=== PATIENT | female | born 1990 | race Caucasian/White ===

== ENCOUNTER 2017-08-28 18:18 | Inpatient (IN) | payer SELFPAY ==
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
[2017-08-28 18:47] LABS: % IMMATURE GRANULYOCYTES 0.3 % (0.0-1.1); ABSOLUTE IMMATURE GRANULOCYTES 0.03 10^3/uL (0.00-0.10); ADD DIFF? NO; ADD MORPH? NO; ADD SCAN? NO; ATYPICAL LYMPHOCYTE FLAG 0 (0-99); FRAGMENT RBC FLAG 0 (0-99); HEMATOCRIT 35.2 % (38.0-47.0); HEMOGLOBIN 11.1 g/dL (12.6-16.3); LEFT SHIFT FLG 0 (0-99); LIPEMIA HEMOLYSIS FLAG 80 (0-99); MEAN CELL HEMOGLOBIN 27.3 pg (27.9-34.1); MEAN CELL HEMOGLOBIN CONCENTR. 31.5 g/dL (32.4-36.7); MEAN CELL VOLUME 86.7 fL (81.5-99.8); MEAN PLATELET VOLUME 10.2 fL (8.7-11.7); PLATELET CLUMPS FLAG 0 (0-99); PLATELET COUNT 361 10^3/uL (150-400); RED BLOOD CELL COUNT 4.06 10^6/uL (4.18-5.33); RED CELL DISTRIBUTION WIDTH 15.9 % (11.5-15.2)
[2017-08-28 19:00] LABS: ANION GAP 13 mEq/L (8-16); CALCIUM 9.4 mg/dL (8.5-10.4); CARBON DIOXIDE 23 mEq/l (22-31); CHLORIDE 104 mEq/L (97-110); CREATININE 0.6 mg/dL (0.6-1.0); ETHANOL SERUM < 10 mg/dL (0-10); GLOMERULAR FILTRATION RATE > 60; GLUCOSE 92 mg/dL (70-100); POTASSIUM 4.4 mEq/L (3.5-5.2); SODIUM 140 mEq/L (134-144)
[2017-08-28] MEDS ORDERED: risperiDONE 2 MG TAB PO ONE (21:45)
[2017-08-28] MEDS ORDERED: BENZTROPINE MESYLATE 1 MG TAB PO ONE (21:45)
[2017-08-28] MEDS ORDERED: VALPROIC ACID 250 MG CAP PO SCH (21:46)
[2017-08-29] MEDS ORDERED: LORazepam 0.5 MG TAB PO PRN (01:20)
[2017-08-29] MEDS ORDERED: ACETAMINOPHEN 325 MG TAB PO PRN (01:20)
[2017-08-29] MEDS ORDERED: MAGNESIUM HYDROXIDE 30 ML UDCUP PO PRN (01:20)
[2017-08-29] MEDS ORDERED: OLANZapine 5 MG TAB PO PRN (01:20)
[2017-08-29] MEDS ORDERED: NICOTINE POLACRILEX 2 MG GUM B PRN (01:20)
[2017-08-29] MEDS ORDERED: MAG HYDROX/AL HYDROX/SIMETH 30 ML UDCUP PO PRN (01:20)
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
[2017-08-29 12:34] LABS: ALANINE AMINOTRANSFERASE 26 IU/L (9-52)
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
[2017-08-29] MEDS: FOLIC ACID 1 MG TAB PO SCH (14:20)
[2017-08-29] MEDS: CYANO/VITAMIN B12 100 MCG TAB PO SCH (14:20)
[2017-08-29] MEDS: FERROUS SULFATE 325 MG TAB PO SCH (14:21)
[2017-08-29] MEDS: MULTIVITAMINS W-MINERALS 1 EACH TAB PO SCH (15:02)
[2017-08-29] MEDS: CALCIUM CARBONATE 500 MG CHEWABLE TAB PO SCH (17:32)
[2017-08-29] MEDS: BENZTROPINE MESYLATE 1 MG TAB PO SCH (20:26)
[2017-08-29] MEDS: VALPROIC ACID 250 MG/5 ML UDCUP PO SCH (20:26)
[2017-08-29] MEDS: RISPERIDONE 1 MG ODT TAB SL SCH (20:26)
[2017-08-29] MEDS ORDERED: RISPERIDONE 2 MG ODT TAB SL SCH (21:00)
[2017-08-30 07:14] LABS: % SATURATION 7 % (20-55); TOTAL IRON BINDING CAPACITY 508 ug/dL (260-490)
[2017-08-30] MEDS ORDERED: CHOLECALCIFEROL VIT D3 1,000 UNITS TAB PO SCH (09:00)
[2017-08-30] MEDS: MULTIVITAMINS W-MINERALS 1 EACH TAB PO SCH (09:11)
[2017-08-30] MEDS: CHOLECALCIFEROL VIT D3 1,000 UNITS TAB PO SCH (09:12)
[2017-08-30] MEDS: FERROUS SULFATE 325 MG TAB PO SCH (09:12)
[2017-08-30] MEDS: CALCIUM CARBONATE 500 MG CHEWABLE TAB PO SCH ×3 (09:13→17:57)
[2017-08-30] MEDS: CYANO/VITAMIN B12 100 MCG TAB PO SCH (09:13)
[2017-08-30] MEDS: FOLIC ACID 1 MG TAB PO SCH (09:13)
--- NOTE | 2017-08-30 10:48 | SOAPPROG ---
SOAP Progress Note Assessment/Plan: Assessment: Schizoaffective Disorder bipolar type PTSD History of gastric bypass Iron deficiency anemia Patient admitted on -1 hold for grave disability related to psychotic disorganization, paranoia, and barricading herself in a hotel room after several weeks of psychiatric medication non-compliance. Patient now on short term certification Patient is compliant with medications but had paranoia and hallucinations overnight and no insight. Plan: Continue Risperdal 3mg QHS Continue Cogentin 1mg QHS Continue Depakote 750mg QHS, check level in 3-4 days; discussed risk of severe defects Continue folic acid, iron, B12 Monitor behavior, paranoia, AH 08/30/17 10:53 Subjective: "I'm OK" Patient is a poor historian. Reports she 'saw and heard something that freaked me out' last night and left her room and refused to go back into her room. Denies feeling irritable or agitated. Reports she is unwilling to take oral contraceptive pills or DepoProvera injection while taking Depakote, but reports she is not sexually active and will not be sexually active without using control. Agrees to discuss this further with an PACKAGE SEALER MACHINE or PCP after discharge. Denies severe anxiety. No physical complaints except feeling tired daily. Objective: Vital Signs Temp Pulse Resp BP Pulse Ox 36.4 C 99 16 105/51 L 97 08/30/17 06:00 08/30/17 06:00 08/30/17 06:00 08/30/17 06:00 08/30/17 06:00 Alert WF, pale, guarded attitude. Mild slowing. Mood 'OK' Affect restricted. Thoughts - briefly organized but poverty of detail/content. Denies SI or HI. Probable AH, VH, and paranoid delusions overnight. Limited/poor insight. Impaired judgment. Staff report patient was awake in middle of the night, appearing disorganized, making paranoid statements that something was outside her window, refused to re- enter room, eventually slept in a different room. Patient has been eating mieals but avoiding groups and isolating. Patient has been observed to be internally preoccupied, mumbling to herself and laughing to herself at times. - Time Spent With Patient Time Spent With Patient: 15 minutes - Pending Discharge Pending Discharge Within 24 Hours: No Pending Discharge Within 48 Hours: No ICD10 Worksheet Patient Problems: Problems Problem Status Onset Anemia Acute Depression Acute Grave disability Acute H/O bariatric surgery Acute Posttraumatic stress disorder Acute Schizoaffective disorder Acute
[2017-08-30] MEDS: RISPERIDONE 1 MG ODT TAB SL SCH (20:37)
[2017-08-30] MEDS: VALPROIC ACID 250 MG/5 ML UDCUP PO SCH (20:37)
[2017-08-30] MEDS: BENZTROPINE MESYLATE 1 MG TAB PO SCH (20:37)
[2017-08-31] MEDS: CHOLECALCIFEROL VIT D3 1,000 UNITS TAB PO SCH (08:58)
[2017-08-31] MEDS: MULTIVITAMINS W-MINERALS 1 EACH TAB PO SCH (08:58)
[2017-08-31] MEDS: CALCIUM CARBONATE 500 MG CHEWABLE TAB PO SCH ×3 (08:59→16:48)
[2017-08-31] MEDS: FOLIC ACID 1 MG TAB PO SCH (08:59)
[2017-08-31] MEDS: FERROUS SULFATE 325 MG TAB PO SCH (08:59)
[2017-08-31] MEDS: CYANO/VITAMIN B12 100 MCG TAB PO SCH (08:59)
--- NOTE | 2017-08-31 11:13 | SOAPPROG ---
SOAP Progress Note Assessment/Plan: Assessment: Schizoaffective Disorder bipolar type PTSD History of gastric bypass Iron deficiency anemia Patient admitted on M-1 hold for grave disability related to psychotic disorganization, paranoia, and barricading herself in a hotel room after several weeks of psychiatric medication non-compliance. Patient now on short term certification. Patient is compliant with medications and appears less distressed but continues to have social anxiety on the unit with poor insight and illogical thinking. Plan: Continue Risperdal 3mg QHS Continue Cogentin 1mg QHS Continue Depakote 750mg QHS, check level 09/02 Continue folic acid, iron, B12 Monitor behavior, paranoia, AH, behavior 08/31/17 11:13 Subjective: "I'm alright" Patient denies any somatic complaints. Denies feeling excessively sedated or tired or slowed. Reports sleeping well. Denies anxiety but then reports she doesn't want to see or speak to her mother and doesn't want to be around other patients or attend groups. Denies feeling agitated or irritable or depressed. Unable to explain events that led to current hospitalization but later reports having fear of being harmed and AH and VH in her home. Reports not wanting to discharge home but doesn't have a plan regarding obtaining food or halfway if discharged. Agrees to continue medication in unit and after discharge. Objective: Vital Signs Temp Pulse Resp BP Pulse Ox 36.4 C 90 16 123/58 H 96 08/31/17 06:00 08/31/17 06:00 08/31/17 06:00 08/31/17 06:00 08/31/17 06:00 Alert WF, pale. Guarded attitude. Appears less anxious and less preoccupied than previous. Speech RRR few words. Mood 'alright' Thoughts briefly organized with a poverty of detail, but illogical and irrational at times. Denies paranoia or AH. Limited insight and impaired judgment. Staff report patient 9 hours, denies SI on unit, avoiding groups, eats only small amount of food when alone. - Time Spent With Patient Time Spent With Patient: 15 minutes - Pending Discharge Pending Discharge Within 24 Hours: No Pending Discharge Within 48 Hours: No ICD10 Worksheet Patient Problems: Problems Problem Status Onset Anemia Acute Depression Acute Grave disability Acute H/O bariatric surgery Acute Posttraumatic stress disorder Acute Schizoaffective disorder Acute
[2017-08-31] MEDS: RISPERIDONE 1 MG ODT TAB SL SCH (20:47)
[2017-08-31] MEDS: VALPROIC ACID 250 MG/5 ML UDCUP PO SCH (20:48)
[2017-08-31] MEDS: BENZTROPINE MESYLATE 1 MG TAB PO SCH (20:48)
[2017-09-01] MEDS: CYANO/VITAMIN B12 100 MCG TAB PO SCH (08:12)
[2017-09-01] MEDS: CHOLECALCIFEROL VIT D3 1,000 UNITS TAB PO SCH (08:12)
[2017-09-01] MEDS: MULTIVITAMINS W-MINERALS 1 EACH TAB PO SCH (08:12)
[2017-09-01] MEDS: FERROUS SULFATE 325 MG TAB PO SCH (08:12)
[2017-09-01] MEDS: CALCIUM CARBONATE 500 MG CHEWABLE TAB PO SCH ×3 (08:12→18:52)
[2017-09-01] MEDS: FOLIC ACID 1 MG TAB PO SCH (08:13)
--- NOTE | 2017-09-01 12:48 | SOAPPROG ---
SOAP Progress Note Assessment/Plan: Assessment: Per Dr. Christianson's note: chizoaffective Disorder bipolar type PTSD History of gastric bypass Iron deficiency anemia Patient admitted on M-1 hold for grave disability related to psychotic disorganization, paranoia, and barricading herself in a hotel room after several weeks of psychiatric medication non-compliance. Patient now on short term certification. Patient is compliant with medications and appears less distressed but continues to have social anxiety on the unit with poor insight and illogical thinking. Plan: Continue Risperdal 3mg QHS Continue Cogentin 1mg QHS Continue Depakote 750mg QHS, check level 09/02 Continue folic acid, iron, B12 Monitor behavior, paranoia, AH, behavior Plan: 09/01/17 12:44 1. CCM - patient is slowly improving 2. Patient continues to be compliant with medications. 3. Patient isolates in her room and has minimal contact with peers/staff. 4. VPA on 09/02 Subjective: Met with patient, reviewed chart and d/w staff. Patient was lying in bed, but got up to talk to MD. Staff report patient c/o stomach cramps last night and insisted that staff send her to ED. She waited for several hours, but eventually felt better and was able to sleep well for 8 hrs. Patient told staff she had a "parasite" in her stomach from eating "some bad rice" several weeks ago. This AM, patient told MD she was feeling "much better" b/c "I've had stomach issues for past few days, but now they're gone and my stomach feels much better." Patient presents less paranoid today. She took her meds without any problem. Objective: Vital Signs Temp Pulse Resp BP Pulse Ox 36.1 C 94 14 107/55 L 97 09/01/17 06:00 09/01/17 06:00 09/01/17 06:00 09/01/17 06:00 09/01/17 06:00 MSE: Guarded, but pleasant Affect: Euthymic Mood: "Much better" TP: Illogical TC: Paranoid delusions (stomach "parasites"), improved somewhat today Insight/Judgment: Impaired - Time Spent With Patient Time Spent With Patient: 15" - Pending Discharge Pending Discharge Within 24 Hours: No Pending Discharge Within 48 Hours: No ICD10 Worksheet Patient Problems: Problems Problem Status Onset Anemia Acute Depression Acute Grave disability Acute H/O bariatric surgery Acute Posttraumatic stress disorder Acute Schizoaffective disorder Acute
[2017-09-01] MEDS: RISPERIDONE 1 MG ODT TAB SL SCH (20:57)
[2017-09-01] MEDS: BENZTROPINE MESYLATE 1 MG TAB PO SCH (20:57)
[2017-09-01] MEDS: VALPROIC ACID 250 MG/5 ML UDCUP PO SCH (20:58)
[2017-09-02] MEDS: MULTIVITAMINS W-MINERALS 1 EACH TAB PO SCH (09:32)
[2017-09-02] MEDS: FERROUS SULFATE 325 MG TAB PO SCH (09:32)
[2017-09-02] MEDS: CHOLECALCIFEROL VIT D3 1,000 UNITS TAB PO SCH (09:32)
[2017-09-02] MEDS: CALCIUM CARBONATE 500 MG CHEWABLE TAB PO SCH ×3 (09:32→19:13)
[2017-09-02] MEDS: FOLIC ACID 1 MG TAB PO SCH (09:33)
[2017-09-02] MEDS: CYANO/VITAMIN B12 100 MCG TAB PO SCH (09:33)
[2017-09-02 11:46] LABS: ALANINE AMINOTRANSFERASE 30 IU/L (9-52)
--- NOTE | 2017-09-02 12:08 | SOAPPROG ---
SOAP Progress Note Assessment/Plan: Assessment: Per Dr. Christianson's note: chizoaffective Disorder bipolar type PTSD History of gastric bypass Iron deficiency anemia Patient admitted on M-1 hold for grave disability related to psychotic disorganization, paranoia, and barricading herself in a hotel room after several weeks of psychiatric medication non-compliance. Patient now on short term certification. Patient is compliant with medications and appears less distressed but continues to have social anxiety on the unit with poor insight and illogical thinking. Plan: Continue Risperdal 3mg QHS Continue Cogentin 1mg QHS Continue Depakote 750mg QHS, check level 09/02 Continue folic acid, iron, B12 Monitor behavior, paranoia, AH, behavior Plan: 09/01/17 12:44 1. CCM - patient is slowly improving 2. Patient continues to be compliant with medications. 3. Patient isolates in her room and has minimal contact with peers/staff. 4. VPA on 09/0209/02/17 12:05 1. Patient requested PO Depakote instead of liquid d/t taste. MD made the change , but advised staff to monitor for compliance. 2. So far, patient has demonstrated compliance with all meds. 3. VPA level is still pending. She received HS dose last night, so blood was drawn late this morning to ensure trough level. 4. CCM - patient shows signs of improvement since starting back on meds Subjective: Met with patient, reviewed chart and d/w staff. Patient was sitting in day room not doing anything in particular. She has been more present in milieu today, but not participating in any group activities or interacting with peers. She is pleasant and cooperative and answers questions briefly but appropriately. She still refuses to sign [facility] for [facility] and says she will "find her own" psych MD after discharge. Objective: Vital Signs Temp Pulse Resp BP Pulse Ox 36.4 C 100 14 119/55 L 97 09/02/17 06:00 09/02/17 06:00 09/02/17 06:00 09/02/17 06:00 09/02/17 06:00 Affect: Flat Mood: "OK" TP: Goal-directed for purposes of brief conversations TC: Delusions, less paranoid Insight/Judgment: Poor - Time Spent With Patient Time Spent With Patient: 15" - Pending Discharge Pending Discharge Within 24 Hours: No Pending Discharge Within 48 Hours: No ICD10 Worksheet Patient Problems: Problems Problem Status Onset Anemia Acute Depression Acute Grave disability Acute H/O bariatric surgery Acute Posttraumatic stress disorder Acute Schizoaffective disorder Acute
[2017-09-02] MEDS ORDERED: VALPROIC ACID 250 MG CAP PO SCH (21:00)
[2017-09-02] MEDS: RISPERIDONE 1 MG ODT TAB SL SCH (21:10)
[2017-09-02] MEDS: BENZTROPINE MESYLATE 1 MG TAB PO SCH (21:11)
[2017-09-03] MEDS ORDERED: RISPERIDONE 1 MG ODT TAB SL SCH (07:42)
[2017-09-03] MEDS ORDERED: VALPROIC ACID 250 MG CAP PO SCH ×2 (07:42→21:00)
--- NOTE | 2017-09-03 07:46 | SOAPPROG ---
SOAP Progress Note Assessment/Plan: Assessment: Schizoaffective Disorder bipolar type PTSD History of gastric bypass Iron deficiency anemia Patient admitted on M-1 hold for grave disability related to psychotic disorganization, paranoia, and barricading herself in a hotel room after several weeks of psychiatric medication non-compliance. Patient now on short term certification. Patient is compliant with medications but appears dysphoric and paranoid and illogical. Plan: Increase Risperdal 4mg QHS Continue Cogentin 1mg QHS Increase Depakote 1000mg QHS Continue folic acid, iron, B12 Monitor behavior, paranoia, AH, behavior Requested nursing staff contact legal department to clarify if patients mother can get daily updates from nursing (mother has medical power of senior trial attorney, document in chart, discussed this on phone with mother). 09/03/17 07:46 Subjective: "Alright" Patient denies mood swings or severe depression or irritability. Denies any physical complaints. Reports she is unwilling to meet with mother to discuss discharge planning or return to mother's home, reports she is scared to go there , unable to explain why. Unable to explain how she would obtain housing if not discharged to live with mother. Denies paranoia or AH. Reports sleeping well. Objective: Vital Signs Temp Pulse Resp BP Pulse Ox 36.5 C 76 14 100/52 L 90 L 09/03/17 06:00 09/03/17 06:00 09/03/17 06:00 09/03/17 06:00 09/03/17 06:00 Alert WF, pale, dysphoric, tearful. Speech RRR. Mood 'alright.' THoughts illogical with poverty of detail/content. Denies SI or HI. Denies AH. Paranoid ideas about mother and mothers home. Limited insight. Judgment questionable. Valp 55. ALT WNL. Staff report patient illogical over weekend, calling police asking for assistance in obtaining housing. Patient isolating to room and not attending groups. - Time Spent With Patient Time Spent With Patient: 20min - Pending Discharge Pending Discharge Within 24 Hours: No Pending Discharge Within 48 Hours: No ICD10 Worksheet Patient Problems: Problems Problem Status Onset Anemia Acute Depression Acute Grave disability Acute H/O bariatric surgery Acute Posttraumatic stress disorder Acute Schizoaffective disorder Acute
[2017-09-03] MEDS: FOLIC ACID 1 MG TAB PO SCH (08:14)
[2017-09-03] MEDS: MULTIVITAMINS W-MINERALS 1 EACH TAB PO SCH (08:14)
[2017-09-03] MEDS: CYANO/VITAMIN B12 100 MCG TAB PO SCH (08:14)
[2017-09-03] MEDS: CALCIUM CARBONATE 500 MG CHEWABLE TAB PO SCH ×3 (08:14→19:01)
[2017-09-03] MEDS: CHOLECALCIFEROL VIT D3 1,000 UNITS TAB PO SCH (08:14)
[2017-09-03] MEDS: FERROUS SULFATE 325 MG TAB PO SCH (08:14)
[2017-09-03] MEDS: BENZTROPINE MESYLATE 1 MG TAB PO SCH (21:48)
[2017-09-03] MEDS: RISPERIDONE 2 MG ODT TAB SL SCH (21:48)
[2017-09-03] MEDS: DIVALPROEX NA 500 MG TAB PO SCH (21:49)
[2017-09-04] MEDS: CHOLECALCIFEROL VIT D3 1,000 UNITS TAB PO SCH (08:39)
[2017-09-04] MEDS: FOLIC ACID 1 MG TAB PO SCH (08:39)
[2017-09-04] MEDS: CYANO/VITAMIN B12 100 MCG TAB PO SCH (08:39)
[2017-09-04] MEDS: CALCIUM CARBONATE 500 MG CHEWABLE TAB PO SCH ×3 (08:39→21:25)
[2017-09-04] MEDS: FERROUS SULFATE 325 MG TAB PO SCH (08:39)
[2017-09-04] MEDS: MULTIVITAMINS W-MINERALS 1 EACH TAB PO SCH (08:39)
--- NOTE | 2017-09-04 11:05 | SOAPPROG ---
SOAP Progress Note Assessment/Plan: Assessment: Schizoaffective Disorder bipolar type PTSD History of gastric bypass Iron deficiency anemia Patient admitted on -1 hold for grave disability related to psychotic disorganization, paranoia, and barricading herself in a hotel room after several weeks of psychiatric medication non-compliance. Patient now on short term certification. Patient is compliant with medications and appears more euthymic and appropriate. Patient has poor insight and is illogical regarding discharge planning. Plan: Continue Risperdal 4mg QHS Continue Cogentin 1mg QHS Continue Depakote 1000mg QHS Continue folic acid, iron, B12 Discussed plan to monitor patients behavior and symptoms in groups if willing to attend, and need for safe discharge plan with either mother, aunt, or uncle prior to discharge. 09/04/17 11:05 Subjective: 'I'm OK, better, tired' Patient reports sleeping well but feeling tired this AM. Reports prior to admission she was scared of noises coming from her mothers room so she called the police to investigate. Reports mother was ' acting weird and stressed.' Patient denies verbal or physical abuse from mother. Reports wanting to discharge to live 'somewhere else.' Unable to explain how she would pay for housing jail. Reports she wants to live with aunt and uncle in [place] or with friends in [place]. Denies stiffness or tremors from medication. Reports willingness to get outpatient MH treatment after discharge. Objective: Vital Signs Temp Pulse Resp BP Pulse Ox 36.9 C 78 12 101/52 L 97 09/04/17 06:00 09/04/17 06:00 09/04/17 06:00 09/04/17 06:00 09/04/17 06:00 Alert pale WF. Cooperative, fair/improved eye contact. Speech RRR. Mood 'I'm OK, better, tired' Affect odd, anxious. Thoughts illogical at times but more talkative and less guarded than previous. Denies SI or HI. Describes paranoid fears and AH prior to admit. Memory fair. Insight poor. Judgment impaired. Staff report patient slept 8 hours. Isolative to room. Illogical with poor insight. - Time Spent With Patient Time Spent With Patient: 20 minutes - Pending Discharge Pending Discharge Within 24 Hours: No Pending Discharge Within 48 Hours: No ICD10 Worksheet Patient Problems: Problems Problem Status Onset Anemia Acute Depression Acute Grave disability Acute H/O bariatric surgery Acute Posttraumatic stress disorder Acute Schizoaffective disorder Acute
[2017-09-04] MEDS: RISPERIDONE 2 MG ODT TAB SL SCH (21:25)
[2017-09-04] MEDS: BENZTROPINE MESYLATE 1 MG TAB PO SCH (21:25)
[2017-09-04] MEDS: DIVALPROEX NA 500 MG TAB PO SCH (21:25)
[2017-09-05] MEDS: CHOLECALCIFEROL VIT D3 1,000 UNITS TAB PO SCH (10:09)
[2017-09-05] MEDS: MULTIVITAMINS W-MINERALS 1 EACH TAB PO SCH (10:10)
[2017-09-05] MEDS: FOLIC ACID 1 MG TAB PO SCH (10:10)
[2017-09-05] MEDS: CYANO/VITAMIN B12 100 MCG TAB PO SCH (10:10)
[2017-09-05] MEDS: FERROUS SULFATE 325 MG TAB PO SCH (10:11)
[2017-09-05] MEDS: CALCIUM CARBONATE 500 MG CHEWABLE TAB PO SCH ×3 (10:11→17:51)
--- NOTE | 2017-09-05 12:32 | SOAPPROG ---
SOAP Progress Note Assessment/Plan: Assessment: Schizoaffective Disorder bipolar type History of PTSD History of gastric bypass Iron deficiency anemia Patient admitted on M-1 hold for grave disability related to psychotic disorganization, paranoia, AH, and barricading herself in a hotel room after several weeks of psychiatric medication non-compliance after she and mother moved to [place] from [place]. Patient now on short term certification. Patient is compliant with medications and appears more euthymic and appropriate. Patient has poor insight and is illogical regarding discharge planning. Has continued paranoia regarding mother and her home. Plan: Increase Risperdal 2mg QAM and 4mg QHS Continue Cogentin 1mg QHS Continue Depakote 1000mg QHS Check Depakote level, AST, ALT, and CBC in AM Continue folic acid, iron, B12 Discussed plan to monitor patients behavior and symptoms in groups if willing to attend, and need for safe discharge plan with either mother, aunt, or uncle prior to discharge. 09/05/17 12:32 Subjective: "Pretty good, alright" Patient reports she wants to discharge to 'my own place' after discharge but unable to explain how she would obtain funding for housing. Reports prior to admit 'I got real freaked out, I heard someone talking in my mom's room but she wasn't on the phone, maybe voices or noises from a computer, I called the police and then my mom was acting strange.' Reports she doesn't believe episode was related to mental illness. Unable to explain how she would get transportation or food if not discharged with family. Denies stiffness or tremors. Denies AH or paranoia on unit but unable to explain why she isolates with meals and doesn't attend group. Reports sleeping well and stable mood. Objective: Vital Signs Temp Pulse Resp BP Pulse Ox 36.8 C 85 16 112/49 L 96 09/05/17 06:00 09/05/17 06:00 09/05/17 06:00 09/05/17 06:00 09/05/17 06:00 Staff report pateint slept 8.5 hours, isolating to room, not attending groups, not attending meals with other patients but eating 50% of meals alone in room. Alert pale WF. Ambulatory without tremors or slowing. Speech RRR, rapid at times. Mood 'pretty good'. Affect preoccupied. Thoughts briefly organized, tangential at times, illogical at times. Denies SI or HI or AH currently. Described paranoid ideas of reference, disorganized thinking, and AH prior to admit. Illogical and grandiose regarding discharge planning. No insight. Impaired judgment. - Time Spent With Patient Time Spent With Patient: 20 minutes - Pending Discharge Pending Discharge Within 24 Hours: No Pending Discharge Within 48 Hours: No ICD10 Worksheet Patient Problems: Problems Problem Status Onset Anemia Acute Depression Acute Grave disability Acute H/O bariatric surgery Acute Posttraumatic stress disorder Acute Schizoaffective disorder Acute
[2017-09-05] MEDS: BENZTROPINE MESYLATE 1 MG TAB PO SCH (17:51)
[2017-09-05] MEDS: DIVALPROEX NA 500 MG TAB PO SCH (17:51)
[2017-09-05] MEDS: RISPERIDONE 2 MG ODT TAB SL SCH (17:52)
--- NOTE | 2017-09-06 08:46 | SOAPPROG ---
SOAP Progress Note Assessment/Plan: Assessment: Schizoaffective Disorder bipolar type History of PTSD History of gastric bypass Iron deficiency anemia Patient admitted on -1 hold for grave disability related to psychotic disorganization, paranoia, AH, and barricading herself in a hotel room after several weeks of psychiatric medication non-compliance after she and mother moved to [place] from [place]. Patient now on short term certification. Patient is compliant with medications and appears more euthymic and appropriate. Patient has poor insight and is illogical regarding discharge planning with continued paranoia regarding mother and her home. Plan: Risperdal 2mg QAM and 4mg QHS, increased 09/05 Cogentin 1mg QHS Depakote 1000mg QHS Depakote level, AST, ALT, and CBC pending Continue folic acid, iron, B12 Monitor behavior on unit and paranoia symptoms Reviewed need for safe discharge plan with either mother, aunt, or uncle ( patient will need assistance with medication compliance and obtaining follow up care due to poor insight and thought disorder). 09/06/17 08:48 Subjective: "I'm OK" Patient reports sleeping well. Denies stiffness or sedation from medication, denies tremors. Reports she doesn't want to discharge home with mother and feels 'scared and freaked out' about mother's home and scared to meet with her mother. Denies mood swings or agitation or irritability. Reports plan to meet with a notary regarding having a bank document notarized. Reports hoping to live with aunt or uncle after discharge but hasn't called them yet. Unable to explain how she would obtain food or prison if discharged. Objective: Vital Signs Temp Pulse Resp BP Pulse Ox 36.5 C 79 14 96/48 L 96 09/06/17 06:00 09/06/17 06:00 09/06/17 06:00 09/06/17 06:00 09/06/17 06:00 Alert WF, pale. Fair eye contact. Speech RRR. Mood 'OK.' Affect odd, preoccupied. Thoughts organized but limited detail. Continued paranoia regarding returning home with mother. Denies SI or HI. Poor insight, judgment impaired by paranoia. Staff report patient isolating to room, limited PO intake, but able to sit in milieu at times and eat small amounts of food and fluid. Slept well overnight. Calm and cooperative with PO medications. AST, ALT, Depakote level, CBC pending - Time Spent With Patient Time Spent With Patient: 15 minutes - Pending Discharge Pending Discharge Within 24 Hours: No Pending Discharge Within 48 Hours: No ICD10 Worksheet Patient Problems: Problems Problem Status Onset Anemia Acute Depression Acute Grave disability Acute H/O bariatric surgery Acute Posttraumatic stress disorder Acute Schizoaffective disorder Acute
[2017-09-06] MEDS: FERROUS SULFATE 325 MG TAB PO SCH (10:50)
[2017-09-06] MEDS: CHOLECALCIFEROL VIT D3 1,000 UNITS TAB PO SCH (10:52)
[2017-09-06] MEDS: FOLIC ACID 1 MG TAB PO SCH (10:52)
[2017-09-06] MEDS: RISPERIDONE 2 MG ODT TAB SL SCH ×2 (10:52→17:52)
[2017-09-06] MEDS: CYANO/VITAMIN B12 100 MCG TAB PO SCH (10:52)
[2017-09-06] MEDS: CALCIUM CARBONATE 500 MG CHEWABLE TAB PO SCH ×3 (10:52→17:52)
[2017-09-06] MEDS: MULTIVITAMINS W-MINERALS 1 EACH TAB PO SCH (10:53)
[2017-09-06] MEDS: DIVALPROEX NA 500 MG TAB PO SCH (17:51)
[2017-09-06] MEDS: BENZTROPINE MESYLATE 1 MG TAB PO SCH (17:52)
[2017-09-07 07:49] LABS: HEMATOCRIT 35.4 % (38.0-47.0); HEMOGLOBIN 11.3 g/dL (12.6-16.3); MEAN CELL HEMOGLOBIN CONCENTR. 31.9 g/dL (32.4-36.7); MEAN CELL VOLUME 87.6 fL (81.5-99.8); RED BLOOD CELL COUNT 4.04 10^6/uL (4.18-5.33); RED CELL DISTRIBUTION WIDTH 16.7 % (11.5-15.2)
[2017-09-07 08:13] LABS: ALANINE AMINOTRANSFERASE 26 IU/L (9-52); ASPARTATE AMINOTRANSFERASE 19 IU/L (14-46)
[2017-09-07 08:18] LABS: ASPARTATE AMINOTRANSFERASE 18 IU/L (14-46)
[2017-09-07] MEDS: MULTIVITAMINS W-MINERALS 1 EACH TAB PO SCH (08:51)
[2017-09-07] MEDS: CHOLECALCIFEROL VIT D3 1,000 UNITS TAB PO SCH (08:51)
[2017-09-07] MEDS: RISPERIDONE 2 MG ODT TAB SL SCH ×3 (08:51→21:54)
[2017-09-07] MEDS: CYANO/VITAMIN B12 100 MCG TAB PO SCH (08:52)
[2017-09-07] MEDS: FOLIC ACID 1 MG TAB PO SCH (08:52)
[2017-09-07] MEDS: CALCIUM CARBONATE 500 MG CHEWABLE TAB PO SCH ×3 (08:52→18:51)
--- NOTE | 2017-09-07 08:55 | SOAPPROG ---
SOAP Progress Note Assessment/Plan: Assessment: Schizoaffective Disorder bipolar type History of PTSD History of gastric bypass Iron deficiency anemia Patient admitted on M-1 hold for grave disability related to psychotic disorganization, paranoia, AH, and barricading herself in a hotel room after several weeks of psychiatric medication non-compliance after she and mother moved to [place] from [place]. Patient now on short term certification. Patient is compliant with medications and appears more euthymic and less distressed than previous, but continues to appear illogical when discussing discharge planning and has paranoia toward mother and mother's home. Patient appears to have residual negative symptoms of schizophrenia, has history of 8 prior psychiatric hospitalizations. Plan: Increase Risperdal Mtab 4mg BID Continue Cogentin 1mg QHS Continue Depakote 1000mg QHS Depakote level pending Continue folic acid, B12 Increase Iron 325mg BID with juice Monitor behavior on unit and paranoia symptoms Reviewed need for safe discharge plan with either mother, aunt, or uncle for supervision of medication compliance, assistance with IADLS and MH follow up 09/07/17 08:55 Subjective: "I'm OK" Patient denies stiffness, tremors, or sedation from medication. Reports sleeping well. Denies feeling agitated, irritable, or depressed. Reports anxiety regarding discharging home with mother. Reports feeling unsafe returning to mothers home, reports 'something bad was happening, I was freaked out, I don't feel safe there.' Reports wanting to discharge to live with aunt or uncle or cousins but hasn't called them yet. Later reports wanting to move back to [facility] area but unable to explain how she would obtain housing or food or support herself. Agrees to apply for Social Security Disability after discharge. Agrees to continue medication after discharge but agrees that someone needs to monitor this as she often forgets to take her medication. Objective: Vital Signs Temp Pulse Resp BP Pulse Ox 36.4 C 67 16 102/54 L 95 09/07/17 02:29 09/07/17 02:29 09/07/17 02:29 09/07/17 02:29 09/07/17 02:29 Laboratory Results 09/07/17 06:10 Alert pale WF. Speech RRR, rapid at times. Mood 'OK' Affect preoccupied, anxious at times, odd smiling at times. Thoughts tangential with vague detail. Denies SI or HI. Denies AH or paranoia on unit but describes these symptoms prior to admission. Illogical when discussing discharge planning. Insight poor judgment impaired LFT WNL. Hgb 11. Depakote level pending. Staff reports patient isolative, only eating small snacks alone, not tolerating groups, sitting alone in milieu at times, cooperative with medication, slept overnight. - Time Spent With Patient Time Spent With Patient: 30 minutes - Pending Discharge Pending Discharge Within 24 Hours: No Pending Discharge Within 48 Hours: No ICD10 Worksheet Patient Problems: Problems Problem Status Onset Anemia Acute Depression Acute Grave disability Acute H/O bariatric surgery Acute Posttraumatic stress disorder Acute Schizoaffective disorder Acute
[2017-09-07] MEDS: FERROUS SULFATE 325 MG TAB PO SCH ×2 (10:00→21:54)
[2017-09-07] MEDS: DIVALPROEX NA 500 MG TAB PO SCH (21:54)
[2017-09-07] MEDS: BENZTROPINE MESYLATE 1 MG TAB PO SCH (21:55)
[2017-09-08] MEDS: FOLIC ACID 1 MG TAB PO SCH (09:07)
[2017-09-08] MEDS: CYANO/VITAMIN B12 100 MCG TAB PO SCH (09:07)
[2017-09-08] MEDS: CALCIUM CARBONATE 500 MG CHEWABLE TAB PO SCH ×3 (09:07→16:59)
[2017-09-08] MEDS: RISPERIDONE 2 MG ODT TAB SL SCH ×2 (09:08→21:16)
[2017-09-08] MEDS: CHOLECALCIFEROL VIT D3 1,000 UNITS TAB PO SCH (09:08)
[2017-09-08] MEDS: MULTIVITAMINS W-MINERALS 1 EACH TAB PO SCH (09:08)
[2017-09-08] MEDS: FERROUS SULFATE 325 MG TAB PO SCH ×2 (09:09→21:16)
--- NOTE | 2017-09-08 14:11 | SOAPPROG ---
SOAP Progress Note Assessment/Plan: Assessment: Per Dr. Christianson's note: Assessment: Schizoaffective Disorder bipolar type History of PTSD History of gastric bypass Iron deficiency anemia Patient admitted on M-1 hold for grave disability related to psychotic disorganization, paranoia, AH, and barricading herself in a hotel room after several weeks of psychiatric medication non-compliance after she and mother moved to [place] from [place]. Patient now on short term certification. Patient is compliant with medications and appears more euthymic and less distressed than previous, but continues to appear illogical when discussing discharge planning and has paranoia toward mother and mother's home. Patient appears to have residual negative symptoms of schizophrenia, has history of 8 prior psychiatric hospitalizations. Plan: Increase Risperdal Mtab 4mg BID Continue Cogentin 1mg QHS Continue Depakote 1000mg QHS Depakote level pending Continue folic acid, B12 Increase Iron 325mg BID with juice Monitor behavior on unit and paranoia symptoms Reviewed need for safe discharge plan with either mother, aunt, or uncle for supervision of medication compliance, assistance with IADLS and MH follow up 09/08/17 14:08 1. Patient still refuses to contact her MOC and declines a family meeting. 2. CCM - slow improvement 3. VPA level was 65.1 on 09/07/17 Subjective: Met with patient, reviewed chart and d/w staff. She is lying in bed fully dressed, but sits up to talk to MD. She says she is trying to send notes to her MOC through staff, but they told her that she is supposed to talk to her MOC directly. Patient has tried calling her AOC to get her to talk to her MOC, but supposedly AOC is "out of town" for next week. Patient says the reason she doesn 't talk to her MOC is b/c "I know her and I know it would upset me to talk to her." Patient denies any SI/HI. Objective: Vital Signs Temp Pulse Resp BP Pulse Ox 36.5 C 77 14 102/98 H 97 09/08/17 06:00 09/08/17 06:00 09/08/17 06:00 09/08/17 06:00 09/08/17 06:00 Laboratory Results 09/07/17 06:10 MSE: Affect: Flat Mood: "OK" TP: Illogical TC: Denies any SI/HI, denies AH/ VH Insight/Judgment: Poor - Time Spent With Patient Time Spent With Patient: 20" - Pending Discharge Pending Discharge Within 24 Hours: No Pending Discharge Within 48 Hours: No ICD10 Worksheet Patient Problems: Problems Problem Status Onset Anemia Acute Depression Acute Grave disability Acute H/O bariatric surgery Acute Posttraumatic stress disorder Acute Schizoaffective disorder Acute
[2017-09-08] MEDS: DIVALPROEX NA 500 MG TAB PO SCH (21:16)
[2017-09-08] MEDS: BENZTROPINE MESYLATE 1 MG TAB PO SCH (21:16)
[2017-09-09] MEDS: CYANO/VITAMIN B12 100 MCG TAB PO SCH (08:55)
[2017-09-09] MEDS: CALCIUM CARBONATE 500 MG CHEWABLE TAB PO SCH ×3 (08:55→16:58)
[2017-09-09] MEDS: CHOLECALCIFEROL VIT D3 1,000 UNITS TAB PO SCH (08:55)
[2017-09-09] MEDS: FOLIC ACID 1 MG TAB PO SCH (08:56)
[2017-09-09] MEDS: RISPERIDONE 2 MG ODT TAB SL SCH ×2 (08:56→20:17)
[2017-09-09] MEDS: MULTIVITAMINS W-MINERALS 1 EACH TAB PO SCH (08:56)
[2017-09-09] MEDS: FERROUS SULFATE 325 MG TAB PO SCH ×2 (08:56→20:17)
--- NOTE | 2017-09-09 13:14 | SOAPPROG ---
SOAP Progress Note Assessment/Plan: Assessment: Per Dr. Christianson's note: Assessment: Schizoaffective Disorder bipolar type History of PTSD History of gastric bypass Iron deficiency anemia Patient admitted on M-1 hold for grave disability related to psychotic disorganization, paranoia, AH, and barricading herself in a hotel room after several weeks of psychiatric medication non-compliance after she and mother moved to [place] from [place]. Patient now on short term certification. Patient is compliant with medications and appears more euthymic and less distressed than previous, but continues to appear illogical when discussing discharge planning and has paranoia toward mother and mother's home. Patient appears to have residual negative symptoms of schizophrenia, has history of 8 prior psychiatric hospitalizations. Plan: Increase Risperdal Mtab 4mg BID Continue Cogentin 1mg QHS Continue Depakote 1000mg QHS Depakote level pending Continue folic acid, B12 Increase Iron 325mg BID with juice Monitor behavior on unit and paranoia symptoms Reviewed need for safe discharge plan with either mother, aunt, or uncle for supervision of medication compliance, assistance with IADLS and MH follow up 09/08/17 14:08 1. Patient still refuses to contact her MO and declines a family meeting. 2. CCM - slow improvement 3. VPA level was 65.1 on 09/07/17 09/09/17 13:11 1. Patient texted MOC this AM to drop off her shampoo. 2. Patient still refuses to speak to [facility] directly. 3. No change to meds at this time. Subjective: Met with patient, reviewed chart and d/w staff. Patient was texting her MOC this AM. She has been trying to get staff to call her MOC for her. This AM, her MOC texted back that she would drop off shampoo patient was requesting. [facility] also tried calling patient on her cell phone while she was texting, but patient refused to talk to her. Patient says her jail goal is to move back to [facility] and live in [facility]. Patient was out of bed and attended group therapy for first time this MD observed. She did not participate, only listened to the music. Otherwise, no complaints. Objective: Vital Signs Temp Pulse Resp BP Pulse Ox 36.9 C 77 16 103/53 L 97 09/09/17 06:00 09/09/17 06:00 09/09/17 06:00 09/09/17 06:00 09/09/17 06:00 Laboratory Results 09/07/17 06:10 MSE: Affect: More range of affect Mood: "I'm OK" TP: Linear, but illogical at times when talking about discharge TC: Denies any SI/HI, no AH/VH, no paranoia Insight/Judgment: Poor - Time Spent With Patient Time Spent With Patient: 20" - Pending Discharge Pending Discharge Within 24 Hours: No Pending Discharge Within 48 Hours: No ICD10 Worksheet Patient Problems: Problems Problem Status Onset Anemia Acute Depression Acute Grave disability Acute H/O bariatric surgery Acute Posttraumatic stress disorder Acute Schizoaffective disorder Acute
[2017-09-09] MEDS: BENZTROPINE MESYLATE 1 MG TAB PO SCH (20:17)
[2017-09-09] MEDS: DIVALPROEX NA 500 MG TAB PO SCH (20:17)
[2017-09-10] MEDS: MULTIVITAMINS W-MINERALS 1 EACH TAB PO SCH (09:00)
[2017-09-10] MEDS: FOLIC ACID 1 MG TAB PO SCH (09:00)
[2017-09-10] MEDS: CHOLECALCIFEROL VIT D3 1,000 UNITS TAB PO SCH (09:00)
[2017-09-10] MEDS: RISPERIDONE 2 MG ODT TAB SL SCH ×2 (09:01→21:28)
[2017-09-10] MEDS: FERROUS SULFATE 325 MG TAB PO SCH ×2 (09:01→21:28)
--- NOTE | 2017-09-10 09:14 | SOAPPROG ---
SOAP Progress Note Assessment/Plan: Assessment: Schizoaffective Disorder bipolar type History of PTSD History of gastric bypass Iron deficiency anemia Patient admitted on M-1 hold for grave disability related to psychotic disorganization, paranoia, AH, and barricading herself in a hotel room after several weeks of psychiatric medication non-compliance after she and mother moved to [place] from [place]. Patient now on short term certification. Patient is compliant with medications and appears more euthymic and less distressed than previous, but continues to appear illogical when discussing discharge planning and has paranoia toward mother and mother's home. Patient appears to have residual negative symptoms of schizophrenia (apathy, poor planning, illogical at times), has history of 8 prior psychiatric hospitalizations. Plan: Continue Risperdal Mtab 4mg BID Continue Cogentin 1mg QHS Continue Depakote 1000mg QHS Continue folic acid, B12, iron Monitor behavior on unit and paranoia symptoms Reviewed need for safe discharge plan with either mother, aunt, or uncle for supervision of medication compliance, assistance with IADLS and MH follow up; patient will need pillbox monitoring after discharge if discharged to a intermediate along with a pillowcase cutter to assist in applying for SS disability. Speech/OT evaluation to clarify executive function, memory 09/10/17 09:15 Subjective: "OK, alright, slept well" Patient reports feeling calm. Denies mood swings or severe sadness or hopelessness over weekend. Reports fair appetite. Reports anxiety about meeting with mother or returning to her home, says 'something bad happened' but unable to explain specific fears about meeting with mother or returning home. Reports she wants to live with aunt and uncle but they are out of town for another week. Denies paranoia or AH on unit but admits to isolating to room. Denies stiffness, slowing, or sedation from medications. Denies dizziness or falls. Objective: Vital Signs Temp Pulse Resp BP Pulse Ox 36.4 C 80 16 97/52 L 96 09/10/17 06:00 09/10/17 06:00 09/10/17 06:00 09/10/17 06:00 09/10/17 06:00 Laboratory Results 09/07/17 06:10 Staff report patient isolative, quiet, but able to attend goals group and eat meals in main room with other patients; has been avoiding other groups and only sat through 2 of ART group on 09/07. Patient has been compliant with medications and sleeping well at night. Patient texted mother request for shampoo and face cream, with staff supervisions, but refused to meet with mother. Alert pale WF, overweight, ambulatory. Speech RRR. Mood "OK, alright" Affect odd. Thoughts briefly organized but illogical/grandiose when describing discharge planning. Denies SI or HI. Denies AH. Continued paranoia regarding mothers home. Insight limited/poor. Judgment questionable. - Time Spent With Patient Time Spent With Patient: 20 minutes - Pending Discharge Pending Discharge Within 24 Hours: No Pending Discharge Within 48 Hours: Yes Pending Discharge Date: 09/12/17 Pending Discharge Time: 11:00 ICD10 Worksheet Patient Problems: Problems Problem Status Onset Anemia Acute Depression Acute Grave disability Acute H/O bariatric surgery Acute Posttraumatic stress disorder Acute Schizoaffective disorder Acute
[2017-09-10] MEDS: CYANO/VITAMIN B12 100 MCG TAB PO SCH (09:22)
[2017-09-10] MEDS: CALCIUM CARBONATE 500 MG CHEWABLE TAB PO SCH ×3 (09:22→20:28)
[2017-09-10] MEDS: DIVALPROEX NA 500 MG TAB PO SCH (21:28)
[2017-09-10] MEDS: BENZTROPINE MESYLATE 1 MG TAB PO SCH (21:28)
--- NOTE | 2017-09-11 08:26 | SOAPPROG ---
SOAP Progress Note Assessment/Plan: Assessment: Schizoaffective Disorder bipolar type History of PTSD History of gastric bypass Iron deficiency anemia Patient admitted on M-1 hold for grave disability related to psychotic disorganization, paranoia, AH, and barricading herself in a hotel room after several weeks of psychiatric medication non-compliance after she and mother moved to [place] from [place]. Patient now on short term certification. Patient is compliant with medications and appears more euthymic and less distressed than previous, but continues to appear illogical when discussing discharge planning and has continued paranoia toward mother and mother's home. Patient appears to have residual negative symptoms of schizophrenia (apathy, poor planning, illogical at times), has history of 8 prior psychiatric hospitalizations. Plan: Increase Risperdal Mtab 4mg AM and 6mg QHS Continue Cogentin 1mg QHS Continue Depakote 1000mg QHS Continue folic acid, B12, iron Monitor behavior on unit and paranoia symptoms Reviewed with patient signs/symptoms of Schizophrenia, need for safe discharge plan with either mother, aunt, or uncle for supervision of medication compliance , assistance with IADLS and MH follow up; patient will need a case filler to assist in applying for SS disability. Speech/OT evaluation to clarify executive function, memory scheduled today 09/11/17 08:26 Subjective: "I'm OK" Patient reports sleeping well. Denies tremors or stiffness or slowing. Denies mood swings or agitation. Reports anxiety regarding her mother, refuses to talk to mother, unable to explain why. Reports she will not return to [facility] apartment due to hearing 'weird strange noises from her room' and feeling scared 'something really bad is happening there.' Reports wanting to live with aunt and uncle but they are in [place] on vacation currently. Unable to explain how she would obtain food or detention after discharge if not discharging with mother. Objective: Vital Signs Temp Pulse Resp BP Pulse Ox 36.5 C 68 12 91/53 L 96 09/11/17 06:00 09/11/17 06:00 09/11/17 06:00 09/11/17 06:00 09/11/17 06:00 Laboratory Results 09/07/17 06:10 Alert WF, pale, no tremors or slowing. Speech RRR. Mood 'OK' Affect restricted , preoccupied. Thoughts briefly organized but illogical at times. Denies SI or HI or AH. Paranoia regarding mother and fearful of speaking to her or returning to her home. Limited/poor insight, impaired judgment. Staff report patient calm and isolative, slept overnight, was able to attend one art group yesterday. Only eating small amounts of food alone in room. - Time Spent With Patient Time Spent With Patient: 15 minutes - Pending Discharge Pending Discharge Within 24 Hours: No Pending Discharge Within 48 Hours: No ICD10 Worksheet Patient Problems: Problems Problem Status Onset Anemia Acute Depression Acute Grave disability Acute H/O bariatric surgery Acute Posttraumatic stress disorder Acute Schizoaffective disorder Acute
[2017-09-11] MEDS: RISPERIDONE 2 MG ODT TAB SL SCH ×2 (08:40→20:07)
[2017-09-11] MEDS: CHOLECALCIFEROL VIT D3 1,000 UNITS TAB PO SCH (08:41)
[2017-09-11] MEDS: FOLIC ACID 1 MG TAB PO SCH (08:41)
[2017-09-11] MEDS: FERROUS SULFATE 325 MG TAB PO SCH ×2 (08:42→20:07)
[2017-09-11] MEDS: CALCIUM CARBONATE 500 MG CHEWABLE TAB PO SCH ×3 (08:42→17:24)
[2017-09-11] MEDS: MULTIVITAMINS W-MINERALS 1 EACH TAB PO SCH (08:42)
[2017-09-11] MEDS: CYANO/VITAMIN B12 100 MCG TAB PO SCH (08:42)
[2017-09-11] MEDS: BENZTROPINE MESYLATE 1 MG TAB PO SCH (20:07)
[2017-09-11] MEDS: DIVALPROEX NA 500 MG TAB PO SCH (20:07)
[2017-09-12] MEDS: CYANO/VITAMIN B12 100 MCG TAB PO SCH (09:46)
[2017-09-12] MEDS: FERROUS SULFATE 325 MG TAB PO SCH ×2 (09:46→20:46)
[2017-09-12] MEDS: FOLIC ACID 1 MG TAB PO SCH (09:47)
[2017-09-12] MEDS: CHOLECALCIFEROL VIT D3 1,000 UNITS TAB PO SCH (09:47)
[2017-09-12] MEDS: RISPERIDONE 2 MG ODT TAB SL SCH ×2 (09:47→20:46)
[2017-09-12] MEDS: MULTIVITAMINS W-MINERALS 1 EACH TAB PO SCH (09:47)
[2017-09-12] MEDS: CALCIUM CARBONATE 500 MG CHEWABLE TAB PO SCH ×3 (09:47→17:09)
--- NOTE | 2017-09-12 10:59 | SOAPPROG ---
SOAP Progress Note Assessment/Plan: Assessment: Schizoaffective Disorder bipolar type History of PTSD History of gastric bypass Iron deficiency anemia Patient admitted on M-1 hold for grave disability related to psychotic disorganization, paranoia, AH, and barricading herself in a hotel room after several weeks of psychiatric medication non-compliance after she and mother moved to [place] from [place]. Patient now on short term certification. Patient is compliant with medications and appears more euthymic and less distressed than previous, but continues to appear illogical when discussing discharge planning and has continued paranoia toward mother and mother's home. Patient appears to have residual negative symptoms of schizophrenia (apathy, poor planning, illogical at times), has history of 8 prior psychiatric hospitalizations. Plan: Continue Risperdal Mtab 4mg AM and 6mg QHS, increased 09/11/17 Continue Cogentin 1mg QHS Continue Depakote 1000mg QHS Continue folic acid, B12, iron Monitor behavior on unit and paranoia symptoms Reviewed with patient signs/symptoms of Schizophrenia, need for safe discharge plan with either mother, aunt, or uncle for supervision of medication compliance , assistance with IADLS and MH follow up; patient will need a family independence case manager to assist in applying for SS disability. Patients mother given information on 09/11 regarding [facility] 09/12/17 10:58 Subjective: "OK, pretty good" Patient reports sleeping well. Reports stable mood. Reports wanting to live with aunt and uncle after discharge but they reportedly will not allow her to live with them and are out of town currently. Reports she will not return to mothers home due to hearing weird noises coming from mother room, fear that ' something really bad and weird was happening.' Denies paranoia or AH on unit. Denies feeling stiff or slowed by medication. Denies violent or suicidal thoughts. Unable to explain how she would obtain food or [facility] if not discharged home with mother. Objective: Vital Signs Temp Pulse Resp BP Pulse Ox 36.3 C 80 14 107/51 L 96 09/12/17 06:00 09/12/17 06:00 09/12/17 06:00 09/12/17 06:00 09/12/17 06:00 Laboratory Results 09/07/17 06:10 ALert WF, pale, cooperative. Fair eye contact. No tremors or rigidity. Speech RRR. Mood "OK, pretty good" Affect restricted. Thoughts organized but poverty of detail and content; illogical and paranoia when discussing coordinating discharge with mother or discharging home. Denies SI or HI or AH or paranoia on unit. Insight limited/poor judgment impaired. Staff report patient cooperative with medication, slept 8 hours and ate 50% meals, isolative to room, able to attend some groups. Speech/OT evaluation 09/11 showed CLQT/cognitive test WNL - Time Spent With Patient Time Spent With Patient: 15 minutes - Pending Discharge Pending Discharge Within 24 Hours: No Pending Discharge Within 48 Hours: No ICD10 Worksheet Patient Problems: Problems Problem Status Onset Anemia Acute Depression Acute Grave disability Acute H/O bariatric surgery Acute Posttraumatic stress disorder Acute Schizoaffective disorder Acute
[2017-09-12] MEDS: BENZTROPINE MESYLATE 1 MG TAB PO SCH (20:46)
[2017-09-12] MEDS: DIVALPROEX NA 500 MG TAB PO SCH (20:46)
[2017-09-13] MEDS: CALCIUM CARBONATE 500 MG CHEWABLE TAB PO SCH ×3 (08:44→17:18)
[2017-09-13] MEDS: CHOLECALCIFEROL VIT D3 1,000 UNITS TAB PO SCH (08:44)
[2017-09-13] MEDS: FERROUS SULFATE 325 MG TAB PO SCH ×2 (08:45→20:43)
[2017-09-13] MEDS: CYANO/VITAMIN B12 100 MCG TAB PO SCH (08:45)
[2017-09-13] MEDS: FOLIC ACID 1 MG TAB PO SCH (08:45)
[2017-09-13] MEDS: MULTIVITAMINS W-MINERALS 1 EACH TAB PO SCH (08:45)
[2017-09-13] MEDS: RISPERIDONE 2 MG ODT TAB SL SCH ×2 (08:45→20:43)
--- NOTE | 2017-09-13 10:30 | SOAPPROG ---
SOAP Progress Note Assessment/Plan: Assessment: Schizoaffective Disorder bipolar type History of PTSD History of gastric bypass Iron deficiency anemia Patient admitted on M-1 hold for grave disability related to psychotic disorganization, paranoia, AH, and barricading herself in a hotel room after several weeks of psychiatric medication non-compliance after she and mother moved to [place] from [place]. Patient now on short term certification. Patient is compliant with medications and appears more euthymic and less distressed than previous, but continues to appear illogical when discussing discharge planning and has continued paranoia toward mother and mother's home. Patient appears to have residual negative symptoms of schizophrenia (apathy, poor planning, illogical at times), has history of 8 prior psychiatric hospitalizations. Plan: Continue Risperdal 4mg AM and 6mg QHS, increased 09/11/17. Patient may have poor absorption due to gastric bypass or may be ultrarapid metabolizer. Continue Cogentin 1mg QHS Continue Depakote 1000mg QHS Continue folic acid, B12, iron Monitor behavior on unit and paranoia symptoms regarding discharge planning Reviewed services at [facility] residential [facility] 09/13/17 10:30 Subjective: "I'm OK" Patient reports sleeping well. Denies feeling stiff or having tremors. Reports not wanting to discharge with mother or to residential program, wants to discharge with aunt and uncle who are currently out of the country. Unable to explain how she would obtain food or nursing home if discharged homeless. Denies paranoia or AH on unit, but reports she will not return to mother's home due to hearing strange noises and fearing that something strange was occurring with her mother. Reports she is scared to talk to mother on the phone. Denies violent or suicidal thoughts. Objective: Vital Signs Temp Pulse Resp BP Pulse Ox 36.5 C 88 14 108/54 L 98 09/13/17 06:00 09/13/17 06:00 09/13/17 06:00 09/13/17 06:00 09/13/17 06:00 Laboratory Results 09/07/17 06:10 Alert pale WF, calm and cooperative. Speech RRR soft voice. No tremors or cogwheeling or weakness. Mood 'OK, pretty good' Affect euthymic but preoccupied at times. Denies SI or HI or AH but describes paranoia regarding discharging home with mother. Insight poor judgment impaired. Staff report patient slept 8 hours, ate 75% of meals, able to attend groups, quiet/undertalkative, illogical when discussing discharge planning. - Time Spent With Patient Time Spent With Patient: 15 minutes - Pending Discharge Pending Discharge Within 24 Hours: No Pending Discharge Within 48 Hours: No ICD10 Worksheet Patient Problems: Problems Problem Status Onset Anemia Acute Depression Acute Grave disability Acute H/O bariatric surgery Acute Posttraumatic stress disorder Acute Schizoaffective disorder Acute
[2017-09-13] MEDS: BENZTROPINE MESYLATE 1 MG TAB PO SCH (20:43)
[2017-09-13] MEDS: DIVALPROEX NA 500 MG TAB PO SCH (20:43)
[2017-09-14] MEDS: CALCIUM CARBONATE 500 MG CHEWABLE TAB PO SCH ×3 (08:51→16:51)
[2017-09-14] MEDS: CYANO/VITAMIN B12 100 MCG TAB PO SCH (08:52)
[2017-09-14] MEDS: RISPERIDONE 2 MG ODT TAB SL SCH (08:52)
[2017-09-14] MEDS: CHOLECALCIFEROL VIT D3 1,000 UNITS TAB PO SCH (08:52)
[2017-09-14] MEDS: MULTIVITAMINS W-MINERALS 1 EACH TAB PO SCH (08:52)
[2017-09-14] MEDS: FERROUS SULFATE 325 MG TAB PO SCH ×2 (08:52→21:07)
[2017-09-14] MEDS: FOLIC ACID 1 MG TAB PO SCH (08:52)
[2017-09-14] MEDS ORDERED: CYANO/VITAMIN B12 1000 MCG/ML VIAL IM SCH ×2 (11:45→12:00)
--- NOTE | 2017-09-14 11:51 | SOAPPROG ---
SOAP Progress Note Assessment/Plan: Assessment: Schizoaffective Disorder bipolar type History of PTSD History of gastric bypass Iron deficiency anemia, borderline low B12 level Patient admitted on M-1 hold for grave disability related to psychotic disorganization, paranoia, AH, and barricading herself in a hotel room after several weeks of psychiatric medication non-compliance after she and mother moved to [place] from [place]. Patient now on short term certification. Patient is compliant with medications and appears more euthymic and less distressed than previous, with remission of AH, but continues to appear illogical when discussing discharge planning and has continued paranoia toward mother and mother's home. Patient appears to have residual negative symptoms of schizophrenia (apathy, poor planning, illogical at times), has history of 8 prior psychiatric hospitalizations. Mild EPS today (hypophonia, slowing) Plan: Reduce/change Risperdal tablet 4mg BID Continue Cogentin 1mg QHS Continue Depakote 1000mg QHS Continue folic acid, B12, iron IM B12 monthly Monitor behavior on unit and paranoia symptoms regarding discharge planning Reviewed services at [facility] residential program; [facility] staff will meet with patient Sunday09/17/17 09/14/17 11:55 Subjective: "OK, alright" Reports anxiety yesterday when calling mother, wanted to leave a message but mother answered and patient hung up the phone. Reports feeling tired and slowed at times but denies stiffness or tremors or excessive sedation. Denies violent or suicidal thoughts. Reports fear of 'something is wrong, something bad is happening' with mother and mother's home. Reports she is unwilling to discharge there but is will to meet with [facility] to discuss their program but otherwise wants to discharge to live with uncle, but uncle hasn't returned from [place] yet. Reports gastric bypass 5 years ago, has taken sublingual B12 since. Agreeable to monthly B12 injections as level was low. Objective: Vital Signs Temp Pulse Resp BP Pulse Ox 36.6 C 73 14 104/51 L 97 09/14/17 06:00 09/14/17 06:00 09/14/17 06:00 09/14/17 06:00 09/14/17 06:00 Laboratory Results 09/07/17 06:10 Alert pale WF, cooperative. Speech soft RRR. Mild slowing. Mood "OK, alright " Affect restricted. Thoughts organized with poverty of content. Continued paranoia toward mother and mother's home. Denies SI or HI. Denies AH on unit. Denies paranoia toward staff or patients on unit. Limited/poor insight. Judgment impaired, unable to explain how she would obtain senior care or housing if discharged but agreeable to discuss discharge with [facility] and with uncle. Staff reports patient slept 5 hours. Able to eat meals with other patients, attends 1/2 of groups, isolative and quiet. Called mother and was willing to leave a voicemail but mother answered and patient hung up. - Time Spent With Patient Time Spent With Patient: 15 minutes - Pending Discharge Pending Discharge Within 24 Hours: No Pending Discharge Within 48 Hours: No ICD10 Worksheet Patient Problems: Problems Problem Status Onset Anemia Acute Depression Acute Grave disability Acute H/O bariatric surgery Acute Posttraumatic stress disorder Acute Schizoaffective disorder Acute
[2017-09-14] MEDS: risperiDONE 2 MG TAB PO SCH (21:06)
[2017-09-14] MEDS: DIVALPROEX NA 500 MG TAB PO SCH (21:06)
[2017-09-14] MEDS: BENZTROPINE MESYLATE 1 MG TAB PO SCH (21:06)
[2017-09-15] MEDS: CHOLECALCIFEROL VIT D3 1,000 UNITS TAB PO SCH (08:30)
[2017-09-15] MEDS: CYANO/VITAMIN B12 100 MCG TAB PO SCH (08:30)
[2017-09-15] MEDS: FERROUS SULFATE 325 MG TAB PO SCH ×2 (08:30→21:12)
[2017-09-15] MEDS: risperiDONE 2 MG TAB PO SCH ×2 (08:31→21:12)
[2017-09-15] MEDS: MULTIVITAMINS W-MINERALS 1 EACH TAB PO SCH (08:31)
[2017-09-15] MEDS: CALCIUM CARBONATE 500 MG CHEWABLE TAB PO SCH ×3 (08:31→21:11)
[2017-09-15] MEDS: FOLIC ACID 1 MG TAB PO SCH (08:31)
--- NOTE | 2017-09-15 14:21 | SOAPPROG ---
SOAP Progress Note Assessment/Plan: Assessment: Per Dr. Christianson's note: Schizoaffective Disorder bipolar type History of PTSD History of gastric bypass Iron deficiency anemia, borderline low B12 level Patient admitted on M-1 hold for grave disability related to psychotic disorganization, paranoia, AH, and barricading herself in a hotel room after several weeks of psychiatric medication non-compliance after she and mother moved to [place] from [place]. Patient now on short term certification. Patient is compliant with medications and appears more euthymic and less distressed than previous, with remission of AH, but continues to appear illogical when discussing discharge planning and has continued paranoia toward mother and mother's home. Patient appears to have residual negative symptoms of schizophrenia (apathy, poor planning, illogical at times), has history of 8 prior psychiatric hospitalizations. Mild EPS today (hypophonia, slowing) Plan: Reduce/change Risperdal tablet 4mg BID Continue Cogentin 1mg QHS Continue Depakote 1000mg QHS Continue folic acid, B12, iron IM B12 monthly Monitor behavior on unit and paranoia symptoms regarding discharge planning Reviewed services at [facility] residential program; [facility] staff will meet with patient Sunday09/17/17 09/15/17 14:17 1. [facility] to evaluate on 09/17/17 2. Patient says she would prefer to live with [facility] b/c she'll have "more freedom " 3. CCM - improving, no complaints or SE's Subjective: Met with patient, reviewed chart and d/w staff. Patient has much brighter affect than last time MD saw her. She is attending groups and participating in milieu activities. MD observed patient watching [place] movie on TV, smiling and laughing. She ate 80% of breakfast, and appears less paranoid in general. She said she is considering going to stay with her [facility] after discharge. MD asked why she changed her mind about living with [facility]. She says she doesn't want to go to [facility] b/c at her [facility] she'll be able to "leave when I want and sleep over at friends' houses." She says she wants to be able to "do my own thing." Objective: Vital Signs Temp Pulse Resp BP Pulse Ox 36.4 C 93 14 102/57 L 98 09/15/17 06:00 09/15/17 06:00 09/15/17 06:00 09/15/17 06:00 09/15/17 06:00 Laboratory Results 09/07/17 06:10 MSE: Affect: Brighter, more range of emotion Mood: "Getting better" TP: More logical and coherent, more spontaneous and fluent speech TC: Denies any SI/HI, no AH/VH reported, no paranoia Insight/Judgment: Improved - Time Spent With Patient Time Spent With Patient: 20" - Pending Discharge Pending Discharge Within 24 Hours: No Pending Discharge Within 48 Hours: No ICD10 Worksheet Patient Problems: Problems Problem Status Onset Anemia Acute Depression Acute Grave disability Acute H/O bariatric surgery Acute Posttraumatic stress disorder Acute Schizoaffective disorder Acute
[2017-09-15] MEDS: DIVALPROEX NA 500 MG TAB PO SCH (21:12)
[2017-09-15] MEDS: BENZTROPINE MESYLATE 1 MG TAB PO SCH (21:13)
[2017-09-16] MEDS: CALCIUM CARBONATE 500 MG CHEWABLE TAB PO SCH ×3 (08:34→18:15)
[2017-09-16] MEDS: risperiDONE 2 MG TAB PO SCH ×2 (08:34→20:11)
[2017-09-16] MEDS: MULTIVITAMINS W-MINERALS 1 EACH TAB PO SCH (08:34)
[2017-09-16] MEDS: FERROUS SULFATE 325 MG TAB PO SCH ×2 (08:34→20:11)
[2017-09-16] MEDS: FOLIC ACID 1 MG TAB PO SCH (08:34)
[2017-09-16] MEDS: CHOLECALCIFEROL VIT D3 1,000 UNITS TAB PO SCH (08:34)
[2017-09-16] MEDS: CYANO/VITAMIN B12 100 MCG TAB PO SCH (08:34)
--- NOTE | 2017-09-16 13:59 | SOAPPROG ---
SOAP Progress Note Assessment/Plan: Assessment: Per Dr. Christianson's note: Schizoaffective Disorder bipolar type History of PTSD History of gastric bypass Iron deficiency anemia, borderline low B12 level Patient admitted on M-1 hold for grave disability related to psychotic disorganization, paranoia, AH, and barricading herself in a hotel room after several weeks of psychiatric medication non-compliance after she and mother moved to [place] from [place]. Patient now on short term certification. Patient is compliant with medications and appears more euthymic and less distressed than previous, with remission of AH, but continues to appear illogical when discussing discharge planning and has continued paranoia toward mother and mother's home. Patient appears to have residual negative symptoms of schizophrenia (apathy, poor planning, illogical at times), has history of 8 prior psychiatric hospitalizations. Mild EPS today (hypophonia, slowing) Plan: Reduce/change Risperdal tablet 4mg BID Continue Cogentin 1mg QHS Continue Depakote 1000mg QHS Continue folic acid, B12, iron IM B12 monthly Monitor behavior on unit and paranoia symptoms regarding discharge planning Reviewed services at [facility] residential program; [facility] staff will meet with patient Sunday09/17/17 09/15/17 14:17 1. [facility] to evaluate on 09/17/17 2. Patient says she would prefer to live with [facility] b/c she'll have "more freedom " 3. CCM - improving, no complaints or SE's 09/16/17 13:44 1. CCM - patient appears close to baseline, stable 2. Patient willing to consider staying with [facility] Subjective: Met with patient, reviewed chart and d/w staff. She continues to present with brighter affect, more talkative and socially engaged with peers and staff. Patient slept 7.5 hrs and ate 25% of breakfast, but ate some snacks and almost 100% of lunch. Objective: Vital Signs Temp Pulse Resp BP Pulse Ox 36.3 C 67 14 89/52 L 97 09/16/17 06:00 09/16/17 06:00 09/16/17 06:00 09/16/17 06:00 09/16/17 06:00 Laboratory Results 09/07/17 06:10 MSE: Affect: More range of emotion Mood: "Good" TP: More logical and goal- directed, speech is more spontaneous TC: Denies SI/HI, no AH/VH, less paranoid Insight/Judgment: Improved - Time Spent With Patient Time Spent With Patient: 20" - Pending Discharge Pending Discharge Within 24 Hours: No Pending Discharge Within 48 Hours: No ICD10 Worksheet Patient Problems: Problems Problem Status Onset Anemia Acute Depression Acute Grave disability Acute H/O bariatric surgery Acute Posttraumatic stress disorder Acute Schizoaffective disorder Acute
[2017-09-16] MEDS: DIVALPROEX NA 500 MG TAB PO SCH (20:11)
[2017-09-16] MEDS: BENZTROPINE MESYLATE 1 MG TAB PO SCH (20:11)
--- NOTE | 2017-09-17 07:59 | SOAPPROG ---
SOAP Progress Note Assessment/Plan: Assessment: Schizoaffective Disorder bipolar type History of PTSD History of gastric bypass Iron deficiency anemia, borderline low B12 level Patient admitted on M-1 hold for grave disability related to psychotic disorganization, paranoia, AH, and barricading herself in a hotel room after several weeks of psychiatric medication non-compliance [place] Patient now on short term certification. Patient is compliant with medications and appears more euthymic and less distressed than previous, with remission of AH, but continues to appear illogical when discussing discharge planning and has continued paranoia toward mother and mother's home. Patient appears to have residual negative symptoms of schizophrenia (apathy, poor planning, illogical at times), has history of 8 prior psychiatric hospitalizations. Today patient appears calm and appropriate and less paranoid and more logical/ appropriate regarding discharge planning with mother. Plan: Continue Risperdal tablet 4mg BID Continue Cogentin 1mg QHS Continue Depakote 1000mg QHS Continue folic acid, B12, iron IM B12 monthly Family meeting with mother to review discharge 09/17/17 08:00 Subjective: "I'm alright" Patient reports overall feeling well. Reports she is now willing to return to live with mother. Reports she spoke to mother briefly on phone and would prefer to return to live with her than go to [facility]. Denies feeling irritable, agitated, or paranoia. Denies SI or HI or AH. No physical complaints. Reports sleeping well and tolerating medication. Objective: Vital Signs Temp Pulse Resp BP Pulse Ox 36.5 C 66 14 92/48 L 98 09/17/17 06:00 09/17/17 06:00 09/17/17 06:00 09/17/17 06:00 09/17/17 06:00 Laboratory Results 09/07/17 06:10 Alert pale WF, cooperative, calm, no tremors or rigidity. Speech RRR, mood ' alright' affect restricted. Denies paranoia or AH. Denies SI or HI. Limited/ poor insight but improved/appropriate judgment. Staff report patient calm, isolative over weekend, slept overnight, eating 50-75 % of meals. - Time Spent With Patient Time Spent With Patient: 20 minutes - Pending Discharge Pending Discharge Within 24 Hours: Yes Pending Discharge Date: 09/18/17 Pending Discharge Time: 11:00 ICD10 Worksheet Patient Problems: Problems Problem Status Onset Anemia Acute Depression Acute Grave disability Acute H/O bariatric surgery Acute Posttraumatic stress disorder Acute Schizoaffective disorder Acute
[2017-09-17] MEDS: FOLIC ACID 1 MG TAB PO SCH (08:39)
[2017-09-17] MEDS: FERROUS SULFATE 325 MG TAB PO SCH ×2 (08:39→20:15)
[2017-09-17] MEDS: CHOLECALCIFEROL VIT D3 1,000 UNITS TAB PO SCH (08:39)
[2017-09-17] MEDS: CALCIUM CARBONATE 500 MG CHEWABLE TAB PO SCH ×3 (08:39→17:22)
[2017-09-17] MEDS: CYANO/VITAMIN B12 100 MCG TAB PO SCH (08:39)
[2017-09-17] MEDS: MULTIVITAMINS W-MINERALS 1 EACH TAB PO SCH (08:39)
[2017-09-17] MEDS: risperiDONE 2 MG TAB PO SCH ×2 (08:39→20:14)
[2017-09-17] MEDS: DIVALPROEX NA 500 MG TAB PO SCH (20:15)
[2017-09-17] MEDS: BENZTROPINE MESYLATE 1 MG TAB PO SCH (20:15)
[2017-09-18 06:20] VITALS: BP 95/48; PULSE 74; RESP 12; TEMP 97.5; O2SAT 97
[2017-09-18] MEDS: CYANO/VITAMIN B12 100 MCG TAB PO SCH (08:12)
[2017-09-18] MEDS: CALCIUM CARBONATE 500 MG CHEWABLE TAB PO SCH (08:12)
[2017-09-18] MEDS: FOLIC ACID 1 MG TAB PO SCH (08:12)
[2017-09-18] MEDS: CHOLECALCIFEROL VIT D3 1,000 UNITS TAB PO SCH (08:12)
[2017-09-18] MEDS: FERROUS SULFATE 325 MG TAB PO SCH (08:12)
[2017-09-18] MEDS: risperiDONE 2 MG TAB PO SCH (08:12)
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
== END 2017-09-18 08:50 | disposition home or self-care (01) | DRG 885 ==
LOC: BBEH 08-29 01:05
PROVIDERS: ADMIT Psychiatry & Neurology Behavioral Neurology & Neuropsychiatry; ATTEND Psychiatry & Neurology Behavioral Neurology & Neuropsychiatry
DX: F25.0 Schizoaffective disorder, bipolar type (principal); F43.10 Post-traumatic stress disorder, unspecified; F32.9 Major depressive disorder, single episode, unspecified; Z91.14 Patient's other noncompliance with medication regimen; D50.9 Iron deficiency anemia, unspecified; E53.8 Deficiency of other specified B group vitamins; Z98.84 Bariatric surgery status
CPT/HCPCS: 80305; 82607-90; 92523-GN; G0480

== ENCOUNTER 2017-12-17 23:35 | Emergency (ER) | payer MEDICAID ==
[2017-12-17 23:43] VITALS: RESP 16
--- NOTE | 2017-12-18 00:08 | CPEKG ---
Heart Rate: 67 RR Interval: 896 P-R Interval: 156 QRSD Interval: 68 QT Interval: 384 QTC Interval: 406 P Lowell: 30 QRS Lowell: 16 T Wave Lowell: 7 EKG Severity - NORMAL ECG - EKG Impression: SINUS RHYTHM Electronically Signed By: Bertha Lynch 18-Dec-2017 07:17:58
[2017-12-18 00:43] VITALS: O2SAT 95
[2017-12-18] MEDS ORDERED: MAG HYDROX/AL HYDROX/SIMETH 30 ML UDCUP PO ONE (01:37)
--- NOTE | 2017-12-18 01:37 | EDPHY ---
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 It lasted for about 1 hr yesterday and again 1 hr today. It is in her central chest and feels like a pressure sensation, it does not radiate, it is mild in severity. It is not associated with meals. She has not had any cough or fever. She does not have any nausea, vomiting, diaphoresis. She has no recent travel, does not take OCPs , does not have any leg swelling. She has not had this pain ever before. She does report increased stress due to work.. REVIEW OF SYSTEMS Constitutional: No fever, no chills. Eyes: No discharge. ENT: No sore throat. Cardiovascular: Positive for chest pain, no palpitations. Respiratory: No cough, no shortness of breath. Gastrointestinal: No abdominal pain, no vomiting. Genitourinary: No hematuria. Musculoskeletal: No back pain. Skin: No rashes. Neurological: No headache. PMHx: Depression and schizophrenia Soc Hx: Here with her mother PHYSICAL General Appearance: Alert, no distress Eyes: Pupils equal and round no pallor or injection ENT, Mouth: Mucous membranes moist Respiratory: There are no retractions, lungs are clear to auscultation Cardiovascular: Regular rate and rhythm Gastrointestinal: Abdomen is soft and non-tender, no masses, bowel sounds normal Neurological: A&O, moves all extremities Skin: Warm and dry, no rashes Musculoskeletal: Neck is supple non tender Extremities: symmetrical, full range of motion Psychiatric: Patient is oriented X 3, there is no agitation Source: Patient Exam Limitations: No limitations - Personal History LMP (Females 10-55): 15-21 Days Ago Current Tetanus Diphtheria and Acellular Pertussis (TDAP): Yes - Medical/Surgical History Hx Asthma: No Hx Chronic Respiratory Disease: No Hx Diabetes: No Hx Cardiac Disease: No Hx Renal Disease: No Hx Cirrhosis: No Hx Alcoholism: No Hx HIV/AIDS: No Hx Splenectomy or Spleen Trauma: No Other PMH: Depression, schizophrenia - Social History Smoking Status: Never smoked Constitutional: Initial Vital Signs Temperature (C) 36.7 C 12/17/17 23:40 Heart Rate 80 03/12/18 23:40 Respiratory Rate 16 12/17/17 23:40 Blood Pressure 105/67 12/17/17 23:40 O2 Sat (%) 96 12/17/17 23:40 O2 Delivery Mode Room Air Allergies/Adverse Reactions: neomycin Allergy (Verified 12/17/17 23:37) Home Medications: Medication Instructions Recorded Benztropine Mesylate [Cogentin] 1 mg PO HS #30 tab 09/18/17 Calcium Carbonate [Tums 500MG (*)] 500 mg PO TIDMEAL tab.chew 09/18/17 Cholecalciferol Vit D3 [Vitamin D3 3,000 units PO DAILY tab 09/18/17 (*)] Cyanocobalamin [Vitamin B12 (*)] 100 mcg PO DAILY tab 09/18/17 Cyanocobalamin [Vitamin B12 1,000 mcg IM .QMONTH #1 vial 09/18/17 1000MCG/ML (*)] Divalproex [Depakote] 1,000 mg PO HS 30 Days tab 09/18/17 Ferrous Sulfate [Ferrous Sulf 325 325 mg PO BID tab 09/18/17 MG (*)] Folic Acid [Folic Acid 1 MG (*)] 1 mg PO DAILY tab 09/18/17 Multivitamins W-Minerals [Thera M 1 each PO DAILY tab 09/18/17 Plus Tablet (*)] risperiDONE [Risperdal] 4 mg PO BID #60 tab 09/18/17 Cogentin 12/17/17 Medical Decision Making - Diagnostics EKG Interpretation: EKG: Complete interpretation has been separately recorded in the [employer] archive. Summary impression: Normal sinus rhythm Imaging Results: Chest x-ray two view shows no infiltrate, no cardiomegaly, interpreted by me, radiology interpretation is pending. Differential Diagnosis: This is a 27-year-old female with psychiatric disease who presents with 2 days of intermittent chest pain which is described as a pressure like sensation, today associated with shortness of breath, the symptoms have now mostly resolved. On exam, she is well-appearing with normal vital signs. Chest x-ray and EKG are unremarkable. Differential diagnoses considered include ACS, pericarditis, pleurisy, GERD, anxiety. I have discussed this with her. I feel she most likely is suffering from anxiety versus pleurisy. We have discussed treatment modalities and need for follow-up if symptoms continue. She feels well enough to go home and will be discharged. - Data Points Medications Given: Discontinued Medications Al Hydroxide/Mg Hydroxide (Maalox Susp) 30 ml PO EDNOW ONE Stop: 12/18/17 01:38 Last Admin: 12/18/17 01:49 Dose: 30 ml Departure - Departure Disposition: Home, Routine, Self-Care Clinical Impression: Chest pain Qualifiers: Chest pain type: unspecified Qualified Code(s): R07.9 - Chest pain, unspecified Condition: Good Instructions: Chest Pain (ED), Gastroesophageal Reflux Disease (ED), Anxiety ( ED) Additional Instructions: The cause of your pain is not entirely clear. It could be related to something called GERD which causes pain in the chest because of acid buildup in the esophagus. Because of this you can try antacids to see if this helps her pain. I recommend you try Tums or famotidine. If the pain continues, you should return to the emergency department or follow up with your regular primary care doctor. Referrals: [facility],. [Clinic] - As per Instructions
[2017-12-18 02:02] VITALS: BP 121/74; PULSE 68; TEMP 97.9
== END 2017-12-18 01:52 | disposition home or self-care (01) ==
DX: R07.9 Chest pain, unspecified (principal)

== ENCOUNTER 2017-12-30 22:42 | Emergency (ER) | payer MEDICAID ==
--- NOTE | 2017-12-30 23:23 | CPEKG ---
Heart Rate: 79 RR Interval: 759 P-R Interval: 148 QRSD Interval: 70 QT Interval: 360 QTC Interval: 413 P Finlayson: 72 QRS [place]ayson: 13 T Wave [place]: 13 EKG Severity - NORMAL ECG - EKG Impression: SINUS RHYTHM EKG Impression: DIFFUSE ST ELEVATION SUGGESTS POSSIBLE PERICARDITIS/MYOCARDITIS EKG Impression: SIMILAR FINDINGS ALTHOUGH SUBTLE ON EKG DATED 12/18/2017 Electronically Signed By: Madan Espinoza 01-Jan-2018 16:15:00
--- NOTE | 2017-12-30 23:30 | EDPHY ---
H & P Stated Complaint: Anxiety, CP, Concussion, Psych eval, doesnt feel safe. Time Seen by Provider: 12/30/17 22:45 HPI/ROS: HPI CHIEF COMPLAINT: "I do not feel safe" HISTORY OF PRESENT ILLNESS: Patient 27-year-old female she presents emergency room with multiple complaints. She states she has chest pains in the center of her chest does not radiate it is achy in sensation. It is worse when you press on her anterior chest wall. It does not radiate. It has been present today. Additionally she comes emergency room by private vehicle with her mom who is a psychiatrist, she complains of being very paranoid that somebody is going to hurt her and she does not feel safe. She does have schizophrenia she has been compliant with her medications. She just recently moved from [place]. Her mom is at bedside. She is voluntary. She does not want a kill herself or hurt anybody else. She was recent hospitalized psychiatrically and was recommended to go to transitional housing after she was discharged from inpatient psych however she refused she has been staying at a local hotel by herself. She has been isolated. She is unemployed. She denies drug use. Patient is voluntary. Past Medical History: Schizophrenia Past Surgical History: No recent surgery Social History: Denies daily use of drugs alcohol tobacco products. Family History: Noncontributory ROS REVIEW OF SYSTEMS: A comprehensive 10 point review of systems is otherwise negative aside from elements mentioned in the history of present illness. Exam Constitutional appears well nontoxic triage nursing summary reviewed, vital signs reviewed, awake/alert. Eyes normal conjunctivae and sclera, EOMI, PERRLA. HENT normal inspection, atraumatic, moist mucus membranes, no epistaxis, neck supple/ no meningismus, no raccoon eyes. Respiratory clear to auscultation bilaterally, normal breath sounds, no respiratory distress, no wheezing. Cardiovascular rate normal, regular rhythm, no murmur, no edema, distal pulses normal. Gastrointestinal soft, non-tender, no rebound, no guarding, normal bowel sounds, no distension, no pulsatile mass. Genitourinary no CVA tenderness. Musculoskeletal no midline vertebral tenderness, full range of motion, no calf swelling, no tenderness of extremities, no meningismus, good pulses, neurovascularly intact. Skin pink, warm, & dry, no rash, skin atraumatic. Neurologic awake, alert and oriented x 3, AAOx3, moves all 4 extremities equally, motor intact, sensory intact, CN II-XII intact, normal cerebellar, normal vision, normal speech. Psychiatric flat affect, depressed, paranoid anxious Heme/Lymph/Immune no lymphadenopathy. Differential Diagnosis: Includes but is not limited to in a particular order paranoia, schizophrenia, mood disorder, depression, anxiety, noncardiac chest pain, musculoskeletal chest pain, PE, pneumonia, pneumothorax, acute coronary syndrome Medical Decision Making: Plan for this patient 1 mg p.o. Ativan, evaluate chest pain evaluation, drug screen, basic blood work, medical clearance for mental health evaluation. She is voluntary. She will not be placed on M1 hold. Re-evaluation: EKG interpretation by me on record in [employer] system. Impression time of EKG 2315, sinus rhythm rate of [address] elevation or ST depression or significant T-wave abnormalities unremarkable EKG. ED x-ray chest one view unremarkable. Image interpreted by myself. 1231: Patient resting comfortably feeling better after 1 mg Ativan. Patient is medically cleared. Patient need mental health evaluation. 0434: Patient resting comfortably no acute distress. Mom at bedside would like to take her home. She did have a mental health evaluation does not meet inpatient psychiatric hospitalization criteria. Discussed at length with mom about follow-up care. They are agreeable for discharge. They will work on a outpatient transition unit for her. The patient mom would like to do this. Return precautions discussed understand return emergency room if she has further thoughts of wanting to hurt herself or anybody else. Or any questions or concerns. Follow up with resources she was given. Source: Patient - Personal History LMP (Females 10-55): Over 28 Days Ago Current Tetanus/Diphtheria Vaccine: Unsure Current Tetanus Diphtheria and Acellular Pertussis (TDAP): Unsure - Medical/Surgical History Hx Asthma: No Hx Chronic Respiratory Disease: No Hx Diabetes: No Hx Cardiac Disease: No Hx Renal Disease: No Hx Cirrhosis: No Hx Alcoholism: No Hx HIV/AIDS: No Hx Splenectomy or Spleen Trauma: No Other PMH: Depression, schizophrenia. - Social History Smoking Status: Never smoked Constitutional: Initial Vital Signs Temperature (C) 36.6 C 12/30/17 22:45 Heart Rate 84 12/30/17 22:45 Respiratory Rate 16 12/30/17 22:45 Blood Pressure 112/75 12/30/17 22:45 O2 Sat (%) 95 12/30/17 22:45 O2 Delivery Mode Room Air Allergies/Adverse Reactions: neomycin Allergy (Verified 12/17/17 23:37) Home Medications: Medication Instructions Recorded Benztropine Mesylate [Cogentin] 1 mg PO HS #30 tab 09/18/17 Cholecalciferol Vit D3 [Vitamin D3 3,000 units PO DAILY tab 09/18/17 (*)] Cyanocobalamin [Vitamin B12 (*)] 100 mcg PO DAILY tab 09/18/17 Cyanocobalamin [Vitamin B12 1,000 mcg IM .QMONTH #1 vial 09/18/17 1000MCG/ML (*)] Divalproex [Depakote] 1,000 mg PO HS 30 Days tab 09/18/17 Ferrous Sulfate [Ferrous Sulf 325 325 mg PO BID tab 09/18/17 MG (*)] Folic Acid [Folic Acid 1 MG (*)] 1 mg PO DAILY tab 09/18/17 Multivitamins W-Minerals [Thera M 1 each PO DAILY tab 09/18/17 Plus Tablet (*)] risperiDONE [Risperdal] 4 mg PO BID #60 tab 09/18/17 Cogentin 12/17/17 Medical Decision Making - Diagnostics Imaging Results: Imaging Impressions Chest X-Ray 12/30/17 23:44 Impression: There is no acute intrathoracic abnormality, or substantial change from 12/18/2017. - Data Points Laboratory Results: Laboratory Results 12/30/17 23:35 12/30/17 23:35 12/30/17 12/30/17 12/30/17 23:59 23:35 23:35 WBC RBC Hgb Hct MCV MCH MCHC RDW Plt Count MPV Neut % (Auto) Lymph % (Auto) [place] % (Auto) Eos % (Auto) Baso % (Auto) Nucleat RBC Rel Count Absolute Neuts (auto) Absolute Lymphs (auto) Absolute Monos (auto) Absolute Eos (auto) Absolute Basos (auto) Absolute Nucleated RBC Immature Gran % Immature Gran # D-Dimer < 0.27 ug/mLFEU ug/mLFEU (0.00-0.50) Sodium Potassium Chloride Carbon Dioxide Anion Gap BUN Creatinine Estimated GFR Glucose Calcium Troponin I Cancelled Beta HCG, Qual Urine Opiates Screen NEGATIVE (NEGATIVE) Urine Barbiturates NEGATIVE (NEGATIVE) Ur Phencyclidine Scrn NEGATIVE (NEGATIVE) Ur Amphetamine Screen NEGATIVE (NEGATIVE) U Benzodiazepines Scrn NEGATIVE (NEGATIVE) Urine Cocaine Screen NEGATIVE (NEGATIVE) U Marijuana (THC) Screen NEGATIVE (NEGATIVE) Ethyl Alcohol 12/30/17 12/30/17 12/30/17 23:35 23:35 23:35 WBC 10.68 10^3/uL H 10^3/uL (3.80-9.50) RBC 4.30 10^6/uL 10^6/uL (4.18-5.33) Hgb 13.5 g/dL g/dL (12.6-16.3) Hct 39.8 % % (38.0-47.0) MCV 92.6 fL fL (81.5-99.8) MCH 31.4 pg pg (27.9-34.1) MCHC 33.9 g/dL g/dL (32.4-36.7) RDW 13.3 % % (11.5-15.2) Plt Count 283 10^3/uL 10^3/uL (150-400) MPV 10.5 fL fL (8.7-11.7) Neut % (Auto) 45.4 % % (39.3-74.2) Lymph % (Auto) 42.0 % % (15.0-45.0) [place] % (Auto) 8.1 % % (4.5-13.0) Eos % (Auto) 3.6 % % (0.6-7.6) Baso % (Auto) 0.5 % % (0.3-1.7) Nucleat RBC Rel Count 0.0 % % (0.0-0.2) Absolute Neuts (auto) 4.85 10^3/uL 10^3/uL (1.70-6.50) Absolute Lymphs (auto) 4.49 10^3/uL H 10^3/uL (1.00-3.00) Absolute Monos (auto) 0.87 10^3/uL H 10^3/uL (0.30-0.80) Absolute Eos (auto) 0.38 10^3/uL 10^3/uL (0.03-0.40) Absolute Basos (auto) 0.05 10^3/uL 10^3/uL (0.02-0.10) Absolute Nucleated RBC 0.00 10^3/uL 10^3/uL (0-0.01) Immature Gran % 0.4 % % (0.0-1.1) Immature Gran # 0.04 10^3/uL 10^3/uL (0.00-0.10) D-Dimer Sodium 139 mEq/L mEq/L (135-145) Potassium 4.1 mEq/L mEq/L (3.5-5.2) Chloride 101 mEq/L mEq/L (97-110) Carbon Dioxide 27 mEq/l mEq/l (22-31) Anion Gap 11 mEq/L mEq/L (8-16) BUN 17 mg/dL mg/dL (7-23) Creatinine 0.7 mg/dL mg/dL (0.6-1.0) Estimated GFR > 60 Glucose 81 mg/dL mg/dL (70-100) Calcium 9.3 mg/dL mg/dL (8.5-10.4) Troponin I < 0.012 ng/mL ng/mL (0.000-0.034) Beta HCG, Qual NEGATIVE Urine Opiates Screen Urine Barbiturates Ur Phencyclidine Scrn Ur Amphetamine Screen U Benzodiazepines Scrn Urine Cocaine Screen U Marijuana (THC) Screen Ethyl Alcohol < 10 mg/dL mg/dL (0-10) Medications Given: Discontinued Medications Lorazepam (Ativan) 1 mg PO ONCE ONE Stop: 12/30/17 23:47 Last Admin: 12/31/17 00:04 Dose: 1 mg Departure - Departure Disposition: Home, Routine, Self-Care Clinical Impression: Anxiety Depression Qualifiers: Depression Type: major depressive disorder Major depression recurrence: recurrent Active/Remission status: currently active Major depression episode severity: moderate Qualified Code(s): F33.1 - Major depressive disorder, recurrent, moderate Instructions: Depression (ED) Additional Instructions: 1. Please return to the emergency room if develops any worsening symptoms 2. If you have thoughts of harm herself or anybody else return immediately to emergency room. Referrals: NONE *PRIMARY CARE P,. [Primary Care Provider] - As per Instructions
[2017-12-30] MEDS ORDERED: LORazepam 1 MG TAB PO ONE (23:46)
[2017-12-30 23:47] LABS: PLATELET COUNT 283 10^3/uL (150-400)
[2017-12-31 04:13] VITALS: BP 97/68
== END 2017-12-31 04:44 | disposition home or self-care (01) ==
DX: F33.1 Major depressive disorder, recurrent, moderate (principal); F41.9 Anxiety disorder, unspecified
CPT/HCPCS: 80305; G0480

== ENCOUNTER 2018-01-01 02:28 | Emergency (ER) | payer MEDICAID ==
[2018-01-01] MEDS ORDERED: IBUPROFEN 800 MG TAB PO ONE (02:35)
--- NOTE | 2018-01-01 02:42 | EDPHY ---
H & P Source: Patient, EMS - Medical/Surgical History Hx Asthma: No Hx Chronic Respiratory Disease: No Hx Diabetes: No Hx Cardiac Disease: No Hx Renal Disease: No Hx Cirrhosis: No Hx Alcoholism: No Hx HIV/AIDS: No Hx Splenectomy or Spleen Trauma: No Other PMH: Depression, schizophrenia. - Social History Smoking Status: Never smoked Time Seen by Provider: 01/01/18 02:42 HPI/ROS: HPI CHIEF COMPLAINT: "I do not feel safe" HISTORY OF PRESENT ILLNESS: Patient 27-year-old female, she presents emergency room by EMS for not feeling safe. According to EMS police were called to her house where she has been staying with her mother her mother is a psychiatrist, and actively practices in [place], she according EMS and police was screaming and crying in the house stating that she does not feel safe. Additionally she reports back pain. She presents emergency room Com however she has a flat affect, and does not make eye contact with any AA. She complains of midline low back pain. Of note I did see her yesterday in the emergency room for similar complaints. She had a mental health evaluation at that time it was deemed appropriate for discharge with mom at home and they were going to work on transitional housing. Patient seems paranoid. Seems gravely disable depressed. Past Medical History: Schizophrenia Past Surgical History: No recent surgery Social History: Denies drugs alcohol tobacco Family History: Noncontributory ROS REVIEW OF SYSTEMS: A comprehensive 10 point review of systems is otherwise negative aside from elements mentioned in the history of present illness. Exam Constitutional flat affect, depressed, triage nursing summary reviewed, vital signs reviewed, awake/alert. Eyes normal conjunctivae and sclera, EOMI, PERRLA. HENT normal inspection, atraumatic, moist mucus membranes, no epistaxis, neck supple/ no meningismus, no raccoon eyes. Respiratory clear to auscultation bilaterally, normal breath sounds, no respiratory distress, no wheezing. Cardiovascular rate normal, regular rhythm, no murmur, no edema, distal pulses normal. Gastrointestinal soft, non-tender, no rebound, no guarding, normal bowel sounds, no distension, no pulsatile mass. Genitourinary no CVA tenderness. Musculoskeletal lumbar spine no midline vertebral tenderness, full range of motion, no calf swelling, no tenderness of extremities, no meningismus, good pulses, neurovascularly intact. Skin pink, warm, & dry, no rash, skin atraumatic. Neurologic awake, alert and oriented x 3, AAOx3, moves all 4 extremities equally, motor intact, sensory intact, CN II-XII intact, normal cerebellar, normal vision, normal speech. Psychiatric flat affect, depressed, poor eye contact Heme/Lymph/Immune no lymphadenopathy. Differential Diagnosis: Includes but not limited to in a particular order: Ischemia, paranoia, gravely disable, depression, mood disorder, substance abuse , musculoskeletal back pain. Medical Decision Making: Plan for this patient x-ray of the lumbar spine, blood draw for medical clearance. Patient be placed on M1 hold by myself for appears to be gravely disable, depressed, flat affect and paranoia. She will need another mental evaluation. Re-evaluation: 0246: Time them hold 2:33 a.m.. X-ray of lumbar spine negative for acute traumatic injury bony abnormality. Compression fracture. Interpreted by myself. Patient on M1 hold. Medically cleared needs mental health evaluation. (Saleem Hensley) Constitutional: Initial Vital Signs Temperature (C) 36.5 C 01/01/18 02:25 Heart Rate 85 01/01/18 02:25 Respiratory Rate 20 01/01/18 02:25 Blood Pressure 111/64 01/01/18 02:25 O2 Sat (%) 95 01/01/18 02:25 O2 Delivery Mode Room Air Allergies/Adverse Reactions: neomycin Allergy (Verified 01/01/18 02:38) Home Medications: Medication Instructions Recorded Benztropine Mesylate [Cogentin] 1 mg PO HS #30 tab 09/18/17 Cholecalciferol Vit D3 [Vitamin D3 3,000 units PO DAILY tab 09/18/17 (*)] Cyanocobalamin [Vitamin B12 (*)] 100 mcg PO DAILY tab 09/18/17 Cyanocobalamin [Vitamin B12 1,000 mcg IM .QMONTH #1 vial 09/18/17 1000MCG/ML (*)] Divalproex [Depakote] 1,000 mg PO HS 30 Days tab 09/18/17 Ferrous Sulfate [Ferrous Sulf 325 325 mg PO BID tab 09/18/17 MG (*)] Folic Acid [Folic Acid 1 MG (*)] 1 mg PO DAILY tab 09/18/17 Multivitamins W-Minerals [Thera M 1 each PO DAILY tab 09/18/17 Plus Tablet (*)] risperiDONE [Risperdal] 4 mg PO BID #60 tab 09/18/17 Cogentin 12/17/17 Medical Decision Making - Diagnostics Imaging Results: Imaging Impressions Lumbar Spine X-Ray 01/01/18 02:36 Impression: 1. Normal lumbar spine. 2. Constipation. ED Course/Re-evaluation: 0636: No acute events 0700: Signed over to Dr. Keane 7am shift-change. Pending eval. (Saleem Hensley) Patient was signed over to me by Dr. Hensley at 7:00 a.m.. Mental health evaluation was undergoing at this time. After mental health evaluation it is felt that the patient is appropriate for outpatient management and to keep her appointment for admission to transitional housing which is at 9: 30 a.m. This morning. I re-evaluated the patient at 8:15 a.m.. The patient and her mom are in agreement with this treatment plan. She is not suicidal or homicidal at this point. The mental health hold is lifted by me so the patient can be discharged to keep the transitional housing appointment this morning (Gamaliel Keane) - Data Points Laboratory Results: Laboratory Results 01/01/18 02:45 01/01/18 02:45 01/01/18 01/01/18 01/01/18 03:20 02:45 02:45 WBC RBC Hgb Hct MCV MCH MCHC RDW Plt Count MPV Neut % (Auto) Lymph % (Auto) [place] % (Auto) Eos % (Auto) Baso % (Auto) Nucleat RBC Rel Count Absolute Neuts (auto) Absolute Lymphs (auto) Absolute Monos (auto) Absolute Eos (auto) Absolute Basos (auto) Absolute Nucleated RBC Immature Gran % Immature Gran # Sodium 143 mEq/L mEq/L (135-145) Potassium 5.2 mEq/L mEq/L (3.5-5.2) Chloride 106 mEq/L mEq/L (97-110) Carbon Dioxide 23 mEq/l mEq/l (22-31) Anion Gap 14 mEq/L mEq/L (8-16) BUN 14 mg/dL mg/dL (7-23) Creatinine 0.7 mg/dL mg/dL (0.6-1.0) Estimated GFR > 60 Glucose 91 mg/dL mg/dL (70-100) Calcium 9.9 mg/dL mg/dL (8.5-10.4) Beta HCG, Qual NEGATIVE Specimen Hemolysis 183 Urine Opiates Screen NEGATIVE (NEGATIVE) Urine Barbiturates NEGATIVE (NEGATIVE) Ur Phencyclidine Scrn NEGATIVE (NEGATIVE) Ur Amphetamine Screen NEGATIVE (NEGATIVE) U Benzodiazepines Scrn NEGATIVE (NEGATIVE) Urine Cocaine Screen NEGATIVE (NEGATIVE) U Marijuana (THC) Screen NEGATIVE (NEGATIVE) Ethyl Alcohol < 10 mg/dL mg/dL (0-10) 01/01/18 02:45 WBC 9.92 10^3/uL H 10^3/uL (3.80-9.50) RBC 4.45 10^6/uL 10^6/uL (4.18-5.33) Hgb 13.8 g/dL g/dL (12.6-16.3) Hct 41.5 % % (38.0-47.0) MCV 93.3 fL fL (81.5-99.8) MCH 31.0 pg pg (27.9-34.1) MCHC 33.3 g/dL g/dL (32.4-36.7) RDW 13.4 % % (11.5-15.2) Plt Count 315 10^3/uL 10^3/uL (150-400) MPV 10.6 fL fL (8.7-11.7) Neut % (Auto) 57.8 % % (39.3-74.2) Lymph % (Auto) 30.0 % % (15.0-45.0) [place] % (Auto) 10.0 % % (4.5-13.0) Eos % (Auto) 1.4 % % (0.6-7.6) Baso % (Auto) 0.5 % % (0.3-1.7) Nucleat RBC Rel Count 0.0 % % (0.0-0.2) Absolute Neuts (auto) 5.73 10^3/uL 10^3/uL (1.70-6.50) Absolute Lymphs (auto) 2.98 10^3/uL 10^3/uL (1.00-3.00) Absolute Monos (auto) 0.99 10^3/uL H 10^3/uL (0.30-0.80) Absolute Eos (auto) 0.14 10^3/uL 10^3/uL (0.03-0.40) Absolute Basos (auto) 0.05 10^3/uL 10^3/uL (0.02-0.10) Absolute Nucleated RBC 0.00 10^3/uL 10^3/uL (0-0.01) Immature Gran % 0.3 % % (0.0-1.1) Immature Gran # 0.03 10^3/uL 10^3/uL (0.00-0.10) Sodium Potassium Chloride Carbon Dioxide Anion Gap BUN Creatinine Estimated GFR Glucose Calcium Beta HCG, Qual Specimen Hemolysis Urine Opiates Screen Urine Barbiturates Ur Phencyclidine Scrn Ur Amphetamine Screen U Benzodiazepines Scrn Urine Cocaine Screen U Marijuana (THC) Screen Ethyl Alcohol Medications Given: Discontinued Medications Ibuprofen (Motrin) 800 mg PO EDNOW ONE Stop: 01/01/18 02:36 Last Admin: 01/01/18 02:43 Dose: 800 mg Departure - Departure Disposition: Home, Routine, Self-Care Clinical Impression: Schizophrenia Qualifiers: Schizophrenia type: other Qualified Code(s): F20.89 - Other schizophrenia Condition: Fair Instructions: Suicide Prevention for Adults (ED) Additional Instructions: Continue your regular medications as prescribed. Return for worsening symptoms including thoughts of harming herself or others. Mental health follow-up as has been recommended by mental health wildlife ecology professor. Referrals: NONE *PRIMARY CARE P,. [Primary Care Provider] - As per Instructions
[2018-01-01 02:56] LABS: PLATELET COUNT 315 10^3/uL (150-400)
[2018-01-01 07:33] VITALS: BP 99/63
== END 2018-01-01 08:50 | disposition home or self-care (01) ==
LOC: EDUNIT#
DX: F20.89 Other schizophrenia (principal)
CPT/HCPCS: 80305; G0480

== ENCOUNTER 2018-07-16 03:25 | Emergency (ER) | payer MEDICAID ==
[2018-07-16 03:35] VITALS: BP 101/73
--- NOTE | 2018-07-16 03:58 | EDPHY ---
H & P Stated Complaint: abd pain and chest pains sharp intermittent Time Seen by Provider: 07/16/18 03:37 HPI/ROS: HPI The patient presents with chest pain and abdominal pain which began a few hours ago after she awoke from sleep because she heard a loud noise. She was lying in bed several minutes later trying to fall asleep and was unable to. She then developed sharp, intermittent, migratory pain throughout her chest and abdomen. This is not associated with any shortness of breath, nausea, vomiting, dizziness, diaphoresis, cough, fever. She has never had this before. She was in the emergency department several times in December for chest pain and back pain , however she feels this pain is different. Her mother who is a psychiatrist thinks this could be related to anxiety as the patient has been more anxious lately. REVIEW OF SYSTEMS 10 systems were reviewed and negative with the exception of the elements mentioned in the history of present illness. PMHx: Depression, schizophrenia Soc Hx: Here with her mother, lives with her PHYSICAL General Appearance: Alert, no distress Eyes: Pupils equal and round no pallor or injection ENT, Mouth: Mucous membranes moist Respiratory: There are no retractions, lungs are clear to auscultation Cardiovascular: Regular rate and rhythm Gastrointestinal: Abdomen is soft and non-tender, no masses, bowel sounds normal Neurological: A&O, moves all extremities Skin: Warm and dry, no rashes Musculoskeletal: Neck is supple non tender Extremities: symmetrical, full range of motion Psychiatric: Patient is oriented X 3, there is no agitation Source: Patient Exam Limitations: No limitations - Personal History LMP (Females 10-55): 22-28 Days Ago Current Tetanus/Diphtheria Vaccine: Unsure Current Tetanus Diphtheria and Acellular Pertussis (TDAP): Unsure - Medical/Surgical History Hx Asthma: No Hx Chronic Respiratory Disease: No Hx Diabetes: No Hx Cardiac Disease: No Hx Renal Disease: No Hx Cirrhosis: No Hx Alcoholism: No Hx HIV/AIDS: No Hx Splenectomy or Spleen Trauma: No Other PMH: Depression, schizophrenia. - Social History Smoking Status: Never smoked Constitutional: Initial Vital Signs Temperature (C) 36.4 C 07/16/18 03:30 Heart Rate 82 07/16/18 03:30 Respiratory Rate 18 07/16/18 03:30 Blood Pressure 101/73 07/16/18 03:30 O2 Sat (%) 93 07/16/18 03:30 O2 Delivery Mode Room Air Allergies/Adverse Reactions: neomycin Allergy (Verified 01/01/18 02:38) Home Medications: Medication Instructions Recorded Benztropine Mesylate [Cogentin] 1 mg PO HS #30 tab 09/18/17 Cholecalciferol Vit D3 [Vitamin D3 3,000 units PO DAILY tab 09/18/17 (*)] Cyanocobalamin [Vitamin B12 (*)] 100 mcg PO DAILY tab 09/18/17 Cyanocobalamin [Vitamin B12 1,000 mcg IM .QMONTH #1 vial 09/18/17 1000MCG/ML (*)] Divalproex [Depakote] 1,000 mg PO HS 30 Days tab 09/18/17 Ferrous Sulfate [Ferrous Sulf 325 325 mg PO BID tab 09/18/17 MG (*)] Folic Acid [Folic Acid 1 MG (*)] 1 mg PO DAILY tab 09/18/17 Multivitamins W-Minerals [Thera M 1 each PO DAILY tab 09/18/17 Plus Tablet (*)] risperiDONE [Risperdal] 4 mg PO BID #60 tab 09/18/17 Cogentin 12/17/17 Medical Decision Making - Diagnostics EKG Interpretation: EKG: Complete interpretation has been separately recorded in the [employer] archive. Summary impression: Normal sinus rhythm Differential Diagnosis: This is a 28-year-old female with history of depression and schizophrenia who presents with her mother for chest pain that occurred after she had a woken from sleep. It is also in her abdomen. It is migratory, sharp and intermittent in nature. On exam, she is very well-appearing, has normal vital signs. Suspect anxiety, would also consider arrhythmia or ACS obtained and unremarkable. Patient's symptoms improved while in the emergency department. She will be discharged home with her mother. Departure - Departure Disposition: Home, Routine, Self-Care Clinical Impression: Abdominal pain Qualifiers: Abdominal location: generalized Qualified Code(s): R10.84 - Generalized abdominal pain Chest pain Qualifiers: Chest pain type: chest pain on breathing Qualified Code(s): R07.1 - Chest pain on breathing; R07.81 - Pleurodynia Condition: Good Instructions: Chest Pain (ED), Anxiety (ED) Referrals: Yanely Thakkar PA [Primary Care Provider] - As per Instructions
--- NOTE | 2018-07-16 05:24 | CPEKG ---
Test Reason : OPEN Blood Pressure : / mmHG Vent. Rate : 066 BPM Atrial Rate : 066 BPM P-R Int : 138 ms QRS Dur : 067 ms QT Int : 388 ms P-R-T Axes : 039 023 015 degrees QTc Int : 407 ms Sinus rhythm Confirmed by Bertha Lynch ([id number]) on 07/16/2018 5:23:47 AM Referred By: Confirmed By:Bertha Lynch
== END 2018-07-16 04:14 | disposition home or self-care (01) ==
DX: R10.84 Generalized abdominal pain (principal); R07.1 Chest pain on breathing; R07.81 Pleurodynia

== ENCOUNTER 2018-09-12 21:50 | Emergency (ER) | payer MEDICAID, OTHER ==
[2018-09-12] MEDS ORDERED: ONDANSETRON 4 MG/2 ML VIAL IVP ONE (22:02)
[2018-09-12] MEDS ORDERED: NS 1,000 ML IV ONE (22:02)
--- NOTE | 2018-09-12 22:19 | EDPHY ---
H & P Stated Complaint: n/v/dx2 days, mid abd pain, concerned for food poisoning Time Seen by Provider: 09/12/18 22:16 HPI/ROS: HPI CHIEF COMPLAINT: Nausea vomiting diarrhea. HISTORY OF PRESENT ILLNESS: This is a very pleasant 28-year-old female, who I am very familiar with she has a history of schizophrenia, she presents emergency room nausea vomiting and diarrhea. Patient reports abdominal cramping. She thinks that she may have had food poisoning. Started vomiting hour ago. Diarrhea multiple times today. Nonbloody. No mucus. Watery. Brown. Denies fever. Denies chest pain or shortness of breath. Past Medical History: Denies significant medical history except for history of schizophrenia Past Surgical History: No recent surgery Social History: Lives locally independent in our department. Mom is a psychiatrist. Family History: Noncontributory ROS REVIEW OF SYSTEMS: 10 Systems were reviewed and negative with the exception of the elements mentioned in the history of present illness. Exam Constitutional nontoxic, triage nursing summary reviewed, vital signs reviewed , awake/alert. Eyes normal conjunctivae and sclera, EOMI, PERRLA. HENT normal inspection, atraumatic, moist mucus membranes, no epistaxis, neck supple/ no meningismus, no raccoon eyes. Respiratory clear to auscultation bilaterally, normal breath sounds, no respiratory distress, no wheezing. Cardiovascular rate normal, regular rhythm, no murmur, no edema, distal pulses normal. Gastrointestinal soft, non-tender, no rebound, no guarding, normal bowel sounds, no distension, no pulsatile mass. Genitourinary no CVA tenderness. Musculoskeletal no midline vertebral tenderness, full range of motion, no calf swelling, no tenderness of extremities, no meningismus, good pulses, neurovascularly intact. Skin pink, warm, & dry, no rash, skin atraumatic. Neurologic awake, alert and oriented x 3, AAOx3, moves all 4 extremities equally, motor intact, sensory intact, CN II-XII intact, normal cerebellar, normal vision, normal speech. Psychiatric rather flat affect. Denies depression or SI or HI. Heme/Lymph/Immune no lymphadenopathy. Differential Diagnosis: Differential diagnosis includes but is not limited to and in no particular order: Bowel obstruction, appendicitis, gallbladder disease, diverticulitis, colitis, enteritis, perforated viscus, gastritis, GERD , esophagitis, urinary tract infection, pyelonephritis, kidney stones Medical Decision Making: Plan for this patient IV establishment IV fluid bolus IV Zofran, basic blood work, urinalysis, lipase, and re-evaluate. Re-evaluation: 0137: Patient re-evaluated this time resting comfortably. No acute distress. She states she feels much better after IV fluids nausea medicine. She has had no vomiting here. Abdomen remained soft nontender. The patient's blood work has been reviewed as well as urinalysis unremarkable I offered to speak with her mom who is a psychiatrist who I have met before however she has declined me talking to her. She denies wanting to hurt herself or anybody else denies SI or HI. Denies feeling depressed or self-harm. She is comfortable going home. Vital signs are stable. I did not perform a CT scan abdomen pelvis with IV contrast for nausea vomiting. Her abdomen is soft nontender. She has not had any vomiting here. Vital signs stable. Blood work reviewed. 0240: Patient feeling much better. 2nd L fluid and IV Phenergan. Requesting be discharged home. Return precautions discussed return emergency room if worsening abdominal pain, fever, vomiting. She is comfortable this plan. Source: Patient - Personal History Current Tetanus Diphtheria and Acellular Pertussis (TDAP): No - Medical/Surgical History Hx Asthma: No Hx Chronic Respiratory Disease: No Hx Diabetes: No Hx Cardiac Disease: No Hx Renal Disease: No Hx Cirrhosis: No Hx Alcoholism: No Hx HIV/AIDS: No Hx Splenectomy or Spleen Trauma: No Other PMH: Depression, schizophrenia, gastric bypass, cholesectomy - Social History Smoking Status: Never smoked Constitutional: Initial Vital Signs Temperature (C) 36.7 C 09/12/18 21:53 Heart Rate 87 09/12/18 21:53 Respiratory Rate 17 09/12/18 21:53 Blood Pressure 100/78 09/12/18 21:53 O2 Sat (%) 97 09/12/18 21:53 O2 Delivery Mode Room Air Allergies/Adverse Reactions: neomycin Allergy (Verified 09/12/18 21:52) Home Medications: Medication Instructions Recorded Benztropine Mesylate [Cogentin] 1 mg PO HS #30 tab 09/18/17 Cholecalciferol Vit D3 [Vitamin D3 3,000 units PO DAILY tab 09/18/17 (*)] Cyanocobalamin [Vitamin B12 (*)] 100 mcg PO DAILY tab 09/18/17 Cyanocobalamin [Vitamin B12 1,000 mcg IM .QMONTH #1 vial 09/18/17 1000MCG/ML (*)] Divalproex [Depakote] 1,000 mg PO HS 30 Days tab 09/18/17 Ferrous Sulfate [Ferrous Sulf 325 325 mg PO BID tab 09/18/17 MG (*)] Folic Acid [Folic Acid 1 MG (*)] 1 mg PO DAILY tab 09/18/17 Multivitamins W-Minerals [Thera M 1 each PO DAILY tab 09/18/17 Plus Tablet (*)] risperiDONE [Risperdal] 4 mg PO BID #60 tab 09/18/17 Cogentin 12/17/17 Medical Decision Making - Data Points Laboratory Results: Laboratory Results 09/12/18 22:14 09/12/18 22:14 09/13/18 09/12/18 09/12/18 00:00 22:14 22:14 WBC RBC Hgb Hct MCV MCH MCHC RDW Plt Count MPV Neut % (Auto) Lymph % (Auto) [place] % (Auto) Eos % (Auto) Baso % (Auto) Nucleat RBC Rel Count Absolute Neuts (auto) Absolute Lymphs (auto) Absolute Monos (auto) Absolute Eos (auto) Absolute Basos (auto) Absolute Nucleated RBC Immature Gran % Immature Gran # Sodium 138 mEq/L mEq/L (135-145) Potassium 4.2 mEq/L mEq/L (3.5-5.2) Chloride 106 mEq/L mEq/L (97-110) Carbon Dioxide 26 mEq/l mEq/l (22-31) Anion Gap 6 mEq/L mEq/L (6-14) BUN 17 mg/dL mg/dL (7-23) Creatinine 0.7 mg/dL mg/dL (0.6-1.0) Estimated GFR > 60 Glucose 87 mg/dL mg/dL (70-100) Calcium 9.0 mg/dL mg/dL (8.5-10.4) Total Bilirubin 0.1 mg/dL mg/dL (0.1-1.4) Conjugated Bilirubin 0.1 mg/dL mg/dL (0.0-0.5) Unconjugated Bilirubin 0.0 mg/dL mg/dL (0.0-1.1) AST 16 IU/L IU/L (14-46) ALT 16 IU/L IU/L (9-52) Alkaline Phosphatase 64 IU/L IU/L (38-126) Total Protein 7.1 g/dL g/dL (6.3-8.2) Albumin 3.9 g/dL g/dL (3.5-5.0) Lipase 60 IU/L IU/L (23-300) Beta HCG, Qual NEGATIVE Urine Color YELLOW Urine Appearance HAZY Urine pH 5.0 (5.0-7.5) Ur Specific [place] 1.033 H (1.002-1.030) Urine Protein NEGATIVE (NEGATIVE) Urine Ketones TRACE H (NEGATIVE) Urine Blood NEGATIVE (NEGATIVE) Urine Nitrate NEGATIVE (NEGATIVE) Urine Bilirubin NEGATIVE (NEGATIVE) Urine Urobilinogen 2.0 EU H EU (0.2-1.0) Ur Leukocyte Esterase NEGATIVE (NEGATIVE) Urine Glucose NEGATIVE (NEGATIVE) 09/12/18 22:14 WBC 9.55 10^3/uL H 10^3/uL (3.80-9.50) RBC 3.90 10^6/uL L 10^6/uL (4.18-5.33) Hgb 12.6 g/dL g/dL (12.6-16.3) Hct 38.5 % % (38.0-47.0) MCV 98.7 fL fL (81.5-99.8) MCH 32.3 pg pg (27.9-34.1) MCHC 32.7 g/dL g/dL (32.4-36.7) RDW 12.4 % % (11.5-15.2) Plt Count 277 10^3/uL 10^3/uL (150-400) MPV 10.8 fL fL (8.7-11.7) Neut % (Auto) 55.6 % % (39.3-74.2) Lymph % (Auto) 29.3 % % (15.0-45.0) [place] % (Auto) 11.9 % % (4.5-13.0) Eos % (Auto) 2.7 % % (0.6-7.6) Baso % (Auto) 0.3 % % (0.3-1.7) Nucleat RBC Rel Count 0.0 % % (0.0-0.2) Absolute Neuts (auto) 5.30 10^3/uL 10^3/uL (1.70-6.50) Absolute Lymphs (auto) 2.80 10^3/uL 10^3/uL (1.00-3.00) Absolute Monos (auto) 1.14 10^3/uL H 10^3/uL (0.30-0.80) Absolute Eos (auto) 0.26 10^3/uL 10^3/uL (0.03-0.40) Absolute Basos (auto) 0.03 10^3/uL 10^3/uL (0.02-0.10) Absolute Nucleated RBC 0.00 10^3/uL 10^3/uL (0-0.01) Immature Gran % 0.2 % % (0.0-1.1) Immature Gran # 0.02 10^3/uL 10^3/uL (0.00-0.10) Sodium Potassium Chloride Carbon Dioxide Anion Gap BUN Creatinine Estimated GFR Glucose Calcium Total Bilirubin Conjugated Bilirubin Unconjugated Bilirubin AST ALT Alkaline Phosphatase Total Protein Albumin Lipase Beta HCG, Qual Urine Color Urine Appearance Urine pH Ur Specific [place] Urine Protein Urine Ketones Urine Blood Urine Nitrate Urine Bilirubin Urine Urobilinogen Ur Leukocyte Esterase Urine Glucose Medications Given: Discontinued Medications Sodium Chloride (Ns) 1,000 mls @ 0 mls/hr IV EDNOW ONE; Wide Open PRN Reason: Protocol Stop: 09/12/18 22:03 Last Admin: 09/12/18 22:20 Dose: 1,000 mls Sodium Chloride (Ns) 1,000 mls @ 0 mls/hr IV ONCE ONE PRN Reason: Wide Open Stop: 09/13/18 01:37 Last Admin: 09/13/18 01:39 Dose: 1,000 mls Ondansetron HCl (Zofran) 4 mg IVP EDNOW ONE Stop: 09/12/18 22:03 Last Admin: 09/12/18 22:21 Dose: 4 mg Promethazine HCl (Phenergan) 6.25 mg IVP ONCE ONE Stop: 09/13/18 01:37 Last Admin: 09/13/18 01:39 Dose: 6.25 mg Departure - Departure Disposition: Home, Routine, Self-Care Clinical Impression: Nausea and vomiting Condition: Good Instructions: Acute Nausea and Vomiting (ED) Additional Instructions: 1. [place] diet over the next 24-48 hours 2. Return to the emergency room if there is worsening abdominal pain, fever, vomiting. Referrals: Yanely Thakkar PA [Primary Care Provider] - As per Instructions
[2018-09-12 22:43] LABS: PLATELET COUNT 277 10^3/uL (150-400)
[2018-09-13] MEDS ORDERED: NS 1,000 ML IV ONE (01:36)
[2018-09-13] MEDS ORDERED: PROMETHAZINE HCL 25 MG/ML INJ IVP ONE (01:36)
[2018-09-13] MEDS ORDERED: PROMETHAZINE HCL 25 MG/ML INJ ONE (01:37)
[2018-09-13 02:33] VITALS: BP 105/72
== END 2018-09-13 02:41 | disposition home or self-care (01) ==
DX: R11.2 Nausea with vomiting, unspecified (principal); R19.7 Diarrhea, unspecified; E86.9 Volume depletion, unspecified
CPT/HCPCS: 96374; J2405; J2550

== ENCOUNTER 2018-09-13 03:45 | Emergency (ER) | payer MEDICAID ==
--- NOTE | 2018-09-13 03:51 | EDPHY ---
H & P Stated Complaint: abd pain, same as earlier, 1 episode 'diarrhea' Time Seen by Provider: 09/13/18 03:51 HPI/ROS: HPI CHIEF COMPLAINT: Diarrhea. Seen here earlier in emergency room. HISTORY OF PRESENT ILLNESS: Very pleasant 28-year-old female, previously seen by myself in the emergency room earlier this evening with nausea vomiting and diarrhea. She felt much better after IV fluids and Phenergan. She received 2 L of fluid here in emergency room. Abdomen remained soft she did not have any vomiting. She felt comfortable going home. She returns to the emergency room as she states she had 1 episode of diarrhea. She reports nonbloody. No significant abdominal pain at this time. Not vomiting. Past Medical History: Schizophrenia. Past Surgical History: No recent surgery Social History: Denies drugs alcohol tobacco. Family History: Noncontributory ROS REVIEW OF SYSTEMS: 10 Systems were reviewed and negative with the exception of the elements mentioned in the history of present illness. Exam Constitutional triage nursing summary reviewed, vital signs reviewed, awake/ alert. Eyes normal conjunctivae and sclera, EOMI, PERRLA. HENT normal inspection, atraumatic, moist mucus membranes, no epistaxis, neck supple/ no meningismus, no raccoon eyes. Respiratory clear to auscultation bilaterally, normal breath sounds, no respiratory distress, no wheezing. Cardiovascular rate normal, regular rhythm, no murmur, no edema, distal pulses normal. Gastrointestinal soft, non-tender, no rebound, no guarding, normal bowel sounds, no distension, no pulsatile mass. Genitourinary no CVA tenderness. Musculoskeletal no midline vertebral tenderness, full range of motion, no calf swelling, no tenderness of extremities, no meningismus, good pulses, neurovascularly intact. Skin pink, warm, & dry, no rash, skin atraumatic. Neurologic awake, alert and oriented x 3, AAOx3, moves all 4 extremities equally, motor intact, sensory intact, CN II-XII intact, normal cerebellar, normal vision, normal speech. Psychiatric normal mood/affect. Heme/Lymph/Immune no lymphadenopathy. Differential Diagnosis: Includes but is not limited to in a particular order acute diarrheal illness, electrolyte disturbance, dehydration, viral syndrome, anxiety Medical Decision Making: Plan for this patient I [facility], will give her a tab of Zofran and re-evaluate. Denies abdominal pain in abdomen remained soft. Re-evaluation: Patient re-evaluated this time. Patient is feeling much better. She slept here for multiple hours. She p.o. Challenge well. No diarrhea no vomiting. Abdomen remained soft nontender. She is feeling much better. She denies any abdominal pain chest pain shortness of breath nausea vomiting or diarrhea at this time. She would like to go home. Return precautions discussed. Source: Patient - Personal History LMP (Females 10-55): Irregular Current Tetanus Diphtheria and Acellular Pertussis (TDAP): Yes - Medical/Surgical History Hx Asthma: No Hx Chronic Respiratory Disease: No Hx Diabetes: No Hx Cardiac Disease: No Hx Renal Disease: No Hx Cirrhosis: No Hx Alcoholism: No Hx HIV/AIDS: No Hx Splenectomy or Spleen Trauma: No Other PMH: Depression, schizophrenia, gastric bypass, cholesectomy - Social History Smoking Status: Never smoked Constitutional: Initial Vital Signs Temperature (C) 36.5 C 09/13/18 03:47 Heart Rate 100 09/13/18 03:47 Respiratory Rate 18 09/13/18 03:47 Blood Pressure 122/71 H 09/13/18 03:47 O2 Sat (%) 97 09/13/18 03:47 O2 Delivery Mode Room Air Allergies/Adverse Reactions: neomycin Allergy (Verified 09/13/18 03:47) Home Medications: Medication Instructions Recorded Benztropine Mesylate [Cogentin] 1 mg PO HS #30 tab 09/18/17 Cholecalciferol Vit D3 [Vitamin D3 3,000 units PO DAILY tab 09/18/17 (*)] Cyanocobalamin [Vitamin B12 (*)] 100 mcg PO DAILY tab 09/18/17 Cyanocobalamin [Vitamin B12 1,000 mcg IM .QMONTH #1 vial 09/18/17 1000MCG/ML (*)] Divalproex [Depakote] 1,000 mg PO HS 30 Days tab 09/18/17 Ferrous Sulfate [Ferrous Sulf 325 325 mg PO BID tab 09/18/17 MG (*)] Folic Acid [Folic Acid 1 MG (*)] 1 mg PO DAILY tab 09/18/17 Multivitamins W-Minerals [Thera M 1 each PO DAILY tab 09/18/17 Plus Tablet (*)] risperiDONE [Risperdal] 4 mg PO BID #60 tab 09/18/17 Cogentin 03/12/18 Medical Decision Making - Data Points Medications Given: Discontinued Medications Ondansetron HCl (Zofran Odt) 4 mg PO EDNOW ONE Stop: 09/13/18 04:03 Last Admin: 09/13/18 04:07 Dose: 4 mg Departure - Departure Disposition: Home, Routine, Self-Care Clinical Impression: Diarrhea Qualifiers: Diarrhea type: unspecified type Qualified Code(s): R19.7 - Diarrhea, unspecified Condition: Good Instructions: Acute Diarrhea (ED) Referrals: NONE *PRIMARY CARE P,. [Primary Care Provider] - As per Instructions
[2018-09-13] MEDS ORDERED: ONDANSETRON DISINTEGRATING 4 MG TAB PO ONE (04:02)
[2018-09-13 06:53] VITALS: BP 110/60
== END 2018-09-13 06:52 | disposition home or self-care (01) ==
DX: R19.7 Diarrhea, unspecified (principal)

== ENCOUNTER 2018-09-13 22:28 | Emergency (ER) | payer MEDICAID ==
[2018-09-13] MEDS ORDERED: NS 1,000 ML IV ONE ×2 (22:34→22:35)
[2018-09-13] MEDS ORDERED: LORazepam 2 MG/ML INJ IVP ONE (22:35)
--- NOTE | 2018-09-13 22:38 | EDPHY ---
H & P Stated Complaint: nausea and mid abd pain Time Seen by Provider: 09/13/18 22:35 HPI/ROS: HPI CHIEF COMPLAINT: Nausea and diarrhea. HISTORY OF PRESENT ILLNESS: Very pleasant 28-year-old female, who I am very familiar with, I have seen multiple times, previously saw her 2 times yesterday evening. She was here for the same complaint nausea vomiting and diarrhea. Her workup was rather unremarkable here yesterday. However she presents back to the emergency room this evening with complaint of nausea, and diarrhea. Again nonbloody. No fever. Denies significant abdominal pain. She states that she had called 911 and get an ambulance here as her mom refused to take her to the hospital. Of note this is the 3rd time for similar complaints. She appears well nontoxic. Yesterday she had no vomiting or diarrhea during her prolonged observation in the emergency room. She does have a history of schizophrenia. However she denies to me feeling suicidal homicidal denies to me feeling paranoid or want hurt herself or anybody else. Denies feeling psychotic. She states me that her nausea vomiting diarrhea or not psychiatric related. Past Medical History: Schizophrenia. Past Surgical History: No recent surgery Social History: Denies drugs alcohol tobacco. Family History: Noncontributory. ROS REVIEW OF SYSTEMS: 10 Systems were reviewed and negative with the exception of the elements mentioned in the history of present illness. Exam Constitutional nontoxic, triage nursing summary reviewed, vital signs reviewed , awake/alert. Vital signs stable. Eyes normal conjunctivae and sclera, EOMI, PERRLA. HENT normal inspection, atraumatic, moist mucus membranes, no epistaxis, neck supple/ no meningismus, no raccoon eyes. Respiratory clear to auscultation bilaterally, normal breath sounds, no respiratory distress, no wheezing. Cardiovascular rate normal, regular rhythm, no murmur, no edema, distal pulses normal. Gastrointestinal cannot elicit any tenderness on exam, soft, non-tender, no rebound, no guarding, normal bowel sounds, no distension, no pulsatile mass. Genitourinary no CVA tenderness. Musculoskeletal no midline vertebral tenderness, full range of motion, no calf swelling, no tenderness of extremities, no meningismus, good pulses, neurovascularly intact. Skin pink, warm, & dry, no rash, skin atraumatic. Neurologic awake, alert and oriented x 3, AAOx3, moves all 4 extremities equally, motor intact, sensory intact, CN II-XII intact, normal cerebellar, normal vision, normal speech. Psychiatric normal mood/affect. Heme/Lymph/Immune no lymphadenopathy. Differential Diagnosis: Includes but is not limited to in a particular order dehydration, electrolyte disturbance, acute GI illness, viral syndrome, anxiety Medical Decision Making: Plan for this patient IV establishment IV fluid bolus , IV Ativan for nausea, check basic electrolytes, gentle IV fluids. And observe. Will obtain KUB. Her abdomen is benign. Soft nontender on exam. Will monitor for vomiting and diarrhea. Monitor her abdominal exam. Re-evaluation: 1231AM: Patient re-evaluated this time is resting comfortably. She is feeling better after IV fluids and IV Ativan. She does tell me she still has some mild nausea I have ordered her IV Phenergan 6.25 mg and will re-evaluate. Blood work is reviewed. KUB reviewed. KUB shows no abnormal bowel gas pattern. Blood work reviewed. No high white count. Electrolytes are stable. 0121: Patient re-evaluated this time resting comfortably no acute distress. She is in fact sleeping at this time. Abdomen remained soft nontender. She has not any vomiting here. No diarrhea. Vital signs stable. Afebrile. Blood work reviewed. Return precautions discussed with the patient. Return if worsening abdominal pain, fever, vomiting. During any of these emergency room visits over the past 2 days have not seen her vomit or have any diarrhea. Source: Patient - Personal History Current Tetanus/Diphtheria Vaccine: Unsure Current Tetanus Diphtheria and Acellular Pertussis (TDAP): Unsure - Medical/Surgical History Hx Asthma: No Hx Chronic Respiratory Disease: No Hx Diabetes: No Hx Cardiac Disease: No Hx Renal Disease: No Hx Cirrhosis: No Hx Alcoholism: No Hx HIV/AIDS: No Hx Splenectomy or Spleen Trauma: No Other PMH: Depression, schizophrenia, gastric bypass, cholesectomy - Social History Smoking Status: Never smoked Constitutional: Initial Vital Signs Temperature (C) 36.5 C 09/13/18 22:32 Heart Rate 71 09/13/18 22:32 Respiratory Rate 16 09/13/18 22:32 Blood Pressure 92/42 L 09/13/18 22:32 O2 Sat (%) 95 09/13/18 22:32 O2 Delivery Mode Room Air Allergies/Adverse Reactions: neomycin Allergy (Verified 09/13/18 22:34) Home Medications: Medication Instructions Recorded Benztropine Mesylate [Cogentin] 1 mg PO HS #30 tab 09/18/17 Cholecalciferol Vit D3 [Vitamin D3 3,000 units PO DAILY tab 09/18/17 (*)] Cyanocobalamin [Vitamin B12 (*)] 100 mcg PO DAILY tab 09/18/17 Cyanocobalamin [Vitamin B12 1,000 mcg IM .QMONTH #1 vial 09/18/17 1000MCG/ML (*)] Divalproex [Depakote] 1,000 mg PO HS 30 Days tab 09/18/17 Ferrous Sulfate [Ferrous Sulf 325 325 mg PO BID tab 09/18/17 MG (*)] Folic Acid [Folic Acid 1 MG (*)] 1 mg PO DAILY tab 09/18/17 Multivitamins W-Minerals [Thera M 1 each PO DAILY tab 09/18/17 Plus Tablet (*)] risperiDONE [Risperdal] 4 mg PO BID #60 tab 09/18/17 Cogentin 12/17/17 Medical Decision Making - Diagnostics Imaging Results: Imaging Impressions Abdomen X-Ray 09/13/18 22:34 Impression: 1. Constipation. 2. Prior cholecystectomy. - Data Points Laboratory Results: Laboratory Results 09/13/18 23:00 09/13/18 23:00 09/13/18 09/13/18 09/13/18 23:00 23:00 23:00 WBC 9.17 10^3/uL 10^3/uL (3.80-9.50) RBC 3.71 10^6/uL L 10^6/uL (4.18-5.33) Hgb 12.1 g/dL L g/dL (12.6-16.3) Hct 36.7 % L % (38.0-47.0) MCV 98.9 fL fL (81.5-99.8) MCH 32.6 pg pg (27.9-34.1) MCHC 33.0 g/dL g/dL (32.4-36.7) RDW 12.5 % % (11.5-15.2) Plt Count 252 10^3/uL 10^3/uL (150-400) MPV 10.8 fL fL (8.7-11.7) Neut % (Auto) 36.2 % L % (39.3-74.2) Lymph % (Auto) 51.6 % H % (15.0-45.0) [place] % (Auto) 9.2 % % (4.5-13.0) Eos % (Auto) 2.4 % % (0.6-7.6) Baso % (Auto) 0.3 % % (0.3-1.7) Nucleat RBC Rel Count 0.0 % % (0.0-0.2) Absolute Neuts (auto) 3.32 10^3/uL 10^3/uL (1.70-6.50) Absolute Lymphs (auto) 4.73 10^3/uL H 10^3/uL (1.00-3.00) Absolute Monos (auto) 0.84 10^3/uL H 10^3/uL (0.30-0.80) Absolute Eos (auto) 0.22 10^3/uL 10^3/uL (0.03-0.40) Absolute Basos (auto) 0.03 10^3/uL 10^3/uL (0.02-0.10) Absolute Nucleated RBC 0.00 10^3/uL 10^3/uL (0-0.01) Immature Gran % 0.3 % % (0.0-1.1) Immature Gran # 0.03 10^3/uL 10^3/uL (0.00-0.10) Sodium 139 mEq/L mEq/L (135-145) Potassium 4.0 mEq/L mEq/L (3.5-5.2) Chloride 107 mEq/L mEq/L (97-110) Carbon Dioxide 26 mEq/l mEq/l (22-31) Anion Gap 6 mEq/L mEq/L (6-14) BUN 8 mg/dL mg/dL (7-23) Creatinine 0.6 mg/dL mg/dL (0.6-1.0) Estimated GFR > 60 Glucose 82 mg/dL mg/dL (70-100) Calcium 9.1 mg/dL mg/dL (8.5-10.4) Total Bilirubin 0.3 mg/dL mg/dL (0.1-1.4) Conjugated Bilirubin 0.2 mg/dL mg/dL (0.0-0.5) Unconjugated Bilirubin 0.1 mg/dL mg/dL (0.0-1.1) AST 16 IU/L IU/L (14-46) ALT 21 IU/L IU/L (9-52) Alkaline Phosphatase 60 IU/L IU/L (38-126) Total Protein 6.9 g/dL g/dL (6.3-8.2) Albumin 3.8 g/dL g/dL (3.5-5.0) Lipase 38 IU/L IU/L (23-300) Beta HCG, Qual NEGATIVE Medications Given: Discontinued Medications Sodium Chloride (Ns) 1,000 mls @ 0 mls/hr IV EDNOW ONE; Wide Open PRN Reason: Protocol Stop: 09/13/18 22:35 Last Admin: 09/13/18 23:03 Dose: 1,000 mls Sodium Chloride (Ns) 1,000 mls @ 0 mls/hr IV ONCE ONE PRN Reason: Wide Open Stop: 09/13/18 22:36 Last Admin: 09/13/18 23:03 Dose: 1,000 mls Lorazepam (Ativan Injection) 1 mg IVP EDNOW ONE Stop: 09/13/18 22:36 Last Admin: 09/13/18 23:04 Dose: 1 mg Promethazine HCl (Phenergan) 6.25 mg IVP ONCE ONE Stop: 09/14/18 00:33 Last Admin: 09/14/18 00:34 Dose: 6.25 mg Departure - Departure Disposition: Home, Routine, Self-Care Clinical Impression: Nausea Diarrhea Qualifiers: Diarrhea type: unspecified type Qualified Code(s): R19.7 - Diarrhea, unspecified Condition: Good Instructions: Acute Nausea and Vomiting (ED) Additional Instructions: 1. [place] diet over the next 24-48 hours 2. Again no spicy fatty greasy food 3. Return if worse. Referrals: Patient,NotPresent [Primary Care Provider] - As per Instructions
[2018-09-13 23:19] LABS: PLATELET COUNT 252 10^3/uL (150-400)
[2018-09-14 00:28] VITALS: BP 116/65
[2018-09-14] MEDS ORDERED: PROMETHAZINE HCL 25 MG/ML INJ IVP ONE (00:32)
[2018-09-14] MEDS ORDERED: PROMETHAZINE HCL 25 MG/ML INJ ONE (00:32)
== END 2018-09-14 01:32 | disposition home or self-care (01) ==
LOC: EDUNIT# → EDBD
DX: R11.0 Nausea (principal); R19.7 Diarrhea, unspecified; E86.9 Volume depletion, unspecified
CPT/HCPCS: 96374; J2060; J2550

== ENCOUNTER 2018-09-14 22:35 | Emergency (ER) | payer MEDICAID ==
[2018-09-14] MEDS ORDERED: ONDANSETRON DISINTEGRATING 4 MG TAB PO ONE (22:40)
--- NOTE | 2018-09-14 22:41 | EDPHY ---
H & P Time Seen by Provider: 09/14/18 22:41 HPI/ROS: HPI CHIEF COMPLAINT: Vomiting, diarrhea HISTORY OF PRESENT ILLNESS: This is a 28-year-old female who I have seen for the past 2 nights. I have seen her total 4 times for nausea vomiting diarrhea. Each time she does not have any vomiting or diarrhea here in her emergency room. She is observed for multiple hours. She typically ask for nausea medicine. She again arrives by EMS for nausea vomiting diarrhea. States he had 2 episodes of diarrhea nonbloody earlier today. As well as 1 episode of vomiting. She denies any abdominal pain chest pain or shortness of breath, denies fever. Patient reports to me that a she staying at a local hotel as she does not feel safe staying at her own apartment. This is a common thing for her. She often does state a hotel when she feels upset and anxious. She typically arrives emergency room with her mom who is psychiatrist . However for the past multiple visit she has not been here. I did ask the patient if I could talk to her mom about her current status and complaints and recurrent ER visits however she declined me to talk to her mom. When I have asked her about her mental illness including psychosis, feeling depressed, anxious, SI or HI she denies all of this. She states that she believes she can handle this and she does not feel that this is her psychiatric illness. She arrives to emergency room, cooperative. We discussed which would like to be done in the emergency room today. She agrees on no IV. She does not want IV started she would like oral nausea medicine and re-evaluation. Additionally did offer her psychiatric evaluation given this is her 4th ER visit. Past Medical History: schizophrenia. Past Surgical History: Denies Social History: Denies drugs, etoh, tobacco. Family History: Denies ROS REVIEW OF SYSTEMS: 10 Systems were reviewed and negative with the exception of the elements mentioned in the history of present illness. Exam Constitutional triage nursing summary reviewed, vital signs reviewed, awake/ alert. Eyes normal conjunctivae and sclera, EOMI, PERRLA. HENT normal inspection, atraumatic, moist mucus membranes, no epistaxis, neck supple/ no meningismus, no raccoon eyes. Respiratory clear to auscultation bilaterally, normal breath sounds, no respiratory distress, no wheezing. Cardiovascular rate normal, regular rhythm, no murmur, no edema, distal pulses normal. Gastrointestinal soft, non-tender, no rebound, no guarding, normal bowel sounds, no distension, no pulsatile mass. Genitourinary no CVA tenderness. Musculoskeletal no midline vertebral tenderness, full range of motion, no calf swelling, no tenderness of extremities, no meningismus, good pulses, neurovascularly intact. Skin pink, warm, & dry, no rash, skin atraumatic. Neurologic awake, alert and oriented x 3, AAOx3, moves all 4 extremities equally, motor intact, sensory intact, CN II-XII intact, normal cerebellar, normal vision, normal speech. Psychiatric normal mood/affect. Heme/Lymph/Immune no lymphadenopathy. Differential Diagnosis: Includes but is not limited to in a particular order acute anxiety, dehydration electrolyte disturbance, paranoia Medical Decision Making: Number this patient patient declined IV fluids, declined IV establishment. Oral Zofran will be given and will re-evaluate him. Re-evaluation: 0507: Patient re-evaluated this time she has been sleeping resting comfortably she has not had any vomiting here or diarrhea. She does states she feels better after Zofran. Her abdomen remained soft nontender. She p.o. Challenge well Ambulated well. She is comfortable being discharged Return precautions discussed. I do recommend she follows up with GI. Source: Patient, EMS - Medical/Surgical History Hx Asthma: No Hx Chronic Respiratory Disease: No Hx Diabetes: No Hx Cardiac Disease: No Hx Renal Disease: No Hx Cirrhosis: No Hx Alcoholism: No Hx HIV/AIDS: No Hx Splenectomy or Spleen Trauma: No Other PMH: Depression, schizophrenia, gastric bypass, cholesectomy - Social History Smoking Status: Never smoked Constitutional: Initial Vital Signs Temperature (C) 36.7 C 09/14/18 22:43 Heart Rate 74 09/14/18 22:43 Respiratory Rate 20 09/14/18 22:43 Blood Pressure 109/77 09/14/18 22:43 O2 Sat (%) 97 09/14/18 22:43 Allergies/Adverse Reactions: neomycin Allergy (Verified 09/14/18 22:43) Home Medications: Medication Instructions Recorded Benztropine Mesylate [Cogentin] 1 mg PO HS #30 tab 09/18/17 Cholecalciferol Vit D3 [Vitamin D3 3,000 units PO DAILY tab 09/18/17 (*)] Cyanocobalamin [Vitamin B12 (*)] 100 mcg PO DAILY tab 09/18/17 Cyanocobalamin [Vitamin B12 1,000 mcg IM .QMONTH #1 vial 09/18/17 1000MCG/ML (*)] Divalproex [Depakote] 1,000 mg PO HS 30 Days tab 09/18/17 Ferrous Sulfate [Ferrous Sulf 325 325 mg PO BID tab 09/18/17 MG (*)] Folic Acid [Folic Acid 1 MG (*)] 1 mg PO DAILY tab 09/18/17 Multivitamins W-Minerals [Thera M 1 each PO DAILY tab 09/18/17 Plus Tablet (*)] risperiDONE [Risperdal] 4 mg PO BID #60 tab 09/18/17 Cogentin 12/17/17 Medical Decision Making - Data Points Medications Given: Discontinued Medications Ondansetron HCl (Zofran Odt) 4 mg PO EDNOW ONE Stop: 09/14/18 22:41 Last Admin: 09/14/18 22:47 Dose: 4 mg Departure - Departure Disposition: Home, Routine, Self-Care Clinical Impression: Nausea and vomiting Qualifiers: Vomiting type: unspecified Vomiting Intractability: non-intractable Qualified Code(s): R11.2 - Nausea with vomiting, unspecified Condition: Good Instructions: Acute Nausea and Vomiting (ED) Additional Instructions: 1. [place] diet over the next 24-48 hours. 2. No spicy fatty greasy food. 3. Please follow up with GI Referrals: NONE *PRIMARY CARE P,. [Primary Care Provider] - As per Instructions Mir Merchant MD [Medical Doctor] - As per Instructions
[2018-09-15 05:51] VITALS: BP 128/82
== END 2018-09-15 05:52 | disposition home or self-care (01) ==
LOC: EDUNIT#
DX: R11.2 Nausea with vomiting, unspecified (principal); R19.7 Diarrhea, unspecified

== ENCOUNTER 2018-09-15 21:50 | Inpatient (IN) | payer MEDICAID, OTHER ==
--- NOTE | 2018-09-15 22:24 | EDPHY ---
H & P Stated Complaint: epigastric pain Time Seen by Provider: 09/15/18 22:02 HPI/ROS: Chief Complaint: Vomiting, diarrhea, feels unsafe HPI: 28-year-old woman is presenting for the 4th night in a row complaining of nausea vomiting. Patient states she is vomiting about once a day and having 2 loose stools a day. She has been seen and evaluated emergency department for the last 4 nights. Evaluation of time are unremarkable. She does have a history of schizophrenia and is compliant with her medications. She denies being suicidal or homicidal. She is not hallucinating. She does state that she is actually feeling unsafe and is requesting a mental health evaluation. She is melisa for safety. I reviewed her medical records for the last 3 nights. She is having some abdominal pain. No blood in her vomit. No dark tarry stools or blood in her stools. ROS: 10 systems were reviewed and were negative except those elements noted in the HPI. PMH: Schizophrenia Social History: No smoking Family History: non-contributory Physical Exam: Gen: Awake, Alert, No Distress HEENT: Nose: no rhinorrhea Eyes: PERRLA, EOMI Mouth: Moist mucosa Neck: Supple, no JVD Chest: nontender, lungs clear to auscultation Heart: S1, S2 normal, no murmur Abd: Soft, non-tender, no guarding Back: no CVA tenderness, no midline tenderness Ext: no edema, non-tender Skin: no rash Neuro: CN II-XII intact, Sensation grossly intact, Strength 5/5 in bilateral upper and lower extremities - Personal History Current Tetanus/Diphtheria Vaccine: Yes - Medical/Surgical History Hx Asthma: No Hx Chronic Respiratory Disease: No Hx Diabetes: No Hx Cardiac Disease: No Hx Renal Disease: No Hx Cirrhosis: No Hx Alcoholism: No Hx HIV/AIDS: No Hx Splenectomy or Spleen Trauma: No Other PMH: Depression, schizophrenia, gastric bypass, cholesectomy - Social History Smoking Status: Never smoked Constitutional: Initial Vital Signs Temperature (C) 36.8 C 09/15/18 21:52 Heart Rate 81 09/15/18 21:52 Respiratory Rate 16 09/15/18 21:52 Blood Pressure 139/82 H 09/15/18 21:52 O2 Sat (%) 94 09/15/18 21:52 O2 Delivery Mode Room Air Allergies/Adverse Reactions: neomycin Allergy (Verified 09/15/18 21:54) Home Medications: Medication Instructions Recorded Benztropine Mesylate [Cogentin] 1 mg PO HS #30 tab 09/18/17 Cholecalciferol Vit D3 [Vitamin D3 3,000 units PO DAILY tab 09/18/17 (*)] Cyanocobalamin [Vitamin B12 (*)] 100 mcg PO DAILY tab 09/18/17 Cyanocobalamin [Vitamin B12 1,000 mcg IM .QMONTH #1 vial 09/18/17 1000MCG/ML (*)] Divalproex [Depakote] 1,000 mg PO HS 30 Days tab 09/18/17 Ferrous Sulfate [Ferrous Sulf 325 325 mg PO BID tab 09/18/17 MG (*)] Folic Acid [Folic Acid 1 MG (*)] 1 mg PO DAILY tab 09/18/17 Multivitamins W-Minerals [Thera M 1 each PO DAILY tab 09/18/17 Plus Tablet (*)] risperiDONE [Risperdal] 4 mg PO BID #60 tab 09/18/17 Cogentin 12/17/17 Medical Decision Making ED Course/Re-evaluation: 28-year-old female presenting with nausea, vomiting and diarrhea. History schizophrenia. Patient states that she feels unsafe at home. She denies being suicidal or homicidal. She is not hallucinating. She does appear to be gravely disabled. This is her 4th visit in 4 days. She is requesting mental health evaluation. I have explained to her that she can likely not have an evaluation until morning. She understands this and is requesting to be kept in the emergency department for evaluation. Medical clearance labs have been sent. Patient is not currently vomiting. Physical exam is unremarkable. - Data Points Laboratory Results: Laboratory Results 09/15/18 22:27 09/15/18 22:27 09/15/18 09/15/18 09/15/18 22:55 22:27 22:27 WBC RBC Hgb Hct MCV MCH MCHC RDW Plt Count MPV Neut % (Auto) Lymph % (Auto) [place] % (Auto) Eos % (Auto) Baso % (Auto) Nucleat RBC Rel Count Absolute Neuts (auto) Absolute Lymphs (auto) Absolute Monos (auto) Absolute Eos (auto) Absolute Basos (auto) Absolute Nucleated RBC Immature Gran % Immature Gran # Sodium 140 mEq/L mEq/L (135-145) Potassium 4.0 mEq/L mEq/L (3.5-5.2) Chloride 104 mEq/L mEq/L (97-110) Carbon Dioxide 25 mEq/l mEq/l (22-31) Anion Gap 11 mEq/L mEq/L (6-14) BUN 8 mg/dL mg/dL (7-23) Creatinine 0.7 mg/dL mg/dL (0.6-1.0) Estimated GFR > 60 Glucose 84 mg/dL mg/dL (70-100) Calcium 9.1 mg/dL mg/dL (8.5-10.4) Beta HCG, Qual NEGATIVE Urine Opiates Screen Pending Urine Barbiturates Pending Ur Phencyclidine Scrn Pending Ur Amphetamine Screen Pending U Benzodiazepines Scrn Pending Urine Cocaine Screen Pending U Marijuana (THC) Screen Pending Ethyl Alcohol < 10 mg/dL mg/dL (0-10) 09/15/18 22:27 WBC 9.85 10^3/uL H 10^3/uL (3.80-9.50) RBC 3.75 10^6/uL L 10^6/uL (4.18-5.33) Hgb 12.1 g/dL L g/dL (12.6-16.3) Hct 37.4 % L % (38.0-47.0) MCV 99.7 fL fL (81.5-99.8) MCH 32.3 pg pg (27.9-34.1) MCHC 32.4 g/dL g/dL (32.4-36.7) RDW 12.2 % % (11.5-15.2) Plt Count 250 10^3/uL 10^3/uL (150-400) MPV 11.1 fL fL (8.7-11.7) Neut % (Auto) 45.8 % % (39.3-74.2) Lymph % (Auto) 42.6 % % (15.0-45.0) [place] % (Auto) 9.0 % % (4.5-13.0) Eos % (Auto) 2.0 % % (0.6-7.6) Baso % (Auto) 0.4 % % (0.3-1.7) Nucleat RBC Rel Count 0.0 % % (0.0-0.2) Absolute Neuts (auto) 4.50 10^3/uL 10^3/uL (1.70-6.50) Absolute Lymphs (auto) 4.20 10^3/uL H 10^3/uL (1.00-3.00) Absolute Monos (auto) 0.89 10^3/uL H 10^3/uL (0.30-0.80) Absolute Eos (auto) 0.20 10^3/uL 10^3/uL (0.03-0.40) Absolute Basos (auto) 0.04 10^3/uL 10^3/uL (0.02-0.10) Absolute Nucleated RBC 0.00 10^3/uL 10^3/uL (0-0.01) Immature Gran % 0.2 % % (0.0-1.1) Immature Gran # 0.02 10^3/uL 10^3/uL (0.00-0.10) Sodium Potassium Chloride Carbon Dioxide Anion Gap BUN Creatinine Estimated GFR Glucose Calcium Beta HCG, Qual Urine Opiates Screen Urine Barbiturates Ur Phencyclidine Scrn Ur Amphetamine Screen U Benzodiazepines Scrn Urine Cocaine Screen U Marijuana (THC) Screen Ethyl Alcohol Departure - Departure Referrals: NONE *PRIMARY CARE P,. [Primary Care Provider] - As per Instructions
[2018-09-15 22:35] LABS: PLATELET COUNT 250 10^3/uL (150-400)
--- NOTE | 2018-09-15 23:34 | ASMTLCPROG ---
Notes Note: Notes: The patient requested a MH evaluation. This creative services writer contacted the patient to begin the assessment; the patient refused citing discomfort. The patient reported she needed to speak with another automatic chief. This creative services writer explained that she was the only staff available. The patient refused reporting that she needed to sleep prior to speaking with someone about whether she needs to remain in the hospital. The patient requested the lights be left on. Date Signed: 09/15/2018 11:33 PM Electronically Signed By:Tess Quinteros
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
--- NOTE | 2018-09-16 12:06 | ASMTTCLDSP ---
TLC Discharge Disposition Disposition: Answers: Admit Disposition Notes: Notes: Admit 3[facility]. Discharge Concerns/Recommendations: Notes: In consultation with [facility] ED physician, Eulalio Dinero MD and on-call psychiatrist, Garrett Martin MD, both concurred that pt appears to meet 27-65 criteria requiring psychiatric hospitalization as pt appears to be gravely disabled due to a mental illness condition. Pt was given the 3N prohibited belongings list while in the ED. Was patient given the Answers: Yes Inpatient Behavioral Health Prohibited Belongings List while in the ED? For inpatient Garrett Martin MD admission, the following psychiatrist agreed to accept patient for admission to Behavioral Health ([facility]): Type of Hold: Answers: M1/72-hour Hold Hold initiated by: Answers: ED Physician Date Signed: 09/16/2018 12:06 PM Electronically Signed By:Shaka Bellamy
[2018-09-16] MEDS ORDERED: MAGNESIUM HYDROXIDE 30 ML UDCUP PO PRN ×2 (12:42→15:06)
[2018-09-16] MEDS ORDERED: POLYETHYLENE GLYCOL 3350 17 GM PKT PO PRN ×2 (12:42→15:06)
[2018-09-16] MEDS ORDERED: LACTULOSE 20 GM/30 ML UDCUP PO PRN ×2 (12:42→15:06)
[2018-09-16] MEDS ORDERED: BISACODYL 10 MG SUPP PR PRN ×2 (12:42→15:06)
--- NOTE | 2018-09-16 14:57 | GCON ---
DATE OF CONSULTATION: 09/16/2018 REFERRING PHYSICIAN: Hollis Reese MD REASON FOR CONSULTATION: I was asked by Dr. Reese to see the patient in regard to her medical issues . HISTORY OF PRESENT ILLNESS: This is a 28-year-old female with a history of schizophrenia. She will be admitted to [facility] as she is meeting criteria. She apparently has been staying in a ho tel because she feels unsafe returning back to her apartment. The last 4 days in a row, she has pres ented to the ED with a chief complaint of nausea, vomiting, mild abdominal pain, as well as diarrhea. She has been treated symptomatically for this. Abdominal x-rays reviewed and show some constipatio n. Her labs have been unremarkable. She had been sent home. At one point, she had received some IV fluids. She tells me that no one else is sick around her. She vomits once or twice a day. She has had 1-2 episodes of nonbloody diarrhea per day as well. She has some mild abdominal pain. She has never had anything like this before. She has had a gastric bypass in 2011 but has been fine since . PAST MEDICAL/SURGICAL HISTORY: 1. Schizophrenia. 2. Gastric bypass. 3. Cholecystectomy. MEDICATIONS: Please see medication reconciliation. ALLERGIES: Neomycin. FAMILY HISTORY: She denies. SOCIAL HISTORY: She does not drink. She does not smoke. REVIEW OF SYSTEMS: A 10-point review of systems is conducted and is negative, except per HPI. PHYSICAL EXAM: VITAL SIGNS: Blood pressure is 125/75, heart rate 58, respiration rate 16, saturatin g 95% on room air. Temperature is 36.7. GENERAL: The patient is a pleasant female who is resting c omfortably, in no acute distress. HEENT: Normocephalic, atraumatic. CARDIOVASCULAR: Regular rate and rhythm. No murmurs, rubs, or gallops. PULMONARY: Lungs clear to auscultation bilaterally. ABD OMEN: Normal bowel sounds, normal appearance. She is soft. She has mild tenderness in the right mi d quadrant. There is no guarding or rebound. This is a non-peritoneal exam. SKIN: Exam shows no r chicho. : No Talavera. NEUROLOGIC: Exam shows her to be alert and oriented x3. She is moving all ext remities. PSYCHIATRIC: Exam shows her to have a slightly flat affect. LABS: These have been reviewed. Her tox screen is negative. Alcohol level is negative. Basic meta bolic panel is normal. Her white count is 9.8. Her hemoglobin is 12. DATA: 1. I personally viewed and interpreted her abdominal x-ray, as above. 2. I reviewed her chest x-ray from August of this year. This was negative. IMPRESSION AND PLAN: 1. Abdominal issues, including nausea, vomiting and diarrhea: There are no red flag symptoms for an y severe intraabdominal pathology. Suspect this may be due to constipation, or may be somewhat psych osomatic in nature. I have written for her to have a bowel regimen given the constipation seen on he r abdominal x-ray. If this does not resolve in 1-2 days, please re-consult Hospital Medicine for add itional assistance. 2. Schizophrenia: This will be managed by Psychiatry. She is being admitted to inpatient [facility]. 3. Leukocytosis: This is mild and is somewhat chronic in nature. This approximately at her baselin e. I do not think that this indicates any significant intraabdominal pathology. 4. Anemia: This is also mild and at her baseline. I would not work this up further as an inpatient . She may follow up with her PCP for this. Thank you for involving Hospital Medicine in the care of the patient. Please re-consult if her abdom inal issues do not resolve with symptomatic care and treatment of her constipation. /[id number]/MODL
[2018-09-16] MEDS ORDERED: LORazepam 0.5 MG TAB PO PRN (15:07)
[2018-09-16] MEDS ORDERED: MAG HYDROX/AL HYDROX/SIMETH 30 ML UDCUP PO PRN (15:07)
[2018-09-16] MEDS ORDERED: NICOTINE POLACRILEX 2 MG GUM B PRN (15:07)
[2018-09-16] MEDS ORDERED: RISPERIDONE 1 MG ODT TAB SL PRN (15:17)
[2018-09-16] MEDS: DIVALPROEX ER 500 MG TAB PO SCH (20:22)
[2018-09-16] MEDS: BENZTROPINE MESYLATE 1 MG TAB PO SCH (20:22)
[2018-09-16] MEDS: SENNOSIDES/DOCUSATE SODIUM TAB PO SCH (20:22)
[2018-09-16] MEDS: LORazepam 1 MG TAB PO SCH (20:22)
[2018-09-16] MEDS ORDERED: SENNOSIDES/DOCUSATE SODIUM TAB PO SCH (21:00)
--- NOTE | 2018-09-17 07:05 | ASMTBHMTP ---
Master Treatment Plan Master Treatment Plan Answers: Impaired Reality for: Date: 09/16/2018 Diagnosis on Admission: Schizoaffective Disorder, BiPolar Type 295.70 (F25.0) Expected length of stay: 3-5 days Reason for admission: Notes: Per Report: Pt is a 28 year old, unemployed/disabled, female with a history of schizoaffective disorder-bipolar type and PTSD, initially self-presented to [facility] initially on a voluntary basis, with chief complaint of abdominal pain. She currently has her own apartment in [place], however, for the past week has been staying at a hotel because she is afraid and feels unsafe in returning back to her apartment. Pt has been presenting to the ED for the past 4 days in a row with abdominal pain complaints and believes she may have had food poisoning. Pt was placed on M1 hold the following morning which noted: Pts psychiatrist, Taryn Alegria MD at [facility] reported pt has been in & out of emergency rooms for past 5 days, she has history of schizoaffective disorder-bipolar type & PTSD, is unable to care for self and is gravely disabled. Pt has not been attending outpatient appointments reliably. Pt has been staying in a hotel for the past week because she does not feel safe at her apartment. Dr. Alegria also added that she would like for pt to be admitted to [facility], be placed on a short-term certification and court-ordered medications. Dr. Alegria stated that pt has a baseline delusion regarding a business pt can start in [facility] and could fly out there the next day. Dr. Alegria also stated that pt has the highest capacity of psychotic denial of any pt she has ever seen. Pt initially declined evaluation last evening, requesting a different general supervisor. She slept throughout the night. The following morning, this general supervisor introduced self and purpose for meeting with her. She again stated she wanted to have a different general supervisor, but agreed to participate with this general supervisor. Pt has been afraid in her apartment and has been complaining of hearing noises there. MOC stated that its gotten to the point where the pt has been calling mom at work telling her she is scared because there are noises, people are coming to get her and to please come home from work. MOC stated she is not sure if these are hallucinations but possibly paranoia or delusions and moc stated, Im not sure if they are delusions because I have heard certain noises throughout the house too of but what concerns me is that she refuses to go to her room, calls me at work, asks me to come home, tells me shes scared. Pt is denying any suicidal/homicidal ideation. Patient's stated presenting problems: Notes: "I am here because I need to get better." Patient's goals for treatment: Notes: "to feel better about my anxiety- and overall." Patient's strengths: Notes: "none" Identify supports outside of hospital: Notes: "my family in [place], [place] & [place] [facility] Discharge criteria: Notes: Psychotic symptoms will be reduced or eliminated with return to baseline functioning in affect, thinking and behavior prior to discharge.* Initial disposition plan/considerations: Notes: "Go back to my apartment and apply for jobs." Master Treatment Plan Required Signatures Psychiatrist signature: Answers: Psychiatrist: RN on-shift signature: Answers: RN: Patient signature: Answers: Patient: Date Signed: 09/17/2018 07:05 AM Electronically Signed By:Galileo Hensley
[2018-09-17] MEDS: SENNOSIDES/DOCUSATE SODIUM TAB PO SCH ×2 (08:43→19:49)
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
[2018-09-17] MEDS: BENZTROPINE MESYLATE 1 MG TAB PO SCH ×2 (14:53→19:50)
[2018-09-17] MEDS: LORazepam 1 MG TAB PO SCH (19:49)
[2018-09-17] MEDS: DIVALPROEX ER 500 MG TAB PO SCH (19:49)
[2018-09-17] MEDS: VALPROIC ACID 250 MG/5 ML UDCUP PO SCH (20:28)
[2018-09-18] MEDS: BENZTROPINE MESYLATE 1 MG TAB PO SCH ×2 (08:35→20:09)
[2018-09-18] MEDS: VALPROIC ACID 250 MG/5 ML UDCUP PO SCH ×2 (08:36→20:09)
--- NOTE | 2018-09-18 08:50 | SOAPPROG ---
SOAP Progress Note Assessment/Plan: Assessment: Schizoaffective Disorder, Bipolar Type. No improvement noted. (see subjective/ objective note). Patient is not safe to discharge at this time as patient continues to exhibit signs of psychosis, and express psychosis symptoms. Patient requires continued inpatient care because of current psychosis, and requires inpatient level of care to stabilize in order to no longer be gravely disabled due to mental illness. Patient is unable to communicate her basic needs and continues to require prompting and direction from staff for ADLs. Patient exhibits inability to provide for herself, neglecting self-care, withdrawn from social interactions, currently shows inability to maintain any appropriate aspect of personal responsibility as an adult; notably inability to test reality and fear of returning to her apartment for independent living. Patient could benefit from continued inpatient hospitalization for crisis stabilization, safety, and medication evaluation. Plan: 1. Psychotropic medications: After reviewing options, risks, and benefits patient agrees to continue current medications. No medication changes at this time as more time is needed to determine ongoing tolerability and efficacy. Plan is to continue to observe patient for response and side effects from medications, and ongoing monitoring and evaluation. 2. Review with patient informed consent and recommendations for psychotropic medication treatment listed below 3. Labs: no additional labs at this time 4. Therapy: continue milieu and group therapy 5. Further investigation including gathering information from patients relatives and review of past case records to inform treatment plan. 6. Safety/Wellness plan and follow-up outpatient appointments to be established prior to discharge. Next steps are for patient to meet with adult care manager to plan a safe discharge plan and establish outpatient services for ongoing treatment. 7. Confer with inpatient treatment team regarding treatment plan. 8. Psychosocial stressors addressed through rn case manager hospice 9. Legal status: M1 10. Consider discharge next week if patient is in stable condition, safe, and has a safe discharge plan. PSYCHOTROPIC MEDICATION TREATMENT INFORMED CONSENT and RECOMMENDATIONS: Review nature of condition, diagnosis, and prognosis. Review nature and purpose of psychotropic medication treatment. Review type of psychotropic medications being ordered. Review risk and benefits of psychotropic medication treatment. Review probable length of time patient will need to take medications. Review risk and benefits of not undergoing psychotropic medication treatment. Review alternative treatments to psychotropic medications. Review psychotropic medications contraindications, drug-drug interactions, side effects, and importance of reporting any side effects to a psychiatric provider or nurse during inpatient hospitalization, and upon discharge to patients psychiatric outpatient provider, primary care provider, or other health career coach. Review importance of asking a nurse, psychiatric provider, or primary care provider any questions or problems concerning the psychotropic medications. Verify patient understands the information that has been provided, and understands, accepts, and agrees to psychotropic medications. Review patients safety plan and importance of patient to report to staff while hospitalized if patient is ever a danger to self/others, or unable to care for self, and upon discharge, the importance for patient to contact [facility] or [facility], or go to the nearest emergency room, if patient is ever a danger to self/others, or unable to care for self. Recommend that upon discharge patient establish medication management treatment with a psychiatric provider, establishes routine therapy appointments, and follow-up with primary care provider. Verify patient understands and agrees to these recommendations. 09/18/18 08:52 Subjective: Following up with patient for evaluation of psychosis and safety. Patient states, "I am here to get my anxiety under control. Was scared to be at my apartment due to strange noises. I am still not sure I want to go back there." Patient reports taking medications as prescribed, and reports no side effects. Patient agrees to continue current medications. Objective: Vital Signs Temp Pulse Resp BP Pulse Ox 36.6 C 89 15 105/56 L 98 09/17/18 06:00 09/18/18 06:00 09/18/18 06:00 09/18/18 06:00 09/18/18 06:00 NURSING REPORT: Consulted with nursing for update on patients progress in treatment. Nurses report patient is engaged in treatment, attends some groups, slept 8 hours, expresses the following psychiatric symptoms: anxious; exhibits the following psychiatric symptoms: withdrawn, flat affect; is eating all meals , requires continued prompting and direction from staff for ADLs, and is unable to communicate her basic needs; is agreeable to medications and taking as prescribed with no report of side effects, with no s/s of EPS/akathisia, and denies SI/HI, denies A/V hallucinations, and reports delusions. MSE: The patient is a well-nourished female looking stated chronological age. Attire is appropriate dress is casual. Grooming status is inappropriate and disheveled. Ambulation is independent. Gait is normal and coordinated. Posture is normal. Eye contact is inappropriate and avoided. Motor activity is appropriate with purposeful, organized, coordinated movements; with no involuntary movements. Attitude is cooperative, guarded at times. Patient appears distracted and does not relate well to this interviewer. Language production is spontaneous. Rate is normal. Latency of response is normal. Articulation is clear. Patient reports mood as okay with flat, incongruent affect. Patients thought process is disorganized, non-linear and illogical, with loose associations, nonsensical. Patient does not report suicidal/ homicidal thoughts, ideas, or plans. Patient denies auditory, visual hallucinations. Patient reports delusions. Patient does not appear to be attending to internal stimuli. Patients attention and concentration are poor. Patient is oriented to person, place, time. Patients insight is poor. Patients judgment is poor. - Time Spent With Patient Time Spent With Patient: 15 minutes, met with patient individually. - Pending Discharge Pending Discharge Within 24 Hours: No Pending Discharge Within 48 Hours: No ICD10 Worksheet Patient Problems: Problems Problem Status Onset Posttraumatic stress disorder Chronic Schizoaffective disorder, bipolar type Chronic Anemia Acute Depression Acute Grave disability Acute H/O bariatric surgery Acute
[2018-09-18] MEDS: SENNOSIDES/DOCUSATE SODIUM TAB PO SCH ×3 (09:14→20:21)
[2018-09-18] MEDS: LORazepam 1 MG TAB PO SCH (20:09)
--- NOTE | 2018-09-19 08:54 | SOAPPROG ---
SOAP Progress Note Assessment/Plan: Assessment: Schizoaffective Disorder, Bipolar Type. No improvement noted. (see subjective/ objective note). Patient is not safe to discharge at this time as patient continues to exhibit signs of psychosis, and express psychosis symptoms. Patient requires continued inpatient care because of current psychosis, and requires inpatient level of care to stabilize in order to no longer be gravely disabled due to mental illness. Patient is unable to communicate her basic needs and continues to require prompting and direction from staff for ADLs. Patient exhibits inability to provide for herself, neglecting self-care, withdrawn from social interactions, currently shows inability to maintain any appropriate aspect of personal responsibility as an adult; notably inability to test reality and fear of returning to her apartment for independent living. Patient could benefit from continued inpatient hospitalization for crisis stabilization, safety, and medication evaluation. Plan: 1. Psychotropic medications: After reviewing options, risks, and benefits patient agrees to continue current medications. No medication changes at this time as more time is needed to determine ongoing tolerability and efficacy. Plan is to continue to observe patient for response and side effects from medications, and ongoing monitoring and evaluation. 2. Review with patient informed consent and recommendations for psychotropic medication treatment listed below 3. Labs: no additional labs at this time 4. Therapy: continue milieu and group therapy 5. Further investigation including gathering information from patients relatives and review of past case records to inform treatment plan. 6. Safety/Wellness plan and follow-up outpatient appointments to be established prior to discharge. Next steps are for patient to meet with acute care physical therapist to plan a safe discharge plan and establish outpatient services for ongoing treatment. 7. Confer with inpatient treatment team regarding treatment plan. 8. Psychosocial stressors addressed through catalytic case operator 9. Legal status: M1 10. Consider discharge next week if patient is in stable condition, safe, and has a safe discharge plan. PSYCHOTROPIC MEDICATION TREATMENT INFORMED CONSENT and RECOMMENDATIONS: Review nature of condition, diagnosis, and prognosis. Review nature and purpose of psychotropic medication treatment. Review type of psychotropic medications being ordered. Review risk and benefits of psychotropic medication treatment. Review probable length of time patient will need to take medications. Review risk and benefits of not undergoing psychotropic medication treatment. Review alternative treatments to psychotropic medications. Review psychotropic medications contraindications, drug-drug interactions, side effects, and importance of reporting any side effects to a psychiatric provider or nurse during inpatient hospitalization, and upon discharge to patients psychiatric outpatient provider, primary care provider, or other health resident care technician. Review importance of asking a nurse, psychiatric provider, or primary care provider any questions or problems concerning the psychotropic medications. Verify patient understands the information that has been provided, and understands, accepts, and agrees to psychotropic medications. Review patients safety plan and importance of patient to report to staff while hospitalized if patient is ever a danger to self/others, or unable to care for self, and upon discharge, the importance for patient to contact [place] [facility] or [facility], or go to the nearest emergency room, if patient is ever a danger to self/others, or unable to care for self. Recommend that upon discharge patient establish medication management treatment with a psychiatric provider, establishes routine therapy appointments, and follow-up with primary care provider. Verify patient understands and agrees to these recommendations. 09/19/18 08:54 Subjective: Following up with patient for evaluation of psychosis, jori, and safety. Patient states, "I am okay here, just not sure about going back to my apartment. Don't want to talk about it now, can we talk about it later?" Patient reports taking medications as prescribed, and reports no side effects. Patient agrees to continue current medications. Objective: Vital Signs Temp Pulse Resp BP Pulse Ox 36.3 C 88 16 106/59 L 96 09/19/18 06:00 09/19/18 06:00 09/19/18 06:00 09/19/18 06:00 09/19/18 06:00 NURSING REPORT: Consulted with nursing for update on patients progress in treatment. Nurses report patient is engaged in treatment, attends some groups, slept 8 hours, expresses the following psychiatric symptoms: anxious, paranoia regarding returning to her apartment; exhibits the following psychiatric symptoms: withdrawn, flat affect; is eating all meals, requires continued prompting and direction from staff for ADLs, and is unable to communicate her basic needs; is agreeable to medications and taking as prescribed with no report of side effects, with no s/s of EPS/akathisia, and denies SI/HI, denies A /V hallucinations, and reports delusions. MSE: The patient is a well-nourished female looking stated chronological age. Attire is appropriate dress is casual. Grooming status is inappropriate and disheveled. Ambulation is independent. Gait is normal and coordinated. Posture is normal. Eye contact is inappropriate and avoided. Motor activity is appropriate with purposeful, organized, coordinated movements; with no involuntary movements. Attitude is cooperative, guarded at times. Patient appears distracted and does not relate well to this interviewer. Language production is spontaneous. Rate is normal. Latency of response is normal. Articulation is clear. Patient reports mood as okay with flat, incongruent affect. Patients thought process is disorganized, non-linear and illogical, with loose associations, nonsensical. Patient does not report suicidal/ homicidal thoughts, ideas, or plans. Patient denies auditory, visual hallucinations. Patient reports delusions. Patient does not appear to be attending to internal stimuli. Patients attention and concentration are poor. Patient is oriented to person, place, time. Patients insight is poor. Patients judgment is poor. - Time Spent With Patient Time Spent With Patient: 15 minutes, met with patient individually. - Pending Discharge Pending Discharge Within 24 Hours: No Pending Discharge Within 48 Hours: No ICD10 Worksheet Patient Problems: Problems Problem Status Onset Posttraumatic stress disorder Chronic Schizoaffective disorder, bipolar type Chronic Anemia Acute Depression Acute Grave disability Acute H/O bariatric surgery Acute
[2018-09-19] MEDS: VALPROIC ACID 250 MG/5 ML UDCUP PO SCH ×2 (09:02→19:56)
[2018-09-19] MEDS: BENZTROPINE MESYLATE 1 MG TAB PO SCH ×2 (09:03→19:55)
[2018-09-19] MEDS: SENNOSIDES/DOCUSATE SODIUM TAB PO SCH ×2 (09:06→19:56)
[2018-09-19] MEDS: LORazepam 1 MG TAB PO SCH (19:56)
--- NOTE | 2018-09-20 08:29 | SOAPPROG ---
SOAP Progress Note Assessment/Plan: Assessment: Schizoaffective Disorder, Bipolar Type. No improvement noted. (see subjective/ objective note). Patient is not safe to discharge at this time as patient continues to exhibit signs of psychosis, and express psychosis symptoms. Patient requires continued inpatient care because of current psychosis, and requires inpatient level of care to stabilize to no longer be gravely disabled due to mental illness. Patient is unable to communicate her basic needs and continues to require prompting and direction from staff for ADLs. Patient exhibits inability to provide for herself, neglecting self-care, withdrawn from social interactions, currently shows inability to maintain any appropriate aspect of personal responsibility as an adult; notably inability to test reality and fear of returning to her apartment for independent living. Support system has inability to manage functional impairment at lower level of care. Patient could benefit from continued inpatient hospitalization for crisis stabilization, safety, and medication evaluation. Plan: 1. Psychotropic medications: After reviewing options, risks, and benefits patient agrees to continue current medications. No medication changes at this time as more time is needed to determine ongoing tolerability and efficacy. Plan is to continue to observe patient for response and side effects from medications, and ongoing monitoring and evaluation. 2. Review with patient informed consent and recommendations for psychotropic medication treatment listed below 3. Labs: no additional labs at this time 4. Therapy: continue milieu and group therapy 5. Further investigation including gathering information from patients relatives and review of past case records to inform treatment plan. 6. Safety/Wellness plan and follow-up outpatient appointments to be established prior to discharge. Next steps are for patient to meet with career guidance technician to plan a safe discharge plan and establish outpatient services for ongoing treatment. 7. Confer with inpatient treatment team regarding treatment plan. 8. Psychosocial stressors addressed through nurse outreach case manager 9. Legal status: voluntary 10. Consider discharge next week if patient is in stable condition, safe, and has a safe discharge plan. PSYCHOTROPIC MEDICATION TREATMENT INFORMED CONSENT and RECOMMENDATIONS: Review nature of condition, diagnosis, and prognosis. Review nature and purpose of psychotropic medication treatment. Review type of psychotropic medications being ordered. Review risk and benefits of psychotropic medication treatment. Review probable length of time patient will need to take medications. Review risk and benefits of not undergoing psychotropic medication treatment. Review alternative treatments to psychotropic medications. Review psychotropic medications contraindications, drug-drug interactions, side effects, and importance of reporting any side effects to a psychiatric provider or nurse during inpatient hospitalization, and upon discharge to patients psychiatric outpatient provider, primary care provider, or other health caregiver services home. Review importance of asking a nurse, psychiatric provider, or primary care provider any questions or problems concerning the psychotropic medications. Verify patient understands the information that has been provided, and understands, accepts, and agrees to psychotropic medications. Review patients safety plan and importance of patient to report to staff while hospitalized if patient is ever a danger to self/others, or unable to care for self, and upon discharge, the importance for patient to contact [facility] or [facility], or go to the nearest emergency room, if patient is ever a danger to self/others, or unable to care for self. Recommend that upon discharge patient establish medication management treatment with a psychiatric provider, establishes routine therapy appointments, and follow-up with primary care provider. Verify patient understands and agrees to these recommendations. 09/20/18 08:32 Subjective: Following up with patient for evaluation of psychosis, jori, and safety. Patient states, "I don't want to eat breakfast, not hungry. Just want to stay here in room." With regard to going back to her apartment after discharge patient states, "I am nervous about going back there for the same reasons I came here, and wasn't staying there before. Weird noises." Patient reports taking medications as prescribed, and reports no side effects. Patient agrees to continue current medications. Objective: Vital Signs Temp Pulse Resp BP Pulse Ox 36.6 C 96 20 97/56 L 97 09/20/18 06:00 09/20/18 06:00 09/20/18 06:00 09/20/18 06:00 09/20/18 06:00 NURSING REPORT: Consulted with nursing for update on patients progress in treatment. Nurses report patient is engaged in treatment, attends some groups, slept 8 hours, expresses the following psychiatric symptoms: anxious, paranoia regarding returning to her apartment; exhibits the following psychiatric symptoms: withdrawn, flat affect; is not eating all meals, withdrawn to room, avoids social interaction; requires continued prompting and direction from staff for ADLs, and is unable to communicate her basic needs; is agreeable to medications and taking as prescribed with no report of side effects, with no s/ s of EPS/akathisia, and denies SI/HI, denies A/V hallucinations, and reports delusions. MSE: The patient is a well-nourished female looking stated chronological age. Attire is appropriate dress is casual. Grooming status is inappropriate and disheveled. Ambulation is independent. Gait is normal and coordinated. Posture is normal. Eye contact is inappropriate and avoided. Motor activity is appropriate with purposeful, organized, coordinated movements; with no involuntary movements. Attitude is cooperative, guarded at times. Patient appears distracted and does not relate well to this interviewer. Language production is spontaneous. Rate is normal. Latency of response is normal. Articulation is clear. Patient reports mood as okay with flat, incongruent affect. Patients thought process is disorganized, non-linear and illogical, with loose associations, nonsensical. Patient does not report suicidal/ homicidal thoughts, ideas, or plans. Patient denies auditory, visual hallucinations. Patient reports delusions; paranoid. Patient does appear to be attending to internal stimuli. Patients attention and concentration are poor. Patient is oriented to person, place, time. Patients insight is poor. Patients judgment is poor. - Time Spent With Patient Time Spent With Patient: 15 minutes, met with patient individually. - Pending Discharge Pending Discharge Within 24 Hours: No Pending Discharge Within 48 Hours: No ICD10 Worksheet Patient Problems: Problems Problem Status Onset Posttraumatic stress disorder Chronic Schizoaffective disorder, bipolar type Chronic Anemia Acute Depression Acute Grave disability Acute H/O bariatric surgery Acute
[2018-09-20] MEDS: VALPROIC ACID 250 MG/5 ML UDCUP PO SCH ×2 (09:26→21:10)
[2018-09-20] MEDS: BENZTROPINE MESYLATE 1 MG TAB PO SCH ×2 (09:26→21:10)
[2018-09-20] MEDS: SENNOSIDES/DOCUSATE SODIUM TAB PO SCH ×2 (10:56→21:19)
--- NOTE | 2018-09-20 11:52 | ASMTCMCOM ---
CM Note CM Note Notes: CC checked in with ct. Ct. was asleep in her room but was able to wake up and engaged in conversation. She reported that she feels very tired because of changes made to her medications.She reported that she is able to eat and has been taking showers. She attends meals and agreed to participate in groups when she feels less tired. Ct. reported that she is not expecting visitors as she prefers not to be in touch with her mother at present. Date Signed: 09/20/2018 11:51 AM Electronically Signed By:Fay Hayden
[2018-09-20] MEDS: LORazepam 1 MG TAB PO SCH (21:10)
[2018-09-21] MEDS: SENNOSIDES/DOCUSATE SODIUM TAB PO SCH ×2 (08:49→21:11)
[2018-09-21] MEDS: BENZTROPINE MESYLATE 1 MG TAB PO SCH ×2 (08:49→21:04)
[2018-09-21] MEDS: VALPROIC ACID 250 MG/5 ML UDCUP PO SCH ×2 (08:49→21:04)
--- NOTE | 2018-09-21 14:14 | ASMTBHDC ---
Notes Note: Notes: Pt. reports feeling "okay" adding she was "catching up on sleep". Pt. reports sleeping "pretty okay". Pt. later stated she was having akathisia from her medications and had been pacing each night. Pt. stated sleepy time tea helped with her akathisia. Pt. stated she is not attending groups. Pt. stated she is willing to stay voluntarily until Sunday. Pt. stated she wants to discharge before [place]. Pt. stated she "don't want to be a part of [place] anymore". Pt. stated she doesn't want to go to groups at [facility] anymore. Pt. stated she is not legally required to attend [facility]. Pt. stated she has been with [facility] since the end of December. Pt. stated she would rather work with [facility] and live in her apartment. Pt. stated she "want to move back to [facility]", adding she has "always wanted to do". Pt. stated "[I] have a lot on money my mom won't let me have access to". Pt. stated "don't know what mom's problem is". Pt. stated she found an apartment in [facility] and has friends there. Pt. stated she wants to get a job in [employer] or [employer] design. Pt. stated she is "not going to sit her and be held hostage". Pt. denied SI, HI, AVH, and paranoia. Pt. stated she does not want her mom on the unit, adding she is taking a little break from her mom. Pt. presents as alert, lacking eye contact, grandiose, delusional, rambling, whispering at times, and cooperative. Staff report pt. sleeping 7 hours and being medication compliant. Date Signed: 09/21/2018 02:13 PM Electronically Signed By:Sapna Miller
--- NOTE | 2018-09-21 15:22 | SOAPPROG ---
SOAP Progress Note Assessment/Plan: Assessment: From Kendell Hong's most recent progress note: Schizoaffective Disorder, Bipolar Type. No improvement noted. (see subjective/ objective note). Patient is not safe to discharge at this time as patient continues to exhibit signs of psychosis, and express psychosis symptoms. Patient requires continued inpatient care because of current psychosis, and requires inpatient level of care to stabilize to no longer be gravely disabled due to mental illness. Patient is unable to communicate her basic needs and continues to require prompting and direction from staff for ADLs. Patient exhibits inability to provide for herself, neglecting self-care, withdrawn from social interactions, currently shows inability to maintain any appropriate aspect of personal responsibility as an adult; notably inability to test reality and fear of returning to her apartment for independent living. Support system has inability to manage functional impairment at lower level of care. Patient could benefit from continued inpatient hospitalization for crisis stabilization, safety, and medication evaluation. Plan: 1. Psychotropic medications: After reviewing options, risks, and benefits patient agrees to continue current medications. No medication changes at this time as more time is needed to determine ongoing tolerability and efficacy. Plan is to continue to observe patient for response and side effects from medications, and ongoing monitoring and evaluation. Plan: 09/21/18 15:17 1. Patient denies paranoid delusions, but isolates in her room all day and is very guarded. 2. Patient eating (> 75%) and sleeping (7 hrs) well. 3. Patient currently voluntary. 4. No changes to treatment plan anticipated this weekend. Subjective: Patient withdrawn to her room most of the day. She did eat > 75% of meals today and says she is enjoying "catching up on sleep." She didn't sleep for several days prior to admit d/t paranoia about "noises" in her apartment. She denies any paranoid delusions, but remains guarded and isolative. Patient states she does not want to continue in treatment with [facility] and would prefer to change providers to [facility]. However, her MOC insists that patient remain in treatment with [facility]. 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 Objective: Vital Signs Temp Pulse Resp BP Pulse Ox 36.3 C 70 14 100/50 L 96 09/21/18 06:00 09/21/18 06:00 09/21/18 06:00 09/21/18 06:00 09/21/18 06:00 MSE: Affect: Constricted Mood: "OK" TP: Goal-directed TC: Denies any SI/HI, denies paranoia Perception: Denies AH/VH Insight/Judgment: Poor - Time Spent With Patient Time Spent With Patient: 15" - Pending Discharge Pending Discharge Within 24 Hours: No Pending Discharge Within 48 Hours: No ICD10 Worksheet Patient Problems: Problems Problem Status Onset Posttraumatic stress disorder Chronic Schizoaffective disorder, bipolar type Chronic Anemia Acute Depression Acute Grave disability Acute H/O bariatric surgery Acute
[2018-09-21] MEDS: LORazepam 1 MG TAB PO SCH (21:02)
[2018-09-22] MEDS: VALPROIC ACID 250 MG/5 ML UDCUP PO SCH ×2 (08:23→20:01)
[2018-09-22] MEDS: SENNOSIDES/DOCUSATE SODIUM TAB PO SCH ×2 (08:23→20:01)
[2018-09-22] MEDS: BENZTROPINE MESYLATE 1 MG TAB PO SCH ×2 (08:23→20:01)
--- NOTE | 2018-09-22 15:05 | SOAPPROG ---
SOAP Progress Note Assessment/Plan: Assessment: From Kendell Hal's most recent progress note: Schizoaffective Disorder, Bipolar Type. No improvement noted. (see subjective/ objective note). Patient is not safe to discharge at this time as patient continues to exhibit signs of psychosis, and express psychosis symptoms. Patient requires continued inpatient care because of current psychosis, and requires inpatient level of care to stabilize to no longer be gravely disabled due to mental illness. Patient is unable to communicate her basic needs and continues to require prompting and direction from staff for ADLs. Patient exhibits inability to provide for herself, neglecting self-care, withdrawn from social interactions, currently shows inability to maintain any appropriate aspect of personal responsibility as an adult; notably inability to test reality and fear of returning to her apartment for independent living. Support system has inability to manage functional impairment at lower level of care. Patient could benefit from continued inpatient hospitalization for crisis stabilization, safety, and medication evaluation. Plan: 1. Psychotropic medications: After reviewing options, risks, and benefits patient agrees to continue current medications. No medication changes at this time as more time is needed to determine ongoing tolerability and efficacy. Plan is to continue to observe patient for response and side effects from medications, and ongoing monitoring and evaluation. Plan: 09/21/18 15:17 1. Patient denies paranoid delusions, but isolates in her room all day and is very guarded. 2. Patient eating (> 75%) and sleeping (7 hrs) well. 3. Patient currently voluntary. 4. No changes to treatment plan anticipated this weekend. 09/22/18 15:01 1. Patient hoarding belongings in her bed, including food and wrappers. 2. Patient not attending groups, not performing ADL's, isolating in her room. 3. Patient c/o "akathisia" that makes her pace in her room at night. However, does not feel restless and is not fidgeting/pacing when MD sees her during day. 4. Patient slept 6.5 hrs last night and ate > 75% of meals. 5. No med changes. Subjective: MD saw patient in her room with CC present. Patient was sitting up in her bed wearing sweat pants and long sleeve shirt. She had cups, wrappers and food containers under her covers in bed with her. She was pleasant, cooperative and AOx4. She denied any AH/VH, paranoid delusions or bizarre thoughts currently. She made appropriate eye contact and was not distracted and did not show any other signs of RIS. She c/o "akathisia" only at night which causes her to pace in her room and keep her roommate awake. She said she drank some "Sleepy Time" tea last nigh and "akathisia" went away. Objective: Vital Signs Temp Pulse Resp BP Pulse Ox 36.3 C 70 14 100/50 L 96 09/21/18 06:00 09/21/18 06:00 09/21/18 06:00 09/21/18 06:00 09/21/18 06:00 MSE: Affect: Calm, pleasant Mood: "OK" TP: Linear TC: Denies any SI/HI Perception: Denies AH/VH Insight/Judgment: Poor - Time Spent With Patient Time Spent With Patient: 15" - Pending Discharge Pending Discharge Within 24 Hours: Yes Pending Discharge Date: 09/23/18 (Possible d/c early this week) Pending Discharge Time: 11:00 ICD10 Worksheet Patient Problems: Problems Problem Status Onset Posttraumatic stress disorder Chronic Schizoaffective disorder, bipolar type Chronic Anemia Acute Depression Acute Grave disability Acute H/O bariatric surgery Acute
[2018-09-22] MEDS: LORazepam 1 MG TAB PO SCH (20:01)
--- NOTE | 2018-09-23 08:13 | SOAPPROG ---
SOAP Progress Note Assessment/Plan: Assessment: Schizoaffective Disorder, Bipolar Type, currently paranoid regarding returning to her apartment. No improvement noted. (see subjective/objective note). Patient is not safe to discharge at this time as patient continues to exhibit signs of psychosis, and express psychosis symptoms. Patient requires continued inpatient care because of current psychosis, and requires inpatient level of care to stabilize to no longer be gravely disabled due to mental illness. Patient is unable to communicate her basic needs and continues to require prompting and direction from staff for ADLs. Patient exhibits inability to provide for herself, neglecting self-care, withdrawn from social interactions, currently shows inability to maintain any appropriate aspect of personal responsibility as an adult; notably inability to test reality and fear of returning to her apartment for independent living. Support system has inability to manage functional impairment at lower level of care. Patient could benefit from continued inpatient hospitalization for crisis stabilization , safety, and medication evaluation. Plan: 1. Psychotropic medications: After reviewing options, risks, and benefits patient agrees to continue current medications. No medication changes at this time as more time is needed to determine ongoing tolerability and efficacy. Plan is to continue to observe patient for response and side effects from medications, and ongoing monitoring and evaluation. Awaiting return call from Dr. Alegria to discuss patient options for medications. CONSTA due 09/24/18. 2. Review with patient informed consent and recommendations for psychotropic medication treatment listed below 3. Labs: no additional labs at this time 4. Therapy: continue milieu and group therapy 5. Further investigation including gathering information from patients relatives and review of past case records to inform treatment plan. 6. Safety/Wellness plan and follow-up outpatient appointments to be established prior to discharge. Next steps are for patient to meet with director of medicare to plan a safe discharge plan and establish outpatient services for ongoing treatment. 7. Confer with inpatient treatment team regarding treatment plan. 8. Psychosocial stressors addressed through foster care case manager 9. Legal status: voluntary 10. Consider discharge next week if patient is in stable condition, safe, and has a safe discharge plan. PSYCHOTROPIC MEDICATION TREATMENT INFORMED CONSENT and RECOMMENDATIONS: Review nature of condition, diagnosis, and prognosis. Review nature and purpose of psychotropic medication treatment. Review type of psychotropic medications being ordered. Review risk and benefits of psychotropic medication treatment. Review probable length of time patient will need to take medications. Review risk and benefits of not undergoing psychotropic medication treatment. Review alternative treatments to psychotropic medications. Review psychotropic medications contraindications, drug-drug interactions, side effects, and importance of reporting any side effects to a psychiatric provider or nurse during inpatient hospitalization, and upon discharge to patients psychiatric outpatient provider, primary care provider, or other health career technical education instructor. Review importance of asking a nurse, psychiatric provider, or primary care provider any questions or problems concerning the psychotropic medications. Verify patient understands the information that has been provided, and understands, accepts, and agrees to psychotropic medications. Review patients safety plan and importance of patient to report to staff while hospitalized if patient is ever a danger to self/others, or unable to care for self, and upon discharge, the importance for patient to contact [facility] or [facility], or go to the nearest emergency room, if patient is ever a danger to self/others, or unable to care for self. Recommend that upon discharge patient establish medication management treatment with a psychiatric provider, establishes routine therapy appointments, and follow-up with primary care provider. Verify patient understands and agrees to these recommendations. 09/23/18 08:11 Subjective: Following up with patient for evaluation of psychosis, jori, and safety. Patient states, "My Risperidone shot is due this week." Patient states she does not want to return to her apartment after discharge "because of all the noises," and states she is not sure where she will live, "maybe I will continue to live in a hotel or something." Patient reports taking medications as prescribed, and reports no side effects. Patient agrees to continue current medications. Objective: Vital Signs Temp Pulse Resp BP Pulse Ox 36.6 C 80 14 103/52 L 96 09/23/18 06:00 09/23/18 06:00 09/23/18 06:00 09/23/18 06:00 09/23/18 06:00 NURSING REPORT: Consulted with nursing for update on patients progress in treatment. Nurses report patient is not engaged in treatment, does not attend groups, slept 8 hours, expresses the following psychiatric symptoms: anxious, paranoia regarding returning to her apartment; exhibits the following psychiatric symptoms: withdrawn, flat affect, isolating, withdrawn to room only comes out when prompted/directed by staff; avoids social interaction; is not eating all meals; requires continued prompting and direction from staff for ADLs , and is unable to communicate her basic needs; is agreeable to medications and taking as prescribed with no report of side effects, with no s/s of EPS/ akathisia, and denies SI/HI, denies A/V hallucinations, and reports delusions. [facility]: left message with Dr. Alegria to return call to review medication options. MSE: The patient is a well-nourished female looking stated chronological age. Attire is appropriate dress is casual. Grooming status is inappropriate and disheveled. Ambulation is independent. Gait is normal and coordinated. Posture is normal. Eye contact is inappropriate and avoided. Motor activity is appropriate with purposeful, organized, coordinated movements; with no involuntary movements. Attitude is cooperative, guarded at times. Patient appears distracted and does not relate well to this interviewer. Language production is spontaneous. Rate is normal. Latency of response is normal. Articulation is clear. Patient reports mood as okay with flat, incongruent affect. Patients thought process is illogical. Patient does not report suicidal/homicidal thoughts, ideas, or plans. Patient denies auditory, visual hallucinations. Patient reports delusions; paranoid. Patient does not appear to be attending to internal stimuli. Patients attention and concentration are poor. Patient is oriented to person, place, time. Patients insight is poor. Patients judgment is poor. - Time Spent With Patient Time Spent With Patient: 15 minutes, met with patient individually. - Pending Discharge Pending Discharge Within 24 Hours: No Pending Discharge Within 48 Hours: No ICD10 Worksheet Patient Problems: Problems Problem Status Onset Posttraumatic stress disorder Chronic Schizoaffective disorder, bipolar type Chronic Anemia Acute Depression Acute Grave disability Acute H/O bariatric surgery Acute
[2018-09-23] MEDS: VALPROIC ACID 250 MG/5 ML UDCUP PO SCH ×2 (08:31→20:32)
[2018-09-23] MEDS: BENZTROPINE MESYLATE 1 MG TAB PO SCH ×2 (08:32→20:32)
[2018-09-23] MEDS: SENNOSIDES/DOCUSATE SODIUM TAB PO SCH ×2 (08:37→20:43)
--- NOTE | 2018-09-23 14:22 | ASMTCMCOM ---
CM Note CM Note Notes: Pt. reports feeling "okay". Pt. stated she was "up most of the night" adding she "slept a lot this morning". Pt. stated she was having some akathisia last night, stating sleepy time tea helped. Pt. reports no issues with her current medications. Pt. stated she has not attended groups yet today. Pt. stated her goal is to call her mom back today. Pt. stated "she [mom] won't let me out". Pt. stated "I know it's helping a lot...." Pt. stated she was recently working out contracts with her mom about spending money and transportation. Pt. stated "I could pack a bag, but I won't", adding "my mom calls it running away, I call it moving". Pt. stated she is willing and able to establish outpatient services in [place]. Pt. stated she will in [place] over the holiday. Pt. stated her mother is her POA. Pt. denied SI, HI, AVH and paranoia. Pt. requested CC to stop her services with [facility] and set her up with [facility] providers. CC met with pt later with MD. Pt. stated she is due to for long acting injectable this week, on Sunday or Sunday. Pt. stated she gets a long acting injectable every two weeks. Pt. stated she did not want her psychiatrist to order PRN risperdal, adding pt. did not take this medication. Pt. presents as alert, calm, guarded, fair eye contact, all belongings in her bed with her, and cooperative. Staff report pt. sleeping 6.5 hours and being medication compliant. Date Signed: 09/22/2018 03:05 PM Electronically Signed By:Sapna Miller
--- NOTE | 2018-09-23 14:22 | ASMTCMCOM ---
CM Note CM Note Notes: CC speaks to client briefly during check in. Client appears disheveled and un-neat. Client suggests she currently has no feelings of anxiety, depression, S/I-H/I or AVH. Additionally, client mentioned receiving roughly 7 hours of sleep last night. Client appears to be staying in her bed with all or her items (belongings), affect is subtle, restricted and mostly guarded at times. Moreover, client has not taken a shower, cleaned herself or clothes since she arrived. Clt. noted her goal for today was to "try and go to a group." CC encouraged this behavior & will speak to client later about after care with [facility], etc.* Date Signed: 09/23/2018 07:57 AM Electronically Signed By:Galileo Hensley
--- NOTE | 2018-09-23 14:23 | ASMTCMCOM ---
CM Note CM Note Notes: CC called Tuan at ; to provide an update with [facility]-therapist regarding medications, court emergency guardianship and general information. Tuan noted, that [facility] will have court on Sunday regarding the guardianship and that she [Tuan] was coming on the unit later today around 3pm, etc. Date Signed: 09/23/2018 11:05 AM Electronically Signed By:Galileo Hensley
[2018-09-23] MEDS: LORazepam 1 MG TAB PO SCH (20:32)
--- NOTE | 2018-09-24 08:24 | SOAPPROG ---
SOAP Progress Note Assessment/Plan: Assessment: Schizoaffective Disorder, Bipolar Type, currently paranoid regarding returning to her apartment. No improvement noted. (see subjective/objective note). Patient is not safe to discharge at this time as patient continues to exhibit signs of psychosis, and express psychosis symptoms. Patient requires continued inpatient care because of current psychosis, and requires inpatient level of care to stabilize to no longer be gravely disabled due to mental illness. Patient is unable to communicate her basic needs and continues to require prompting and direction from staff for ADLs. Patient exhibits inability to provide for herself, neglecting self-care, withdrawn from social interactions, currently shows inability to maintain any appropriate aspect of personal responsibility as an adult; notably inability to test reality and fear of returning to her apartment for independent living. Support system has inability to manage functional impairment at lower level of care. Patient could benefit from continued inpatient hospitalization for crisis stabilization , safety, and medication evaluation. Plan: 1. Psychotropic medications: After reviewing options, risks, and benefits patient agrees to continue current medications, and agrees to Risperidone CONSTA 37.5 mg IM to be administered today. No medication changes at this time as more time is needed to determine ongoing tolerability and efficacy. Plan is to continue to observe patient for response and side effects from medications, and ongoing monitoring and evaluation. 2. Review with patient informed consent and recommendations for psychotropic medication treatment listed below 3. Labs: VPA tomorrow 0600 4. Therapy: continue milieu and group therapy 5. Further investigation including gathering information from patients relatives and review of past case records to inform treatment plan. 6. Safety/Wellness plan and follow-up outpatient appointments to be established prior to discharge. Next steps are for patient to meet with care associate to plan a safe discharge plan and establish outpatient services for ongoing treatment. 7. Confer with inpatient treatment team regarding treatment plan. 8. Psychosocial stressors addressed through case resolution specialist 9. Legal status: voluntary 10. Consider discharge next week if patient is in stable condition, safe, and has a safe discharge plan. PSYCHOTROPIC MEDICATION TREATMENT INFORMED CONSENT and RECOMMENDATIONS: Review nature of condition, diagnosis, and prognosis. Review nature and purpose of psychotropic medication treatment. Review type of psychotropic medications being ordered. Review risk and benefits of psychotropic medication treatment. Review probable length of time patient will need to take medications. Review risk and benefits of not undergoing psychotropic medication treatment. Review alternative treatments to psychotropic medications. Review psychotropic medications contraindications, drug-drug interactions, side effects, and importance of reporting any side effects to a psychiatric provider or nurse during inpatient hospitalization, and upon discharge to patients psychiatric outpatient provider, primary care provider, or other health animal care technician. Review importance of asking a nurse, psychiatric provider, or primary care provider any questions or problems concerning the psychotropic medications. Verify patient understands the information that has been provided, and understands, accepts, and agrees to psychotropic medications. Review patients safety plan and importance of patient to report to staff while hospitalized if patient is ever a danger to self/others, or unable to care for self, and upon discharge, the importance for patient to contact [facility] or [facility], or go to the nearest emergency room, if patient is ever a danger to self/others, or unable to care for self. Recommend that upon discharge patient establish medication management treatment with a psychiatric provider, establishes routine therapy appointments, and follow-up with primary care provider. Verify patient understands and agrees to these recommendations. 09/24/18 08:23 Subjective: Following up with patient for evaluation of psychosis, jori, and safety. Patient states, "I do not want to continue treatment at [facility] after I discharge, I want to go to [facility]. I think my mom trying to get guardianship over me is not needed. I have never needed a guardian to be sure I take my medications and go to appointments." Patient reports taking medications as prescribed, and reports no side effects. Patient agrees to continue current medications, and patient agrees to Risperidone 37.5 mg IM today. Objective: Vital Signs Temp Pulse Resp BP Pulse Ox 36.6 C 75 14 100/56 L 94 09/24/18 06:00 09/24/18 06:00 09/24/18 06:00 09/24/18 06:00 09/24/18 06:00 NURSING REPORT: Consulted with nursing for update on patients progress in treatment. Nurses report patient is not engaged in treatment, does not attend groups, slept 8 hours, expresses the following psychiatric symptoms: anxious, paranoia regarding returning to her apartment; exhibits the following psychiatric symptoms: withdrawn, flat affect, isolating, withdrawn to room only comes out when prompted/directed by staff; avoids social interaction; is not eating all meals; requires continued prompting and direction from staff for ADLs , and is unable to communicate her basic needs; is agreeable to medications and taking as prescribed with no report of side effects, with no s/s of EPS/ akathisia, and denies SI/HI, denies A/V hallucinations, and reports delusions. PHONE CALL WITH MOC: This STRADDLE TRUCK DRIVER spoke to MOC yesterday to provide update on patients treatment plan, goals for hospitalization, and progress in treatment. MOC reported concern that if patient returns to her apartment she will continue to call police due to "noises," and continue to make trips to the ER for non- medical reasons. MOC stated patient should continue with [facility] after discharge, and that patient could benefit from having a life management teacher and/or peer to provide guidance for her during outpatient treatment. MSE: The patient is a well-nourished female looking stated chronological age. Attire is appropriate dress is casual. Grooming status is inappropriate and disheveled. Ambulation is independent. Gait is normal and coordinated. Posture is normal. Eye contact is inappropriate and avoided. Motor activity is appropriate with purposeful, organized, coordinated movements; with no involuntary movements. Attitude is cooperative, guarded at times. Patient appears distracted and does not relate well to this interviewer. Language production is spontaneous. Rate is normal. Latency of response is normal. Articulation is clear. Patient reports mood as okay with flat, incongruent affect. Patients thought process is illogical. Patient does not report suicidal/homicidal thoughts, ideas, or plans. Patient denies auditory, visual hallucinations. Patient reports delusions; paranoid. Patient does not appear to be attending to internal stimuli. Patients attention and concentration are poor. Patient is oriented to person, place, time. Patients insight is poor. Patients judgment is poor. - Time Spent With Patient Time Spent With Patient: 15 minutes, met with patient individually. - Pending Discharge Pending Discharge Within 24 Hours: No Pending Discharge Within 48 Hours: No ICD10 Worksheet Patient Problems: Problems Problem Status Onset Posttraumatic stress disorder Chronic Schizoaffective disorder, bipolar type Chronic Anemia Acute Depression Acute Grave disability Acute H/O bariatric surgery Acute
[2018-09-24] MEDS ORDERED: risperiDONE MICROSPHERES 37.5 MG/2 ML SYR IM ONE (09:00)
[2018-09-24] MEDS: BENZTROPINE MESYLATE 1 MG TAB PO SCH ×2 (09:11→18:20)
[2018-09-24] MEDS: VALPROIC ACID 250 MG/5 ML UDCUP PO SCH ×2 (09:11→18:18)
--- NOTE | 2018-09-24 11:06 | ASMTCMCOM ---
CM Note CM Note Notes: CC and provider contacted [facility]; who noted, that "we are moving forward with the guardianship hearing which is tomorrow and "I hope she will cooperate with it." [facility] was in a meeting and could not discuss anything further at this time.* Date Signed: 09/24/2018 11:06 AM Electronically Signed By:Galileo Hensley
[2018-09-24] MEDS: SENNOSIDES/DOCUSATE SODIUM TAB PO SCH ×2 (12:12→18:29)
[2018-09-24] MEDS: LORazepam 1 MG TAB PO SCH (18:33)
--- NOTE | 2018-09-25 06:22 | SOAPPROG ---
SOAP Progress Note Assessment/Plan: Assessment: Schizoaffective Disorder, Bipolar Type, currently paranoid regarding returning to her apartment. No improvement noted. (see subjective/objective note). Patient is not safe to discharge at this time as patient continues to exhibit signs of psychosis, and express psychosis symptoms. Patient requires continued inpatient care because of current psychosis, and requires inpatient level of care to stabilize to no longer be gravely disabled due to mental illness. Patient is unable to communicate her basic needs and continues to require prompting and direction from staff for ADLs. Patient exhibits inability to provide for herself, neglecting self-care, withdrawn from social interactions, currently shows inability to maintain any appropriate aspect of personal responsibility as an adult; notably inability to test reality and fear of returning to her apartment for independent living. Support system has inability to manage functional impairment at lower level of care. Patient could benefit from continued inpatient hospitalization for crisis stabilization , safety, and medication evaluation. Plan: 1. Psychotropic medications: After reviewing options, risks, and benefits patient agrees to continue current medications. No medication changes at this time as more time is needed to determine ongoing tolerability and efficacy. Plan is to continue to observe patient for response and side effects from medications, and ongoing monitoring and evaluation. 2. Review with patient informed consent and recommendations for psychotropic medication treatment listed below 3. Labs: VPA drawn this AM is pending 4. Therapy: continue milieu and group therapy 5. Further investigation including gathering information from patients relatives and review of past case records to inform treatment plan. 6. Safety/Wellness plan and follow-up outpatient appointments to be established prior to discharge. Next steps are for patient to meet with patient care technician to plan a safe discharge plan and establish outpatient services for ongoing treatment. 7. Confer with inpatient treatment team regarding treatment plan. 8. Psychosocial stressors addressed through mental health case manager 9. Legal status: voluntary 10. Consider discharge next week if patient is in stable condition, safe, and has a safe discharge plan. PSYCHOTROPIC MEDICATION TREATMENT INFORMED CONSENT and RECOMMENDATIONS: Review nature of condition, diagnosis, and prognosis. Review nature and purpose of psychotropic medication treatment. Review type of psychotropic medications being ordered. Review risk and benefits of psychotropic medication treatment. Review probable length of time patient will need to take medications. Review risk and benefits of not undergoing psychotropic medication treatment. Review alternative treatments to psychotropic medications. Review psychotropic medications contraindications, drug-drug interactions, side effects, and importance of reporting any side effects to a psychiatric provider or nurse during inpatient hospitalization, and upon discharge to patients psychiatric outpatient provider, primary care provider, or other health landcare officer. Review importance of asking a nurse, psychiatric provider, or primary care provider any questions or problems concerning the psychotropic medications. Verify patient understands the information that has been provided, and understands, accepts, and agrees to psychotropic medications. Review patients safety plan and importance of patient to report to staff while hospitalized if patient is ever a danger to self/others, or unable to care for self, and upon discharge, the importance for patient to contact [facility] or [facility], or go to the nearest emergency room, if patient is ever a danger to self/others, or unable to care for self. Recommend that upon discharge patient establish medication management treatment with a psychiatric provider, establishes routine therapy appointments, and follow-up with primary care provider. Verify patient understands and agrees to these recommendations. 09/25/18 06:20 Subjective: Following up with patient for evaluation of psychosis, jori, and safety. Patient states, "I want to switch from [facility] to [facility]. I am going to discharge from [facility] and [facility] My mom visited last night, and the court time for guardianship is today at 830." Patient reports taking medications as prescribed , and reports no side effects. Patient agrees to continue current medications. Objective: Vital Signs Temp Pulse Resp BP Pulse Ox 36.6 C 75 14 100/56 L 94 09/24/18 06:00 09/24/18 06:00 09/24/18 06:00 09/24/18 06:00 09/24/18 06:00 NURSING REPORT: Consulted with nursing for update on patients progress in treatment. Nurses report patient is not engaged in treatment, does not attend groups, slept 8 hours, expresses the following psychiatric symptoms: anxious, remains paranoia regarding returning to her apartment; exhibits the following psychiatric symptoms: withdrawn, flat affect, isolating, withdrawn to room only comes out when prompted/directed by staff; avoids social interaction; is not eating all meals; requires continued prompting and direction from staff for ADLs , and is unable to communicate her basic needs; is agreeable to medications and taking as prescribed with no report of side effects, with no s/s of EPS/ akathisia, and denies SI/HI, denies A/V hallucinations, and reports delusions. MSE: The patient is a well-nourished female looking stated chronological age. Attire is appropriate dress is casual. Grooming status is inappropriate and disheveled. Ambulation is independent. Gait is normal and coordinated. Posture is normal. Eye contact is inappropriate and avoided. Motor activity is appropriate with purposeful, organized, coordinated movements; with no involuntary movements. Attitude is cooperative, guarded at times. Patient appears distracted and does not relate well to this interviewer. Language production is spontaneous. Rate is normal. Latency of response is normal. Articulation is clear. Patient reports mood as okay with flat, incongruent affect. Patients thought process is illogical. Patient does not report suicidal/homicidal thoughts, ideas, or plans. Patient denies auditory, visual hallucinations. Patient reports delusions; paranoid. Patient does not appear to be attending to internal stimuli. Patients attention and concentration are poor. Patient is oriented to person, place, time. Patients insight is poor. Patients judgment is poor. - Time Spent With Patient Time Spent With Patient: 15 minutes, met with patient individually. - Pending Discharge Pending Discharge Within 24 Hours: No Pending Discharge Within 48 Hours: No ICD10 Worksheet Patient Problems: Problems Problem Status Onset Posttraumatic stress disorder Chronic Schizoaffective disorder, bipolar type Chronic Anemia Acute Depression Acute Grave disability Acute H/O bariatric surgery Acute
[2018-09-25] MEDS: BENZTROPINE MESYLATE 1 MG TAB PO SCH ×2 (08:32→20:06)
[2018-09-25] MEDS: VALPROIC ACID 250 MG/5 ML UDCUP PO SCH ×2 (08:32→20:06)
[2018-09-25] MEDS: SENNOSIDES/DOCUSATE SODIUM TAB PO SCH ×3 (08:33→22:04)
[2018-09-25] MEDS: LORazepam 1 MG TAB PO SCH (20:06)
--- NOTE | 2018-09-26 08:06 | SOAPPROG ---
SOAP Progress Note Assessment/Plan: Assessment: Schizoaffective Disorder, Bipolar Type. Improvement noted. (see subjective/ objective note). Patient is not safe to discharge at this time as patient continues to exhibit signs of psychosis, and express psychosis symptoms. Patient requires continued inpatient care because of current psychosis, and requires inpatient level of care to stabilize to no longer be gravely disabled due to mental illness. Patient continues to require prompting and direction from staff for ADLs. Patient could benefit from continued inpatient hospitalization for crisis stabilization, safety, and medication evaluation. Plan: 1. Psychotropic medications: After reviewing options, risks, and benefits patient agrees to continue current medications. No medication changes at this time as more time is needed to determine ongoing tolerability and efficacy. Plan is to continue to observe patient for response and side effects from medications, and ongoing monitoring and evaluation. 2. Review with patient informed consent and recommendations for psychotropic medication treatment listed below 3. Labs: no additional labs at this time 4. Therapy: continue milieu and group therapy 5. Further investigation including gathering information from patients relatives and review of past case records to inform treatment plan. 6. Safety/Wellness plan and follow-up outpatient appointments to be established prior to discharge. Next steps are for patient to meet with doggy daycare activities director to plan a safe discharge plan and establish outpatient services for ongoing treatment. 7. Confer with inpatient treatment team regarding treatment plan. 8. Psychosocial stressors addressed through telephonic nurse case manager 9. Legal status: voluntary 10. Consider discharge Sunday if patient is in stable condition, safe, and has a safe discharge plan. PSYCHOTROPIC MEDICATION TREATMENT INFORMED CONSENT and RECOMMENDATIONS: Review nature of condition, diagnosis, and prognosis. Review nature and purpose of psychotropic medication treatment. Review type of psychotropic medications being ordered. Review risk and benefits of psychotropic medication treatment. Review probable length of time patient will need to take medications. Review risk and benefits of not undergoing psychotropic medication treatment. Review alternative treatments to psychotropic medications. Review psychotropic medications contraindications, drug-drug interactions, side effects, and importance of reporting any side effects to a psychiatric provider or nurse during inpatient hospitalization, and upon discharge to patients psychiatric outpatient provider, primary care provider, or other health healthcare consulting manager. Review importance of asking a nurse, psychiatric provider, or primary care provider any questions or problems concerning the psychotropic medications. Verify patient understands the information that has been provided, and understands, accepts, and agrees to psychotropic medications. Review patients safety plan and importance of patient to report to staff while hospitalized if patient is ever a danger to self/others, or unable to care for self, and upon discharge, the importance for patient to contact [facility] or [facility], or go to the nearest emergency room, if patient is ever a danger to self/others, or unable to care for self. Recommend that upon discharge patient establish medication management treatment with a psychiatric provider, establishes routine therapy appointments, and follow-up with primary care provider. Verify patient understands and agrees to these recommendations. 09/26/18 08:07 Subjective: Following up with patient for evaluation of psychosis, jori, and safety. Patient states, "I met with my mom last night. I plan to go back to my apartment and continue treatment at [facility]." Patient reports taking medications as prescribed, and reports no side effects. Patient agrees to continue current medications. Objective: Vital Signs Temp Pulse Resp BP Pulse Ox 36.7 C 79 16 100/48 L 96 09/26/18 06:00 09/26/18 06:00 09/26/18 06:00 09/26/18 06:00 09/26/18 06:00 NURSING REPORT: Consulted with nursing for update on patients progress in treatment. Nurses report patient is not engaged in treatment, does not attend groups unless prompted and directed by staff, slept 8 hours, expresses the following psychiatric symptoms: anxious; exhibits the following psychiatric symptoms: withdrawn, flat affect; is agreeable to medications and taking as prescribed with no report of side effects, with no s/s of EPS/akathisia, and denies SI/HI, denies A/V hallucinations, and reports delusions. MSE: The patient is a well-nourished female looking stated chronological age. Attire is appropriate dress is casual. Grooming status is inappropriate and disheveled. Ambulation is independent. Gait is normal and coordinated. Posture is normal. Eye contact is inappropriate and avoided. Motor activity is appropriate with purposeful, organized, coordinated movements; with no involuntary movements. Attitude is cooperative, guarded at times. Patient appears attentive and relates well to this interviewer. Language production is spontaneous. Rate is normal. Latency of response is normal. Articulation is clear. Patient reports mood as okay with flat, incongruent affect. Patients thought process is linear and logical. Patient does not report suicidal/ homicidal thoughts, ideas, or plans. Patient denies auditory, visual hallucinations. Patient denies delusions. Patient does not appear to be attending to internal stimuli. Patients attention and concentration are poor. Patient is oriented to person, place, time. Patients insight is poor. Patients judgment is poor. - Time Spent With Patient Time Spent With Patient: 15 minutes, met with patient individually. - Pending Discharge Pending Discharge Within 24 Hours: Yes Pending Discharge Within 48 Hours: No Pending Discharge Date: 09/27/18 Pending Discharge Time: 11:00 ICD10 Worksheet Patient Problems: Problems Problem Status Onset Posttraumatic stress disorder Chronic Schizoaffective disorder, bipolar type Chronic Anemia Acute Depression Acute Grave disability Acute H/O bariatric surgery Acute
[2018-09-26] MEDS: BENZTROPINE MESYLATE 1 MG TAB PO SCH ×2 (08:52→20:07)
[2018-09-26] MEDS: VALPROIC ACID 250 MG/5 ML UDCUP PO SCH ×2 (08:52→20:07)
[2018-09-26] MEDS: SENNOSIDES/DOCUSATE SODIUM TAB PO SCH ×2 (08:59→20:06)
[2018-09-26] MEDS: LORazepam 1 MG TAB PO SCH (20:07)
[2018-09-27 06:47] VITALS: BP 101/52
[2018-09-27] MEDS: BENZTROPINE MESYLATE 1 MG TAB PO SCH (08:04)
[2018-09-27] MEDS: VALPROIC ACID 250 MG/5 ML UDCUP PO SCH (08:04)
[2018-09-27] MEDS: SENNOSIDES/DOCUSATE SODIUM TAB PO SCH (08:29)
--- NOTE | 2018-09-27 15:14 | ASMTCMCOM ---
CM Note CM Note Notes: Summary of family meeting ahead of ct. discharge. Participating the the meeting were this CC, CLAM DREDGER Kendell, [facility] therapist Tuan, CASH and ct. Discussed ways of handling anxiety while at home and reaching out to available resources before calling the police or using ER. Ct. reported that she will call [facility] night attendant prior to calling the police. Plan is to have MOC stay with ct. overnight until Sun. at which point she will start working with a residence life director through [employer]. Date Signed: 09/27/2018 02:32 PM Electronically Signed By:Fay Hayden
--- NOTE | 2018-09-27 15:15 | BDS ---
REASON FOR ADMISSION: From the ED note dated 09/15/2018, the patient presented to the emergency room for the 4th night in a row, complaining of nausea and vomiting. The patient has been evaluated in the emergency room each time presented. Evaluations of time are unremarkable. The patient reported feeling unsafe and requested a mental health evaluation. From the [facility] evaluation dated 09/16/2018, the patient reported food poisoning for the past 5 days, reported feeling unsafe in her apartment, reported hearing strange things in her apartment and a need to go to the hospital. The patient has a history of schizoaffective disorder, bipolar type, and PTSD, and is treated by [facility] on an outpatient basis. Psychiatrist in [facility] placed the patient on an M1 hold due to being unable to care for herself and being gravely disabled. Patient has not been attending outpatient appointments reliably, been staying in a hotel for the past week because she did not feel safe in her apartment. Patient was admitted involuntarily on an M1 hold due to being gravely disabled due to a mental illness. The patient was admitted for safety, crisis stabilization, and medication management. ADMITTING DIAGNOSES: 1. Schizoaffective disorder, bipolar type. 2. Posttraumatic stress disorder. ADMISSION PHYSICAL EXAM: The patient was seen for an Internal Medicine consultation, H and P on 09/16/2018, for medical clearance for inpatient psychiatric hospitalization and treatment. The patient was medically cleared for inpatient psychiatric hospitalization and treatment =. For further details , please refer to consultation note dated 09/16/2018. ADMISSION LABS: 1. CBC from 09/15/2018, within normal limits, except white blood cells were elevated at 9.85, red blood cells were low at 3.75, hemoglobin was low at 12.1, and hematocrit was low at 37.4. Absolute lymphocytes were elevated at 4.20, and absolute monocytes were elevated at 0.89. 2. BMP within normal limits. 3. Hemoglobin A1c was 5.3 and within normal limits on 09/16/2018. 4. Liver function from 09/16/2018, within normal limits. 5. Lipid panel within normal limits, except non-HDL cholesterol was low at 79. 6. Beta hCG qualitative test was negative on 09/15/2018. 7. Toxicology screen from 09/15/2018, negative for all substances screened and negative for ethyl alcohol. 8. Valproic acid level from 09/27/2018, 85.5. MAJOR PROCEDURES OR TESTS: None. HOSPITAL COURSE: The most prominent symptoms and behaviors while the patient was here were withdrawn from social interaction. The patient isolated to her room. The patient did not attend to ADLs independently and required prompting and direction from staff. Treatment modalities utilized were milieu and group therapy. Valproic acid oral liquid 500 mg p.o. daily and 1000 mg p.o. q.h.s. were continued for mood symptoms, were tolerated with no report of side effects and with good response. Ativan 1 mg p.o. q.h.s. was continued to target agitation, irritability, and insomnia related to psychosis, was tolerated with no report of side effects and with good response. Risperidone 37.5 mg IM was administered on 09/24/2018, was tolerated with no report of side effects and with good response. The patient has improved considerably since time of admission. The patient reports she has improved since admission, states to be in stable condition, feels safe to discharge, and she contracts for safety. The patient's response to treatment was good. There were no adverse or unexpected results of treatment. The patient was safe throughout her stay and was appropriate with staff and other patients. The patient met with the treatment team prior to discharge to assess readiness to discharge and review discharge plan. The treatment team consensus is the patient is in stable condition, has a safe discharge plan, and is ready for discharge today. CONDITION ON DISCHARGE: Patient is in stable condition and is no longer a danger to self or others, and is not gravely disabled due to mental illness. Patient is no longer in need of inpatient level of care, and can be safely and effectively treated within the community. The patients level of risk at time of discharge is low. MSE: The patient is casually dressed and with good hygiene , and looks stated age. Patient is sitting, posture is upright, and position is relaxed. Patient appears awake, alert, and responds appropriately and reasonably during interview. Patient is engaged, relates well to interviewer, and emotional facial expression is appropriate to situation and changes appropriately with topic. Patient is cooperative, makes comfortable eye contact , and movements are voluntary, deliberate, coordinated, and smooth and even with no inappropriate movements. Patient makes laryngeal sounds effortlessly and shares conversation appropriately; pace of conversation is appropriate, and stream of talking is fluent; articulation is clear and understandable; word choice is effortless and appropriate for education level; completes sentences, occasionally pausing to think; rate and volume are appropriate for interview and setting. Patient reports mood as euthymic. Patients affect is stable with full variable range, congruent with mood, and appropriate to speech and circumstances. Patient has linear and logical thinking, with no loose associations, tangential thought, thought blocking, concrete thinking, or any other signs of formal thought disorder. Patient denies suicidal and homicidal ideation, and denies hallucinations and delusions. Patient appears to be a reliable historian with sound judgement and good insight into current condition. Patient has no apparent dysfunction in recent or remote memory noted , and no evidence of gross cognitive dysfunction noted at any point during the interview. DISCHARGE DIAGNOSES: 1. Schizoaffective disorder, bipolar type. 2. Posttraumatic stress disorder. CURRENT MEDICATIONS: After reviewing options, risks and benefits with the patient, patient agrees to continue: 1. Cogentin 1 mg p.o. q.h.s. 2. Depakote 500 mg p.o. daily and 1000 mg p.o. q.h.s. 3. Ativan 1 mg p.o. q.h.s. The patient reports she has prescriptions for these medications provided by her outpatient psychiatrist at [facility], and this is confirmed with the psychiatrist from [facility] prior to discharge. DISPOSITION: The patient left the hospital independently and voluntarily and plans to return to her apartment. FOLLOWUP: jewelry sales coordinator reports the appropriate outpatient follow-up services have been established and outpatient appointments have been scheduled. The patient received written instructions with times and dates of outpatient follow-up appointments. The following follow-up recommendations were provided to the patient at discharge: Continue psychotropic medications as prescribed and attend appointments as scheduled. Report any side effects to a psychiatric outpatient provider, a primary care provider, or other health laboratory animal care veterinarian. Address any questions or problems concerning the psychotropic medications with a psychiatric outpatient provider, a primary care provider, or other health laboratory animal care veterinarian. Contact [facility] or [facility], or go to the nearest emergency room, if you are ever a danger to yourself/others, or unable to care for yourself. As soon as possible, establish a routine medication management treatment with a psychiatric provider, establish routine therapy appointments, and follow-up with a primary care provider. LEGAL COURSE: The patient was admitted on an M1 hold for involuntary psychiatric hospitalization. Patient discharged today independently and voluntarily. ATTITUDE AT TIME OF DISCHARGE: The patients attitude was positive at time of discharge, and patient reports looking forward to discharging today. The patient reports she feels safe to discharge, is no longer a danger to herself or others, is in stable condition, and contracts for safety. Patient states she will continue medications as prescribed, and establish medication management treatment with an outpatient provider after discharge. Patient reports she understands the information that has been provided to her, and she understands, accepts, and agrees to psychotropic medications. Patient describes internal protective factors as the coping skills she has learned while hospitalized here, and she plans to continue to practice these coping skills after discharge. TREATMENT PLANNING MEETING: Patient met with MOC, assisted sales representative from [facility] (outpatient services), care management assistant, and this [employer]NER prior to discharge to assess readiness to discharge and review discharge plan. LABS AND STUDIES: There were no pending labs or studies at time of discharge. ADVANCE DIRECTIVES: There were no advance directives on file, and patient was full code during this hospitalization. The following psychotropic medication treatment informed consent and recommendations were provided to the patient at time of discharge. Patient reports she understands, accepts, and agrees to the information that has been provided. PSYCHOTROPIC MEDICATION TREATMENT INFORMED CONSENT and RECOMMENDATIONS: Review nature of condition, diagnosis, and prognosis. Review nature and purpose of psychotropic medication treatment. Review type of psychotropic medications being prescribed. Review risk and benefits of psychotropic medication treatment. Review probable length of time will need to take medications. Review risk and benefits of not undergoing psychotropic medication treatment. Review alternative treatments to psychotropic medications. Review psychotropic medications contraindications, side effects, and importance of reporting any side effects to a psychiatric provider, primary care provider, or other health laboratory animal care veterinarian. Review importance of her asking a psychiatric provider or primary care provider any questions or problems concerning the psychotropic medications. Review importance of reporting to a psychiatric provider, primary care provider, or other health laboratory animal care veterinarian if she plans to or becomes . Review safety plan and the importance to contact [facility] or [facility] , or go to the nearest emergency room, if ever a danger to yourself/others, or unable to care for yourself. Recommend upon discharge to establish routine medication management treatment with a psychiatric provider, establish routine therapy appointments, and follow-up with a primary care provider. Verify patient understands, accepts, and agrees to the information that has been provided. /[id number]/MODL MTDD
== END 2018-09-27 14:40 | disposition home or self-care (01) | DRG 885 ==
LOC: EDUNIT# → EEVIPCON 21:50 → BBEH 09-16 14:38 → F1N 09-23 00:20
PROVIDERS: ADMIT Psychiatry & Neurology Psychiatry; ATTEND Psychiatry & Neurology Psychiatry
DX: F25.0 Schizoaffective disorder, bipolar type (principal); F43.10 Post-traumatic stress disorder, unspecified; R11.2 Nausea with vomiting, unspecified; R19.7 Diarrhea, unspecified; D64.9 Anemia, unspecified
CPT/HCPCS: 80305; G0480; J2794

== ENCOUNTER 2018-09-28 00:47 | Emergency (ER) | payer MEDICAID ==
--- NOTE | 2018-09-28 01:47 | EDPHY ---
H & P Stated Complaint: ANXIOUS, DC EARLIER FROM PSYCH Source: Patient, Old records Exam Limitations: No limitations - Personal History LMP (Females 10-55): 15-21 Days Ago Current Tetanus/Diphtheria Vaccine: Unsure - Medical/Surgical History Hx Asthma: No Hx Chronic Respiratory Disease: No Hx Diabetes: No Hx Cardiac Disease: No Hx Renal Disease: No Hx Cirrhosis: No Hx Alcoholism: No Hx HIV/AIDS: No Hx Splenectomy or Spleen Trauma: No Other PMH: Depression, schizophrenia, gastric bypass, cholesectomy, PTSD - Social History Smoking Status: Never smoked Time Seen by Provider: 09/28/18 01:26 HPI/ROS: HPI The patient presents with symptoms of anxiety, requesting readmission to [address] [place] [address]. The patient was discharged from [address] [place] [address] at about 3:00 p.m. Yesterday after an 11 day stay related to anxiety with underlying schizoaffective disorder and PTSD. She return to her apartment with her mother where she had plan to stay for the next 3-4 days. When she got home in the evening she heard large beating on her window causing the wall to a rattle and an up stairs neighbor's dog to bark. This startled her and she began to feel anxious. She did not call the police like she has in the past very frequently. She went to bed and was able to get a few hours sleep, however she awoke to a tapping noise which she heard on her window as and was concerned that someone was breaking in. She talked to her mother about this and decided to come into the emergency department. As she has been taking her medications and she left the hospital and also took an extra dose of Benadryl with Cogentin or Ativan after she 1st heard the noise. As she is requesting readmission to [address] [place] [address] because she does not feel safe in her apartment.. REVIEW OF SYSTEMS 10 systems were reviewed and negative with the exception of the elements mentioned in the history of present illness. PMHx: Schizoaffective disorder, PTSD Soc Hx: Housed in her own apartment independently, mom staying with her currently. PHYSICAL General Appearance: Alert, no distress Eyes: Pupils equal and round no pallor or injection ENT, Mouth: Mucous membranes moist Respiratory: There are no retractions, lungs are clear to auscultation Cardiovascular: Regular rate and rhythm Gastrointestinal: Abdomen is soft and non-tender, no masses, bowel sounds normal Neurological: A&O, moves all extremities Skin: Warm and dry, no rashes Musculoskeletal: Neck is supple non tender Extremities: symmetrical, full range of motion Psychiatric: Patient is oriented X 3, there is no agitation (Bertha Lynch) Constitutional: Initial Vital Signs Temperature (C) 36.3 C 09/28/18 00:51 Heart Rate 91 09/28/18 00:51 Respiratory Rate 18 09/28/18 00:51 Blood Pressure 104/60 09/28/18 00:51 O2 Sat (%) 95 09/28/18 00:51 O2 Delivery Mode Room Air Allergies/Adverse Reactions: neomycin Allergy (Verified 09/28/18 00:50) Other-Enter Comments Home Medications: Medication Instructions Recorded Benztropine Mesylate [Cogentin] 1 mg PO HS #30 tab 09/18/17 Cholecalciferol Vit D3 [Vitamin D3 3,000 units PO DAILY tab 09/18/17 (*)] Cyanocobalamin [Vitamin B12 (*)] 100 mcg PO DAILY tab 09/18/17 Ferrous Sulfate [Ferrous Sulf 325 325 mg PO BID tab 09/18/17 MG (*)] Multivitamins W-Minerals [Thera M 1 each PO DAILY tab 09/18/17 Plus Tablet (*)] Divalproex ER [Depakote ER 500 MG 1,500 mg PO DAILY 09/16/18 (*)] risperiDONE MICROSPHERES 37.5 mg IM .Q2WKS 09/16/18 [Risperdal Consta 37.5 mg (*)] LORazepam [Ativan (*)] 1 mg PO HS tab 09/27/18 Polyethylene Glycol 3350 [Miralax 17 gm PO DAILY PRN pkt 09/27/18 17 gm (*)] Sennosides/Docusate Sodium 1 - 2 tab PO BID tab 09/27/18 [Senokot-S] Medical Decision Making Differential Diagnosis: 28-year-old female with schizoaffective disorder, PTSD presents to the emergency department after discharge from [address] [place] [address] less than 12 hr ago with increasing anxiety, feeling unsafe at home after hearing banging and tapping on the doors and windows of her apartment. She has had similar symptoms in the past and that is what caused her admission on September 16. Plan to observe patient in the emergency department on consult with mental health in the morning. I will not check labs as patient was discharged from [address] [place] [address] just several hours ago. She denies any drug or alcohol use and does not have a history of such. At about 8:00 a.m., the case is signed out to the oncoming provider Dr. Davila. Patient awaits mental health evaluation. (Bertha Lynch) 10:30 a.m. the patient was evaluated by Mental Health. They feel it is safe to discharge her. She and her family agree with this plan and contracts for safety. (Lorne Davila) Departure - Departure Disposition: Home, Routine, Self-Care Clinical Impression: Anxiety, Schizoaffective disorder, bipolar type Condition: Fair Instructions: Schizoaffective Disorder (ED) Referrals: Yanely Thakkar PA [Primary Care Provider] - As per Instructions
[2018-09-28 10:38] VITALS: BP 110/60
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
--- NOTE | 2018-09-28 12:35 | ASMTLCPROG ---
Notes Note: Notes: TLC evaluation completed, awaiting recommendation from on-call psychiatrist. Date Signed: 09/28/2018 09:34 AM Electronically Signed By:Dora Jacques
--- NOTE | 2018-09-28 12:37 | ASMTTCLDSP ---
TLC Discharge Disposition Disposition: Answers: Discharge If Answers: Yes DISCHARGED: Patient/family given suicide hotline info & [facility]A brochure? Disposition Notes: Notes: Pt is not gravely disabled or a danger to herself or others due to a mental illness. Pt does have fears at night when she is in her apartment. Pt is active with [facility] and sees Dr Todd. She has been a resident of [facility] in the past. Clinician contacted [facility] to see if they could accept pt back into their program. There are no admissions to [facility] on the weekend. Clinician offered to try to find placement for pt at [facility]'s respite program, an ACU or a CSU. Pt declined and stated she would return to her apartment. She does have an appt with a wildlife removal specialist, Lien, on Sunday. Copng skills were reviewed. Discharge Concerns/Recommendations: Notes: In consultation with [facility] ED physician,Dr Davila and on-call psychiatrist,Dr Mallory , both concurred that Pt does not appear to meet 27-65 criteria requiring psychiatric hospitalization as Pt does not appear to be an imminent risk of harm to self/others/due to grave disability due to a mental illness condition. Date Signed: 09/28/2018 10:19 AM Electronically Signed By:Dora Jacquse
== END 2018-09-28 10:38 | disposition home or self-care (01) ==
DX: F41.9 Anxiety disorder, unspecified (principal); F25.0 Schizoaffective disorder, bipolar type; F32.9 Major depressive disorder, single episode, unspecified; F43.10 Post-traumatic stress disorder, unspecified; Z98.84 Bariatric surgery status

== ENCOUNTER 2018-09-28 22:27 | Inpatient (IN) | payer MEDICAID, OTHER ==
--- NOTE | 2018-09-28 23:13 | EDPHY ---
H & P Stated Complaint: SI Source: Patient, Family, Old records - Personal History LMP (Females 10-55): 22-28 Days Ago Current Tetanus Diphtheria and Acellular Pertussis (TDAP): Yes - Medical/Surgical History Hx Asthma: No Hx Chronic Respiratory Disease: No Hx Diabetes: No Hx Cardiac Disease: No Hx Renal Disease: No Hx Cirrhosis: No Hx Alcoholism: No Hx HIV/AIDS: No Hx Splenectomy or Spleen Trauma: No Other PMH: Depression, schizophrenia, gastric bypass, cholesectomy, PTSD - Social History Smoking Status: Never smoked Time Seen by Provider: 09/28/18 22:57 HPI/ROS: HPI The patient presents with feeling suicidal which she told her mother just prior to arrival. The patient was admitted to [address] [place] [address] for paranoia and anxiety, she stayed there for about 11 days and was discharged 2 days ago. She came to the ER yesterday because she again heard banging on her windows and doors which frightened her significantly. She was seen by mental health this morning and was cleared to go home. She went home today and had a normal day, but when it was time to go to bed she felt that she heard banging again. Her mother was lying next to her in bed and did not hear any of these noises. She did not take any of her p.r.n. Medications as she was instructed to but was happy with herself because she did not call the police as she often does. She would like to be readmitted to the hospital. She does not have a plan to hurt herself. Her mother has been staying with her who is a psychiatrist. She did not hear the banging. REVIEW OF SYSTEMS 10 systems were reviewed and negative with the exception of the elements mentioned in the history of present illness. PMHx: Schizoaffective disorder, bipolar disorder Soc Hx: lives in an apartment by herself PHYSICAL General Appearance: Alert, no distress Eyes: Pupils equal and round no pallor or injection ENT, Mouth: Mucous membranes moist Respiratory: There are no retractions, lungs are clear to auscultation Cardiovascular: Regular rate and rhythm Gastrointestinal: Abdomen is soft and non-tender, no masses, bowel sounds normal Neurological: A&O, moves all extremities Skin: Warm and dry, no rashes Musculoskeletal: Neck is supple non tender Extremities: symmetrical, full range of motion Psychiatric: Patient is oriented X 3, there is no agitation (Bertha Lynch) Constitutional: Initial Vital Signs Temperature (C) 36.5 C 09/28/18 22:34 Heart Rate 92 09/28/18 22:34 Respiratory Rate 16 09/28/18 22:34 Blood Pressure 114/77 09/28/18 22:34 O2 Sat (%) 95 09/28/18 22:34 O2 Delivery Mode Room Air Allergies/Adverse Reactions: neomycin Allergy (Verified 09/28/18 00:50) Other-Enter Comments Home Medications: Medication Instructions Recorded Benztropine Mesylate [Cogentin] 1 mg PO HS #30 tab 09/18/17 Cholecalciferol Vit D3 [Vitamin D3 3,000 units PO DAILY tab 09/18/17 (*)] Cyanocobalamin [Vitamin B12 (*)] 100 mcg PO DAILY tab 09/18/17 Ferrous Sulfate [Ferrous Sulf 325 325 mg PO BID tab 09/18/17 MG (*)] Multivitamins W-Minerals [Thera M 1 each PO DAILY tab 09/18/17 Plus Tablet (*)] Divalproex ER [Depakote ER 500 MG 1,500 mg PO DAILY 09/16/18 (*)] risperiDONE MICROSPHERES 37.5 mg IM .Q2WKS 09/16/18 [Risperdal Consta 37.5 mg (*)] LORazepam [Ativan (*)] 1 mg PO HS tab 09/27/18 Polyethylene Glycol 3350 [Miralax 17 gm PO DAILY PRN pkt 09/27/18 17 gm (*)] Sennosides/Docusate Sodium 1 - 2 tab PO BID tab 09/27/18 [Senokot-S] Medical Decision Making Differential Diagnosis: 28-year-old female with schizoaffective disorder, bipolar disorder presents again from home feeling unsafe there and suicidal asking to be admitted to [address] [place] [address]. She says that at home her symptoms are too severe for her to manage and cope. She does not have a plan for suicide. I will not place her on an M1 hold at this point. We will observe her overnight is there is no mental health availability at this time. Differential diagnosis includes worsening anxiety, schizoaffective disorder with paranoia and auditory hallucinations, less likely polysubstance abuse. 6:15 a.m.- Patient has been stable overnight. Case will be signed out to Dr. Loya in the morning. (Bertha Lynch) Other Provider: Care assumed at 6:40 a.m.. Patient discharge summary dated 09/27/2018 personally reviewed includes schizoaffective disorder, bipolar type. Awaiting mental health evaluation. 900: Patient placed on a mental health hold for grave disability, in consultation with mental health retail maintenance technician. She is paranoid thinking people are following her, increasing depression and unable to guarantee that she will not hurt herself as an outpatient. Grave disability and danger to self. 1328: The patient will be transferred to [facility] for inpatient psychiatric hospital bed not available at this facility, in stable condition; accepting physician is Dr. Mallory. EMTALA form completed. (Diego Loya ) - Data Points Laboratory Results: Laboratory Results 09/28/18 23:15 09/28/18 23:15 Departure - Departure Disposition: [facility] IP Clinical Impression: Schizoaffective disorder Qualifiers: Schizoaffective disorder type: unspecified Qualified Code(s): F25.9 - Schizoaffective disorder, unspecified Condition: Good Instructions: Schizoaffective Disorder (ED), Anxiolysis in Adults (ED) Referrals: Yanely Thakkar PA [Primary Care Provider] - As per Instructions Taryn Aelgria MD [Retired Resigned] - As per Instructions
[2018-09-28 23:49] LABS: PLATELET COUNT 275 10^3/uL (150-400)
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
--- NOTE | 2018-09-29 15:05 | ASMTCMCOM ---
CM Note CM Note Notes: Requested to speak to pt's mother, Lauren Flores ([phone]) re: long term care administrator care/residential/shelter options for pt who has Medicaid. Pt has lived at [facility]'s residential treatment program at [facility] and their transitional program in the past but Lauren states she is no longer able to afford their monthly rate. Pt is currently living in a one bedroom apartment in [place]. Lauren has stayed w/the pt recently but she does not feel it is a sustainable or safe living situation. Recommended that Lauren reach out to [facility] and [facility]; Lauren states she is familiar w/[facility]. Provided [facility] pamphlet and cards for Sara Vieira RN, and Clarissa Morales LPC, who are the local liaisons that can assist w/benefits assessment and utilization, helping pt to appts, providing various other resources and support, etc. Lauren states she has also reached out to [facility] re: their Environmental Therapy where the pt would w/live w/a housemate who is part of a treatment team. Lauren states [facility] said pt would need a two bedroom apartment (despite pt only sleeping on the couch in the living room and not using the 1 BR). Lauren is pt's legal guardian per Emergency Guardianship issued on 09/25/[address] [facility] [address]. Letters of Guardianship scanned into pt's e-chart under POA* Lauren also states she has been following up w/[employer] & therapists and pt's psychiatrist at [facility]. CM available for further assistance if needed. Date Signed: 09/29/2018 03:05 PM Electronically Signed By:Monique Winston RN
--- NOTE | 2018-09-29 15:38 | ASMTTCLDSP ---
TLC Discharge Disposition Disposition: Answers: Admit Discharge Concerns/Recommendations: Notes: In consultation with [facility] ED physician, Diego Loya MD and on-call psychiatrist, Benito Mallory MD, both concurred that pt appears to meet 27-65 criteria requiring psychiatric hospitalization as pt appears to be at risk of harm to self/gravely disabled due to a mental illness condition. Pt was given the [facility] prohibited belongings list while in the ED. Was patient given the Answers: Not applicable Inpatient Behavioral Health Prohibited Belongings List while in the ED? For inpatient Benito Mallory MD admission, the following psychiatrist agreed to accept patient for admission to Behavioral Health ([facility]): Date Signed: 09/29/2018 03:37 PM Electronically Signed By:Magdalene Velazquez
[2018-09-29] MEDS ORDERED: MAGNESIUM HYDROXIDE 30 ML UDCUP PO PRN (15:43)
[2018-09-29] MEDS ORDERED: NICOTINE POLACRILEX 2 MG GUM B PRN (15:43)
[2018-09-29] MEDS ORDERED: LORazepam 0.5 MG TAB PO PRN (15:43)
[2018-09-29] MEDS ORDERED: OLANZapine DISINTEGR 10 MG TAB PO PRN (15:43)
[2018-09-29] MEDS ORDERED: ACETAMINOPHEN 325 MG TAB PO PRN (15:43)
[2018-09-29] MEDS ORDERED: MAG HYDROX/AL HYDROX/SIMETH 30 ML UDCUP PO PRN (15:43)
[2018-09-29] MEDS ORDERED: POLYETHYLENE GLYCOL 3350 17 GM PKT PO PRN (15:46)
[2018-09-29] MEDS: FERROUS SULFATE 325 MG TAB PO SCH (20:27)
[2018-09-29] MEDS: BENZTROPINE MESYLATE 1 MG TAB PO SCH (20:27)
[2018-09-29] MEDS: SENNOSIDES/DOCUSATE SODIUM TAB PO SCH (20:28)
[2018-09-29] MEDS ORDERED: DIVALPROEX ER 500 MG TAB PO SCH (21:00)
--- NOTE | 2018-09-30 08:30 | ASMTBHMTP ---
Master Treatment Plan Master Treatment Plan Answers: Depressed Mood without for: Suicidal Ideation Date: 09/29/2018 Diagnosis on Admission: Anxiety, Schizoaffective Disorder Expected length of stay: 3-5 days Reason for admission: Notes: Per Report: Pt is a 28y/o, female who presents to the ED voluntarily following her d/c on 09/27/18 from [facility] behavioral unit. Pt's mother had spent the night with her, following her d/c from [address] [place] [address] and the treatment team's recommendation. Per pt, she had been sleeping on the couch in her apt and her mother was sleeping on the floor when she heard a noise outside. She became quite scared and was unable to sleep. She later heard another noise that her mother also heard. Her mother was awake at this point and tried to reassure her daughter that she was safe. Eventually pt heard a third set of noises, decided she may be in danger, and woke her mother requesting that she bring her to the hospital so that she could return to [facility]. Pt recited a number of "coping skills" and "rules" that she had followed prior to returning to the hospital. She had apparently complied by the rule that suggested she not call anybody, including [facility] and [facility]. She also cited a number of coping skills that she had utilized including reality testing and what she referred to as "meditation". Pt states he only hears these, noises when she is at home in her apartment or at her mothers house. Pt states she does not hear noises or feels afraid when she is in the hospital. Per mother, Lauren, pt is part of the outpatient program through [facility] and she stated when pt was in their residential treatment program, she did very well, was not paranoid. Pt is now part of the outpatient program. Per mother, last night when they were driving, pt told her, Someone is trying to get me. Trying to hurt me. Im having bad thoughts, I could do something to harm myself. Pt states she is having really bad anxiety and states she doesnt feel comfortable taking a shower in her apartment because, I need to be ready to run out if anything happens. Pt states she is afraid to be alone and wants to be hospitalized. Patient's stated presenting problems: Notes: Anxiety Patient's goals for treatment: Notes: to recover from things that happened Patient's strengths: Notes: I don't really have any Identify supports outside of hospital: Notes: [facility] Discharge criteria: Notes: Suicidal Idetaion will resolve and patient will have a plan to safely manage recurrent suicidal ideation Initial disposition plan/considerations: Notes: to do well enough that I don't have to come back Master Treatment Plan Required Signatures Psychiatrist signature: Answers: Psychiatrist: RN on-shift signature: Answers: RN: Patient signature: Answers: Patient: Date Signed: 09/30/2018 08:29 AM Electronically Signed By:Galileo Hensley
[2018-09-30] MEDS ORDERED: DIVALPROEX ER 500 MG TAB PO SCH (09:00)
[2018-09-30] MEDS: SENNOSIDES/DOCUSATE SODIUM TAB PO SCH ×2 (09:09→20:26)
[2018-09-30] MEDS: CHOLECALCIFEROL VIT D3 1,000 UNITS TAB PO SCH (09:10)
[2018-09-30] MEDS: FERROUS SULFATE 325 MG TAB PO SCH ×2 (09:10→20:26)
--- NOTE | 2018-09-30 09:32 | PDMN ---
Medical Necessity Medical necessity: [id number] Schizophrenia Spectrum Disorders, Adult: Inpatient Care: 28 yo w/ Schizoaffective d/o, suicidal ideation, on M1 hold
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
[2018-09-30] MEDS: BENZTROPINE MESYLATE 1 MG TAB PO SCH (20:26)
[2018-09-30] MEDS: VALPROIC ACID 250 MG/5 ML UDCUP PO SCH (20:27)
--- NOTE | 2018-10-01 08:39 | SOAPPROG ---
SOAP Progress Note Assessment/Plan: Assessment: Schizoaffective Disorder, Bipolar Type. No improvement noted. (see subjective/ objective note). Patient is not safe to discharge at this time as patient continues to exhibit signs of psychosis, and express psychosis symptoms. Patient requires continued inpatient care because of current psychosis, and requires inpatient level of care to stabilize to no longer be gravely disabled due to mental illness. Patient continues to require prompting and direction from staff for ADLs, is withdrawn from social interactions, currently on reverse room order to motivate to attend groups, patient often continues to not attend groups and sits in hallway during groups, refusing to attend, patient neglecting self-care, refuses to return to her apartment due to paranoid delusions, and support system has inability to manage functional impairment at lower level of care. Patient could benefit from continued inpatient hospitalization for crisis stabilization, safety, and medication evaluation. Plan: 1. Psychotropic medications: After reviewing options, risks, and benefits patient agrees to continue current medications. No medication changes at this time as more time is needed to determine ongoing tolerability and efficacy. Plan is to continue to observe patient for response and side effects from medications, and ongoing monitoring and evaluation. 2. Review with patient informed consent and recommendations for psychotropic medication treatment listed below 3. Labs: no additional labs at this time 4. Therapy: continue milieu and group therapy 5. Further investigation including gathering information from patients relatives and review of past case records to inform treatment plan. 6. Safety/Wellness plan and follow-up outpatient appointments to be established prior to discharge. Next steps are for patient to meet with urgent care nurse practitioner to plan a safe discharge plan and establish outpatient services for ongoing treatment. 7. Confer with inpatient treatment team regarding treatment plan. 8. Psychosocial stressors addressed through nurse case management 9. Legal status: M1 hold 10. Consider discharge Sunday if patient is in stable condition, safe, and has a safe discharge plan. PSYCHOTROPIC MEDICATION TREATMENT INFORMED CONSENT and RECOMMENDATIONS: Review nature of condition, diagnosis, and prognosis. Review nature and purpose of psychotropic medication treatment. Review type of psychotropic medications being ordered. Review risk and benefits of psychotropic medication treatment. Review probable length of time patient will need to take medications. Review risk and benefits of not undergoing psychotropic medication treatment. Review alternative treatments to psychotropic medications. Review psychotropic medications contraindications, drug-drug interactions, side effects, and importance of reporting any side effects to a psychiatric provider or nurse during inpatient hospitalization, and upon discharge to patients psychiatric outpatient provider, primary care provider, or other health care transition manager. Review importance of asking a nurse, psychiatric provider, or primary care provider any questions or problems concerning the psychotropic medications. Verify patient understands the information that has been provided, and understands, accepts, and agrees to psychotropic medications. Review patients safety plan and importance of patient to report to staff while hospitalized if patient is ever a danger to self/others, or unable to care for self, and upon discharge, the importance for patient to contact [facility] or [facility], or go to the nearest emergency room, if patient is ever a danger to self/others, or unable to care for self. Recommend that upon discharge patient establish medication management treatment with a psychiatric provider, establishes routine therapy appointments, and follow-up with primary care provider. Verify patient understands and agrees to these recommendations. 10/01/18 08:37 Subjective: Following up with patient for evaluation of psychosis, jori, and safety. Patient states, "I am still not sure if I want to return to my apartment. Just don't feel comfortable there. It usually happens after a few hours after I return home. Start feeling scared, hearing noises. A few times I have stayed up through the night, and then fall asleep at 5 or 6 the next morning. Even when my mom was staying with me, I still was hearing noises and was scared to be in my apartment." Patient reports taking medications as prescribed, and reports no side effects. Patient agrees to continue current medications. Patient reports she slept well last night, and agrees to attend groups today. Objective: Vital Signs Temp Pulse Resp BP Pulse Ox 36.6 C 72 16 97/50 L 94 10/01/18 06:00 10/01/18 06:00 10/01/18 06:00 10/01/18 06:00 10/01/18 06:00 NURSING REPORT: Consulted with nursing for update on patients progress in treatment. Nurses report patient is not engaged in treatment, does not attend groups unless prompted and directed by staff, slept 8 hours, expresses the following psychiatric symptoms: anxious; exhibits the following psychiatric symptoms: withdrawn, flat affect; is agreeable to medications and taking as prescribed with no report of side effects, with no s/s of EPS/akathisia, and denies SI/HI, denies A/V hallucinations, and reports delusions. Patient requires prompting and direction from staff to attend to ADLs and is currently on reverse room order due to patient being withdrawn to room and avoiding social interactions. MSE: The patient is a well-nourished female looking stated chronological age. Attire is appropriate dress is casual. Grooming status is inappropriate and disheveled. Ambulation is independent. Gait is normal and coordinated. Posture is normal. Eye contact is inappropriate and avoided. Motor activity is appropriate with purposeful, organized, coordinated movements; with no involuntary movements. Attitude is cooperative, guarded at times. Patient appears distracted and does not relate well to this interviewer. Language production is spontaneous. Rate is normal. Latency of response is normal. Articulation is clear. Patient reports mood as okay with flat, incongruent affect. Patients thought process is linear and logical. Patient does not report suicidal/homicidal thoughts, ideas, or plans. Patient denies auditory, visual hallucinations. Patient denies delusions. Patient does not appear to be attending to internal stimuli. Patients attention and concentration are poor. Patient is oriented to person, place, time. Patients insight is poor. Patients judgment is poor. - Time Spent With Patient Time Spent With Patient: 15 minutes, met with patient individually. - Pending Discharge Pending Discharge Within 24 Hours: No Pending Discharge Within 48 Hours: No ICD10 Worksheet Patient Problems: Problems Problem Status Onset Schizoaffective disorder Acute Anemia Acute Depression Acute Grave disability Acute H/O bariatric surgery Acute Posttraumatic stress disorder Chronic
--- NOTE | 2018-10-01 10:12 | ASMTCMCOM ---
CM Note CM Note Notes: CC checked in with ct. She continues to have very flat affect. She said that she is OK. She reported feeling less anxious and said that she feels safe on the unit. MOC will be visiting later in the day. Ct. has been participating in groups. Date Signed: 10/01/2018 10:12 AM Electronically Signed By:Fay Hayden
[2018-10-01] MEDS: VALPROIC ACID 250 MG/5 ML UDCUP PO SCH ×2 (10:20→20:15)
[2018-10-01] MEDS: CHOLECALCIFEROL VIT D3 1,000 UNITS TAB PO SCH (10:21)
[2018-10-01] MEDS: FERROUS SULFATE 325 MG TAB PO SCH ×2 (10:21→20:14)
[2018-10-01] MEDS: SENNOSIDES/DOCUSATE SODIUM TAB PO SCH ×2 (13:57→20:14)
[2018-10-01] MEDS: BENZTROPINE MESYLATE 1 MG TAB PO SCH (20:14)
--- NOTE | 2018-10-02 06:30 | SOAPPROG ---
SOAP Progress Note Assessment/Plan: Assessment: Schizoaffective Disorder, Bipolar Type, currently reporting delusions regarding feeling unsafe to return to her apartment. No improvement noted. (see subjective/objective note). Patient is not safe to discharge at this time as patient continues to exhibit signs of psychosis, and express psychosis symptoms. Patient requires continued inpatient care because of current psychosis, and requires inpatient level of care to stabilize to no longer be gravely disabled due to mental illness. Patient continues to require prompting and direction from staff for ADLs, is withdrawn from social interactions, currently on reverse room order to motivate to attend groups, patient often continues to not attend groups and sits in hallway during groups, refusing to attend, patient neglecting self-care, refuses to return to her apartment due to paranoid delusions, and support system has inability to manage functional impairment at lower level of care. Patient could benefit from continued inpatient hospitalization for crisis stabilization, safety, and medication evaluation. Plan: 1. Psychotropic medications: After reviewing options, risks, and benefits patient agrees to continue current medications. No medication changes at this time as more time is needed to determine ongoing tolerability and efficacy. Plan is to continue to observe patient for response and side effects from medications, and ongoing monitoring and evaluation. 2. Review with patient informed consent and recommendations for psychotropic medication treatment listed below 3. Labs: no additional labs at this time 4. Therapy: continue milieu and group therapy 5. Further investigation including gathering information from patients relatives and review of past case records to inform treatment plan. 6. Safety/Wellness plan and follow-up outpatient appointments to be established prior to discharge. Next steps are for patient to meet with resident care provider to plan a safe discharge plan and establish outpatient services for ongoing treatment. 7. Confer with inpatient treatment team regarding treatment plan. 8. Psychosocial stressors addressed through community case manager 9. Legal status: M1 10. Consider discharge if patient is in stable condition, safe, and has a safe discharge plan. 11. Contact Dr. Alegria, [place] [facility], to discuss discharge plan. 12. Contact patient's mother to discuss discharge plan. PSYCHOTROPIC MEDICATION TREATMENT INFORMED CONSENT and RECOMMENDATIONS: Review nature of condition, diagnosis, and prognosis. Review nature and purpose of psychotropic medication treatment. Review type of psychotropic medications being ordered. Review risk and benefits of psychotropic medication treatment. Review probable length of time patient will need to take medications. Review risk and benefits of not undergoing psychotropic medication treatment. Review alternative treatments to psychotropic medications. Review psychotropic medications contraindications, drug-drug interactions, side effects, and importance of reporting any side effects to a psychiatric provider or nurse during inpatient hospitalization, and upon discharge to patients psychiatric outpatient provider, primary care provider, or other health primary care pediatrician. Review importance of asking a nurse, psychiatric provider, or primary care provider any questions or problems concerning the psychotropic medications. Verify patient understands the information that has been provided, and understands, accepts, and agrees to psychotropic medications. Review patients safety plan and importance of patient to report to staff while hospitalized if patient is ever a danger to self/others, or unable to care for self, and upon discharge, the importance for patient to contact [facility] [place] [facility] or [facility], or go to the nearest emergency room, if patient is ever a danger to self/others, or unable to care for self. Recommend that upon discharge patient establish medication management treatment with a psychiatric provider, establishes routine therapy appointments, and follow-up with primary care provider. Verify patient understands and agrees to these recommendations. 10/02/18 06:28 Subjective: Following up with patient for evaluation of psychosis, jori, and safety. Patient states, "I am doing good here, slept okay. I do not know if I am ready to go back to my apartment. Not sure yet." Patient reports taking medications as prescribed, and reports no side effects. Patient agrees to continue current medications. Patient reports she slept well last night, and agrees to attend groups today. Patient agrees to contact her mother today to discuss plans for discharge including alternative places to stay other than her apartment where she continues to feel unsafe due to noises, leading to her making multiple calls to police and numerous trips to the ER. Patients she felt unsafe at her apartment prior to this hospitalization even with her mother staying with her. Objective: Vital Signs Temp Pulse Resp BP Pulse Ox 36.6 C 72 16 97/50 L 94 10/01/18 06:00 10/01/18 06:00 10/01/18 06:00 10/01/18 06:00 10/01/18 06:00 NURSING REPORT: Consulted with nursing for update on patients progress in treatment. Nurses report patient is not engaged in treatment, does not attend groups unless prompted and directed by staff, slept 8 hours, expresses the following psychiatric symptoms: anxious; exhibits the following psychiatric symptoms: withdrawn, flat affect; is agreeable to medications and taking as prescribed with no report of side effects, with no s/s of EPS/akathisia, and denies SI/HI, denies A/V hallucinations, and reports delusions. Patient requires prompting and direction from staff to attend to ADLs and is currently on reverse room order due to patient being withdrawn to room and avoiding social interactions. MSE: The patient is a well-nourished female looking stated chronological age. Attire is appropriate dress is casual. Grooming status is inappropriate and disheveled. Ambulation is independent. Gait is normal and coordinated. Posture is normal. Eye contact is inappropriate and avoided. Motor activity is appropriate with purposeful, organized, coordinated movements; with no involuntary movements. Attitude is cooperative, guarded at times. Patient appears distracted and does not relate well to this interviewer. Language production is spontaneous. Rate is normal. Latency of response is normal. Articulation is clear. Patient reports mood as okay with flat, incongruent affect. Patients thought process is linear and logical. Patient does not report suicidal/homicidal thoughts, ideas, or plans. Patient denies auditory, visual hallucinations. Patient reports delusions; paranoid regarding returning to her apartment due to noises. Patient does not appear to be attending to internal stimuli. Patients attention and concentration are poor. Patient is oriented to person, place, time. Patients insight is poor. Patients judgment is poor. - Time Spent With Patient Time Spent With Patient: 15 minutes, met with patient individually. - Pending Discharge Pending Discharge Within 24 Hours: No Pending Discharge Within 48 Hours: No ICD10 Worksheet Patient Problems: Problems Problem Status Onset Schizoaffective disorder Acute Anemia Acute Depression Acute Grave disability Acute H/O bariatric surgery Acute Posttraumatic stress disorder Chronic
[2018-10-02] MEDS: FERROUS SULFATE 325 MG TAB PO SCH ×2 (09:22→20:09)
[2018-10-02] MEDS: CHOLECALCIFEROL VIT D3 1,000 UNITS TAB PO SCH (09:22)
[2018-10-02] MEDS: VALPROIC ACID 250 MG/5 ML UDCUP PO SCH ×2 (09:22→20:08)
--- NOTE | 2018-10-02 13:48 | ASMTCMCOM ---
CM Note CM Note Notes: CC spoke to NVC and confirmed family meeting for tomorrow at 1pm, provider notified.* Date Signed: 10/02/2018 01:47 PM Electronically Signed By:Galileo Hensley
[2018-10-02] MEDS: SENNOSIDES/DOCUSATE SODIUM TAB PO SCH ×2 (14:48→20:09)
[2018-10-02] MEDS: BENZTROPINE MESYLATE 1 MG TAB PO SCH (20:09)
--- NOTE | 2018-10-03 08:57 | SOAPPROG ---
SOAP Progress Note Assessment/Plan: Assessment: Schizoaffective Disorder, Bipolar Type. No improvement noted. (see subjective/ objective note). Patient is not safe to discharge at this time as patient continues to exhibit signs of psychosis, and express psychosis symptoms. Patient requires continued inpatient care because of current psychosis, and requires inpatient level of care to stabilize to no longer be gravely disabled due to mental illness. Patient continues to require prompting and direction from staff for ADLs, is withdrawn from social interactions, currently on reverse room order to motivate to attend groups, patient often continues to not attend groups and sits in hallway during groups, refusing to attend, patient neglecting self-care, refuses to return to her apartment due to paranoid delusions, and support system has inability to manage functional impairment at lower level of care. Patient could benefit from continued inpatient hospitalization for crisis stabilization, safety, and medication evaluation. Plan: 1. Psychotropic medications: After reviewing options, risks, and benefits patient agrees to continue current medications. No medication changes at this time as more time is needed to determine ongoing tolerability and efficacy. Plan is to continue to observe patient for response and side effects from medications, and ongoing monitoring and evaluation. 2. Review with patient informed consent and recommendations for psychotropic medication treatment listed below 3. Labs: no additional labs at this time 4. Therapy: continue milieu and group therapy 5. Further investigation including gathering information from patients relatives and review of past case records to inform treatment plan. 6. Safety/Wellness plan and follow-up outpatient appointments to be established prior to discharge. Next steps are for patient to meet with rn intensive care unit to plan a safe discharge plan and establish outpatient services for ongoing treatment. 7. Confer with inpatient treatment team regarding treatment plan. 8. Psychosocial stressors addressed through rn case management 9. Legal status: voluntary 10. Consider discharge Sunday if patient is in stable condition, safe, and has a safe discharge plan. 11. Contact Dr. Alegria, [place] [facility], to discuss discharge plan. 12. Family meeting today with patient's mother at 1pm. PSYCHOTROPIC MEDICATION TREATMENT INFORMED CONSENT and RECOMMENDATIONS: Review nature of condition, diagnosis, and prognosis. Review nature and purpose of psychotropic medication treatment. Review type of psychotropic medications being ordered. Review risk and benefits of psychotropic medication treatment. Review probable length of time patient will need to take medications. Review risk and benefits of not undergoing psychotropic medication treatment. Review alternative treatments to psychotropic medications. Review psychotropic medications contraindications, drug-drug interactions, side effects, and importance of reporting any side effects to a psychiatric provider or nurse during inpatient hospitalization, and upon discharge to patients psychiatric outpatient provider, primary care provider, or other health healthcare management consultant. Review importance of asking a nurse, psychiatric provider, or primary care provider any questions or problems concerning the psychotropic medications. Verify patient understands the information that has been provided, and understands, accepts, and agrees to psychotropic medications. Review patients safety plan and importance of patient to report to staff while hospitalized if patient is ever a danger to self/others, or unable to care for self, and upon discharge, the importance for patient to contact [place] [facility] or [facility], or go to the nearest emergency room, if patient is ever a danger to self/others, or unable to care for self. Recommend that upon discharge patient establish medication management treatment with a psychiatric provider, establishes routine therapy appointments, and follow-up with primary care provider. Verify patient understands and agrees to these recommendations. Subjective: Following up with patient for evaluation of psychosis, jori, and safety. Patient states, "I am not sure I am ready to go back to my apartment. Just anxious and stuff about going back there." Patient reports taking medications as prescribed, and reports no side effects. Patient agrees to continue current medications. Patient reports she slept well last night, and agrees to attend groups today. Patient agrees to meet with her mother today for a family meeting to review treatment and discharge plans. Objective: Vital Signs Temp Pulse Resp BP Pulse Ox 36.4 C 67 14 90/45 L 96 10/03/18 06:00 10/03/18 06:00 10/03/18 06:00 10/03/18 06:00 10/03/18 06:00 NURSING REPORT: Consulted with nursing for update on patients progress in treatment. Nurses report patient is not engaged in treatment, does not attend groups unless prompted and directed by staff, slept 8 hours, expresses the following psychiatric symptoms: anxious; exhibits the following psychiatric symptoms: withdrawn, flat affect; is agreeable to medications and taking as prescribed with no report of side effects, with no s/s of EPS/akathisia, and denies SI/HI, denies A/V hallucinations, and reports delusions. Patient requires prompting and direction from staff to attend to ADLs and is currently on reverse room order due to patient being withdrawn to room and avoiding social interactions. MSE: The patient is a well-nourished female looking stated chronological age. Attire is appropriate dress is casual. Grooming status is inappropriate and disheveled. Ambulation is independent. Gait is normal and coordinated. Posture is normal. Eye contact is inappropriate and avoided. Motor activity is appropriate with purposeful, organized, coordinated movements; with no involuntary movements. Attitude is cooperative, guarded at times. Patient appears distracted and does not relate well to this interviewer. Language production is spontaneous. Rate is normal. Latency of response is normal. Articulation is clear. Patient reports mood as okay with flat, incongruent affect. Patients thought process is linear and logical. Patient does not report suicidal/homicidal thoughts, ideas, or plans. Patient denies auditory, visual hallucinations. Patient reports delusions; paranoid regarding returning to her apartment due to noises. Patient does not appear to be attending to internal stimuli. Patients attention and concentration are poor. Patient is oriented to person, place, time. Patients insight is poor. Patients judgment is poor. - Time Spent With Patient Time Spent With Patient: 15 minutes, met with patient individually. - Pending Discharge Pending Discharge Within 24 Hours: No Pending Discharge Within 48 Hours: No ICD10 Worksheet Patient Problems: Problems Problem Status Onset Schizoaffective disorder Acute Anemia Acute Depression Acute Grave disability Acute H/O bariatric surgery Acute Posttraumatic stress disorder Chronic
[2018-10-03] MEDS: CHOLECALCIFEROL VIT D3 1,000 UNITS TAB PO SCH (09:23)
[2018-10-03] MEDS: VALPROIC ACID 250 MG/5 ML UDCUP PO SCH ×2 (09:23→20:29)
[2018-10-03] MEDS: FERROUS SULFATE 325 MG TAB PO SCH ×2 (09:23→20:29)
[2018-10-03] MEDS: SENNOSIDES/DOCUSATE SODIUM TAB PO SCH ×2 (10:30→20:29)
[2018-10-03] MEDS: BENZTROPINE MESYLATE 1 MG TAB PO SCH (20:29)
--- NOTE | 2018-10-04 08:26 | SOAPPROG ---
SOAP Progress Note Assessment/Plan: Assessment: Schizoaffective Disorder, Bipolar Type. No improvement noted. (see subjective/ objective note). Patient is not safe to discharge at this time as patient continues to exhibit signs of psychosis, and express psychosis symptoms. Patient requires continued inpatient care because of current psychosis, and requires inpatient level of care to stabilize to no longer be gravely disabled due to mental illness. Patient continues to require prompting and direction from staff for ADLs, is withdrawn from social interactions, currently on reverse room order to motivate to attend groups, patient often continues to not attend groups and sits in hallway during groups, refusing to attend, patient neglecting self-care, refuses to return to her apartment due to paranoid delusions, and support system has inability to manage functional impairment at lower level of care. Patient could benefit from continued inpatient hospitalization for crisis stabilization, safety, and medication evaluation. Plan: 1. Psychotropic medications: After reviewing options, risks, and benefits patient agrees to continue current medications. No medication changes at this time as more time is needed to determine ongoing tolerability and efficacy. Plan is to continue to observe patient for response and side effects from medications, and ongoing monitoring and evaluation. 2. Review with patient informed consent and recommendations for psychotropic medication treatment listed below 3. Labs: no additional labs at this time 4. Therapy: continue milieu and group therapy 5. Further investigation including gathering information from patients relatives and review of past case records to inform treatment plan. 6. Safety/Wellness plan and follow-up outpatient appointments to be established prior to discharge. Next steps are for patient to meet with restorative care technician to plan a safe discharge plan and establish outpatient services for ongoing treatment. 7. Confer with inpatient treatment team regarding treatment plan. 8. Psychosocial stressors addressed through manager case 9. Legal status: voluntary 10. Consider discharge Sunday if patient is in stable condition, safe, and has a safe discharge plan. 11. Contact Dr. Alegria, [place] [facility], to discuss discharge plan. 12. Family meeting today with patient's mother at 1:30pm. PSYCHOTROPIC MEDICATION TREATMENT INFORMED CONSENT and RECOMMENDATIONS: Review nature of condition, diagnosis, and prognosis. Review nature and purpose of psychotropic medication treatment. Review type of psychotropic medications being ordered. Review risk and benefits of psychotropic medication treatment. Review probable length of time patient will need to take medications. Review risk and benefits of not undergoing psychotropic medication treatment. Review alternative treatments to psychotropic medications. Review psychotropic medications contraindications, drug-drug interactions, side effects, and importance of reporting any side effects to a psychiatric provider or nurse during inpatient hospitalization, and upon discharge to patients psychiatric outpatient provider, primary care provider, or other health career specialist. Review importance of asking a nurse, psychiatric provider, or primary care provider any questions or problems concerning the psychotropic medications. Verify patient understands the information that has been provided, and understands, accepts, and agrees to psychotropic medications. Review patients safety plan and importance of patient to report to staff while hospitalized if patient is ever a danger to self/others, or unable to care for self, and upon discharge, the importance for patient to contact [place] [facility] or [facility], or go to the nearest emergency room, if patient is ever a danger to self/others, or unable to care for self. Recommend that upon discharge patient establish medication management treatment with a psychiatric provider, establishes routine therapy appointments, and follow-up with primary care provider. Verify patient understands and agrees to these recommendations. 10/04/18 08:27 Subjective: Following up with patient for evaluation of psychosis, jori, and safety. Patient states, "Still not sure I am ready to go back to my apartment. Not really sure of other places to go either. Even when my mom stays with me, she doesn't take anything that serious." Patient reports taking medications as prescribed, and reports no side effects. Patient agrees to continue current medications. Patient reports she slept well last night, and agrees to attend groups today. Patient agrees to meet with her mother today for a family meeting to review treatment and discharge plans. Objective: Vital Signs Temp Pulse Resp BP Pulse Ox 36.4 C 72 14 102/51 L 96 10/04/18 06:00 10/04/18 06:00 10/04/18 06:00 10/04/18 06:00 10/04/18 06:00 NURSING REPORT: Consulted with nursing for update on patients progress in treatment. Nurses report patient is not engaged in treatment, does not attend groups unless prompted and directed by staff, slept 8 hours, expresses the following psychiatric symptoms: anxious; exhibits the following psychiatric symptoms: withdrawn, flat affect; is agreeable to medications and taking as prescribed with no report of side effects, with no s/s of EPS/akathisia, and denies SI/HI, denies A/V hallucinations, and reports delusions. Patient requires prompting and direction from staff to attend to ADLs and is currently on reverse room order due to patient being withdrawn to room and avoiding social interactions. MSE: The patient is a well-nourished female looking stated chronological age. Attire is appropriate dress is casual. Grooming status is inappropriate and disheveled. Ambulation is independent. Gait is normal and coordinated. Posture is normal. Eye contact is inappropriate and avoided. Motor activity is appropriate with purposeful, organized, coordinated movements; with no involuntary movements. Attitude is cooperative, guarded at times. Patient appears distracted and does not relate well to this interviewer. Language production is spontaneous. Rate is normal. Latency of response is normal. Articulation is clear. Patient reports mood as okay with flat, incongruent affect. Patients thought process is linear and illogical, continues to report her apartment is unsafe to return to. Patient does not report suicidal/ homicidal thoughts, ideas, or plans. Patient denies auditory, visual hallucinations. Patient reports delusions; paranoid regarding returning to her apartment due to noises. Patient does not appear to be attending to internal stimuli. Patients attention and concentration are poor. Patient is oriented to person, place, time. Patients insight is poor. Patients judgment is poor. - Time Spent With Patient Time Spent With Patient: 15 minutes, met with patient individually. - Pending Discharge Pending Discharge Within 24 Hours: No Pending Discharge Within 48 Hours: No ICD10 Worksheet Patient Problems: Problems Problem Status Onset Schizoaffective disorder Acute Anemia Acute Depression Acute Grave disability Acute H/O bariatric surgery Acute Posttraumatic stress disorder Chronic
[2018-10-04] MEDS: SENNOSIDES/DOCUSATE SODIUM TAB PO SCH ×2 (08:50→20:32)
[2018-10-04] MEDS: VALPROIC ACID 250 MG/5 ML UDCUP PO SCH ×2 (08:50→20:32)
[2018-10-04] MEDS: FERROUS SULFATE 325 MG TAB PO SCH ×2 (08:51→20:32)
[2018-10-04] MEDS: CHOLECALCIFEROL VIT D3 1,000 UNITS TAB PO SCH (08:52)
[2018-10-04] MEDS: BENZTROPINE MESYLATE 1 MG TAB PO SCH (20:32)
[2018-10-05] MEDS: SENNOSIDES/DOCUSATE SODIUM TAB PO SCH ×2 (08:22→20:32)
[2018-10-05] MEDS: CHOLECALCIFEROL VIT D3 1,000 UNITS TAB PO SCH (08:23)
[2018-10-05] MEDS: VALPROIC ACID 250 MG/5 ML UDCUP PO SCH ×2 (08:23→20:32)
[2018-10-05] MEDS: FERROUS SULFATE 325 MG TAB PO SCH ×2 (08:23→20:31)
[2018-10-05] MEDS ORDERED: LORazepam 1 MG TAB PO PRN (13:30)
--- NOTE | 2018-10-05 15:11 | SOAPPROG ---
SOAP Progress Note Assessment/Plan: Assessment: Per Kendell Hong's note: Schizoaffective Disorder, Bipolar Type. No improvement noted. (see subjective/ objective note). Patient is not safe to discharge at this time as patient continues to exhibit signs of psychosis, and express psychosis symptoms. Patient requires continued inpatient care because of current psychosis, and requires inpatient level of care to stabilize to no longer be gravely disabled due to mental illness. Patient continues to require prompting and direction from staff for ADLs, is withdrawn from social interactions, currently on reverse room order to motivate to attend groups, patient often continues to not attend groups and sits in hallway during groups, refusing to attend, patient neglecting self-care, refuses to return to her apartment due to paranoid delusions, and support system has inability to manage functional impairment at lower level of care. Patient could benefit from continued inpatient hospitalization for crisis stabilization, safety, and medication evaluation. Plan: 1. Psychotropic medications: After reviewing options, risks, and benefits patient agrees to continue current medications. No medication changes at this time as more time is needed to determine ongoing tolerability and efficacy. Plan is to continue to observe patient for response and side effects from medications, and ongoing monitoring and evaluation. Addendum from family meeting on 10/04/[address] Martin: Pt interviewed alone and with mother present in family meeting with myself, patient, CC and CROSSBAR SWITCH ADJUSTER. Reviewed at length our observations and current recommendations. We emphasized that pt is stable in this environment. Mother voices primary concern that pt is unwilling to stay at her apartment, even with mother there. Pt reiterates this stating she will not stay there. Team reiterated that we have met our treatment goals for this setting, but agree that pt cannot be discharged to that circumstance if she is already stating she will not stay there. Various options discussed including returning to [facility], going to step down services with CR, going to a hotel, or going to mother 's home. Pt is agreeable to any option except going back to her apartment or her mother's home. She states, "I will feel unsafe there and I cannot stay." Mother is not agreeable to [facility] for financial reasons and has not investigated step down. Team emphasized the need for safe placement. Mother voiced her consistent disagreement with discharge at this time due to lack of placement and threatened numerous times to "take her out of here if you make me but I won't sign anything. Then we'll be back in the ER tonight." Team was united in belief that pt should not be discharged until a mutually agreeable, safe discharge plan can be arranged. Mother was encouraged to talk directly to CR to work this out as it is redundant to have CC act as intermediary. She eventually agrees to do this. Meeting closed with plan for mother to work with CR to finalize d/c plan. We will not change medications during this hospitalization due to pt's stability. Addendum entered and electronically signed by Kendell Hong NP 10/04/18 14:38 : This CROSSBAR SWITCH ADJUSTER, MD, and care services manager met with patient and patient's mother ( guardian) to review discharge plan. Patient's mother to search for transitional housing for patient in order for patient to have safe place to discharge as patient currently paranoid regarding returning to her apartment and her returning to her apartment would lead to re-hospitalization. Patient currently does not have support system in place that has the ability to manage functional impairment at lower level of care. Goal is to establish this support system prior to patient discharging. This CROSSBAR SWITCH ADJUSTER will follow-up with patient's mother on Sunday. Patient is currently treated at [facility] on outpatient basis and patient's mother plans to contact [facility] regarding transitional housing as patient has done well in this environment in the past. Patient has not been able to function independently at her apartment since moving there July 2018, and her delusion of noises and someone being after her while at her apartment has led to several visits the the ER and hospitalizations here. An alternative living arrangement is needed to ensure a safe discharge and reduce likelihood of ER visits and re-hospitalizations due to these ongoing delusions. Plan: 10/05/18 15:07 1. Patient still "scared" to go back to her apartment. MOC looking into different placement options. 2. MOC says she cannot afford for patient to go to [facility] and is looking into alternative services. 3. Patient is not participating in treatment while on unit. 4. Patient is eating, sleeping well, denies depressed mood, psychosis and SI. 5. No changes to medications or treatment plan as patient is not exhibiting any acute psych symptoms. She is functioning at her baseline. 6. Voluntary Subjective: Patient sitting at desk in hallway staring vacantly ahead. She took shower and changed clothes this AM. She is on a behavior support plan that encourages patient to participate in milieu activities and attend groups. However, patient chooses not to participate in any treatment while she is in hospital, even though she and her MOC requested inpatient hospitalization. Patient does not want to go back to her apartment for fear of "noises." Her MOC insists she doesn 't want patient to return to her apartment. However, [facility] has no other options for where patient could stay. She is not willing to pay for residential treatment, hotel or new apartment. Patient denies AH/VH, paranoid delusions, IOR , SI/HI. Objective: Vital Signs Temp Pulse Resp BP Pulse Ox 36.6 C 70 14 99/51 L 94 10/05/18 06:00 10/05/18 06:00 10/05/18 06:00 10/05/18 06:00 10/05/18 06:00 MSE: Affect: Flat Mood: "OK" TP: Goal-directed TC: Denies any SI/HI Perception: Denies AH/VH Insight/Judgment: Poor - Time Spent With Patient Time Spent With Patient: 15" - Pending Discharge Pending Discharge Within 24 Hours: No Pending Discharge Within 48 Hours: No ICD10 Worksheet Patient Problems: Problems Problem Status Onset Schizoaffective disorder Acute Anemia Acute Depression Acute Grave disability Acute H/O bariatric surgery Acute Posttraumatic stress disorder Chronic
--- NOTE | 2018-10-05 15:14 | ASMTBHDC ---
Notes Note: Notes: Pt. reports feeling "okay". Pt. reports sleeping "really good" and getting enough to eat. Pt. reports no issues with her current medications. Pt. stated she had a family meeting yesterday, adding "think it went really well". Pt. stated her mother has found her an outpatient therapist and is looking for placement. Pt reports continuing to work with [facility]. Pt. shared about being on a behavioral plan, adding it is "hard sometimes" when she wants to rest. Pt. stated she wants to go to the "transitional housing with [facility]". Pt. denied SI, HI, AVH and paranoia. Pt. presents as alert, calm, good eye contact, groomed, and cooperative. Staff report pt. sleeping 8 hours and being medication compliant. Date Signed: 10/05/2018 03:13 PM Electronically Signed By:Sapna Miller
[2018-10-05] MEDS: BENZTROPINE MESYLATE 1 MG TAB PO SCH (20:31)
[2018-10-06] MEDS: CHOLECALCIFEROL VIT D3 1,000 UNITS TAB PO SCH (08:16)
[2018-10-06] MEDS: FERROUS SULFATE 325 MG TAB PO SCH ×2 (08:16→21:03)
[2018-10-06] MEDS: VALPROIC ACID 250 MG/5 ML UDCUP PO SCH ×2 (08:16→21:03)
[2018-10-06] MEDS: SENNOSIDES/DOCUSATE SODIUM TAB PO SCH ×2 (08:16→21:04)
--- NOTE | 2018-10-06 16:48 | SOAPPROG ---
SOAP Progress Note Assessment/Plan: Assessment: Per Kendell Hong's note: Schizoaffective Disorder, Bipolar Type. No improvement noted. (see subjective/ objective note). Patient is not safe to discharge at this time as patient continues to exhibit signs of psychosis, and express psychosis symptoms. Patient requires continued inpatient care because of current psychosis, and requires inpatient level of care to stabilize to no longer be gravely disabled due to mental illness. Patient continues to require prompting and direction from staff for ADLs, is withdrawn from social interactions, currently on reverse room order to motivate to attend groups, patient often continues to not attend groups and sits in hallway during groups, refusing to attend, patient neglecting self-care, refuses to return to her apartment due to paranoid delusions, and support system has inability to manage functional impairment at lower level of care. Patient could benefit from continued inpatient hospitalization for crisis stabilization, safety, and medication evaluation. Plan: 1. Psychotropic medications: After reviewing options, risks, and benefits patient agrees to continue current medications. No medication changes at this time as more time is needed to determine ongoing tolerability and efficacy. Plan is to continue to observe patient for response and side effects from medications, and ongoing monitoring and evaluation. Addendum from family meeting on 10/04/[address] Martin: Pt interviewed alone and with mother present in family meeting with myself, patient, CC and SNATH HANDLE ASSEMBLER. Reviewed at length our observations and current recommendations. We emphasized that pt is stable in this environment. Mother voices primary concern that pt is unwilling to stay at her apartment, even with mother there. Pt reiterates this stating she will not stay there. Team reiterated that we have met our treatment goals for this setting, but agree that pt cannot be discharged to that circumstance if she is already stating she will not stay there. Various options discussed including returning to [facility], going to step down services with CR, going to a hotel, or going to mother 's home. Pt is agreeable to any option except going back to her apartment or her mother's home. She states, "I will feel unsafe there and I cannot stay." Mother is not agreeable to [facility] for financial reasons and has not investigated step down. Team emphasized the need for safe placement. Mother voiced her consistent disagreement with discharge at this time due to lack of placement and threatened numerous times to "take her out of here if you make me but I won't sign anything. Then we'll be back in the ER tonight." Team was united in belief that pt should not be discharged until a mutually agreeable, safe discharge plan can be arranged. Mother was encouraged to talk directly to CR to work this out as it is redundant to have CC act as intermediary. She eventually agrees to do this. Meeting closed with plan for mother to work with CR to finalize d/c plan. We will not change medications during this hospitalization due to pt's stability. Addendum entered and electronically signed by Kendell Hong NP 10/04/18 14:38 : This SNATH HANDLE ASSEMBLER, MD, and rn palliative care met with patient and patient's mother ( guardian) to review discharge plan. Patient's mother to search for transitional housing for patient in order for patient to have safe place to discharge as patient currently paranoid regarding returning to her apartment and her returning to her apartment would lead to re-hospitalization. Patient currently does not have support system in place that has the ability to manage functional impairment at lower level of care. Goal is to establish this support system prior to patient discharging. This SNATH HANDLE ASSEMBLER will follow-up with patient's mother on Sunday. Patient is currently treated at [facility] on outpatient basis and patient's mother plans to contact [facility] regarding transitional housing as patient has done well in this environment in the past. Patient has not been able to function independently at her apartment since moving there July 2018, and her delusion of noises and someone being after her while at her apartment has led to several visits the the ER and hospitalizations here. An alternative living arrangement is needed to ensure a safe discharge and reduce likelihood of ER visits and re-hospitalizations due to these ongoing delusions. Plan: 10/05/18 15:07 1. Patient still "scared" to go back to her apartment. MOC looking into different placement options. 2. MOC says she cannot afford for patient to go to [facility] and is looking into alternative services. 3. Patient is not participating in treatment while on unit. 4. Patient is eating, sleeping well, denies depressed mood, psychosis and SI. 5. No changes to medications or treatment plan as patient is not exhibiting any acute psych symptoms. She is functioning at her baseline. 6. Voluntary 10/06/18 16:44 1. Patient doing well in hospital, no report of AH/VH, no "noises" at night, no paranoid delusions, no mood changes. 2. Patient slept 7 hrs and ate 100% of meals. 3. Patient is functioning at baseline per her report and MD observation. 4. MOC still looking at possible housing options. 5. CCM Subjective: Patient pleasant, cooperative on unit. Out of her room today, interacting appropriately with staff and peers. She was smiling when MD talked to her. She denies any psychotic sxs, denies feeling depressed. But she says she is "anxious " about returning to her apartment. [facility] is trying to find her a new apartment or place to stay. Objective: Vital Signs Temp Pulse Resp BP Pulse Ox 36.4 C 74 14 94/52 L 95 10/06/18 06:00 10/06/18 06:00 10/06/18 06:00 10/06/18 06:00 10/06/18 06:00 MSE: Affect: Brighter Mood: "OK" TP: Goal-directed TC: Denies any SI/HI Insight/Judgment: Improved - Time Spent With Patient Time Spent With Patient: 15" - Pending Discharge Pending Discharge Within 24 Hours: No Pending Discharge Within 48 Hours: No ICD10 Worksheet Patient Problems: Problems Problem Status Onset Schizoaffective disorder Acute Anemia Acute Depression Acute Grave disability Acute H/O bariatric surgery Acute Posttraumatic stress disorder Chronic
[2018-10-06] MEDS: BENZTROPINE MESYLATE 1 MG TAB PO SCH (21:03)
--- NOTE | 2018-10-07 06:30 | SOAPPROG ---
SOAP Progress Note Assessment/Plan: Assessment: Schizoaffective Disorder, Bipolar Type. No improvement noted. (see subjective/ objective note). Patient is not safe to discharge at this time as patient continues to exhibit signs of psychosis, and express psychosis symptoms. Patient requires continued inpatient care because of current psychosis, and requires inpatient level of care to stabilize to no longer be gravely disabled due to mental illness. Patient continues to require prompting and direction from staff for ADLs, is withdrawn from social interactions, currently on reverse room order to motivate to attend groups, patient often continues to not attend groups and sits in hallway during groups, refusing to attend, patient neglecting self-care, refuses to return to her apartment due to paranoid delusions, and support system has inability to manage functional impairment at lower level of care. Patient could benefit from continued inpatient hospitalization for crisis stabilization, safety, and medication evaluation. Plan: 1. Psychotropic medications: After reviewing options, risks, and benefits patient agrees to continue current medications. No medication changes at this time as more time is needed to determine ongoing tolerability and efficacy. Plan is to continue to observe patient for response and side effects from medications, and ongoing monitoring and evaluation. 2. Review with patient informed consent and recommendations for psychotropic medication treatment listed below 3. Labs: no additional labs at this time 4. Therapy: continue milieu and group therapy 5. Further investigation including gathering information from patients relatives and review of past case records to inform treatment plan. 6. Safety/Wellness plan and follow-up outpatient appointments to be established prior to discharge. Next steps are for patient to meet with manager career to plan a safe discharge plan and establish outpatient services for ongoing treatment. 7. Confer with inpatient treatment team regarding treatment and discharge plan. 8. Psychosocial stressors addressed through renal case manager 9. Legal status: voluntary 10. Consider discharge this week if patient is in stable condition, safe, and has a safe discharge plan. 11. Contact MOC to discuss discharge plan. PSYCHOTROPIC MEDICATION TREATMENT INFORMED CONSENT and RECOMMENDATIONS: Review nature of condition, diagnosis, and prognosis. Review nature and purpose of psychotropic medication treatment. Review type of psychotropic medications being ordered. Review risk and benefits of psychotropic medication treatment. Review probable length of time patient will need to take medications. Review risk and benefits of not undergoing psychotropic medication treatment. Review alternative treatments to psychotropic medications. Review psychotropic medications contraindications, drug-drug interactions, side effects, and importance of reporting any side effects to a psychiatric provider or nurse during inpatient hospitalization, and upon discharge to patients psychiatric outpatient provider, primary care provider, or other health managed care analyst. Review importance of asking a nurse, psychiatric provider, or primary care provider any questions or problems concerning the psychotropic medications. Verify patient understands the information that has been provided, and understands, accepts, and agrees to psychotropic medications. Review patients safety plan and importance of patient to report to staff while hospitalized if patient is ever a danger to self/others, or unable to care for self, and upon discharge, the importance for patient to contact [facility] or [facility], or go to the nearest emergency room, if patient is ever a danger to self/others, or unable to care for self. Recommend that upon discharge patient establish medication management treatment with a psychiatric provider, establishes routine therapy appointments, and follow-up with primary care provider. Verify patient understands and agrees to these recommendations. 10/07/18 06:40 Subjective: Following up with patient for evaluation of psychosis, jori, and safety. Patient states, "Not really sure if I am ready to go back to my apartment." Patient reports taking medications as prescribed, and reports no side effects. Patient agrees to continue current medications. Patient reports she slept well last night, and agrees to attend groups today. Patient reports she attended groups over the weekend, and states she had a "good" weekend. Objective: Vital Signs Temp Pulse Resp BP Pulse Ox 36.4 C 74 14 94/52 L 95 10/06/18 06:00 10/06/18 06:00 10/06/18 06:00 10/06/18 06:00 10/06/18 06:00 NURSING REPORT: Consulted with nursing for update on patients progress in treatment. Nurses report patient is not engaged in treatment, does not attend groups unless prompted and directed by staff; patient attends groups for a few minutes, then spends most of the time in the hallway, away from group setting; slept 8 hours, expresses the following psychiatric symptoms: anxious; exhibits the following psychiatric symptoms: withdrawn, flat affect; is agreeable to medications and taking as prescribed with no report of side effects, with no s/ s of EPS/akathisia, and denies SI/HI, denies A/V hallucinations, and reports delusions. Patient requires some prompting and direction from staff to attend to ADLs and is currently on reverse room order due to patient being withdrawn to room and avoiding social interactions. MD REPORT FROM WEEKEND: Patient has no acute psych sxs. No psychosis. Supposedly has appt with Dr. Alegria on 10/07/18 at 2pm. MSE: The patient is a well-nourished female looking stated chronological age. Attire is appropriate dress is casual. Grooming status is inappropriate and disheveled. Ambulation is independent. Gait is normal and coordinated. Posture is normal. Eye contact is inappropriate and avoided. Motor activity is appropriate with purposeful, organized, coordinated movements; with no involuntary movements. Attitude is cooperative, guarded at times. Patient appears attentive and relates fairly well to this interviewer. Language production is spontaneous. Rate is normal. Latency of response is normal. Articulation is clear. Patient reports mood as okay with flat, incongruent affect. Patients thought process is linear and logical. Patient does not report suicidal/homicidal thoughts, ideas, or plans. Patient denies auditory, visual hallucinations. Patient reports delusions; paranoid regarding returning to her apartment due to noises. Patient does not appear to be attending to internal stimuli. Patients attention and concentration are poor. Patient is oriented to person, place, time. Patients insight is poor. Patients judgment is poor. - Time Spent With Patient Time Spent With Patient: 15 minutes, met with patient individually. - Pending Discharge Pending Discharge Within 24 Hours: No Pending Discharge Within 48 Hours: No ICD10 Worksheet Patient Problems: Problems Problem Status Onset Schizoaffective disorder Acute Anemia Acute Depression Acute Grave disability Acute H/O bariatric surgery Acute Posttraumatic stress disorder Chronic
[2018-10-07] MEDS: VALPROIC ACID 250 MG/5 ML UDCUP PO SCH ×3 (08:24→20:29)
[2018-10-07] MEDS: CHOLECALCIFEROL VIT D3 1,000 UNITS TAB PO SCH (08:24)
[2018-10-07] MEDS: FERROUS SULFATE 325 MG TAB PO SCH ×2 (08:24→20:24)
[2018-10-07] MEDS: SENNOSIDES/DOCUSATE SODIUM TAB PO SCH ×2 (08:24→20:25)
[2018-10-07] MEDS: BENZTROPINE MESYLATE 1 MG TAB PO SCH (20:24)
[2018-10-08] MEDS ORDERED: risperiDONE MICROSPHERES 50 MG/2 ML SYR IM ONE (08:36)
--- NOTE | 2018-10-08 08:47 | SOAPPROG ---
SOAP Progress Note Assessment/Plan: Assessment: Schizoaffective Disorder, Bipolar Type. No improvement noted. (see subjective/ objective note). Patient is not safe to discharge at this time as patient continues to exhibit signs of psychosis, and express psychosis symptoms. Patient requires continued inpatient care because of current psychosis, and requires inpatient level of care to stabilize to no longer be gravely disabled due to mental illness. Patient continues to require prompting and direction from staff for ADLs, is withdrawn from social interactions, currently on reverse room order to motivate to attend groups, patient often continues to not attend groups and sits in hallway during groups, refusing to attend, patient neglecting self-care, refuses to return to her apartment due to paranoid delusions, and support system has inability to manage functional impairment at lower level of care. Patient could benefit from higher dose of Risperidone CONSTA to be administered today. Patient could benefit from continued inpatient hospitalization for crisis stabilization, safety, and medication evaluation. Plan: 1. Psychotropic medications: After reviewing options, risks, and benefits patient agrees to continue current medications, and agrees to Risperidone CONSTA 50 mg IM to be administered today. No medication changes at this time as more time is needed to determine ongoing tolerability and efficacy. Plan is to continue to observe patient for response and side effects from medications, and ongoing monitoring and evaluation. 2. Review with patient informed consent and recommendations for psychotropic medication treatment listed below 3. Labs: no additional labs at this time 4. Therapy: continue milieu and group therapy 5. Further investigation including gathering information from patients relatives and review of past case records to inform treatment plan. 6. Safety/Wellness plan and follow-up outpatient appointments to be established prior to discharge. Next steps are for patient to meet with director of career services to plan a safe discharge plan and establish outpatient services for ongoing treatment. 7. Confer with inpatient treatment team regarding treatment and discharge plan. 8. Psychosocial stressors addressed through rehabilitation case coordinator 9. Legal status: voluntary 10. Consider discharge this week if patient is in stable condition, safe, and has a safe discharge plan. 11. Contact MOC to discuss discharge plan. PSYCHOTROPIC MEDICATION TREATMENT INFORMED CONSENT and RECOMMENDATIONS: Review nature of condition, diagnosis, and prognosis. Review nature and purpose of psychotropic medication treatment. Review type of psychotropic medications being ordered. Review risk and benefits of psychotropic medication treatment. Review probable length of time patient will need to take medications. Review risk and benefits of not undergoing psychotropic medication treatment. Review alternative treatments to psychotropic medications. Review psychotropic medications contraindications, drug-drug interactions, side effects, and importance of reporting any side effects to a psychiatric provider or nurse during inpatient hospitalization, and upon discharge to patients psychiatric outpatient provider, primary care provider, or other health respiratory care practitioner. Review importance of asking a nurse, psychiatric provider, or primary care provider any questions or problems concerning the psychotropic medications. Verify patient understands the information that has been provided, and understands, accepts, and agrees to psychotropic medications. Review patients safety plan and importance of patient to report to staff while hospitalized if patient is ever a danger to self/others, or unable to care for self, and upon discharge, the importance for patient to contact [facility] or [facility], or go to the nearest emergency room, if patient is ever a danger to self/others, or unable to care for self. Recommend that upon discharge patient establish medication management treatment with a psychiatric provider, establishes routine therapy appointments, and follow-up with primary care provider. Verify patient understands and agrees to these recommendations. 10/08/18 08:45 Subjective: Following up with patient for evaluation of psychosis, jori, and safety. Patient states, "Still concerned about going back to my apartment. I met with Dr. Arreaga yesterday and talked about my medications." Patient reports taking medications as prescribed, and reports no side effects. Patient agrees to continue current medications. Patient agrees to Risperidone CONSTA 50 mg IM to be administered today. Patient reports she discussed this medication increase ( from Risperidone CONSTA 37.5 mg to 50 mg) with Dr. Arreaga yesterday, and agrees to the increase. Patient reports she has been on this dose in the past, and tolerated with good response. Patient reports she slept well last night, and agrees to attend groups today. Objective: Vital Signs Temp Pulse Resp BP Pulse Ox 36.8 C 79 16 99/52 L 96 10/08/18 06:00 10/08/18 06:00 10/08/18 06:00 10/08/18 06:00 10/08/18 06:00 NURSING REPORT: Consulted with nursing for update on patients progress in treatment. Nurses report patient is not engaged in treatment, does not attend groups unless prompted and directed by staff; patient attends groups for a few minutes, then spends most of the time in the hallway, away from group setting; slept 8 hours, expresses the following psychiatric symptoms: anxious; exhibits the following psychiatric symptoms: withdrawn, flat affect; is agreeable to medications and taking as prescribed with no report of side effects, with no s/ s of EPS/akathisia, and denies SI/HI, denies A/V hallucinations, and reports delusions. Patient requires some prompting and direction from staff to attend to ADLs and is currently on reverse room order due to patient being withdrawn to room and avoiding social interactions. DR. ARREAGA [facility] 10/07/18: Dr. Arreaga, [facility], reported yesterday during consult call to this ASPHALT PAVER OPERATOR that patient has improved on higher doses of Risperidone CONSTA in the past, and reported has been on Risperidone CONSTA 50 mg IM in the past, and tolerated and responded well to this dose compared to lower doses of 25 and 37.5 mg. Patient was less paranoid and attended to ADLs when on higher dose of Risperidone CONSTA. MSE: The patient is a well-nourished female looking stated chronological age. Attire is appropriate dress is casual. Grooming status is inappropriate and disheveled. Ambulation is independent. Gait is normal and coordinated. Posture is normal. Eye contact is inappropriate and avoided. Motor activity is appropriate with purposeful, organized, coordinated movements; with no involuntary movements. Attitude is cooperative, guarded at times. Patient appears attentive and relates fairly well to this interviewer. Language production is spontaneous. Rate is normal. Latency of response is normal. Articulation is clear. Patient reports mood as okay with flat, incongruent affect. Patients thought process is linear and logical. Patient does not report suicidal/homicidal thoughts, ideas, or plans. Patient denies auditory, visual hallucinations. Patient reports delusions; paranoid regarding returning to her apartment due to noises. Patient does not appear to be attending to internal stimuli. Patients attention and concentration are poor. Patient is oriented to person, place, time. Patients insight is poor. Patients judgment is poor. - Time Spent With Patient Time Spent With Patient: 15 minutes, met with patient individually. - Pending Discharge Pending Discharge Within 24 Hours: No Pending Discharge Within 48 Hours: No ICD10 Worksheet Patient Problems: Problems Problem Status Onset Schizoaffective disorder Acute Anemia Acute Depression Acute Grave disability Acute H/O bariatric surgery Acute Posttraumatic stress disorder Chronic
[2018-10-08] MEDS: FERROUS SULFATE 325 MG TAB PO SCH ×2 (09:00→20:19)
[2018-10-08] MEDS ORDERED: risperiDONE MICROSPHERES 37.5 MG/2 ML SYR IM ONE (09:00)
[2018-10-08] MEDS: SENNOSIDES/DOCUSATE SODIUM TAB PO SCH ×2 (09:25→20:19)
[2018-10-08] MEDS: CHOLECALCIFEROL VIT D3 1,000 UNITS TAB PO SCH (09:25)
--- NOTE | 2018-10-08 13:01 | ASMTBHDC ---
Notes Note: Notes: The patient presented as calm, cooperative, and talkative. She reported that she is doing "good" including that she is "keeping up with hygiene, sleep, and meals." The patient reported showering yesterday evening (10/07/18). Additionally, this screenplay writer supported the patient to use her make up. She has been compliant with her room restriction; she is observed participating in groups and sleeping 8+ hours overnight. The patient explained that she is waiting for her mom to secure transitional housing prior to discharge. The patient plans to continue services with [facility]. Date Signed: 10/08/2018 01:01 PM Electronically Signed By:Tess Quinteros
[2018-10-08] MEDS: BENZTROPINE MESYLATE 1 MG TAB PO SCH (20:19)
[2018-10-08] MEDS: VALPROIC ACID 250 MG/5 ML UDCUP PO SCH ×2 (20:20→20:39)
[2018-10-09 06:49] VITALS: BP 86/53
--- NOTE | 2018-10-09 08:02 | SOAPPROG ---
SOAP Progress Note Assessment/Plan: Assessment: Schizoaffective Disorder, Bipolar Type. No improvement noted. (see subjective/ objective note). Patient is not safe to discharge at this time as patient continues to exhibit signs of psychosis, and express psychosis symptoms. Patient requires continued inpatient care because of current psychosis, and requires inpatient level of care to stabilize to no longer be gravely disabled due to mental illness. Patient continues to require prompting and direction from staff for ADLs, is withdrawn from social interactions, currently on reverse room order to motivate to attend groups, patient often continues to not attend groups and sits in hallway during groups, refusing to attend, patient neglecting self-care, refuses to return to her apartment due to paranoid delusions, and support system has inability to manage functional impairment at lower level of care. Patient could benefit from higher dose of Risperidone CONSTA to be administered today. Patient could benefit from continued inpatient hospitalization for crisis stabilization, safety, and medication evaluation. Plan: 1. Psychotropic medications: After reviewing options, risks, and benefits patient agrees to continue current medications, and agrees to Risperidone CONSTA 50 mg IM to be administered today. No medication changes at this time as more time is needed to determine ongoing tolerability and efficacy. Plan is to continue to observe patient for response and side effects from medications, and ongoing monitoring and evaluation. 2. Review with patient informed consent and recommendations for psychotropic medication treatment listed below 3. Labs: no additional labs at this time 4. Therapy: continue milieu and group therapy 5. Further investigation including gathering information from patients relatives and review of past case records to inform treatment plan. 6. Safety/Wellness plan and follow-up outpatient appointments to be established prior to discharge. Next steps are for patient to meet with care associate to plan a safe discharge plan and establish outpatient services for ongoing treatment. 7. Confer with inpatient treatment team regarding treatment and discharge plan. 8. Psychosocial stressors addressed through pillowcase sewer 9. Legal status: voluntary 10. Consider discharge this week if patient is in stable condition, safe, and has a safe discharge plan. 11. Contact [facility] to discuss discharge plan. 12. Contact [facility] regarding patients interest in going to transitional housing after discharge. PSYCHOTROPIC MEDICATION TREATMENT INFORMED CONSENT and RECOMMENDATIONS: Review nature of condition, diagnosis, and prognosis. Review nature and purpose of psychotropic medication treatment. Review type of psychotropic medications being ordered. Review risk and benefits of psychotropic medication treatment. Review probable length of time patient will need to take medications. Review risk and benefits of not undergoing psychotropic medication treatment. Review alternative treatments to psychotropic medications. Review psychotropic medications contraindications, drug-drug interactions, side effects, and importance of reporting any side effects to a psychiatric provider or nurse during inpatient hospitalization, and upon discharge to patients psychiatric outpatient provider, primary care provider, or other health acute care assistant. Review importance of asking a nurse, psychiatric provider, or primary care provider any questions or problems concerning the psychotropic medications. Verify patient understands the information that has been provided, and understands, accepts, and agrees to psychotropic medications. Review patients safety plan and importance of patient to report to staff while hospitalized if patient is ever a danger to self/others, or unable to care for self, and upon discharge, the importance for patient to contact [facility] or [facility], or go to the nearest emergency room, if patient is ever a danger to self/others, or unable to care for self. Recommend that upon discharge patient establish medication management treatment with a psychiatric provider, establishes routine therapy appointments, and follow-up with primary care provider. Verify patient understands and agrees to these recommendations. 10/09/18 08:01 Subjective: Following up with patient for evaluation of psychosis, jori, and safety. With regard to discharge plans patient states, "I would like to go to transitional housing through [facility]. I have done this before and it worked well. Thought this would be a good step before going back to my apartment. Don't feel like going back there right away." Patient reports taking medications as prescribed, and reports no side effects. Patient agrees to continue current medications. Patient agrees to Risperidone CONSTA 50 mg IM to be administered today. Patient reports she slept well last night, and agrees to attend groups today. Objective: Vital Signs Temp Pulse Resp BP Pulse Ox 36.5 C 84 16 86/53 L 94 10/09/18 06:00 10/09/18 06:00 10/09/18 06:00 10/09/18 06:00 10/09/18 06:00 NURSING REPORT: Consulted with nursing for update on patients progress in treatment. Nurses report patient is not engaged in treatment, does not attend groups unless prompted and directed by staff; patient attends groups for a few minutes, then spends most of the time in the hallway, away from group setting; slept 8 hours, expresses the following psychiatric symptoms: anxious; exhibits the following psychiatric symptoms: withdrawn, flat affect; is agreeable to medications and taking as prescribed with no report of side effects, with no s/ s of EPS/akathisia, and denies SI/HI, denies A/V hallucinations, and reports delusions. Patient requires some prompting and direction from staff to attend to ADLs and is currently on reverse room order due to patient being withdrawn to room and avoiding social interactions. MSE: The patient is a well-nourished female looking stated chronological age. Attire is appropriate dress is casual. Grooming status is inappropriate and disheveled. Ambulation is independent. Gait is normal and coordinated. Posture is normal. Eye contact is inappropriate and avoided. Motor activity is appropriate with purposeful, organized, coordinated movements; with no involuntary movements. Attitude is cooperative, guarded at times. Patient appears attentive and relates fairly well to this interviewer. Language production is spontaneous. Rate is normal. Latency of response is normal. Articulation is clear. Patient reports mood as okay with flat, incongruent affect. Patients thought process is linear and logical. Patient does not report suicidal/homicidal thoughts, ideas, or plans. Patient denies auditory, visual hallucinations. Patient reports delusions; paranoid regarding returning to her apartment due to noises. Patient does not appear to be attending to internal stimuli. Patients attention and concentration are poor. Patient is oriented to person, place, time. Patients insight is poor. Patients judgment is poor. - Time Spent With Patient Time Spent With Patient: 15 minutes, met with patient individually. - Pending Discharge Pending Discharge Within 24 Hours: No Pending Discharge Within 48 Hours: No ICD10 Worksheet Patient Problems: Problems Problem Status Onset Schizoaffective disorder Acute Anemia Acute Depression Acute Grave disability Acute H/O bariatric surgery Acute Posttraumatic stress disorder Chronic
[2018-10-09] MEDS: FERROUS SULFATE 325 MG TAB PO SCH (08:16)
[2018-10-09] MEDS: VALPROIC ACID 250 MG/5 ML UDCUP PO SCH (08:16)
[2018-10-09] MEDS: CHOLECALCIFEROL VIT D3 1,000 UNITS TAB PO SCH (08:16)
[2018-10-09] MEDS: SENNOSIDES/DOCUSATE SODIUM TAB PO SCH (08:21)
[2018-10-09] MEDS ORDERED: risperiDONE MICROSPHERES 50 MG/2 ML SYR IM ONE ×2 (09:00→15:30)
--- NOTE | 2018-10-09 14:42 | ASMTBHFAM ---
Notes Note: Notes: CC out-reached MOC, with breaker unit assembler and provider on the phone. MOC noted, "that there is no room [my] budget for her [client] to stay at [facility], Transitional Housing, etc. The plan was made for client to discharge this evening to [facility] and return to her apartment. CC will provide [facility] information as well as walk-in clinic information for MOC/client. MOC agreed to be on the unit around 6pm for discharge. Date Signed: 10/09/2018 02:41 PM Electronically Signed By:Galileo Hensley
--- NOTE | 2018-10-09 16:21 | SOAPPROG ---
SOAP Progress Note Assessment/Plan: Assessment: Per Kendell Hong's note from 10/09/18: Following up with patient for evaluation of psychosis, jori, and safety. With regard to discharge plans patient states, "I would like to go to transitional housing through [facility]. I have done this before and it worked well. Thought this would be a good step before going back to my apartment. Don't feel like going back there right away." Patient reports taking medications as prescribed, and reports no side effects. Patient agrees to continue current medications. Patient agrees to Risperidone CONSTA 50 mg IM to be administered today. Patient reports she slept well last night, and agrees to attend groups today. PLAN: 10/09/18 15:59 1. This MD spoke with [facility] by phone at request of patient and CC. The CC and pediatric acute care unit nurse were present for the phone conversation, but not the patient. Patient's MOC states she has not been looking into any alternative placement for her daughter. There was some confusion among staff b/c Dr. Martin and Kendell Hong, [facility], spoke with MOC last week on 10/04 at length. At that time, VAC said she would look into "transitional living" options with [facility]. Patient also told this MD several times that she was interested in "transitional housing." MD asked both patient and MOC what type of transitional housing they were interested in. Patient said she wanted to go stay at [facility]. However, during our phone conversation, patient's MOC, Lauren, clearly states "I can't afford [facility]." CC suggested patient could move into a 2 bedroom apartment and find a therapeutic roommate through [facility]. MOC said she couldn't afford to spend "any more money" on patient's rent. [facility] has been financially supporting her daughter for several years. MOC told CC that she has spent > $200,000 on patient's care and housing over that time. MOC said "I don't have enough money" to pay for any additional treatment or any other housing options than the apartment where patient currently lives. MD asked if there were any additional options for places were daughter could go stay when she leaves hospital. MOC said, "No, I can't spend any more money for anything else." MOC said she couldn't afford to break the lease on current apartment and move patient into another one, she can't afford a larger apartment , she can't afford [facility], she can't afford a hotel. She said, "I don't have any more money to spend." MOC said she might be able to find a roommate who would be willing to move into the patient's current 1 bedroom apartment b/c the patient "doesn't sleep in the bedroom anyway." MOC said she would stay with patient in her apartment until she can find a suitable roommate. CC suggested [facility] might be able to help with finding a roommate. MD, CC and pediatric acute care unit nurse discussed several options for discharge dates/times. MOC said she would prefer to pick patient up "tonight if possible" so she can get patient settled in her apartment. MOC said she will stay with patient as long as necessary. MD and CC discussed some ways MOC can help patient feel safe and comfortable in her apartment instead of returning to ED if patient becomes uncomfortable at home. In past, patient reports paranoid delusions about "noises " that she only hears in her apartment. She does not have any psychotic sxs while she is on 3N. MD suggested MOC and patient discuss the long-term plan for housing together and compare options for future. MOC said if she budgets her money, she might be able to afford another apartment for her daughter down the road. MD encouraged MOC and patient to have honest discussion about their financial options so that daughter feels included in decision making process and can learn to deal with her fear and anxiety by making plans for future and using calming/soothing techniques to allay her anxiety. MOC and patient agreed with this plan. 2. MD, CC and pediatric acute care unit nurse, all spoke with patient after phone conversation and discussed patient's discharge. Patient said she didn't want to return to her apartment, but said she understood that there were no other options for her right now. She said she understood that her MOC "can't afford" to pay rent for a larger apartment and can't break her current lease right now. She also knows that her MOC can't afford any other living arrangements, including [facility] , at this time. She understands she will have to stay at her current apartment until she and her MOC can agree on another realistic solution. She might be able to move when her current lease expires if she and her MOC can find a similar or less expensive apartment somewhere else. Patient says this would be a good option for her. She tells , CC and pediatric acute care unit nurse, "I can't promise I will be able to stay at my apartment." She says, "I may go back to the emergency room." MD reviews several options with patient including the ones MD discussed with her MOC (such as bharati and honest communication about future plans, budgeting and roommate options). MD also encouraged patient to use her coping skills and self-regulating techniques to manage her discomfort and anxiety at home. She said she would try. 3. Patient denied all psychotic sxs. She denies feeling sad, depressed, helpless , hopeless, worthless. She denied any thoughts, plan or intent to hurt herself. She has no sxs of jori, no delusions, no pressured speech or racing thoughts. She denies hearing any "noises" while in hospital. She admits to "some anxiety" about returning to her home, but denies she has any panic sxs. After our discussion, patient was sitting up calmly in bed, no physical agitation, no fidgeting, no restless, good eye contact, calm demeanor, smiling, pleasant. 4. MOC said she would like to sheepskin pickler patient right after work, around 6pm. 5. Patient has f/u with Dr. Alegria on 10/15/[address] Alegria is aware patient is discharging today and will have services available for patient at [facility] once she returns home. Subjective: Patient denied all psychotic sxs. She denies feeling sad, depressed, helpless, hopeless, worthless. She denied any thoughts, plan or intent to hurt herself. She has no sxs of jori, no delusions, no pressured speech or racing thoughts. She denies hearing any "noises" while in hospital. She admits to "some anxiety" about returning to her home, but denies she has any panic sxs. After our discussion, patient was sitting up calmly in bed, no physical agitation, no fidgeting, no restless, good eye contact, calm demeanor, smiling, pleasant. MOC said she would like to sheepskin pickler patient right after work, around 6pm. Patient has f/u with Dr. Alegria on 10/15/[address] Alegria is aware patient is discharging today and will have services available for patient at [facility] once she returns home. Objective: Vital Signs Temp Pulse Resp BP Pulse Ox 36.5 C 84 16 86/53 L 94 10/09/18 06:00 10/09/18 06:00 10/09/18 06:00 10/09/18 06:00 10/09/18 06:00 MSE: Affect: Smiling, euthymic Mood: "Some anxiety" "Good" TP: Linear TC: Denies any SI/HI Insight/Judgment: Fair - Time Spent With Patient Time Spent With Patient: 25" - Pending Discharge Pending Discharge Within 24 Hours: Yes Pending Discharge Date: 10/10/18 Pending Discharge Time: 11:00 ICD10 Worksheet Patient Problems: Problems Problem Status Onset Schizoaffective disorder Acute Anemia Acute Depression Acute Grave disability Acute H/O bariatric surgery Acute Posttraumatic stress disorder Chronic
== END 2018-10-09 18:12 | disposition home or self-care (01) | DRG 885 ==
LOC: BBEH 09-29 14:44
PROVIDERS: ADMIT Psychiatry & Neurology Psychiatry; ATTEND Psychiatry & Neurology Psychiatry
DX: F25.0 Schizoaffective disorder, bipolar type (principal); R45.851 Suicidal ideations; F43.10 Post-traumatic stress disorder, unspecified; Z98.84 Bariatric surgery status
CPT/HCPCS: 80305; G0480; J2794

== ENCOUNTER 2018-10-09 21:35 | Emergency (ER) | payer MEDICAID ==
--- NOTE | 2018-10-09 22:01 | EDPHY ---
H & P Stated Complaint: wants psych eval Source: Patient, Family (Mother/Legal guardian), Old records Exam Limitations: Clinical condition - Personal History LMP (Females 10-55): 15-21 Days Ago Current Tetanus/Diphtheria Vaccine: Yes - Medical/Surgical History Hx Asthma: No Hx Chronic Respiratory Disease: No Hx Diabetes: No Hx Cardiac Disease: No Hx Renal Disease: No Hx Cirrhosis: No Hx Alcoholism: No Hx HIV/AIDS: No Hx Splenectomy or Spleen Trauma: No Other PMH: Depression, schizophrenia, gastric bypass, cholesectomy, PTSD - Social History Smoking Status: Never smoked Time Seen by Provider: 10/09/18 21:51 HPI/ROS: HPI: This is a 28-year-old female who presents with Chief Complaint: Paranoia Location:psych Quality: Paranoia Duration: Today Signs and Symptoms: + auditory hallucinations, + visual hallucinations, no suicidal ideation with a plan, no homicidal ideation, + paranoia Timing: Acute on chronic Severity: Severe Context: Presents has a history of schizophrenia, accompanied by her legal guardian/mother with complaints of severe paranoia and psychosis despite being discharged from [address] [place] [address]. Mother reports that she bag them not to discharge her as she did not feel like she was ready. Patient had increased over Depakote 1500 mg daily and Risperdal 50 mg. Patient reports that she does not feel like she can stay at her place alone or at her mother's house. She feels that people are chasing her. She hears people knocking on her doors and banging on a windows. Mother reports that she is unable to go to transitional housing through [facility] as a cause 9000 hr per month. Modifying Factors: Regular psychiatric medications Comment: ROS: A comprehensive 10 system review of systems is otherwise negative aside from elements mentioned in the history of present illness. MEDICAL/SURGICAL/SOCIAL HISTORY: Medical history: Depression, schizophrenia, PTSD. LMP 2-3 weeks ago. Surgical history: Gastric bypass, cholecystectomy Social history: Denies alcohol, tobacco, drug use. Family history noncontributory. CONSTITUTIONAL: Tearful, tidy, cooperative adult white female, awake and alert , no obvious distress HEENT: Atraumatic and normocephalic, PERRL, EOMI. Nares patent; no rhinorrhea; no nasal mucosal edema. Tympanic membranes clear. Oropharynx clear, no exudate and moist pink mucosa. Airway patent. No lymphadenopathy. No meningismus. Cardiovascular: Normal S1/S2, regular rate, regular rhythm, without murmur rub or gallop. PULMONARY/CHEST: Symmetrical and nontender. Clear to auscultation bilaterally. Good air movement. No accessory muscle usage. ABDOMEN: Soft, nondistended, nontender, no rebound, no guarding, no peritoneal signs, no masses or organomegaly. No CVAT. EXTREMITIES: 2/2 pulses, strength 5/5, no deformities, no clubbing, no cyanosis or edema. NEUROLOGICAL: no focal neuro deficits. GCS 15. SKIN: Warm and dry, no erythema. no rash. Good capillary refill. PSYCH: Poor eye contact, no flight of ideas, relatively organized thought process, poor insight and judgment, + auditory hallucinations, + visual hallucinations, no suicidal ideation with a plan, no homicidal ideation, + paranoia (Tricia,Ava) Constitutional: Initial Vital Signs Temperature (C) 36.7 C 10/09/18 21:37 Heart Rate 89 10/09/18 21:37 Respiratory Rate 16 10/09/18 21:37 Blood Pressure 128/61 H 10/09/18 21:37 O2 Sat (%) 95 10/09/18 21:37 O2 Delivery Mode Room Air Allergies/Adverse Reactions: neomycin Allergy (Verified 10/09/18 21:38) Other-Enter Comments Home Medications: Medication Instructions Recorded Cyanocobalamin [Vitamin B12 (*)] 100 mcg PO DAILY tab 09/18/17 Multivitamins W-Minerals [Thera M 1 each PO DAILY tab 09/18/17 Plus Tablet (*)] LORazepam [Ativan (*)] 1 mg PO HS tab 09/27/18 Sennosides/Docusate Sodium 1 - 2 tab PO BID tab 09/27/18 [Senokot-S] Benztropine Mesylate [Cogentin] 1 mg PO HS #30 tab 10/09/18 Cholecalciferol Vit D3 [Vitamin D3 3,000 units PO DAILY #30 tab 10/09/18 (*)] Divalproex ER [Depakote ER 500 MG 1,500 mg PO DAILY #30 tab 10/09/18 (*)] Ferrous Sulfate [Ferrous Sulf 325 325 mg PO BID #30 tab 10/09/18 MG (*)] Risperdal 0.25mg (*) 10/09/18 Medical Decision Making ED Course/Re-evaluation: Vital signs reviewed and stable upon arrival. Patient has psychosis and paranoia. Will placed on M1 hold. Labs and UDS ordered. 2255: Labs grossly unremarkable. Medically clear for mental health evaluation 0005: End of shift. Signed over to Dr. Hensley pending mental health evaluation and final disposition. This patient was seen under the supervision of my secondary supervising physician. I evaluated care for this patient independently. Discussed this patient with Dr. Hensley who did not see the patient. (Ava Clarke) 0700 Patient has been sleeping. signed over to Dr. Oleary this am. Plan for re-eval with this morning. (Saleem Hensley) 7:00 a.m.-I assumed care of this patient at shift change. Mental health evaluation pending. Noon-this patient was seen by mental health and felt appropriate for outpatient treatment of schizophrenia. There is an extensive plan in place to help this patient on an outpatient basis. I agree with this assessment. (Nevaeh Oleary) Differential Diagnosis: Differential diagnosis includes but is not limited to major depression, anxiety disorder, schizophrenia, bipolar disorder, intoxicant use, suicidal ideation, psychosis, jori. (Ava Clarke) - Data Points Laboratory Results: Laboratory Results 10/09/18 22:35 10/09/18 22:35 10/10/18 01:25 Urine Opiates Screen NEGATIVE (NEGATIVE) Urine Barbiturates NEGATIVE (NEGATIVE) Ur Phencyclidine Scrn NEGATIVE (NEGATIVE) Ur Amphetamine Screen NEGATIVE (NEGATIVE) U Benzodiazepines Scrn NEGATIVE (NEGATIVE) Urine Cocaine Screen NEGATIVE (NEGATIVE) U Marijuana (THC) Screen NEGATIVE (NEGATIVE) Departure - Departure Disposition: Home, Routine, Self-Care Clinical Impression: Paranoid schizophrenia Condition: Good Instructions: Schizophrenia (ED) Additional Instructions: Follow-up with mental health as suggested. Referrals: Yanely Thakkar PA [Primary Care Provider] - As per Instructions
[2018-10-09 22:43] LABS: PLATELET COUNT 240 10^3/uL (150-400)
--- NOTE | 2018-10-10 00:52 | ASMTLCPROG ---
Notes Note: Notes: Spoke with mother who stated today when pt was discharged from [facility], mother took pt to [facility]. When it was time for mother to take pt home, pt stated, " I can't go back to the apartment. They're following me." Mother states she believes that pt has paranoia and pt insisted on coming back to our emergency department. Mother stated she will be able to send pt to the transitional program through [facility] and wants to see if she can reach her outpatient psychiatrist/therapist tomorrow to see about housing possibilities. Date Signed: 10/10/2018 12:51 AM Electronically Signed By:Magdalene Velazquez
[2018-10-10 12:42] VITALS: BP 112/70
--- NOTE | 2018-10-10 13:16 | ASMTLCPROG ---
Notes Note: Notes: Pt discharged from [facility] 3N last evening at approximately 6 pm. (See detailed progress note 10/09/18). Met with mother, Lauren Umanzor" in ED this morning who reported that when transporting pt from 3 last evening, pt expressed paranoia and "not feeling safe" to go back to her apartment or at mother's, so [facility] brought pt back to the ED. [facility] reported being pt's guardian and was hoping that a transitional bed at [facility] might be available for pt. Informed [facility] that I had left an outreach call to [facility] CM, Nirmala Moura [phone] [facility] updated. Received c/b from Nirmala Moura who stated she would be meeting later this morning with Dr. Alegria and team to discuss and would update me. I informed MO. Received another c/b from Nirmala Moura who confirmed that they do not have a transional bed available. Nirmala added that a Medicaid liaison named [place] [phone] was aware of pt current circumstances and that the [facility] had been provided with [place]'s contact information as well. [facility] confirmed that she does not have financial resources to pay for pt to enroll at [facility]. Informed [facility] that transitional bed is not available. [facility] stated she would be available to return back to the ED around noon today. I consulted also with Kendell Hong APN. Upon [facility] arrival back to the ED, [facility] stated understanding that pt does not meet criteria for re-admission. [facility] expressed distress that upon our meeting with pt to inform her that her options currently are limited to being discharged in [facility]'s care to either 1) go to her apartment, or 2) stay with mother. Pt appeared manupulative in stating that she didn't want to go to [facility] to "hang out" there for a few hours, that she didn't want to return to her apartment, and that she didn't want to return to [facility]'s residence right away and that she preferred to be dropped off at a [employer] shop until [address] [facility] could pick her up. I asked [facility] if she thought that the pt is aware of how distressed [facility] becomes when pt elects not to follow recommendations for care and place to stay. MOC replied, "so you think this might be a manipulation?" I agreed that it appears so, that there is a difference between psychiatric versus behavioral issues and that this appears to be behavioral, as pt was stable enough to be discharged from [facility]N last evening and currently does not meet re-admission criteria. MOC added that she had been corresponding with a resource called "[facility]" sitting services that she could provide for pt at home if need be. MOC verbalized understanding that the ED is not an appropriate avenue to use to interface between pt and her outpatient care providers at [facility]. I consulted also with on-call psychiatrist, Benito Mallory MD and provided him with update. Dr. Mallory concurred with ED interventions with MOC and pt and concurred with plan for pt to be discharged from ED and to follow up with oupatient care providers at [facility]. I then consulted with ED provider, Nevaeh Oleary MD who concurred that pt does not appear to meet 27-65 criteria requiring psychiatric hospitalization as pt does not appear to be an imminent risk of harm to self/others/gravely disabled due to a mental illness condition. Dr. Oleary provided verbal order read back vacating M1 hold at 1115 hrs. Pt discharged in care of mother and encouraged to follow up with Dr. Alegria and Nirmala Moura at [facility]. Date Signed: 10/10/2018 01:13 PM Electronically Signed By:Shaka Bellamy
--- NOTE | 2018-10-10 13:17 | ASMTTCLDSP ---
TLC Discharge Disposition Disposition Notes: Notes: In consultation with ED provider, Nevaeh Oleary MD who concurred that pt does not appear to meet 27-65 criteria requiring psychiatric hospitalization as pt does not appear to be an imminent risk of harm to self/others/gravely disabled due to a mental illness condition. Dr. Oleary provided verbal order read back vacating M1 hold at 1115 hrs. Pt discharged in care of mother and encouraged to follow up with Dr. Alegria and Nirmala Moura at [facility]. Discharge Concerns/Recommendations: Notes: In consultation with ED provider, Nevaeh Oleary MD who concurred that pt does not appear to meet 27-65 criteria requiring psychiatric hospitalization as pt does not appear to be an imminent risk of harm to self/others/gravely disabled due to a mental illness condition. Dr. Oleary provided verbal order read back vacating M1 hold at 1115 hrs. Pt discharged in care of mother and encouraged to follow up with Dr. Alegria and Nirmala Moura at [facility]. Was patient given the Answers: Not applicable Inpatient Behavioral Health Prohibited Belongings List while in the ED? Psychiatrist vacating M1 Nevaeh Oleary MD Hold: Date and time M1 hold 10/10/2018 11:15 AM vacated (time format is hh:mm): Type of Hold: Answers: M1/72-hour Hold Hold initiated by: Answers: ED Physician Date Signed: 10/10/2018 01:16 PM Electronically Signed By:Shaka Bellamy
== END 2018-10-10 12:42 | disposition home or self-care (01) ==
PROC: GZ11ZZZ Psychological Tests, Personality and Behavioral (ICD-10-PCS; principal; 2018-10-09)
DX: F20.0 Paranoid schizophrenia (principal)
CPT/HCPCS: 80305; G0480

== ENCOUNTER 2018-10-12 22:32 | Emergency (ER) | payer MEDICAID, OTHER ==
--- NOTE | 2018-10-12 22:56 | EDPHY ---
H & P Stated Complaint: SI, d/c'd from [facility] 3 days ago and thinks she was d/c'd too soon Source: Patient - Medical/Surgical History Hx Asthma: No Hx Chronic Respiratory Disease: No Hx Diabetes: No Hx Cardiac Disease: No Hx Renal Disease: No Hx Cirrhosis: No Hx Alcoholism: No Hx HIV/AIDS: No Hx Splenectomy or Spleen Trauma: No Other PMH: Depression, schizophrenia, gastric bypass, cholesectomy, PTSD - Social History Smoking Status: Never smoked Time Seen by Provider: 10/12/18 22:55 HPI/ROS: HPI CHIEF COMPLAINT: Suicidal ideation. Scared to be at home. HISTORY OF PRESENT ILLNESS: 28-year-old female very familiar to myself as I have seen her multiple times in the emergency room, presents emergency room stating that she is scared of her current living situation, feels paranoid, states people bother her at night. Also states that she suicidal. No specific plan. She states she is too scared to be at home. Recently hospitalized on . Patient requesting his stay here tonight. Past Medical History: Schizophrenia, PTSD, anxiety Past Surgical History: No recent surgical history Social History: Denies drugs alcohol tobacco. Mom is a psychiatrist but not present at this time. Family History: Noncontributory ROS REVIEW OF SYSTEMS: 10 Systems were reviewed and negative with the exception of the elements mentioned in the history of present illness. Exam Constitutional flat affect, nontoxic, triage nursing summary reviewed, vital signs reviewed, awake/alert. Eyes normal conjunctivae and sclera, EOMI, PERRLA. HENT normal inspection, atraumatic, moist mucus membranes, no epistaxis, neck supple/ no meningismus, no raccoon eyes. Respiratory clear to auscultation bilaterally, normal breath sounds, no respiratory distress, no wheezing. Cardiovascular rate normal, regular rhythm, no murmur, no edema, distal pulses normal. Gastrointestinal soft, non-tender, no rebound, no guarding, normal bowel sounds, no distension, no pulsatile mass. Genitourinary no CVA tenderness. Musculoskeletal no midline vertebral tenderness, full range of motion, no calf swelling, no tenderness of extremities, no meningismus, good pulses, neurovascularly intact. Skin pink, warm, & dry, no rash, skin atraumatic. Neurologic awake, alert and oriented x 3, AAOx3, moves all 4 extremities equally, motor intact, sensory intact, CN II-XII intact, normal cerebellar, normal vision, normal speech. Psychiatric Somewhat paranoid., suicidal. Heme/Lymph/Immune no lymphadenopathy. Differential Diagnosis: Includes but is not limited to in a particular order mood disorder, schizoaffective disorder, paranoia, psychosis, suicidal ideation , depression, PTSD, anxiety Medical Decision Making: Plan for this patient blood draw for medical clearance. Patient is voluntary. I will not place her on hold. Re-evaluation: 06: Signed over at 7:00 a.m. Shift change to Dr. Dolan. Patient Pending evalvaro. (Saleem Hensley) Constitutional: Initial Vital Signs Temperature (C) 36.7 C 10/12/18 22:43 Heart Rate 76 10/12/18 22:43 Respiratory Rate 18 10/12/18 22:43 Blood Pressure 121/67 H 10/12/18 22:43 O2 Sat (%) 94 10/12/18 22:43 O2 Delivery Mode Room Air Allergies/Adverse Reactions: neomycin Allergy (Verified 10/12/18 22:45) Other-Enter Comments Home Medications: Medication Instructions Recorded Cyanocobalamin [Vitamin B12 (*)] 100 mcg PO DAILY tab 09/18/17 Multivitamins W-Minerals [Thera M 1 each PO DAILY tab 09/18/17 Plus Tablet (*)] LORazepam [Ativan (*)] 1 mg PO HS tab 09/27/18 Sennosides/Docusate Sodium 1 - 2 tab PO BID tab 09/27/18 [Senokot-S] Benztropine Mesylate [Cogentin] 1 mg PO HS #30 tab 10/09/18 Cholecalciferol Vit D3 [Vitamin D3 3,000 units PO DAILY #30 tab 10/09/18 (*)] Divalproex ER [Depakote ER 500 MG 1,500 mg PO DAILY #30 tab 10/09/18 (*)] Ferrous Sulfate [Ferrous Sulf 325 325 mg PO BID #30 tab 10/09/18 MG (*)] Risperdal 0.25mg (*) 10/09/18 Medical Decision Making Other Provider: I assumed care of the patient at 0700. 8 a.m.: I am informed that the psychiatric team plans to vacated the 72 hr mental health hold and send the patient home. (Barrington Dolan) - Data Points Laboratory Results: Laboratory Results 10/12/18 23:23 10/12/18 23:23 10/12/18 10/12/18 10/12/18 23:23 23:23 23:23 WBC 12.24 10^3/uL H 10^3/uL (3.80-9.50) RBC 3.64 10^6/uL L 10^6/uL (4.18-5.33) Hgb 11.7 g/dL L g/dL (12.6-16.3) Hct 36.4 % L % (38.0-47.0) MCV 100.0 fL H fL (81.5-99.8) MCH 32.1 pg pg (27.9-34.1) MCHC 32.1 g/dL L g/dL (32.4-36.7) RDW 13.3 % % (11.5-15.2) Plt Count 233 10^3/uL 10^3/uL (150-400) MPV 11.0 fL fL (8.7-11.7) Neut % (Auto) 47.7 % % (39.3-74.2) Lymph % (Auto) 38.5 % % (15.0-45.0) [place] % (Auto) 11.1 % % (4.5-13.0) Eos % (Auto) 2.1 % % (0.6-7.6) Baso % (Auto) 0.3 % % (0.3-1.7) Nucleat RBC Rel Count 0.0 % % (0.0-0.2) Absolute Neuts (auto) 5.83 10^3/uL 10^3/uL (1.70-6.50) Absolute Lymphs (auto) 4.71 10^3/uL H 10^3/uL (1.00-3.00) Absolute Monos (auto) 1.36 10^3/uL H 10^3/uL (0.30-0.80) Absolute Eos (auto) 0.26 10^3/uL 10^3/uL (0.03-0.40) Absolute Basos (auto) 0.04 10^3/uL 10^3/uL (0.02-0.10) Absolute Nucleated RBC 0.00 10^3/uL 10^3/uL (0-0.01) Immature Gran % 0.3 % % (0.0-1.1) Immature Gran # 0.04 10^3/uL 10^3/uL (0.00-0.10) Sodium 137 mEq/L mEq/L (135-145) Potassium 4.0 mEq/L mEq/L (3.5-5.2) Chloride 107 mEq/L mEq/L (97-110) Carbon Dioxide 24 mEq/l mEq/l (22-31) Anion Gap 6 mEq/L mEq/L (6-14) BUN 13 mg/dL mg/dL (7-23) Creatinine 0.9 mg/dL mg/dL (0.6-1.0) Estimated GFR > 60 Glucose 82 mg/dL mg/dL (70-100) Calcium 8.4 mg/dL L mg/dL (8.5-10.4) Beta HCG, Qual NEGATIVE Ethyl Alcohol < 10 mg/dL mg/dL (0-10) Departure - Departure Disposition: Home, Routine, Self-Care Clinical Impression: Schizoaffective disorder Condition: Good Instructions: Schizophrenia (ED) Additional Instructions: 1. Please follow-up with the mental health resources provided in the ED today. 2. [facility] does operate a 30/04 psychiatric crisis unit located at [facility]. The telephone number for the 24 hour crisis center is [phone]. 3. Please return to the ED if you are feeling suicidal, having thoughts of harming yourself/others or should you feel unsafe or have worsening symptoms. Referrals: Yanely Thakkar PA [Primary Care Provider] - As per Instructions
[2018-10-12 23:32] LABS: PLATELET COUNT 233 10^3/uL (150-400)
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
[2018-10-13 08:47] VITALS: BP 105/78
== END 2018-10-13 08:47 | disposition home or self-care (01) ==
DX: R45.851 Suicidal ideations (principal); F20.89 Other schizophrenia
CPT/HCPCS: G0480

== ENCOUNTER 2018-10-16 21:57 | Emergency (ER) | payer OTHER, MEDICAID ==
--- NOTE | 2018-10-16 22:22 | EDPHY ---
H & P Stated Complaint: anxiety Source: Patient, EMS Exam Limitations: No limitations - Personal History LMP (Females 10-55): 8-14 Days Ago Current Tetanus Diphtheria and Acellular Pertussis (TDAP): Yes - Medical/Surgical History Hx Asthma: No Hx Chronic Respiratory Disease: No Hx Diabetes: No Hx Cardiac Disease: No Hx Renal Disease: No Hx Cirrhosis: No Hx Alcoholism: No Hx HIV/AIDS: No Hx Splenectomy or Spleen Trauma: No Other PMH: Depression, schizophrenia, gastric bypass, cholesectomy, PTSD - Social History Smoking Status: Never smoked Time Seen by Provider: 10/16/18 21:58 HPI/ROS: HPI The patient presents with anxiety and likely visual hallucination, brought in by ambulance from her hotel. She has a history of schizoaffective disorder and bipolar disorder. She is staying at a hotel currently because that is where she feels most safe after being discharged from [facility]. She was last in the emergency department on October 13 and had a mental health evaluation and was deemed clear for discharge with no M1 hold. She says she has been doing well at this hotel ever since. She had a normal day today, went to her outpatient programs, picked up her medication, ran some errands and then return to her hotel at about 9:00 p.m.. She thought she saw something moving under her hotel bed and became very concerned. She alerted the aircraft time clerk at the hotel who did find a bottle of some sort of lotion under the bed. She was concerned because she has been at the hotel for several nights and this bottle did not belong to her. She is worried that someone may have been in her hotel room. She thus called 911. The patient has multiple similar episodes involving paranoia and hallucinations. She has been in the ER multiple times over the last year. She has moved out of her apartment now is staying at a hotel. REVIEW OF SYSTEMS 10 systems were reviewed and negative with the exception of the elements mentioned in the history of present illness. PMHx: Schizoaffective disorder, bipolar disorder Soc Hx: Currently living at a hotel, no alcohol or drug use, mother is a psychiatrist PHYSICAL General Appearance: Alert, no distress, flat affect Eyes: Pupils equal and round no pallor or injection ENT, Mouth: Mucous membranes moist Respiratory: There are no retractions, lungs are clear to auscultation Cardiovascular: Regular rate and rhythm Gastrointestinal: Abdomen is soft and non-tender, no masses, bowel sounds normal Neurological: A&O, moves all extremities Skin: Warm and dry, no rashes Musculoskeletal: Neck is supple non tender Extremities: symmetrical, full range of motion Psychiatric: Patient is oriented X 3, there is no agitation (Bertha Lynch) Constitutional: Initial Vital Signs Temperature (C) 36.6 C 10/16/18 22:01 Heart Rate 98 10/16/18 22:01 Respiratory Rate 16 10/16/18 22:01 Blood Pressure 130/96 H 10/16/18 22:01 O2 Sat (%) 97 10/16/18 22:01 O2 Delivery Mode Room Air Allergies/Adverse Reactions: neomycin Allergy (Verified 10/17/18 21:49) Other-Enter Comments Home Medications: Medication Instructions Recorded Cyanocobalamin [Vitamin B12 (*)] 100 mcg PO DAILY tab 09/18/17 Multivitamins W-Minerals [Thera M 1 each PO DAILY tab 09/18/17 Plus Tablet (*)] LORazepam [Ativan (*)] 1 mg PO HS tab 09/27/18 Sennosides/Docusate Sodium 1 - 2 tab PO BID tab 09/27/18 [Senokot-S] Benztropine Mesylate [Cogentin] 1 mg PO HS #30 tab 10/09/18 Cholecalciferol Vit D3 [Vitamin D3 3,000 units PO DAILY #30 tab 10/09/18 (*)] Divalproex ER [Depakote ER 500 MG 1,500 mg PO DAILY #30 tab 10/09/18 (*)] Ferrous Sulfate [Ferrous Sulf 325 325 mg PO BID #30 tab 10/09/18 MG (*)] Risperdal 0.25mg (*) 10/09/18 Medical Decision Making ED Course/Re-evaluation: Patient's care was signed out to me at 7:00 a.m.. I saw the patient at 7:10 a.m.. She is resting comfortably. I discussed the case with mental health dyehouse worker. They are going to conference and reassess the patient at 10:00 a.m.. Patient has remained stable She has been evaluated by mental health. They feel she does not meet criteria for admission. She is appropriate for outpatient management. She will be provided with a cab voucher back to the hotel where she was staying (Lakhwinder Gamaliel Beebe) Differential Diagnosis: 28-year-old female with past medical history of bipolar disorder and schizoaffective disorder, recently released from [address] [place] [address] on October 08, now staying at a hotel because she feels safe there, though concerned that someone tempered with her hotel room. Here she is anxious though alert and oriented. She is not suicidal or homicidal. She is scared to return home to the hotel. She does not meet criteria for M1 hold. The patient was observed in the emergency department overnight. We have urged her to contact her mother. At about 530 she reached her mother. Her mother did not want to come and pick her up. I spoke with her mother on the phone. She is very concerned about the patient and feels she needs admission, possible institutionalization. She has persistent fixed delusions, she is not responding to any treatments and not listening to her psychiatrist. Her mother is upset that on her most recent hospitalization none of her medications were adjusted. She wonders if she needs ECT. She believes strongly that she cannot be discharged from the hospital and needs some sort of placement. She requested that we called the patient's primary psychiatrist Dr. Taryn Alegria [phone] before the patient be discharged. (Bertha Lynch) Departure - Departure Disposition: Home, Routine, Self-Care Clinical Impression: Schizoaffective disorder Qualifiers: Schizoaffective disorder type: bipolar Qualified Code(s): F25.0 - Schizoaffective disorder, bipolar type Condition: Good Instructions: Schizoaffective Disorder (ED) Additional Instructions: Follow-up with resources provided by mental health Return at any time for worsening symptoms Referrals: NONE *PRIMARY CARE P,. [Primary Care Provider] - As per Instructions [facility] [Clinic] - As per Instructions
--- NOTE | 2018-10-17 10:53 | PDCONSULT ---
General Time Seen by Provider: 10/16/18 21:58 Narrative: I was called re: Ms. Villareal this morning and have discussed the case with [facility] manager print and our staff. We are all in agreement that her current presentation is a continuation of ongoing behavioral issues related to pt's anxiety. She has been hospitalized twice on 3 in the past month and was d/c'd 10/09/18 in a stable condition. She has a pattern of feeling afraid when she is living in her apartment. Her mother, who is her guardian, will then provide a hotel room for her. She will do OK for a few days and then become afraid there as well. She will call 911 and request to be taken to the hospital during these occasions. She has stated numerous times that she would like to live in the hospital because she feels safe here. The team and myself all agree that this is a difficult situation in regards to her housing. She has requested to return to residential or supportive group living but this has not been done. She would almost certainly be stable in those environments. Regardless, this is an ongoing behavioral issue related to housing and is not criteria for inpatient admission. - History History Review: I reviewed the patient's medical records Smoking Status: Never smoked - Objective Vital Signs: Initial Vital Signs Temperature (C) 36.6 C 10/16/18 22:01 Heart Rate 98 10/16/18 22:01 Respiratory Rate 16 10/16/18 22:01 Blood Pressure 130/96 H 10/16/18 22:01 O2 Sat (%) 97 10/16/18 22:01 O2 Delivery Mode Room Air Allergies/Adverse Reactions: neomycin Allergy (Verified 10/16/18 22:00) Other-Enter Comments Home Medications: Medication Instructions Recorded Cyanocobalamin [Vitamin B12 (*)] 100 mcg PO DAILY tab 09/18/17 Multivitamins W-Minerals [Thera M 1 each PO DAILY tab 09/18/17 Plus Tablet (*)] LORazepam [Ativan (*)] 1 mg PO HS tab 09/27/18 Sennosides/Docusate Sodium 1 - 2 tab PO BID tab 09/27/18 [Senokot-S] Benztropine Mesylate [Cogentin] 1 mg PO HS #30 tab 10/09/18 Cholecalciferol Vit D3 [Vitamin D3 3,000 units PO DAILY #30 tab 10/09/18 (*)] Divalproex ER [Depakote ER 500 MG 1,500 mg PO DAILY #30 tab 10/09/18 (*)] Ferrous Sulfate [Ferrous Sulf 325 325 mg PO BID #30 tab 10/09/18 MG (*)] Risperdal 0.25mg (*) 10/09/18
[2018-10-17 11:40] VITALS: BP 126/65
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
--- NOTE | 2018-10-17 12:40 | ASMTTCLDSP ---
[facility] Discharge Disposition Disposition: Answers: Discharge If Answers: Yes DISCHARGED: Patient/family given suicide hotline info & SAMHSA brochure? Disposition Notes: Notes: Pt stated commitment or ability to keep self safe, denied thoughts of self harm or harm to others. Pt expressed a desire to f/u with Dr. Alegria as recommended. Pt was provided cab voucher transportation to the [facility]. Pt was given local hotline information and SAMHSA brochure After an Attempt and encouraged to follow up with Dr. Alegria. Discharge Concerns/Recommendations: Notes: In consultation with [facility] ED physician, Gamaliel Keane MD, and on-call psychiatrist, Garrett Martin MD, both concurred that pt does not appear to meet 27-65 criteria requiring psychiatric hospitalization as pt does not appear to be an imminent risk of harm to self/others/gravely disabled due to a mental illness condition. Was patient given the Answers: Not applicable Inpatient Behavioral Health Prohibited Belongings List while in the ED? Date Signed: 10/17/2018 12:40 PM Electronically Signed By:Shaka Bellamy
== END 2018-10-17 11:43 | disposition home or self-care (01) ==
LOC: EDUNIT#
DX: F25.0 Schizoaffective disorder, bipolar type (principal); F31.9 Bipolar disorder, unspecified

== ENCOUNTER 2018-10-17 21:47 | Inpatient (IN) | payer MEDICAID ==
--- NOTE | 2018-10-17 22:20 | EDPHY ---
H & P Stated Complaint: Anxiety Time Seen by Provider: 10/17/18 22:15 HPI/ROS: HPI: This is a 28-year-old female who presents with Chief Complaint: Anxiety, wants mental health evaluation Location: Quality: Duration: Signs and Symptoms: Timing: Severity: Context: Modifying Factors: Comment: ROS: A comprehensive 10 system review of systems is otherwise negative aside from elements mentioned in the history of present illness. MEDICAL/SURGICAL/SOCIAL HISTORY: Medical history: Generally healthy. Does not take any regular medications. Surgical history: Denies Social history: Family history noncontributory. CONSTITUTIONAL: awake and alert, no obvious distress HEENT: Atraumatic and normocephalic, PERRL, EOMI. Nares patent; no rhinorrhea; no nasal mucosal edema. Tympanic membranes clear. Oropharynx clear, no exudate and moist pink mucosa. Airway patent. No lymphadenopathy. No meningismus. Cardiovascular: Normal S1/S2, regular rate, regular rhythm, without murmur rub or gallop. PULMONARY/CHEST: Symmetrical and nontender. Clear to auscultation bilaterally. Good air movement. No accessory muscle usage. ABDOMEN: Soft, nondistended, nontender, no rebound, no guarding, no peritoneal signs, no masses or organomegaly. No CVAT. EXTREMITIES: 2/2 pulses, strength 5/5, no deformities, no clubbing, no cyanosis or edema. NEUROLOGICAL: no focal neuro deficits. GCS 15. SKIN: Warm and dry, no erythema. no rash. Good capillary refill. Source: Patient, Family, Old records Exam Limitations: No limitations - Personal History LMP (Females 10-55): 15-21 Days Ago Current Tetanus Diphtheria and Acellular Pertussis (TDAP): Yes - Medical/Surgical History Hx Asthma: No Hx Chronic Respiratory Disease: No Hx Diabetes: No Hx Cardiac Disease: No Hx Renal Disease: No Hx Cirrhosis: No Hx Alcoholism: No Hx HIV/AIDS: No Hx Splenectomy or Spleen Trauma: No Other PMH: Depression, schizophrenia, gastric bypass, cholesectomy, PTSD - Social History Smoking Status: Never smoked Constitutional: Initial Vital Signs Temperature (C) 36.6 C 10/17/18 21:37 Heart Rate 74 10/17/18 21:37 Respiratory Rate 16 10/17/18 21:37 Blood Pressure 125/77 H 10/17/18 21:37 O2 Sat (%) 97 10/17/18 21:37 O2 Delivery Mode Room Air Allergies/Adverse Reactions: neomycin Allergy (Verified 10/17/18 21:49) Other-Enter Comments Home Medications: Medication Instructions Recorded Cyanocobalamin [Vitamin B12 (*)] 100 mcg PO DAILY tab 09/18/17 Multivitamins W-Minerals [Thera M 1 each PO DAILY tab 09/18/17 Plus Tablet (*)] LORazepam [Ativan (*)] 1 mg PO HS tab 09/27/18 Sennosides/Docusate Sodium 1 - 2 tab PO BID tab 09/27/18 [Senokot-S] Benztropine Mesylate [Cogentin] 1 mg PO HS #30 tab 10/09/18 Cholecalciferol Vit D3 [Vitamin D3 3,000 units PO DAILY #30 tab 10/09/18 (*)] Divalproex ER [Depakote ER 500 MG 1,500 mg PO DAILY #30 tab 10/09/18 (*)] Ferrous Sulfate [Ferrous Sulf 325 325 mg PO BID #30 tab 10/09/18 MG (*)] Risperdal 0.25mg (*) 10/09/18 Departure - Departure Referrals: Yanely Thakkar PA [Primary Care Provider] - As per Instructions
--- NOTE | 2018-10-17 23:08 | EDPHY ---
H & P Stated Complaint: Anxiety Source: Patient Exam Limitations: No limitations - Personal History LMP (Females 10-55): 15-21 Days Ago Current Tetanus Diphtheria and Acellular Pertussis (TDAP): Yes - Medical/Surgical History Hx Asthma: No Hx Chronic Respiratory Disease: No Hx Diabetes: No Hx Cardiac Disease: No Hx Renal Disease: No Hx Cirrhosis: No Hx Alcoholism: No Hx HIV/AIDS: No Hx Splenectomy or Spleen Trauma: No Other PMH: Depression, schizophrenia, gastric bypass, cholesectomy, PTSD - Social History Smoking Status: Never smoked Time Seen by Provider: 10/17/18 22:15 HPI/ROS: HPI The patient presents with anxiety attack, [facility] for the last several days said she was discharged from [address] [place] [address] on October 09. I personally saw the patient last night in the emergency department as well after a panic attack linked to concern about a bottle of lotion found under her hotel bed. She stated in the ER all night and was seen by mental health in the morning. Dr. Anthony saw her and thought that she was suffering from behavioral issues due to underlying anxiety though did not meet criteria for mental health hold. She left the ER at about 11:00 a.m. Today. She went shopping and wandered around some all for several hours. She then went to [facility] to eat a meal intake her medications. She returned home to her hotel at 9:00 p.m. But was afraid to enter her room. She stayed in the [facility]. She asked the field cane scale clerk if there were any other rooms that she could go to but was told that the hotel was full. She says she developed worsening anxiety which was persistent and she did know what to do because she does not have a place that she can feel safe in so she called the paramedics. She says that she would like to go to some sort of transitional housing or longterm. It sounds like her primary treating psychiatrist Dr. Alegria is working on finding a housing solution for her. She says she does not feel comfortable at her mother's house and her mother is her legal guardian. She denies any SI or HI. REVIEW OF SYSTEMS 10 systems were reviewed and negative with the exception of the elements mentioned in the history of present illness. PMHx: Schizoaffective disorder, bipolar type, frequent anxiety attacks Soc Hx: Currently residing at a hotel, no alcohol or drug use PHYSICAL General Appearance: Alert, tearful and anxious Eyes: Pupils equal and round no pallor or injection ENT, Mouth: Mucous membranes moist Respiratory: There are no retractions, lungs are clear to auscultation Cardiovascular: Regular rate and rhythm Gastrointestinal: Abdomen is soft and non-tender, no masses, bowel sounds normal Neurological: A&O, moves all extremities Skin: Warm and dry, no rashes Musculoskeletal: Neck is supple non tender Extremities: symmetrical, full range of motion Psychiatric: Patient is oriented X 3, there is no agitation (Bertha Lycnh) Constitutional: Initial Vital Signs Temperature (C) 36.6 C 10/17/18 21:37 Heart Rate 74 10/17/18 21:37 Respiratory Rate 16 10/17/18 21:37 Blood Pressure 125/77 H 10/17/18 21:37 O2 Sat (%) 97 10/17/18 21:37 O2 Delivery Mode Room Air O2 (L/minute) 94 Allergies/Adverse Reactions: neomycin Allergy (Verified 10/17/18 21:49) Other-Enter Comments Home Medications: Medication Instructions Recorded Cyanocobalamin [Vitamin B12 (*)] 100 mcg PO DAILY tab 09/18/17 Multivitamins W-Minerals [Thera M 1 each PO DAILY tab 09/18/17 Plus Tablet (*)] LORazepam [Ativan (*)] 1 mg PO HS tab 09/27/18 Sennosides/Docusate Sodium 1 - 2 tab PO BID tab 09/27/18 [Senokot-S] Benztropine Mesylate [Cogentin] 1 mg PO HS #30 tab 10/09/18 Cholecalciferol Vit D3 [Vitamin D3 3,000 units PO DAILY #30 tab 10/09/18 (*)] Divalproex ER [Depakote ER 500 MG 1,500 mg PO DAILY #30 tab 10/09/18 (*)] Ferrous Sulfate [Ferrous Sulf 325 325 mg PO BID #30 tab 10/09/18 MG (*)] risperiDONE MICROSPHERES 50 mg IM Q14D 10/19/18 [Risperdal Consta 50mg (*)] Medical Decision Making ED Course/Re-evaluation: I assumed care of this patient from Dr. Lynch at 7 AM on 10/17/18. At that time the plan was for the patient to be seen by case management, with the hopes that she would be able to return to her hotel room during the day. However, she was felt to be actively paranoid and her provider in the community has recommended hospitalization. She has been refused at [facility], [facility] is recommended. Her care was transferred to Dr. Loya at 3:00 p.m.. At that time mental health staff was working on trying to make arrangements for her to be transferred to an inpatient facility. She has been cooperative during my shift. (Leonela Flores) 1500: Assumed care from Dr. Dinero. Update from RN that [facility] was originally trying to get patient admitted to [facility] but they have denied her as they believe that she does not meet criteria. [facility] was going to send patient home until they talk to the mother who does not feel comfortable taking the patient home. They are currently looking for placement at acute crisis services. 1700: End of shift. Signed over to Dr. Hensley pending final disposition. (Ava Clarke) 1732: Patient signed over to me at by p.m.. Patient has been accepted by Dr. Mallory, EMTALA form filled out. Appropriate transfer set up. Going to [facility]. Dr. Mallory accepted (Saleem Hensley) Differential Diagnosis: 28-year-old female with history of schizoaffective disorder, bipolar type, frequent anxiety attacks related to concerns about people breaking in to her home and tampering with her things, presents again brought in by ambulance for anxiety attack. This patient is very well known to our emergency department and our mental health team. She was seen by our psychiatrist earlier today and did not qualify for inpatient admission. It does seem that the patient would benefit from some sort of transitional housing or stabilization unit though I agree that currently she does not meet criteria for M1 hold. She is fearful to discharge from the emergency department currently as she does not have any place to go. I offered to call her hotel for her to see if there are any additional rooms available, however she is an imminent that the hotel as full and she thinks it is a violation of her privacy if I call. At 7:00 a.m., the patient will be signed out to Dr. Cabeen pending case management. (Bertha Lynch) Other Provider: Care assumed from Dr. Flores at 2:30 p.m., psych admission pending. 2300: signed out to Cris, admission pending for grave disability due to her diagnosis of schizoaffective disorder. (Diego Loya) 6:00 a.m.- Patient has been stable overnight. She is awaiting psychiatric admission. I anticipate at 7:00 a.m. The case will be signed out to the oncoming provider Dr. Dinero. (Bertha Lynch) - Data Points Laboratory Results: Laboratory Results 10/18/18 16:00 10/18/18 16:00 Medications Given: Discontinued Medications Ibuprofen (Motrin) 600 mg PO EDNOW ONE Stop: 10/18/18 15:18 Last Admin: 10/18/18 16:32 Dose: 600 mg Departure - Departure Disposition: [facility] IP Clinical Impression: Anxiety Schizoaffective disorder Qualifiers: Schizoaffective disorder type: unspecified Qualified Code(s): F25.9 - Schizoaffective disorder, unspecified Condition: Good Instructions: Anxiety (ED), Anxiolysis in Adults (ED) Referrals: Yanely Thakkar PA [Primary Care Provider] - As per Instructions
--- NOTE | 2018-10-18 11:52 | ASMTCMCOM ---
CM Note CM Note Notes: Pt seen at the request of Dr. Lynch. Pt in [facility] the previous day for anxiety attack but did not meet criteria for M1/placement. Pt has a history of schizoaffective disorder bipolar type, PTSD and anxiety attacks as well as recent hospitalization on [facility]. Pt. reported that she does not feel safe in her apartment or her mother's house because "people are trying to hurt her". She was unable to identify who was trying to hurt her. She stated that she attempted to stay in a hotel but "the people" found her in the hotel and she was scared. Pt stated that she has been taking her medications and feels like they are working. Pt reported that her psychiatrist is Dr. Alegria at [facility]. She stated that her mother, Lauren and Dr. Alegria want her to be hospitalized because "she is not stable". Pt provided verbal permission for contact with psychiatrist and mother. Mother is legal guardian. This SW called Dr. Alegria and left a vm with the nurse. Nurse Tuan called back and left a vm stating that the pt is paranoid and not currently taking medications because she believes that they are trying to hurt her with the medications. She reported that they have been trying to get her into halfway placement and would like M1 with hospitalization at this time. She referenced a "difference in philosophy" and requested that the pt. be sent to [facility]. Tuan left a direct number for contact, and stated she would be available after 12:30. The message was given to Mary with [facility] to contact Tuan directly. This CW left a message for the pt.'s mother, Lauren ([phone]) who is also a psychiatrist. Lauren called back and left a vm stating that she believed the pt. should be hospitalized as she is paranoid and does not feel safe anywhere. This CW called Lauren back and she indicated that she was with someone and would have to call back in 1/2 hour. [place] plans TBD CM to follow. Date Signed: 10/18/2018 11:51 AM Electronically Signed By:Bright Martin LCSW
[2018-10-18] MEDS ORDERED: IBUPROFEN 600 MG TAB PO ONE ×2 (15:17→15:30)
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
--- NOTE | 2018-10-18 15:52 | ASMTLCPROG ---
Notes Note: Notes: TLC Eval is complete, will seekplacement at [facility] per Dr. Rubio request. Date Signed: 10/18/2018 03:52 PM Electronically Signed By:Eliot Coleman
[2018-10-18 19:23] LABS: PLATELET COUNT 321 10^3/uL (150-400)
[2018-10-19] MEDS ORDERED: NICOTINE POLACRILEX 2 MG GUM B PRN (20:30)
[2018-10-19] MEDS ORDERED: LORazepam 0.5 MG TAB PO PRN (20:30)
[2018-10-19] MEDS ORDERED: OLANZapine DISINTEGR 10 MG TAB PO PRN (20:30)
[2018-10-19] MEDS ORDERED: MAG HYDROX/AL HYDROX/SIMETH 30 ML UDCUP PO PRN (20:30)
[2018-10-19] MEDS ORDERED: MAGNESIUM HYDROXIDE 30 ML UDCUP PO PRN (20:30)
[2018-10-19] MEDS ORDERED: ACETAMINOPHEN 325 MG TAB PO PRN (20:30)
[2018-10-19] MEDS ORDERED: MELATONIN 3 MG TAB PO PRN (20:34)
[2018-10-19] MEDS: BENZTROPINE MESYLATE 1 MG TAB PO SCH (20:44)
[2018-10-19] MEDS: DIVALPROEX ER 250 MG TAB PO SCH (20:49)
[2018-10-19] MEDS ORDERED: DIVALPROEX ER 500 MG TAB PO SCH (21:00)
--- NOTE | 2018-10-19 21:00 | ASMTLCPROG ---
Notes Note: Notes: Pre-Certification from [facility] Transfered to Darrick after initial call Providing Clinicals Review Sunday Authorized 3Days [id number] Katiuska Reviewer will reach out to [employer] Date Signed: 10/19/2018 08:59 PM Electronically Signed By:Eliot Coleman
[2018-10-20] MEDS: CYANO/VITAMIN B12 100 MCG TAB PO SCH (08:55)
[2018-10-20] MEDS: CHOLECALCIFEROL VIT D3 1,000 UNITS TAB PO SCH (08:55)
--- NOTE | 2018-10-20 09:53 | ASMTBHMTP ---
Master Treatment Plan Master Treatment Plan Answers: Depressed Mood without for: Suicidal Ideation Date: 10/20/2018 Diagnosis on Admission: Schizoaffective Disorder, Biploar Type 295.70 Expected length of stay: 3-5 Days Reason for admission: Notes: Per TLC Evaluation - Pt. is a 28 year old, unemployed, female with history of Schizoaffective Disorder-Bipolar Type and PTSD, was brought in by ambulance on a voluntary basis from her home. Pt's mother is a psychiatrist and told the PT not to call 911 or come to the ER. Pt presented to the ER very paranoid. Per Pt's psychiatrist Dr. Marilee Valdez at [facility], she would like to see the [facility]. On-call psychiatrists Dr. Martin at [facility] is declining the pt after several stay on the unit doesn't seem to be improving with treatment and concurred pt may do better at another facility. Patient's stated presenting problems: Notes: Pt stated "don't have a place to go overnight where I feel safe". Patient's goals for treatment: Notes: Pt stated "to find a place to live where I feel safe" Patient's strengths: Notes: "Resiliant" Identify supports outside of hospital: Notes: Mom and treatment team at [facility] Discharge criteria: Notes: Suicidal ideation will resolve and patient will have a plan to safely manage recurrent suicidal ideation. Initial disposition plan/considerations: Notes: Pt stated "I have no idea". Master Treatment Plan Required Signatures Psychiatrist signature: Answers: Benito Mallory MD: RN on-shift signature: Answers: RN: Patient signature: Answers: Patient: Date Signed: 10/20/2018 09:52 AM Electronically Signed By:Sapna Miller
--- NOTE | 2018-10-20 14:07 | ASMTCMCOM ---
CM Note CM Note Notes: Pt and CC completed MTP, signed and placed in pt's chart. Pt. stated "[facility] said they wouldn't give me a second chance". Pt. stated her goal is to "find a place to live where I feel safe." CC discussed possible discharge options with pt. Pt. stated she would like to go to a transitional living, but is not sure where or which one. CC requested pt. think of several discharge options to discuss with the treatment team. Pt. agreed to do this. Pt. presents as alert, calm, unkempt, fair to good eye contact, soft spoken and cooperative. Staff report pt. sleeping 6 hours and declining to sign ROIs for her mother and [facility]. Date Signed: 10/20/2018 02:07 PM Electronically Signed By:Sapna Miller
[2018-10-20] MEDS ORDERED: BENEFIBER/NUTRISOURCE FIBER PKT 1 EACH PO PRN (14:37)
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
--- NOTE | 2018-10-20 17:40 | PDMN ---
Medical Necessity Medical necessity: Pt meets INPT criteria per MD as of 10/19/18 and [facility] [id number] Schizophrenia Spectrum Disorders: Inpt Care (schizoaffective disorder, bipolar type by hx; M1 hold).
--- NOTE | 2018-10-20 18:40 | GHP ---
DATE OF ADMISSION: 10/19/2018 CHIEF COMPLAINT: Anxiety. HISTORY OF PRESENT ILLNESS: The patient is a pleasant 28-year-old female with past medical history o f severe anxiety, who presented to the [facility] Emergency Room on October 17, 2018, with complaints of severe anxiety attacks. She [place] [facility] and she had anxiety about entering into her room and stayed in the lobby, and then she made her way to the [facility] where she has been admitted to inpatient psychiatric unit. She has no othe r medical complaints or pains to speak of at this time. I did review her recent CBC and metabolic pa charito, as well. PAST MEDICAL HISTORY: Anxiety, depression, schizophrenia. PAST SURGICAL HISTORY: Gastric bypass, cholecystectomy. CURRENT MEDICATIONS: Include benztropine 1 mg nightly, vitamin D supplementation, vitamin B suppleme ntation, Depakote 1000 mg nightly, ferrous sulfate 325 mg twice a day, Lorazepam 0.5 to 1 mg every 6 hours as needed for anxiety, Zyprexa 5-10 mg every 6 hours as needed. ALLERGIES: Neomycin. FAMILY HISTORY: Mother and father both living and reportedly healthy. SOCIAL HISTORY: The patient is currently single. She is a nonsmoker. She does not drink alcohol. REVIEW OF SYSTEMS: CONSTITUTIONAL: No report of any fevers or chills. ENT: No recent upper respir atory illnesses. CARDIOVASCULAR: No complaints of any chest pains, palpitations, or syncopal episod es. RESPIRATORY: No complaints of shortness of breath or productive cough. GI: No active nausea o r vomiting. She does state though that if she eats too much due to her gastric bypass, she will have to regurgitate some food. : No report of any difficulty with urination. NEUROLOGIC: No complai nts of any headaches or focal weakness. HEMATOLOGIC: No history of any deep vein thrombosis or pulm onary embolism. PSYCHIATRIC: Positive for anxiety and depression history. ENDOCRINE: No polyuria or heat intolerance. SKIN: No new skin rashes. MUSCULOSKELETAL: No complaints of any focal joint pains. PHYSICAL EXAM: VITAL SIGNS: Temperature 36.6, blood pressure 99/54, heart rate 76 respirations 16 s aturating 95% on room air. GENERAL: The patient appears comfortable. She is ambulating in the mohr , cooperative during my evaluation. HEENT: Extraocular movements appear intact. No scleral icterus . NECK: No thyroid enlargement appreciated. CHEST: Clear on auscultation. HEART: Regular rate a nd rhythm. No murmurs. ABDOMEN: Soft, nontender, nondistended. NEUROLOGIC: Cranial nerves 2-12 a ppear grossly intact with 5/5 strength in extremities. LABORATORIES: White blood cell count 6, hemoglobin 12, platelets 321. Sodium 137, potassium 4.2, ch loride 108, bicarb 23, BUN 7, creatinine 0.7, glucose of 90. Urine test negative. Urine d rug screen negative. TSH was last performed in August 2017, measured at 3.0. ASSESSMENT/PLAN: Anxiety. Continue per Psychiatry's recommendations. From a medical standpoint, I a m not identifying any immediate medical concerns. I did review her recent vital signs and lab work, and see no major concerns at this time. Please call if any acute complaints develop for reassessment . I appreciate the opportunity to help on this patient's care. /[id number]/MODL
[2018-10-20] MEDS: BENZTROPINE MESYLATE 1 MG TAB PO SCH (20:26)
[2018-10-20] MEDS: DIVALPROEX ER 250 MG TAB PO SCH (20:26)
[2018-10-20] MEDS: FERROUS SULFATE 325 MG TAB PO SCH (20:27)
[2018-10-21] MEDS: CHOLECALCIFEROL VIT D3 1,000 UNITS TAB PO SCH (08:06)
[2018-10-21] MEDS: CYANO/VITAMIN B12 100 MCG TAB PO SCH (08:06)
[2018-10-21] MEDS: FERROUS SULFATE 325 MG TAB PO SCH ×2 (08:06→20:39)
--- NOTE | 2018-10-21 08:38 | SOAPPROG ---
SOAP Progress Note Assessment/Plan: Assessment: Schizoaffective Disorder, Bipolar Type. No improvement noted. (see subjective/ objective note). Patient refuses to return to her apartment due to paranoid delusions, and support system has inability to manage functional impairment at lower level of care. Patient could benefit from continued inpatient hospitalization for crisis stabilization, safety, and medication evaluation. Plan: 1. Psychotropic medications: After reviewing options, risks, and benefits patient agrees to continue current medications, and agrees to increase Depakote to 1,500 mg po QHS. No medication changes at this time as more time is needed to determine ongoing tolerability and efficacy. Plan is to continue to observe patient for response and side effects from medications, and ongoing monitoring and evaluation. 2. Review with patient informed consent and recommendations for psychotropic medication treatment listed below 3. Labs: no additional labs at this time 4. Therapy: continue milieu and group therapy 5. Further investigation including gathering information from patients relatives and review of past case records to inform treatment plan. 6. Safety/Wellness plan and follow-up outpatient appointments to be established prior to discharge. Next steps are for patient to meet with acute care nurse practitioner to plan a safe discharge plan and establish outpatient services for ongoing treatment. 7. Confer with inpatient treatment team regarding treatment and discharge plan. 8. Psychosocial stressors addressed through registered nurse hh case manager 9. Legal status: voluntary 10. Consider discharge this week if patient is in stable condition, safe, and has a safe discharge plan. 11. Contact MOC to discuss discharge plan. PSYCHOTROPIC MEDICATION TREATMENT INFORMED CONSENT and RECOMMENDATIONS: Review nature of condition, diagnosis, and prognosis. Review nature and purpose of psychotropic medication treatment. Review type of psychotropic medications being ordered. Review risk and benefits of psychotropic medication treatment. Review probable length of time patient will need to take medications. Review risk and benefits of not undergoing psychotropic medication treatment. Review alternative treatments to psychotropic medications. Review psychotropic medications contraindications, drug-drug interactions, side effects, and importance of reporting any side effects to a psychiatric provider or nurse during inpatient hospitalization, and upon discharge to patients psychiatric outpatient provider, primary care provider, or other health child daycare worker. Review importance of asking a nurse, psychiatric provider, or primary care provider any questions or problems concerning the psychotropic medications. Verify patient understands the information that has been provided, and understands, accepts, and agrees to psychotropic medications. Review patients safety plan and importance of patient to report to staff while hospitalized if patient is ever a danger to self/others, or unable to care for self, and upon discharge, the importance for patient to contact [facility] or [facility], or go to the nearest emergency room, if patient is ever a danger to self/others, or unable to care for self. Recommend that upon discharge patient establish medication management treatment with a psychiatric provider, establishes routine therapy appointments, and follow-up with primary care provider. Verify patient understands and agrees to these recommendations. 10/21/18 08:37 Subjective: Following up with patient for evaluation of psychosis, jori, and safety. Patient states, "Where I was staying, at a hotel, staying there for a few nights because I felt like I was being harassed at my apartment. Then I found a bottle of ointment for skin lester under my bed at the hotel and that really freaked me out and I called the paramedics. I just need to find someplace safe to go." Patient reports taking medications as prescribed, and reports no side effects. Patient agrees to continue current medications. Patient agrees to Risperidone CONSTA 50 mg IM to be administered 10/23/18, and patient agrees to increase Depakote to 1,500 mg po QHS. Patient reports she slept well last night , and agrees to attend groups today. Objective: Vital Signs Temp Pulse Resp BP Pulse Ox 36.6 C 76 14 95/50 L 96 10/21/18 06:00 10/21/18 06:00 10/21/18 06:00 10/21/18 06:00 10/21/18 06:00 NURSING REPORT: Consulted with nursing for update on patients progress in treatment. Nurses report patient is not engaged in treatment, does not attend groups unless prompted and directed by staff, then spends most of the time in the hallway, away from group setting; slept 8 hours, expresses the following psychiatric symptoms: anxious; exhibits the following psychiatric symptoms: withdrawn, flat affect; is agreeable to medications and taking as prescribed with no report of side effects, with no s/s of EPS/akathisia, and denies SI/HI, denies A/V hallucinations, and reports delusions associated with her apartment such as people harassing her. Patient requires some prompting and direction from staff to attend to ADLs and is currently on reverse room order due to patient being withdrawn to room and avoiding social interactions. MD REPORT FROM WEEKEND: Started VPA at 1,000 mg HS, will need to be titrated back to 1,500 mg. Everything else the same. Going great. MSE: The patient is a well-nourished female looking stated chronological age. Attire is appropriate dress is casual. Grooming status is inappropriate and disheveled. Ambulation is independent. Gait is normal and coordinated. Posture is normal. Eye contact is inappropriate and avoided. Motor activity is appropriate with purposeful, organized, coordinated movements; with no involuntary movements. Attitude is cooperative, guarded at times. Patient appears attentive and relates fairly well to this interviewer. Language production is spontaneous. Rate is normal. Latency of response is normal. Articulation is clear. Patient reports mood as okay with flat, incongruent affect. Patients thought process is linear and logical with exception of not wanting to return to her apartment due to paranoid delusions; no other signs of formal thought disorder. Patient does not report suicidal/homicidal thoughts, ideas, or plans. Patient denies auditory, visual hallucinations. Patient reports delusions; paranoid regarding returning to her apartment due to noises. Patient does not appear to be attending to internal stimuli. Patients attention and concentration are poor. Patient is oriented to person, place, time. Patients insight is poor. Patients judgment is poor. - Time Spent With Patient Time Spent With Patient: 15 minutes, met with patient individually. - Pending Discharge Pending Discharge Within 24 Hours: No Pending Discharge Within 48 Hours: No ICD10 Worksheet Patient Problems: Problems Problem Status Onset Anxiety Acute Schizoaffective disorder Acute Anemia Acute Depression Acute Grave disability Acute H/O bariatric surgery Acute Posttraumatic stress disorder Chronic
--- NOTE | 2018-10-21 12:54 | ASMTCMCOM ---
CM Note CM Note Notes: Pt. reports feeling "pretty good". Pt. stated "think slept okay". Pt. reports eating well and attending groups. Pt. reports no issues with her current medication. Pt. declined to sign any ROIs. CC asked pt about her backup plans, pt. stated she has not been working on any. Pt. reports no issues or concerns while on the unit. Pt. denied SI, HI, AVH and paranoia. Pt. presents as alert, a bit nervous, guarded, unkempt, inconsistent eye contact and somewhat cooperative. Staff report pt. sleeping 6 hours, being medication compliant, and being a bit withdrawn. Date Signed: 10/21/2018 12:53 PM Electronically Signed By:Sapna Miller
[2018-10-21] MEDS: BENZTROPINE MESYLATE 1 MG TAB PO SCH (20:36)
[2018-10-21] MEDS: DIVALPROEX ER 250 MG TAB PO SCH (20:38)
--- NOTE | 2018-10-22 08:03 | SOAPPROG ---
SOAP Progress Note Assessment/Plan: Assessment: Schizoaffective Disorder, Bipolar Type. No improvement noted. (see subjective/ objective note). Patient refuses to return to her apartment due to paranoid delusions, and support system has inability to manage functional impairment at lower level of care. Patient could benefit from continued hospitalization for Risperidone CONSTA SILVESTRE to be administered tomorrow, VPA level on , and DC planning with patient to be admitted to [facility] on after discharge. This will reduce the likelihood of patient returning to ER with paranoid delusions regarding her other living situations (e.g., hearing noises, being harassed) that have led to numerous trips to the ER and several hospitalizations here over the last few months. Patient could benefit from continued inpatient hospitalization for crisis stabilization, safety, and medication evaluation. Plan: 1. Psychotropic medications: After reviewing options, risks, and benefits patient agrees to continue current medications. No medication changes at this time as more time is needed to determine ongoing tolerability and efficacy. Plan is to continue to observe patient for response and side effects from medications, and ongoing monitoring and evaluation. 2. Review with patient informed consent and recommendations for psychotropic medication treatment listed below 3. Labs: no additional labs at this time 4. Therapy: continue milieu and group therapy 5. Further investigation including gathering information from patients relatives and review of past case records to inform treatment plan. 6. Safety/Wellness plan and follow-up outpatient appointments to be established prior to discharge. Next steps are for patient to meet with palliative care nurse to plan a safe discharge plan and establish outpatient services for ongoing treatment. 7. Confer with inpatient treatment team regarding treatment and discharge plan. 8. Psychosocial stressors addressed through [employer] 9. Legal status: voluntary 10. Consider discharge if patient is in stable condition, safe, and has a safe discharge plan. PSYCHOTROPIC MEDICATION TREATMENT INFORMED CONSENT and RECOMMENDATIONS: Review nature of condition, diagnosis, and prognosis. Review nature and purpose of psychotropic medication treatment. Review type of psychotropic medications being ordered. Review risk and benefits of psychotropic medication treatment. Review probable length of time patient will need to take medications. Review risk and benefits of not undergoing psychotropic medication treatment. Review alternative treatments to psychotropic medications. Review psychotropic medications contraindications, drug-drug interactions, side effects, and importance of reporting any side effects to a psychiatric provider or nurse during inpatient hospitalization, and upon discharge to patients psychiatric outpatient provider, primary care provider, or other health youth care worker. Review importance of asking a nurse, psychiatric provider, or primary care provider any questions or problems concerning the psychotropic medications. Verify patient understands the information that has been provided, and understands, accepts, and agrees to psychotropic medications. Review patients safety plan and importance of patient to report to staff while hospitalized if patient is ever a danger to self/others, or unable to care for self, and upon discharge, the importance for patient to contact [facility] or [facility], or go to the nearest emergency room, if patient is ever a danger to self/others, or unable to care for self. Recommend that upon discharge patient establish medication management treatment with a psychiatric provider, establishes routine therapy appointments, and follow-up with primary care provider. Verify patient understands and agrees to these recommendations. 10/22/18 08:03 Subjective: Following up with patient for evaluation of psychosis, jori, and safety. Patient states, "I am doing okay." Patient reports taking medications as prescribed, and reports no side effects. Patient agrees to continue current medications. Patient agrees to Risperidone CONSTA 50 mg IM to be administered . Patient reports she slept well last night, and agrees to attend groups today. Objective: Vital Signs Temp Pulse Resp BP Pulse Ox 36.4 C 76 16 101/47 L 95 10/22/18 06:00 10/22/18 06:00 10/22/18 06:00 10/22/18 06:00 10/22/18 06:00 NURSING REPORT: Consulted with nursing for update on patients progress in treatment. Nurses report patient is not engaged in treatment, does not attend groups unless prompted and directed by staff, then spends most of the time in the hallway, away from group setting; slept 8 hours, expresses the following psychiatric symptoms: anxious; exhibits the following psychiatric symptoms: withdrawn, flat affect; is agreeable to medications and taking as prescribed with no report of side effects, with no s/s of EPS/akathisia, and denies SI/HI, denies A/V hallucinations, and reports delusions associated with her apartment such as people harassing her. Patient requires some prompting and direction from staff to attend to ADLs and withdrawn to room, avoiding social interactions. MD REPORT FROM WEEKEND: Started VPA at 1,000 mg HS, will need to be titrated back to 1,500 mg. Everything else the same. Going great. CONSULT WITH [facility]: This SCRAP HOOKER spoke to psychiatrist at [facility] yesterday afternoon. Patient to discharge on and be admitted to [facility]. Will continue current medications. MSE: The patient is a well-nourished female looking stated chronological age. Attire is appropriate dress is casual. Grooming status is inappropriate and disheveled. Ambulation is independent. Gait is normal and coordinated. Posture is normal. Eye contact is inappropriate and avoided. Motor activity is appropriate with purposeful, organized, coordinated movements; with no involuntary movements. Attitude is cooperative, guarded at times. Patient appears attentive and relates fairly well to this interviewer. Language production is spontaneous. Rate is normal. Latency of response is normal. Articulation is clear. Patient reports mood as okay with flat, incongruent affect. Patients thought process is linear and logical. Patient does not report suicidal/homicidal thoughts, ideas, or plans. Patient denies auditory, visual hallucinations. Patient reports delusions; paranoid regarding returning to her apartment due to noises. Patient does not appear to be attending to internal stimuli. Patients attention and concentration are poor. Patient is oriented to person, place, time. Patients insight is poor. Patients judgment is poor. - Time Spent With Patient Time Spent With Patient: 15 minutes, met with patient individually. - Pending Discharge Pending Discharge Within 24 Hours: No Pending Discharge Within 48 Hours: No ICD10 Worksheet Patient Problems: Problems Problem Status Onset Anxiety Acute Schizoaffective disorder Acute Anemia Acute Depression Acute Grave disability Acute H/O bariatric surgery Acute Posttraumatic stress disorder Chronic
[2018-10-22] MEDS: CYANO/VITAMIN B12 100 MCG TAB PO SCH (08:35)
[2018-10-22] MEDS: CHOLECALCIFEROL VIT D3 1,000 UNITS TAB PO SCH (08:35)
[2018-10-22] MEDS: FERROUS SULFATE 325 MG TAB PO SCH ×2 (08:35→20:54)
[2018-10-22] MEDS: BENZTROPINE MESYLATE 1 MG TAB PO SCH (20:54)
[2018-10-22] MEDS: DIVALPROEX ER 250 MG TAB PO SCH (20:55)
--- NOTE | 2018-10-23 08:06 | SOAPPROG ---
SOAP Progress Note Assessment/Plan: Assessment: Schizoaffective Disorder, Bipolar Type. No improvement noted. (see subjective/ objective note). Patient refuses to return to her apartment due to paranoid delusions, and support system has inability to manage functional impairment at lower level of care. Patient could benefit from continued hospitalization for Risperidone CONSTA SILVESTRE to be administered tomorrow, VPA level on , and DC planning with patient to be admitted to [facility] on after discharge. This will reduce the likelihood of patient returning to ER with paranoid delusions regarding her other living situations (e.g., hearing noises, being harassed) that have led to numerous trips to the ER and several hospitalizations here over the last few months. Patient could benefit from continued inpatient hospitalization for crisis stabilization, safety, and medication evaluation. Plan: 1. Psychotropic medications: After reviewing options, risks, and benefits patient agrees to continue current medications. No medication changes at this time as more time is needed to determine ongoing tolerability and efficacy. Plan is to continue to observe patient for response and side effects from medications, and ongoing monitoring and evaluation. 2. Review with patient informed consent and recommendations for psychotropic medication treatment listed below 3. Labs: no additional labs at this time 4. Therapy: continue milieu and group therapy 5. Further investigation including gathering information from patients relatives and review of past case records to inform treatment plan. 6. Safety/Wellness plan and follow-up outpatient appointments to be established prior to discharge. Next steps are for patient to meet with auto care center manager to plan a safe discharge plan and establish outpatient services for ongoing treatment. 7. Confer with inpatient treatment team regarding treatment and discharge plan. 8. Psychosocial stressors addressed through skilled nursing case manager 9. Legal status: M1 10. Consider discharge if patient is in stable condition, safe, and has a safe discharge plan. PSYCHOTROPIC MEDICATION TREATMENT INFORMED CONSENT and RECOMMENDATIONS: Review nature of condition, diagnosis, and prognosis. Review nature and purpose of psychotropic medication treatment. Review type of psychotropic medications being ordered. Review risk and benefits of psychotropic medication treatment. Review probable length of time patient will need to take medications. Review risk and benefits of not undergoing psychotropic medication treatment. Review alternative treatments to psychotropic medications. Review psychotropic medications contraindications, drug-drug interactions, side effects, and importance of reporting any side effects to a psychiatric provider or nurse during inpatient hospitalization, and upon discharge to patients psychiatric outpatient provider, primary care provider, or other health respiratory care practitioner. Review importance of asking a nurse, psychiatric provider, or primary care provider any questions or problems concerning the psychotropic medications. Verify patient understands the information that has been provided, and understands, accepts, and agrees to psychotropic medications. Review patients safety plan and importance of patient to report to staff while hospitalized if patient is ever a danger to self/others, or unable to care for self, and upon discharge, the importance for patient to contact [facility] or [facility], or go to the nearest emergency room, if patient is ever a danger to self/others, or unable to care for self. Recommend that upon discharge patient establish medication management treatment with a psychiatric provider, establishes routine therapy appointments, and follow-up with primary care provider. Verify patient understands and agrees to these recommendations. 10/23/18 08:06 Subjective: Following up with patient for evaluation of psychosis, jori, and safety. Patient states, "I am doing okay." Patient reports taking medications as prescribed, and reports no side effects. Patient agrees to continue current medications. Patient agrees to Risperidone CONSTA 50 mg IM to be administered today. Patient reports she slept well last night, and agrees to attend groups today. Objective: Vital Signs Temp Pulse Resp BP Pulse Ox 36.6 C 61 16 103/55 L 97 10/23/18 06:00 10/23/18 06:00 10/23/18 06:00 10/23/18 06:00 10/23/18 06:00 NURSING REPORT: Consulted with nursing for update on patients progress in treatment. Nurses report patient is engaged in treatment, does attend some group; slept 4 hours, expresses the following psychiatric symptoms: anxious; exhibits the following psychiatric symptoms: withdrawn, flat affect; is agreeable to medications and taking as prescribed with no report of side effects , with no s/s of EPS/akathisia, and denies SI/HI, denies A/V hallucinations, and reports delusions associated with her apartment such as people harassing her. MD REPORT FROM WEEKEND: Started VPA at 1,000 mg HS, will need to be titrated back to 1,500 mg. Everything else the same. "Going great." CONSULT WITH [facility]: This MILK TREATER spoke to psychiatrist at [facility] Sunday afternoon. Patient to discharge on and be admitted to [facility]. Will continue current medications. MSE: The patient is a well-nourished female looking stated chronological age. Attire is appropriate dress is casual. Grooming status is inappropriate and disheveled. Ambulation is independent. Gait is normal and coordinated. Posture is normal. Eye contact is inappropriate and avoided. Motor activity is appropriate with purposeful, organized, coordinated movements; with no involuntary movements. Attitude is cooperative, guarded at times. Patient appears attentive and relates fairly well to this interviewer. Language production is spontaneous. Rate is normal. Latency of response is normal. Articulation is clear. Patient reports mood as okay with flat, incongruent affect. Patients thought process is linear and fairly logical. Patient does not report suicidal/homicidal thoughts, ideas, or plans. Patient denies auditory, visual hallucinations. Patient reports delusions; paranoid regarding returning to her apartment due to noises. Patient does not appear to be attending to internal stimuli. Patients attention and concentration are poor. Patient is oriented to person, place, time. Patients insight is poor. Patients judgment is poor. - Time Spent With Patient Time Spent With Patient: 15 minutes, met with patient individually. - Pending Discharge Pending Discharge Within 24 Hours: Yes Pending Discharge Within 48 Hours: No Pending Discharge Date: 10/24/18 Pending Discharge Time: 11:00 ICD10 Worksheet Patient Problems: Problems Problem Status Onset Anxiety Acute Schizoaffective disorder Acute Anemia Acute Depression Acute Grave disability Acute H/O bariatric surgery Acute Posttraumatic stress disorder Chronic
[2018-10-23] MEDS: CHOLECALCIFEROL VIT D3 1,000 UNITS TAB PO SCH (08:11)
[2018-10-23] MEDS: CYANO/VITAMIN B12 100 MCG TAB PO SCH (08:11)
[2018-10-23] MEDS: FERROUS SULFATE 325 MG TAB PO SCH ×2 (08:12→20:10)
[2018-10-23] MEDS ORDERED: risperiDONE MICROSPHERES 50 MG/2 ML SYR IM ONE (09:00)
--- NOTE | 2018-10-23 10:46 | ASMTBHDC ---
Notes Note: Notes: CC contacted Regina Portillo at to provide an update for client as well as provide some clarification regarding COM request from Tuan and Regina with [facility]. CC noted, that per proivier discussion with Dr. Alegria on Sunday, [facility] will complete STC for client and [facility] will complete COM due to "wanting to later change her medications, etc." Relayed this information again to Regina, who noted, "We don't know if she is coming over tomorrow or not [yet]; I will know more after my meeting with Dr. Alegria at 1pm." CC requested a return call with any change or notification of client's pending discharge to [facility], etc. Waiting to hear back. Date Signed: 10/23/2018 10:45 AM Electronically Signed By:Galileo Hensley
[2018-10-23] MEDS: BENZTROPINE MESYLATE 1 MG TAB PO SCH (20:10)
[2018-10-23] MEDS: DIVALPROEX ER 250 MG TAB PO SCH (20:10)
[2018-10-24 06:47] VITALS: BP 91/53
[2018-10-24] MEDS: CYANO/VITAMIN B12 100 MCG TAB PO SCH (08:55)
[2018-10-24] MEDS: CHOLECALCIFEROL VIT D3 1,000 UNITS TAB PO SCH (08:56)
[2018-10-24] MEDS: FERROUS SULFATE 325 MG TAB PO SCH (08:56)
--- NOTE | 2018-10-24 09:49 | BDS ---
REASON FOR ADMISSION: From the ED note dated 10/17/2018, patient presents to the emergency room with anxiety attack. She was brought to the emergency room by ambulance from the lobby of the [facility], where she has been residing for several days. The patient was recently discharged from [address] on October 09. Patient reported a panic attack linked to concern about a bottle of lotion found under her hotel bed. Patient denied SI or HI. Patient was admitted voluntarily. The patient was admitted for safety, crisis stabilization, and medication evaluation. ADMITTING DIAGNOSES: 1. Schizoaffective disorder. 2. Posttraumatic stress disorder. ADMISSION PHYSICAL EXAM: The patient was seen for history and physical on 10/20, for medical clearance for inpatient psychiatric hospitalization and treatment. The patient was medically cleared for inpatient psychiatric hospitalization and treatment. For further details, please refer to history and physical note dated 10/20/2018. ADMISSION LABS: 1. CBC within normal limits, except red blood cells were low at 3.92. MCV was elevated at 102.3. MCHC was low at 31.7. 2. BMP within normal limits. 3. Urine test negative. 4. Toxicology screen negative for all substances of abuse and negative for ethyl alcohol. 5. Valproic acid from 10/24/2018, 90.4. MAJOR PROCEDURES OR TESTS: None. HOSPITAL COURSE: The most prominent symptoms and behaviors while the patient was here were patient isolating from social interactions. The patient did attend groups when prompted and directed by staff. The patient also reported paranoid delusions regarding hearing noises and feeling as though she was harassed when at her apartment and reported concerns for returning to her apartment after discharge. The treatment modalities utilized were milieu and group therapy. Depakote was continued and titrated to 1500 mg p.o. q.h.s. to target mood symptoms, was tolerated with no report of side effects and with good response. Patient was discharged on Depakote ER 1500 mg p.o. q.h.s., risperidone Consta 50 mg IM was administered on 10/23/2018, to target psychosis symptoms, was tolerated with no report of side effects and with good response. Cogentin 1 mg p.o. q.h.s. was continued. The patient has improved considerably , with no signs of psychiatric symptoms and no psychiatric symptoms expressed at time of discharge. The patient reports she has improved since admission, states to be in stable condition, feels safe to discharge, and she contracts for safety. The patient's response to treatment was good. There were no adverse or unexpected results of treatment. The patient was safe throughout her stay, active in treatment, engaged in groups, and was appropriate with staff and other patients. The patient met with the treatment team prior to discharge to assess readiness to discharge and review discharge plan. The treatment team consensus is the patient is in stable condition, has a safe discharge plan, and is ready to discharge today. CONDITION ON DISCHARGE: Patient is in stable condition and is no longer a danger to self or others, and is not gravely disabled due to mental illness. Patient is no longer in need of inpatient level of care, and can be safely and effectively treated within the community. The patients level of risk at time of discharge is low. MSE: The patient is casually dressed and with good hygiene , and looks stated age. Patient is sitting, posture is upright, and position is relaxed. Patient appears awake, alert, and responds appropriately and reasonably during interview. Patient is engaged, relates well to interviewer, and emotional facial expression is appropriate to situation and changes appropriately with topic. Patient is cooperative, makes comfortable eye contact , and movements are voluntary, deliberate, coordinated, and smooth and even with no inappropriate movements. Speech is spontaneous. R/R/V normal. Patient reports mood as euthymic. Patient's affect is constricted, incongruent with mood, and inappropriate to speech and circumstances. Patient has fairly linear and logical thinking. Patient denies suicidal and homicidal ideation, and denies hallucinations and reports delusions regarding returning to apartment. Patient appears to be a poor historian with poor judgement and poor insight into current condition. Patient has no apparent dysfunction in recent or remote memory noted, and no evidence of gross cognitive dysfunction noted at any point during the interview. DISCHARGE DIAGNOSES: 1. Schizoaffective disorder. 2. Posttraumatic stress disorder. CURRENT MEDICATIONS: After reviewing options, risks and benefits with the patient, the patient agrees to continue the followin. Melatonin 3-6 mg p.o. q.h.s. p.r.n. for insomnia. 2. Guar gum 1 each p.o. b.i.d. p.r.n. for constipation. 3. Tylenol 325 mg tablet, 650 mg p.o. q.4 hours p.r.n. for mild pain. 4. Vitamin B12 100 mcg p.o. daily. 5. Thera M Plus tablet 1 each p.o. daily. 6. Senokot-S 1-2 tablets p.o. b.i.d. 7. Cogentin 1 mg p.o. q.h.s. 8. Vitamin D3 3000 units p.o. daily. 9. Depakote ER 1500 mg p.o. q.h.s. 10. Ferrous sulfate 325 mg p.o. b.i.d. 11. Risperidone Consta 50 mg IM q.14 days, last administered 10/23/2018. These medications are reviewed with the patient at time of discharge to ensure accuracy and patient understanding. The patient's prescriptions will be continued by Dr. Alegria at [facility]. DISPOSITION: Patient left hospital independently and voluntarily, with plans to be admitted at [facility]. The patient is currently on a short-term certification and will continue to be on the short-term certification while being treated at [facility]. FOLLOWUP: watershed coordinator reports the appropriate outpatient follow-up services have been established and outpatient appointments have been scheduled. The patient received written instructions with times and dates of outpatient follow-up appointments. The following follow-up recommendations were provided to the patient at discharge: Continue psychotropic medications as prescribed and attend appointments as scheduled. Report any side effects to a psychiatric outpatient provider, a primary care provider, or other health patient care nursing assistant. Address any questions or problems concerning the psychotropic medications with a psychiatric outpatient provider, a primary care provider, or other health patient care nursing assistant. Contact [facility] or [facility], or go to the nearest emergency room, if you are ever a danger to yourself/others, or unable to care for yourself. As soon as possible, establish a routine medication management treatment with a psychiatric provider, establish routine therapy appointments, and follow-up with a primary care provider. LEGAL COURSE: The patient was admitted voluntarily. During the course of the patient's hospitalization, patient was placed on an M1 hold, followed by a short -term certification. Patient discharged today independently and voluntarily to [facility] for ongoing treatment. The patient continues to be on a short- term certification for treatment at [facility]. ATTITUDE AT TIME OF DISCHARGE: The patients attitude was positive at time of discharge, and patient reports looking forward to discharging today. The patient reports she feels safe to discharge, is no longer a danger to herself or others, is in stable condition, and contracts for safety. Patient states she will continue medications as prescribed, and establish medication management treatment with an outpatient provider after discharge. Patient reports she understands the information that has been provided to her, and she understands, accepts, and agrees to psychotropic medications. Patient describes internal protective factors as the coping skills she has learned while hospitalized here, and she plans to continue to practice these coping skills after discharge. LABS AND STUDIES: There were no pending labs or studies at time of discharge. ADVANCE DIRECTIVES: There were no advance directives on file, and patient was full code during this hospitalization. The following psychotropic medication treatment informed consent and recommendations were provided to the patient at time of discharge. Patient reports she understands, accepts, and agrees to the information that has been provided. PSYCHOTROPIC MEDICATION TREATMENT INFORMED CONSENT and RECOMMENDATIONS: Review nature of condition, diagnosis, and prognosis. Review nature and purpose of psychotropic medication treatment. Review type of psychotropic medications being prescribed. Review risk and benefits of psychotropic medication treatment. Review probable length of time will need to take medications. Review risk and benefits of not undergoing psychotropic medication treatment. Review alternative treatments to psychotropic medications. Review psychotropic medications contraindications, side effects, and importance of reporting any side effects to a psychiatric provider, primary care provider, or other health patient care nursing assistant. Review importance of her asking a psychiatric provider or primary care provider any questions or problems concerning the psychotropic medications. Review importance of reporting to a psychiatric provider, primary care provider, or other health patient care nursing assistant if she plans to or becomes . Review safety plan and the importance to contact [facility] or [facility] , or go to the nearest emergency room, if ever a danger to yourself/others, or unable to care for yourself. Recommend upon discharge to establish routine medication management treatment with a psychiatric provider, establish routine therapy appointments, and follow-up with a primary care provider. Verify patient understands, accepts, and agrees to the information that has been provided. /[id number]/MODL MTDD
== END 2018-10-24 10:42 | disposition home or self-care (01) | DRG 750 ==
LOC: EDUNIT# → BBEH 10-19 18:30
PROVIDERS: ADMIT Psychiatry & Neurology Psychiatry; ATTEND Psychiatry & Neurology Psychiatry
DX: F25.0 Schizoaffective disorder, bipolar type (principal); F43.10 Post-traumatic stress disorder, unspecified; Z56.0 Unemployment, unspecified; Z98.84 Bariatric surgery status
CPT/HCPCS: 80305; G0480; J2794

== ENCOUNTER 2018-12-08 21:33 | Emergency (ER) | payer MEDICAID, OTHER | END 2018-12-09 08:40 | disposition home or self-care (01) ==

== ENCOUNTER 2018-12-09 23:11 | Emergency (ER) | payer SELFPAY ==
--- NOTE | 2018-12-09 23:41 | EDPHY ---
H & P Stated Complaint: anxiety Time Seen by Provider: 12/09/18 23:21 HPI/ROS: Chief Complaint: Anxiety HPI: 28-year-old woman well known to this emergency department presenting complaining of anxiety. Patient has a longstanding history of anxiety. She is currently staying at healthy and expressed. She says that she saw spider in her room a became concerned that she may have been bit by the spider. She did start developing some shortness of breath and worsening anxiety. Denies any bites or lesions. No chest pain or shortness of breath. No tightness in her chest. No extremity injuries or pain. No rash. She has a history of multiple ER visits for anxiety including 1 which she was here last night. She has had multiple evaluations and does not meet any criteria for mental health hold. She is plan with her therapist to possibly go into a residential program tomorrow. ROS: 10 systems were reviewed and were negative except those elements noted in the HPI. PMH: Anxiety Social History: No smoking, no alcohol, no recreational drug use Family History: non-contributory Physical Exam: Gen: Awake, Alert, No Distress HEENT: Nose: no rhinorrhea Eyes: PERRLA, EOMI Mouth: Moist mucosa Neck: Supple, no JVD Chest: nontender, lungs clear to auscultation Heart: S1, S2 normal, no murmur Abd: Soft, non-tender, no guarding Back: no CVA tenderness, no midline tenderness Ext: no edema, non-tender Skin: no rash Neuro: CN II-XII intact, Sensation grossly intact, Strength 5/5 in bilateral upper and lower extremities - Personal History LMP (Females 10-55): Unknown Current Tetanus/Diphtheria Vaccine: Yes Current Tetanus Diphtheria and Acellular Pertussis (TDAP): Yes - Medical/Surgical History Hx Asthma: No Hx Chronic Respiratory Disease: No Hx Diabetes: No Hx Cardiac Disease: No Hx Renal Disease: No Hx Cirrhosis: No Hx Alcoholism: No Hx HIV/AIDS: No Hx Splenectomy or Spleen Trauma: No Other PMH: Depression, schizophrenia, gastric bypass, cholesectomy, PTSD - Social History Smoking Status: Never smoked Constitutional: Initial Vital Signs Temperature (C) 36.8 C 12/09/18 23:19 Heart Rate 104 H 12/09/18 23:19 Respiratory Rate 18 12/09/18 23:19 Blood Pressure 106/81 H 12/09/18 23:19 O2 Sat (%) 96 12/09/18 23:19 O2 Delivery Mode Room Air Allergies/Adverse Reactions: neomycin Allergy (Verified 12/08/18 21:41) Other-Enter Comments Home Medications: Medication Instructions Recorded Cyanocobalamin [Vitamin B12 (*)] 100 mcg PO DAILY tab 09/18/17 Multivitamins W-Minerals [Thera M 1 each PO DAILY tab 09/18/17 Plus Tablet (*)] Sennosides/Docusate Sodium 1 - 2 tab PO BID tab 09/27/18 [Senokot-S] Benztropine Mesylate [Cogentin] 1 mg PO HS #30 tab 10/09/18 Cholecalciferol Vit D3 [Vitamin D3 3,000 units PO DAILY #30 tab 10/09/18 (*)] Divalproex ER [Depakote ER 500 MG 1,500 mg PO DAILY #30 tab 10/09/18 (*)] Ferrous Sulfate [Ferrous Sulf 325 325 mg PO BID #30 tab 10/09/18 MG (*)] risperiDONE MICROSPHERES 50 mg IM Q14D 10/19/18 [Risperdal Consta 50mg (*)] Acetaminophen [Tylenol 325mg (*)] 650 mg PO Q4HRS PRN tab 10/24/18 Guar Gum [Benefiber/Nutrisource 1 each PO BID PRN pkt 10/24/18 Fiber (*)] Melatonin [Melatonin 3 MG (*)] 3 - 6 mg PO HS PRN tab 10/24/18 Medical Decision Making ED Course/Re-evaluation: [age] year old with anxiety. She is not suicidal. Not homicidal. Patient's mother is on the way to pick her up. She has a plan in place for later today. No indication for acute hospitalization. Patient has been seen by [facility] medical billing representative. - Data Points Laboratory Results: Laboratory Results 12/10/18 01:00 12/10/18 01:00 12/10/18 12/10/18 12/10/18 02:00 01:00 01:00 WBC RBC Hgb Hct MCV MCH MCHC RDW Plt Count MPV Neut % (Auto) Lymph % (Auto) Cedar % (Auto) Eos % (Auto) Baso % (Auto) Nucleat RBC Rel Count Absolute Neuts (auto) Absolute Lymphs (auto) Absolute Monos (auto) Absolute Eos (auto) Absolute Basos (auto) Absolute Nucleated RBC Immature Gran % Immature Gran # Sodium 139 mEq/L mEq/L (135-145) Potassium 4.1 mEq/L mEq/L (3.5-5.2) Chloride 106 mEq/L mEq/L (97-110) Carbon Dioxide 23 mEq/l mEq/l (22-31) Anion Gap 10 mEq/L mEq/L (6-14) BUN 14 mg/dL mg/dL (7-23) Creatinine 0.7 mg/dL mg/dL (0.6-1.0) Estimated GFR > 60 Glucose 101 mg/dL H mg/dL (70-100) Calcium 9.1 mg/dL mg/dL (8.5-10.4) Beta HCG, Qual NEGATIVE Urine Opiates Screen NEGATIVE (NEGATIVE) Urine Barbiturates NEGATIVE (NEGATIVE) Ur Phencyclidine Scrn NEGATIVE (NEGATIVE) Ur Amphetamine Screen NEGATIVE (NEGATIVE) U Benzodiazepines Scrn NON-NEGATIVE H (NEGATIVE) Urine Cocaine Screen NEGATIVE (NEGATIVE) U Marijuana (THC) Screen NEGATIVE (NEGATIVE) Ethyl Alcohol < 10 mg/dL mg/dL (0-10) 12/10/18 01:00 WBC 13.66 10^3/uL H 10^3/uL (3.80-9.50) RBC 3.87 10^6/uL L 10^6/uL (4.18-5.33) Hgb 12.4 g/dL L g/dL (12.6-16.3) Hct 37.7 % L % (38.0-47.0) MCV 97.4 fL fL (81.5-99.8) MCH 32.0 pg pg (27.9-34.1) MCHC 32.9 g/dL g/dL (32.4-36.7) RDW 13.6 % % (11.5-15.2) Plt Count 315 10^3/uL 10^3/uL (150-400) MPV 10.1 fL fL (8.7-11.7) Neut % (Auto) 56.5 % % (39.3-74.2) Lymph % (Auto) 30.5 % % (15.0-45.0) Cedar % (Auto) 10.1 % % (4.5-13.0) Eos % (Auto) 2.1 % % (0.6-7.6) Baso % (Auto) 0.4 % % (0.3-1.7) Nucleat RBC Rel Count 0.0 % % (0.0-0.2) Absolute Neuts (auto) 7.72 10^3/uL H 10^3/uL (1.70-6.50) Absolute Lymphs (auto) 4.16 10^3/uL H 10^3/uL (1.00-3.00) Absolute Monos (auto) 1.38 10^3/uL H 10^3/uL (0.30-0.80) Absolute Eos (auto) 0.29 10^3/uL 10^3/uL (0.03-0.40) Absolute Basos (auto) 0.06 10^3/uL 10^3/uL (0.02-0.10) Absolute Nucleated RBC 0.00 10^3/uL 10^3/uL (0-0.01) Immature Gran % 0.4 % % (0.0-1.1) Immature Gran # 0.05 10^3/uL 10^3/uL (0.00-0.10) Sodium Potassium Chloride Carbon Dioxide Anion Gap BUN Creatinine Estimated GFR Glucose Calcium Beta HCG, Qual Urine Opiates Screen Urine Barbiturates Ur Phencyclidine Scrn Ur Amphetamine Screen U Benzodiazepines Scrn Urine Cocaine Screen U Marijuana (THC) Screen Ethyl Alcohol Departure - Departure Disposition: Home, Routine, Self-Care Clinical Impression: Anxiety Condition: Good Instructions: Anxiety (ED) Additional Instructions: Follow up with mental health provider as planned later today. Referrals: Patient,NotPresent [Unknown] - As per Instructions
[2018-12-10 01:09] LABS: PLATELET COUNT 315 10^3/uL (150-400)
[2018-12-10 07:33] VITALS: BP 128/74
== END 2018-12-10 07:33 | disposition home or self-care (01) ==
LOC: EDUNIT#
DX: F41.9 Anxiety disorder, unspecified (principal); F20.0 Paranoid schizophrenia
CPT/HCPCS: 80305; G0480

== ENCOUNTER 2018-12-10 20:12 | Emergency (ER) | payer MEDICAID, OTHER ==
--- NOTE | 2018-12-10 20:49 | EDPHY ---
H & P Stated Complaint: BIT BY SPIDER Time Seen by Provider: 12/10/18 20:36 HPI/ROS: CHIEF COMPLAINT: Anxiety HISTORY OF PRESENT ILLNESS: The patient is a 28-year-old female with a history of anxiety and schizophrenia. She has been here each night for the last 3 days. She has received multiple evaluations. She is scheduled to go into an inpatient treatment center tomorrow. Her mom who is a psychiatrist is on her way to pick her up. The patient lives in a hotel. She was concerned that she got bit by a spider yesterday. She was seen here and evaluated. Lab work was normal. She is still concerned about this today. She points to her left index finger. There is no swelling, bite cervantes or erythema. She states that she feels continually anxious. She denies recent drugs or alcohol. At one point the patient told me she could not move her legs but has been seen moving and was able to ambulate. Severity: Moderate Modifying factors: None REVIEW OF SYSTEMS: Constitutional: denies: chills, fever, recent illness, recent injury EENTM: denies: blurred vision, double vision, nose congestion Respiratory: denies: cough, shortness of breath Cardiac: denies: chest pain, irregular heart rate, lightheadedness, palpitations Gastrointestinal/Abdominal: denies: abdominal pain, diarrhea, nausea, vomiting, blood streaked stools Genitourinary: denies: dysuria, frequency, hematuria, pain Musculoskeletal: denies: joint pain, muscle pain Skin: denies: lesions, rash, jaundice, bruising Neurological: denies: headache, numbness, paresthesia, tingling, dizziness, weakness Hematologic/Lymphatic: denies: blood clots, easy bleeding, easy bruising Immunologic/allergic: denies: HIV/AIDS, transplant 10 systems reviewed and negative except as noted EXAM: GENERAL: Anxiety, moderate distress HEAD: Atraumatic, normocephalic. EYES: Pupils equal round and reactive to light, extraocular movements intact, sclera anicteric, conjunctiva are normal. ENT: TMs normal, nares patent, oropharynx clear without exudates. Moist mucous membranes. NECK: Normal range of motion, supple without lymphadenopathy or JVD. LUNGS: Breath sounds clear to auscultation bilaterally and equal. No wheezes rales or rhonchi. HEART: Regular rate and rhythm without murmurs, rubs or gallops. ABDOMEN: Soft, nontender, normoactive bowel sounds. No guarding, no rebound. No masses appreciated. BACK: No CVA tenderness, no spinal tenderness, step-offs or deformities EXTREMITIES: Normal range of motion, no pitting or edema. No clubbing or cyanosis. NEUROLOGICAL: Cranial nerves II through XII grossly intact. Normal speech, normal gait. 5/5 strength, normal movement in all extremities, normal sensation , normal reflexes PSYCH: Tearful SKIN: Warm, dry, normal turgor, no visible rashes or lesions. Source: Patient Exam Limitations: No limitations - Personal History LMP (Females 10-55): Unknown Current Tetanus Diphtheria and Acellular Pertussis (TDAP): Unsure - Medical/Surgical History Hx Asthma: No Hx Chronic Respiratory Disease: No Hx Diabetes: No Hx Cardiac Disease: No Hx Renal Disease: No Hx Cirrhosis: No Hx Alcoholism: No Hx HIV/AIDS: No Hx Splenectomy or Spleen Trauma: No Other PMH: Depression, schizophrenia, gastric bypass, cholesectomy, PTSD - Family History Significant Family History: No pertinent family hx - Social History Smoking Status: Never smoked Alcohol Use: None Constitutional: Initial Vital Signs Temperature (C) 36.7 C 12/10/18 20:15 Heart Rate 96 12/10/18 20:15 Respiratory Rate 16 12/10/18 20:15 Blood Pressure 123/80 H 12/10/18 20:15 O2 Sat (%) 97 12/10/18 20:15 O2 Delivery Mode Room Air Allergies/Adverse Reactions: neomycin Allergy (Verified 12/08/18 21:41) Other-Enter Comments Home Medications: Medication Instructions Recorded Cyanocobalamin [Vitamin B12 (*)] 100 mcg PO DAILY tab 09/18/17 Multivitamins W-Minerals [Thera M 1 each PO DAILY tab 09/18/17 Plus Tablet (*)] Sennosides/Docusate Sodium 1 - 2 tab PO BID tab 09/27/18 [Senokot-S] Benztropine Mesylate [Cogentin] 1 mg PO HS #30 tab 10/09/18 Cholecalciferol Vit D3 [Vitamin D3 3,000 units PO DAILY #30 tab 10/09/18 (*)] Divalproex ER [Depakote ER 500 MG 1,500 mg PO DAILY #30 tab 10/09/18 (*)] Ferrous Sulfate [Ferrous Sulf 325 325 mg PO BID #30 tab 10/09/18 MG (*)] risperiDONE MICROSPHERES 50 mg IM Q14D 10/19/18 [Risperdal Consta 50mg (*)] Acetaminophen [Tylenol 325mg (*)] 650 mg PO Q4HRS PRN tab 10/24/18 Guar Gum [Benefiber/Nutrisource 1 each PO BID PRN pkt 10/24/18 Fiber (*)] Melatonin [Melatonin 3 MG (*)] 3 - 6 mg PO HS PRN tab 10/24/18 Medical Decision Making ED Course/Re-evaluation: The patient remains very anxious. She is perseverating about being bit by a spider. There is no indication that she was bit by a spider. She has a variety of complaints that seem to change every time we speak to her. Her mom is on her way to pick her up and will take her to treatment program tomorrow. Patient is not suicidal or homicidal. No sign of any significant medical conditions. Stable vital signs. 8:55 p.m. Or security was notified by the 911 line that the patient was repeatedly calling 911 and tying up there phone lines. They were asked to take her phone away. When they did so she began screaming and kicking and fighting. She clearly has no weakness in her extremities. Her possessions were taken. We are awaiting her mom's arrival. Differential Diagnosis: Partial list of the Differential diagnosis considered include but were not limited to; psychosis, anxiety, depression, and although unlikely based on the history and physical exam, I also considered Guillain-[place], spinal cord injury , allergic reaction, intoxication. Departure - Departure Disposition: Home, Routine, Self-Care Clinical Impression: Anxiety Schizoaffective disorder Qualifiers: Schizoaffective disorder type: bipolar Qualified Code(s): F25.0 - Schizoaffective disorder, bipolar type Condition: Fair Instructions: Anxiety (ED) Additional Instructions: Go to the treatment program tomorrow as planned. Referrals: Yanely Thakkar PA [Primary Care Provider] - As per Instructions
[2018-12-10 22:18] VITALS: BP 119/78
== END 2018-12-10 23:10 | disposition home or self-care (01) ==
DX: F41.9 Anxiety disorder, unspecified (principal); F25.0 Schizoaffective disorder, bipolar type

== ENCOUNTER 2019-02-13 00:53 | Emergency (ER) | payer MEDICAID ==
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
[2019-02-13 03:26] LABS: PLATELET COUNT 351 10^3/uL (150-400)
[2019-02-13 07:29] VITALS: BP 99/70
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
--- NOTE | 2019-02-13 08:07 | ASMTTCLDSP ---
TLC Discharge Disposition Disposition: Answers: Discharge If Answers: Yes DISCHARGED: Patient/family given suicide hotline info & SAMHSA brochure? Disposition Notes: Notes: Pt stated commitment or ability to keep self safe, denied thoughts of self harm or harm to others. Pt expressed willingness to f/u with [facility]. Mother arrived to pick pt up from the ED at discharge. Pt was given local hotline information and [facility] brochure After an Attempt and encouraged to follow up with [facility] appointment tomorrow at 2:30 pm. Discharge Concerns/Recommendations: Notes: In consultation with [facility] ED physician, Gamaliel Keane MD, Dr. Keane concurred that pt does not appear to meet 27-65 criteria requiring psychiatric hospitalization as pt does not appear to be an imminent risk of harm to self/others/gravely disabled due to a mental illness condition. Dr. Lynch provided verbal order read back vacating M1 hold at 0800 hrs. Was patient given the Answers: Not applicable Inpatient Behavioral Health Prohibited Belongings List while in the ED? Psychiatrist vacating M1 Gamaliel Keane MD Hold: Date and time M1 hold 02/13/2019 08:00 AM vacated (time format is hh:mm): Type of Hold: Answers: M1/72-hour Hold Hold initiated by: Answers: ED Physician Date Signed: 02/13/2019 08:05 AM Electronically Signed By:Shaka Bellamy
== END 2019-02-13 08:23 | disposition home or self-care (01) ==
DX: R45.851 Suicidal ideations (principal); F31.9 Bipolar disorder, unspecified; Z79.899 Other long term (current) drug therapy
CPT/HCPCS: G0480

== ENCOUNTER 2019-02-19 01:38 | Emergency (ER) | payer MEDICAID ==
--- NOTE | 2019-02-19 01:59 | EDPHY ---
H & P Stated Complaint: "doesnt feel safe" no plan Time Seen by Provider: 02/19/19 01:44 HPI/ROS: Chief Complaint: "Does not feel safe", gravely disabled HPI: 28-year-old woman well known to this emergency department with a history of bipolar disorder vs schizoaffective disorder, bipolar type being brought in by her mother for evaluation. Patient was recently hospitalized at the end of last month and discharged with plans for outpatient follow-up. Patient was post follow up at [facility]. Mother is taking her to [facility] in [place] but the patient immediately walked out and refused to be seen. Her mother also took her to the [place] office and again she entered turned around refuse to be seen. Patient is continuing calling her mother stating that she does not set feel safe. She is staying in a hotel where she keeps the appliance drawn. Mother is a psychiatrist in feels that she is gravely disabled at this time. Patient was given invega while in the hospital but has not had any repeat doses since that time. Mother reports compliant with follow-up she is continuing to report. This history is provided by her mother. See the patient called her mother said that she needed to go the crisis Center. She is currently staying in a hotel in [place]. Patient then station to go to the hospital. Patient's mother says she take her to [facility]. The patient then became screaming at her and told her that she did not bring her to this facility she would take a cab. After speaking with the patient she admits she has not been following up. When I asked why she did she said she just could not. When I asked her why that is she could not provide me any reason. She denies staying in a hotel. She is just staying with friends she says. She is unable to give me any names or any locations where she has been staying. The patient is very vague. She refuses to give any specific answers. She denies being suicidal or homicidal but just says "I do not know" to every question that I ask her. There is some aspects to her interaction that make me question whether there might be some borderline personality aspects to her condition. Patient wants a mental health evaluation. Will put her on a detainer, labs and reassess. ROS: 10 systems were reviewed and were negative except those elements noted in the HPI. PMH: Bipolar disorder versus schizoaffective disorder, bipolar type Social History: No smoking, no alcohol, no recreational drug use Family History: non-contributory Physical Exam: Gen: Awake, Alert, No Distress HEENT: Nose: no rhinorrhea Eyes: PERRLA, EOMI Mouth: Moist mucosa Neck: Supple, no JVD Chest: nontender, lungs clear to auscultation Heart: S1, S2 normal, no murmur Abd: Soft, non-tender, no guarding Back: no CVA tenderness, no midline tenderness Ext: no edema, non-tender Skin: no rash Neuro: CN II-XII intact, Sensation grossly intact, Strength 5/5 in bilateral upper and lower extremities - Personal History LMP (Females 10-55): Unknown Current Tetanus/Diphtheria Vaccine: Yes Current Tetanus Diphtheria and Acellular Pertussis (TDAP): Yes - Medical/Surgical History Hx Asthma: No Hx Chronic Respiratory Disease: No Hx Diabetes: No Hx Cardiac Disease: No Hx Renal Disease: No Hx Cirrhosis: No Hx Alcoholism: No Hx HIV/AIDS: No Hx Splenectomy or Spleen Trauma: No Other PMH: Depression, gastric bypass, cholesectomy, PTSD, bipolar - Social History Smoking Status: Never smoked Constitutional: Initial Vital Signs Temperature (C) 36.5 C 02/19/19 01:40 Heart Rate 98 02/19/19 01:40 Respiratory Rate 18 02/19/19 01:40 Blood Pressure 135/84 H 02/19/19 01:40 O2 Sat (%) 95 02/19/19 01:40 O2 Delivery Mode Room Air Allergies/Adverse Reactions: neomycin Allergy (Verified 02/13/19 00:54) Other-Enter Comments Home Medications: Medication Instructions Recorded Cyanocobalamin [Vitamin B12 (*)] 100 mcg PO DAILY tab 09/18/17 Multivitamins W-Minerals [Thera M 1 each PO DAILY tab 09/18/17 Plus Tablet (*)] Sennosides/Docusate Sodium 1 - 2 tab PO BID tab 09/27/18 [Senokot-S] Benztropine Mesylate [Cogentin] 1 mg PO HS #30 tab 10/09/18 Cholecalciferol Vit D3 [Vitamin D3 3,000 units PO DAILY #30 tab 10/09/18 (*)] Divalproex ER [Depakote ER 500 MG 1,500 mg PO DAILY #30 tab 10/09/18 (*)] Ferrous Sulfate [Ferrous Sulf 325 325 mg PO BID #30 tab 10/09/18 MG (*)] Acetaminophen [Tylenol 325mg (*)] 650 mg PO Q4HRS PRN tab 10/24/18 Guar Gum [Benefiber/Nutrisource 1 each PO BID PRN pkt 10/24/18 Fiber (*)] Melatonin [Melatonin 3 MG (*)] 3 - 6 mg PO HS PRN tab 10/24/18 INVEGA 02/13/19 Prazosin HCl 02/13/19 Medical Decision Making ED Course/Re-evaluation: Patient has been seen by Shaka, mental health senior visual designer. He saw her last week as well. Patient is not a danger to herself or others. Does not meet criteria. He agrees that symptoms are likely could were consistent with borderline personality. Patient will be discharged. She has been instructed to follow up with her appointments at [facility] and 2 continue with her usual medications. I have dropped the medical detain her hold. - Data Points Laboratory Results: Laboratory Results 02/19/19 02:20 02/19/19 02:20 02/19/19 02/19/19 02/19/19 02:20 02:20 02:20 WBC 11.48 10^3/uL H 10^3/uL (3.80-9.50) RBC 4.23 10^6/uL 10^6/uL (4.18-5.33) Hgb 13.4 g/dL g/dL (12.6-16.3) Hct 40.6 % % (38.0-47.0) MCV 96.0 fL fL (81.5-99.8) MCH 31.7 pg pg (27.9-34.1) MCHC 33.0 g/dL g/dL (32.4-36.7) RDW 13.1 % % (11.5-15.2) Plt Count 407 10^3/uL H 10^3/uL (150-400) MPV 10.0 fL fL (8.7-11.7) Neut % (Auto) 47.5 % % (39.3-74.2) Lymph % (Auto) 40.8 % % (15.0-45.0) Sierra % (Auto) 8.7 % % (4.5-13.0) Eos % (Auto) 2.4 % % (0.6-7.6) Baso % (Auto) 0.3 % % (0.3-1.7) Nucleat RBC Rel Count 0.0 % % (0.0-0.2) Absolute Neuts (auto) 5.45 10^3/uL 10^3/uL (1.70-6.50) Absolute Lymphs (auto) 4.68 10^3/uL H 10^3/uL (1.00-3.00) Absolute Monos (auto) 1.00 10^3/uL H 10^3/uL (0.30-0.80) Absolute Eos (auto) 0.28 10^3/uL 10^3/uL (0.03-0.40) Absolute Basos (auto) 0.04 10^3/uL 10^3/uL (0.02-0.10) Absolute Nucleated RBC 0.00 10^3/uL 10^3/uL (0-0.01) Immature Gran % 0.3 % % (0.0-1.1) Immature Gran # 0.03 10^3/uL 10^3/uL (0.00-0.10) Sodium 140 mEq/L mEq/L (135-145) Potassium 3.9 mEq/L mEq/L (3.5-5.2) Chloride 105 mEq/L mEq/L (97-110) Carbon Dioxide 23 mEq/l mEq/l (22-31) Anion Gap 12 mEq/L mEq/L (6-14) BUN 6 mg/dL L mg/dL (7-23) Creatinine 0.7 mg/dL mg/dL (0.6-1.0) Estimated GFR > 60 Glucose 91 mg/dL mg/dL (70-100) Calcium 9.4 mg/dL mg/dL (8.5-10.4) Beta HCG, Qual NEGATIVE Ethyl Alcohol < 10 mg/dL mg/dL (0-10) Departure - Departure Disposition: Home, Routine, Self-Care Clinical Impression: Personality disorder Condition: Fair Instructions: Borderline Personality Disorder (DC) Additional Instructions: Follow up at [facility] without fail. Referrals: [facility],. [Clinic] - As per Instructions
[2019-02-19 02:31] LABS: PLATELET COUNT 407 10^3/uL (150-400)
[2019-02-19 06:20] VITALS: BP 135/67
--- NOTE | 2019-02-19 06:23 | ASMTTCLDSP ---
TLC Discharge Disposition Disposition: Answers: Discharge If Answers: Yes DISCHARGED: Patient/family given suicide hotline info & SAMHSA brochure? Disposition Notes: Notes: Pt stated commitment or ability to keep self safe, denied thoughts of self harm or harm to others. Pt was given local hotline information and SAMHSA brochure After an Attempt and encouraged to follow up with [facility]. Discharge Concerns/Recommendations: Notes: In consultation with [facility] ED physician, Michael Reese MD, Dr. Reese concurred that pt does not appear to meet 27-65 criteria requiring psychiatric hospitalization as pt does not appear to be an imminent risk of harm to self/others/gravely disabled due to a mental illness condition. Was patient given the Answers: Not applicable Inpatient Behavioral Health Prohibited Belongings List while in the ED? Date Signed: 02/19/2019 06:23 AM Electronically Signed By:Shaka Bellamy
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
== END 2019-02-19 06:18 | disposition home or self-care (01) ==
DX: F60.9 Personality disorder, unspecified (principal); F32.9 Major depressive disorder, single episode, unspecified
CPT/HCPCS: G0480

== ENCOUNTER 2019-02-20 01:25 | Emergency (ER) | payer MEDICAID ==
--- NOTE | 2019-02-20 01:42 | EDPHY ---
H & P Stated Complaint: M-1 HOLD, OFF INVEGA SINCE 01/29 Time Seen by Provider: 02/20/19 01:35 HPI/ROS: Chief Complaint: Mental health hold HPI: 28-year-old woman who carries a diagnosis of either bipolar disorder or schizoaffective disorder, bipolar type. Patient also exhibits many care tripped 6 of borderline personality disorder. She is being sent in from [facility] on a mental health hold for med clearance for transfer to [facility]. I saw the patient this morning when she was brought in by mother for concerns that the patient feels unsafe. The patient has been noncompliant with appointments to [facility]. She had a mental health evaluation this morning and did not meet hold criteria at this time. Patient was discharged with a plan to follow up with [facility] this morning but she went home and slept instead. She went back to [facility] tonight in the evaluated her in deemed her gravely disabled. She has been placed on a mental health hold and plan will be to transfer her to [facility]. ROS: 10 systems were reviewed and were negative except those elements noted in the HPI. PMH: Bipolar disorder versus schizoaffective disorder, bipolar type, possible borderline personality Social History: No smoking, no alcohol, no recreational drug use Family History: non-contributory Physical Exam: Gen: Awake, Alert, No Distress HEENT: Nose: no rhinorrhea Eyes: PERRLA, EOMI Mouth: Moist mucosa Neck: Supple, no JVD Chest: nontender, lungs clear to auscultation Heart: S1, S2 normal, no murmur Abd: Soft, non-tender, no guarding Back: no CVA tenderness, no midline tenderness Ext: no edema, non-tender Skin: no rash Neuro: CN II-XII intact, Sensation grossly intact, Strength 5/5 in bilateral upper and lower extremities - Personal History LMP (Females 10-55): 22-28 Days Ago Current Tetanus/Diphtheria Vaccine: Yes Current Tetanus Diphtheria and Acellular Pertussis (TDAP): Yes - Medical/Surgical History Hx Asthma: No Hx Chronic Respiratory Disease: No Hx Diabetes: No Hx Cardiac Disease: No Hx Renal Disease: No Hx Cirrhosis: No Hx Alcoholism: No Hx HIV/AIDS: No Hx Splenectomy or Spleen Trauma: No Other PMH: Depression, gastric bypass, cholesectomy, PTSD, bipolar, - Social History Smoking Status: Never smoked Constitutional: Initial Vital Signs Temperature (C) 36.8 C 02/20/19 01:29 Heart Rate 84 02/20/19 01:29 Respiratory Rate 18 02/20/19 01:29 Blood Pressure 128/78 H 02/20/19 01:29 O2 Sat (%) 98 02/20/19 01:29 O2 Delivery Mode Room Air Allergies/Adverse Reactions: neomycin Allergy (Verified 02/20/19 01:32) Other-Enter Comments Home Medications: Medication Instructions Recorded Cyanocobalamin [Vitamin B12 (*)] 100 mcg PO DAILY tab 09/18/17 Multivitamins W-Minerals [Thera M 1 each PO DAILY tab 09/18/17 Plus Tablet (*)] Sennosides/Docusate Sodium 1 - 2 tab PO BID tab 09/27/18 [Senokot-S] Benztropine Mesylate [Cogentin] 1 mg PO HS #30 tab 10/09/18 Cholecalciferol Vit D3 [Vitamin D3 3,000 units PO DAILY #30 tab 10/09/18 (*)] Divalproex ER [Depakote ER 500 MG 1,500 mg PO DAILY #30 tab 10/09/18 (*)] Ferrous Sulfate [Ferrous Sulf 325 325 mg PO BID #30 tab 10/09/18 MG (*)] Acetaminophen [Tylenol 325mg (*)] 650 mg PO Q4HRS PRN tab 10/24/18 Guar Gum [Benefiber/Nutrisource 1 each PO BID PRN pkt 10/24/18 Fiber (*)] Melatonin [Melatonin 3 MG (*)] 3 - 6 mg PO HS PRN tab 10/24/18 INVEGA 02/13/19 Prazosin HCl 02/13/19 Medical Decision Making ED Course/Re-evaluation: s medically cleared. She has been accepted the [facility] by Dr. Garrett Newby. I have signed the EMTALA. - Data Points Laboratory Results: Laboratory Results 02/20/19 02:50 02/20/19 02:50 02/20/19 02/20/19 02/20/19 02:50 02:50 02:50 WBC 11.58 10^3/uL H 10^3/uL (3.80-9.50) RBC 4.19 10^6/uL 10^6/uL (4.18-5.33) Hgb 13.3 g/dL g/dL (12.6-16.3) Hct 41.3 % % (38.0-47.0) MCV 98.6 fL fL (81.5-99.8) MCH 31.7 pg pg (27.9-34.1) MCHC 32.2 g/dL L g/dL (32.4-36.7) RDW 13.1 % % (11.5-15.2) Plt Count 404 10^3/uL H 10^3/uL (150-400) MPV 9.8 fL fL (8.7-11.7) Neut % (Auto) 50.1 % % (39.3-74.2) Lymph % (Auto) 37.0 % % (15.0-45.0) Hubbard % (Auto) 10.2 % % (4.5-13.0) Eos % (Auto) 2.0 % % (0.6-7.6) Baso % (Auto) 0.4 % % (0.3-1.7) Nucleat RBC Rel Count 0.0 % % (0.0-0.2) Absolute Neuts (auto) 5.79 10^3/uL 10^3/uL (1.70-6.50) Absolute Lymphs (auto) 4.29 10^3/uL H 10^3/uL (1.00-3.00) Absolute Monos (auto) 1.18 10^3/uL H 10^3/uL (0.30-0.80) Absolute Eos (auto) 0.23 10^3/uL 10^3/uL (0.03-0.40) Absolute Basos (auto) 0.05 10^3/uL 10^3/uL (0.02-0.10) Absolute Nucleated RBC 0.00 10^3/uL 10^3/uL (0-0.01) Immature Gran % 0.3 % % (0.0-1.1) Immature Gran # 0.04 10^3/uL 10^3/uL (0.00-0.10) Sodium 139 mEq/L mEq/L (135-145) Potassium 4.0 mEq/L mEq/L (3.5-5.2) Chloride 103 mEq/L mEq/L (97-110) Carbon Dioxide 25 mEq/l mEq/l (22-31) Anion Gap 11 mEq/L mEq/L (6-14) BUN 9 mg/dL mg/dL (7-23) Creatinine 0.8 mg/dL mg/dL (0.6-1.0) Estimated GFR > 60 Glucose 102 mg/dL H mg/dL (70-100) Calcium 9.7 mg/dL mg/dL (8.5-10.4) Beta HCG, Qual NEGATIVE Urine Opiates Screen Acetaminophen < 10 mcg/mL L mcg/mL (10-30) Urine Barbiturates Ur Phencyclidine Scrn Ur Amphetamine Screen U Benzodiazepines Scrn Urine Cocaine Screen U Marijuana (THC) Screen Ethyl Alcohol < 10 mg/dL mg/dL (0-10) 02/20/19 02:12 WBC RBC Hgb Hct MCV MCH MCHC RDW Plt Count MPV Neut % (Auto) Lymph % (Auto) Hubbard % (Auto) Eos % (Auto) Baso % (Auto) Nucleat RBC Rel Count Absolute Neuts (auto) Absolute Lymphs (auto) Absolute Monos (auto) Absolute Eos (auto) Absolute Basos (auto) Absolute Nucleated RBC Immature Gran % Immature Gran # Sodium Potassium Chloride Carbon Dioxide Anion Gap BUN Creatinine Estimated GFR Glucose Calcium Beta HCG, Qual Urine Opiates Screen NEGATIVE (NEGATIVE) Acetaminophen Urine Barbiturates NEGATIVE (NEGATIVE) Ur Phencyclidine Scrn NEGATIVE (NEGATIVE) Ur Amphetamine Screen NEGATIVE (NEGATIVE) U Benzodiazepines Scrn NEGATIVE (NEGATIVE) Urine Cocaine Screen NEGATIVE (NEGATIVE) U Marijuana (THC) Screen NEGATIVE (NEGATIVE) Ethyl Alcohol Departure - Departure Disposition: Other Psych, Not [place] Clinical Impression: Grave disability, Schizoaffective disorder Condition: Fair Referrals: Patient,NotPresent [Unknown] - As per Instructions
[2019-02-20 03:01] LABS: PLATELET COUNT 404 10^3/uL (150-400)
[2019-02-20] MEDS ORDERED: LOPERAMIDE HCL 2 MG CAP PO ONE (08:35)
[2019-02-20 08:47] VITALS: BP 116/65
[2019-02-20] MEDS ORDERED: LORazepam 1 MG TAB PO ONE (10:34)
== END 2019-02-20 10:36 ==
LOC: EDUNIT#
DX: Z73.6 Limitation of activities due to disability (principal); F25.0 Schizoaffective disorder, bipolar type
CPT/HCPCS: 80305; G0480